=== PATIENT | female | born 1980 | race Caucasian/White ===

== ENCOUNTER 2017-10-20 13:07 | Inpatient (IN) | payer MEDICAID, OTHER ==
[2017-10-20 14:31] LABS: HEMATOCRIT 38.2 % (36.0-47.0); HEMOGLOBIN 13.4 g/dl (12.0-15.5); MEAN CORPUSCULAR HEMOGLOBIN 29.4 pg (27.0-33.0); MEAN CORPUSCULAR HGB CONC 35.1 g/dl (32.0-36.5); MEAN CORPUSCULAR VOLUME 83.8 fl (80.0-96.0); PLATELET COUNT, AUTOMATED 349 10^3/uL (150-450); RED BLOOD COUNT 4.56 10^6/uL (4.00-5.40); RED CELL DISTRIBUTION WIDTH 12.5 % (11.5-14.5)
[2017-10-20 14:50] LABS: CONTROL LINE HCG INT CTR LINE PRESENT; HCG, SERUM QUALITATIVE NEGATIVE (NEGATIVE)
[2017-10-20 14:53] LABS: AMPHETAMINES LEVEL URINE NEGATIVE (NEGATIVE); BARBITURATES URINE NEGATIVE (NEGATIVE); BENZODIAZEPINES URINE NEGATIVE (NEGATIVE); CANNABINOIDS URINE NEGATIVE (NEGATIVE); COCAINE METABOLITE URINE NEGATIVE (NEGATIVE); METHADONE URINE NEGATIVE (NEGATIVE); OPIATES URINE NEGATIVE (NEGATIVE); PHENCYCLIDINE URINE NEGATIVE (NEGATIVE)
[2017-10-20 15:07] LABS: ACETAMINOPHEN LEVEL < 2.0 UG/ML (10.0-30.0); ALBUMIN 4.1 GM/DL (3.2-5.2); ALBUMIN/GLOBULIN RATIO 1.03 (1.00-1.93); ALKALINE PHOSPHATASE 77 U/L (45-117); ALT/SGPT 17 U/L (12-78); ANION GAP 9 MEQ/L (8-16); AST/SGOT 7 U/L (7-37); BILIRUBIN,DIRECT 0.1 MG/DL (0.0-0.2); BILIRUBIN,TOTAL 0.4 MG/DL (0.2-1.0); BLOOD UREA NITROGEN 10 MG/DL (7-18); CALCIUM LEVEL 9.4 MG/DL (8.5-10.1); CARBON DIOXIDE LEVEL 25 MEQ/L (21-32); CHLORIDE LEVEL 103 MEQ/L (98-107); CREATININE FOR GFR 0.69 MG/DL (0.55-1.30); ETHYL ALCOHOL (ETHANOL) < 0.003 % (0.000-0.010); GLOMERULAR FILTRATION RATE > 60.0 (>60); GLUCOSE, FASTING 297 MG/DL (70-100); POTASSIUM SERUM 4.3 MEQ/L (3.5-5.1); SALICYLATE LEVEL < 1.7 MG/DL (5.0-30.0); SODIUM LEVEL 137 MEQ/L (136-145); THYROID STIMULATING HORMONE 0.692 uIU/ML (0.358-3.740); TOTAL PROTEIN 8.1 GM/DL (6.4-8.2)
[2017-10-20 18:18] LABS: ESTIMATED AVERAGE GLUCOSE 263 MG/DL (60-110); HEMOGLOBIN A1c 10.8 %
[2017-10-20] MEDS ORDERED: GLUCOSE 4 GM CHEW TABLET PO (20:30)
[2017-10-20] MEDS ORDERED: GLUCAGON FOR INJ 1 MG VIAL (J1610) SC (20:30)
[2017-10-20] MEDS ORDERED: MAALOX 30 ML SUSP *UDC PO (20:30)
[2017-10-20] MEDS ORDERED: MOM 30ML SUSPENSION UDC PO (20:30)
[2017-10-20] MEDS ORDERED: DEXTROSE 50% 50 ML SYRINGE IV (20:30)
[2017-10-20] MEDS: traZODone 50 MG TAB PO (22:45)
[2017-10-20] MEDS: HumaLOG INSULIN (NovoLOG) PER UNIT SC (22:47)
[2017-10-20 22:48] LABS: BEDSIDE GLUCOSE 298 MG/DL (70-105)
[2017-10-21 05:51] LABS: BEDSIDE GLUCOSE 191 MG/DL (70-105)
[2017-10-21 06:55] LABS: BEDSIDE GLUCOSE 236 MG/DL (70-105)
[2017-10-21] MEDS: HumaLOG INSULIN (NovoLOG) PER UNIT SC ×4 (06:57→21:03)
[2017-10-21] MEDS: INFLUENZA QUADRIVALENT PF VACCINE 0.5ML SYRINGE (90686) IM (08:47)
[2017-10-21 11:53] LABS: BEDSIDE GLUCOSE 333 MG/DL (70-105)
[2017-10-21] MEDS: FLUoxetine 10 MG CAP PO (15:43)
[2017-10-21 17:06] LABS: BEDSIDE GLUCOSE 349 MG/DL (70-105)
[2017-10-21 20:26] LABS: BEDSIDE GLUCOSE 307 MG/DL (70-105)
[2017-10-21] MEDS: ACETAMINOPHEN TAB 650MG DOSE (2X325MG) PO (20:27)
[2017-10-21] MEDS: traZODone 50 MG TAB PO (20:59)
[2017-10-22 06:21] LABS: BEDSIDE GLUCOSE 250 MG/DL (70-105)
[2017-10-22] MEDS: HumaLOG INSULIN (NovoLOG) PER UNIT SC ×4 (06:26→21:03)
[2017-10-22 07:43] LABS: BASO % 0.2 % (0.0-1.0); EOS % 0.7 % (0.0-3.0); HEMATOCRIT 34.8 % (36.0-47.0); IMMATURE GRANULOCYTE % 0.3 % (0-3.0); LYMPH # 2.7 10^3/uL (1.5-4.5); LYMPH % 43.3 % (24.0-44.0); MEAN CORPUSCULAR HEMOGLOBIN 29.4 pg (27.0-33.0); MEAN CORPUSCULAR HGB CONC 34.5 g/dl (32.0-36.5); MEAN CORPUSCULAR VOLUME 85.3 fl (80.0-96.0); MONO # 0.3 10^3/uL (0.0-0.8); MONO % 4.2 % (0.0-5.0); NEUTROPHILS # 3.2 10^3/uL (1.8-7.7); NEUTROPHILS % 51.3 % (36.0-66.0); PLATELET COUNT, AUTOMATED 304 10^3/uL (150-450); RED BLOOD COUNT 4.08 10^6/uL (4.00-5.40); RED CELL DISTRIBUTION WIDTH 12.7 % (11.5-14.5); WHITE BLOOD COUNT 6.2 10^3/uL (4.0-10.0)
[2017-10-22 08:09] LABS: ALBUMIN 3.3 GM/DL (3.2-5.2); ALBUMIN/GLOBULIN RATIO 0.92 (1.00-1.93); ALKALINE PHOSPHATASE 62 U/L (45-117); ALT/SGPT 13 U/L (12-78); ANION GAP 6 MEQ/L (8-16); AST/SGOT < 3 U/L (7-37); BILIRUBIN,TOTAL 0.2 MG/DL (0.2-1.0); BLOOD UREA NITROGEN 19 MG/DL (7-18); CALCIUM LEVEL 9.3 MG/DL (8.5-10.1); CARBON DIOXIDE LEVEL 24 MEQ/L (21-32); CHLORIDE LEVEL 108 MEQ/L (98-107); CREATININE FOR GFR 0.68 MG/DL (0.55-1.30); GLOMERULAR FILTRATION RATE > 60.0 (>60); GLUCOSE, FASTING 196 MG/DL (70-100); POTASSIUM SERUM 4.1 MEQ/L (3.5-5.1); SODIUM LEVEL 138 MEQ/L (136-145); TOTAL PROTEIN 6.9 GM/DL (6.4-8.2)
[2017-10-22] MEDS: FLUoxetine 10 MG CAP PO (08:34)
[2017-10-22 12:09] LABS: BEDSIDE GLUCOSE 315 MG/DL (70-105)
[2017-10-22 16:59] LABS: BEDSIDE GLUCOSE 258 MG/DL (70-105)
[2017-10-22] MEDS: traZODone 50 MG TAB PO (20:58)
[2017-10-22 21:03] LABS: BEDSIDE GLUCOSE 277 MG/DL (70-105)
[2017-10-22] MEDS: LEVEMIR (INSULIN DETEMIR) 1 UNITS/0.01ML SC (21:56)
[2017-10-23 06:22] LABS: BEDSIDE GLUCOSE 219 MG/DL (70-105)
[2017-10-23] MEDS: HumaLOG INSULIN (NovoLOG) PER UNIT SC ×4 (06:34→20:58)
[2017-10-23] MEDS: FLUoxetine 20 MG CAP PO (10:16)
[2017-10-23 12:30] LABS: BEDSIDE GLUCOSE 238 MG/DL (70-105)
[2017-10-23] MEDS: ACETAMINOPHEN TAB 650MG DOSE (2X325MG) PO (12:36)
[2017-10-23 17:14] LABS: BEDSIDE GLUCOSE 317 MG/DL (70-105)
[2017-10-23] MEDS: traZODone 50 MG TAB PO (20:57)
[2017-10-23] MEDS: LEVEMIR (INSULIN DETEMIR) 1 UNITS/0.01ML SC (20:58)
[2017-10-23 21:01] LABS: BEDSIDE GLUCOSE 317 MG/DL (70-105)
[2017-10-24 06:22] LABS: BEDSIDE GLUCOSE 221 MG/DL (70-105)
[2017-10-24] MEDS: HumaLOG INSULIN (NovoLOG) PER UNIT SC ×4 (06:30→21:00)
[2017-10-24] MEDS: FLUoxetine 20 MG CAP PO (08:22)
[2017-10-24 12:02] LABS: BEDSIDE GLUCOSE 276 MG/DL (70-105)
[2017-10-24 17:28] LABS: BEDSIDE GLUCOSE 275 MG/DL (70-105)
[2017-10-24 21:03] LABS: BEDSIDE GLUCOSE 244 MG/DL (70-105)
[2017-10-24] MEDS: traZODone 50 MG TAB PO (21:03)
[2017-10-24] MEDS: LEVEMIR (INSULIN DETEMIR) 1 UNITS/0.01ML SC (21:04)
[2017-10-25 06:28] LABS: BEDSIDE GLUCOSE 219 MG/DL (70-105)
[2017-10-25] MEDS: HumaLOG INSULIN (NovoLOG) PER UNIT SC ×4 (06:42→22:05)
[2017-10-25] MEDS: FLUoxetine 20 MG CAP PO (07:55)
[2017-10-25 12:16] LABS: BEDSIDE GLUCOSE 288 MG/DL (70-105)
[2017-10-25 17:27] LABS: BEDSIDE GLUCOSE 276 MG/DL (70-105)
[2017-10-25 21:27] LABS: BEDSIDE GLUCOSE 269 MG/DL (70-105)
[2017-10-25] MEDS: traZODone 50 MG TAB PO (21:29)
[2017-10-25] MEDS: LEVEMIR (INSULIN DETEMIR) 1 UNITS/0.01ML SC (22:06)
[2017-10-26 06:39] LABS: BEDSIDE GLUCOSE 167 MG/DL (70-105)
[2017-10-26] MEDS: HumaLOG INSULIN (NovoLOG) PER UNIT SC ×2 (07:06→12:14)
[2017-10-26] MEDS: FLUoxetine 20 MG CAP PO (08:01)
[2017-10-26 11:54] LABS: BEDSIDE GLUCOSE 228 MG/DL (70-105)
== END 2017-10-26 13:55 | disposition home or self-care (01) | DRG 751 ==
LOC: M ED 13:07 → M ED INP 20:22 → M PSY 21:33
DX: F33.2 Major depressive disorder, recurrent severe without psychotic features (principal); E10.9 Type 1 diabetes mellitus without complications; J45.990 Exercise induced bronchospasm; Z79.899 Other long term (current) drug therapy

== ENCOUNTER → 2019-07-24 | Outpatient (REF) | payer MEDICAID ==
[~2019-07-24] MED LIST: FLUO20CA22 PO; TRAZ1TAB10 PO
== END ==
LOC: M LAB REF 14:59
PROVIDERS: ATTEND Nurse Practitioner Family
DX: E11.65 Type 2 diabetes mellitus with hyperglycemia (principal)

== ENCOUNTER → 2020-03-06 | Outpatient (CLI) | payer OTHER ==
--- NOTE | 2020-03-10 13:14 | SLEEPCENT ---
NOCTURNAL POLYSOMNOGRAPHY DATE: 03/06/2020 ORDERED BY: KARLENE Parsons Nocturnal polysomnography was performed for evaluation of sleep physiology in this patient with a history of nonrestorative sleep and excessive somnolence. 9 hours and 24 minutes of data were reviewed. There were 460.5 minutes of sleep identified. Sleep latency was prolonged at 39 minutes. REM latency was prolonged at 195 minutes. Sleep architecture once established was good. There were four REM cycles noted. Overall sleep efficiency was 82.5%. The patient's electrocardiogram showed a sinus rhythm with an average heart rate of 92 beats per minute. Rate range 84 to 104. There were occasional PVCs seen. EEG showed reasonably normal waveforms for wake and sleep. There were no focal events identified. There were only four obstructive respiratory events identified of 10 seconds in duration or greater for an apnea-hypopnea index within normal limits at 0.5. Loud snoring was, however, noted and arousals from respiratory events when snoring was included occurred 2.7 times per hour. There were no significant oxygen desaturations appreciated and scattered limb activity was appreciated, but no trains of events. IMPRESSION: Normal nocturnal polysomnography with snoring.
== END ==
LOC: M SLEEP 20:00
PROVIDERS: ATTEND Physician Assistant
DX: R40.0 Somnolence (principal); R06.83 Snoring

== ENCOUNTER → 2020-12-15 | Outpatient (CLI) | payer OTHER ==
[~2020-12-15] MED LIST changes: +GLIP5TAB8 PO; +LANTINJ4 SC
--- NOTE | 2020-12-15 14:12 | REP ---
INDICATION: RT FOOT WOUND WITH NONCOMPRESSIBLE BIGG'S COMPARISON: None. TECHNIQUE: Real-time sonographic evaluation of the right lower extremity arteries with Doppler FINDINGS: All numeric values represent peak systolic velocities in cm/SEC The ankle brachial index is 1.16. 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 No significant stenosis was identified. An ankle brachial index was also obtained on the left which is 1.16 IMPRESSION: As above <Electronically signed by Misael Copeland > 12/15/20 [id number]
== END ==
LOC: M RAD 10:20
PROVIDERS: ATTEND Physician Assistant
DX: E10.621 Type 1 diabetes mellitus with foot ulcer (principal); L97.412 Non-pressure chronic ulcer of right heel and midfoot with fat layer exposed; I70.234 Atherosclerosis of native arteries of right leg with ulceration of heel and midfoot; E10.51 Type 1 diabetes mellitus with diabetic peripheral angiopathy without gangrene

== ENCOUNTER 2020-12-16 15:14 | Inpatient (IN) | payer OTHER ==
[~2020-12-16] VITALS: Ht 165.1 cm; Wt 78.5 kg
[~2020-12-16 15:14] MED LIST changes: -GLIP5TAB8 PO; -LANTINJ4 SC; +VANCOMYCIN HCL 1,000 MG, VIAL MATE ADAPTER 1 EACH in NS 250 ML IV SCH
[2020-12-16] MEDS ORDERED: ACETAMINOPHEN 500 MG TAB PO ONE (20:15)
[2020-12-16] MEDS ORDERED: NS 1,000 ML IV ONE (20:45)
[2020-12-16 20:51] LABS: BASO % 0.4 % (0.0-1.0); EOS % 0.3 % (0.0-3.0); HEMATOCRIT 30.1 % (36.0-47.0); HEMOGLOBIN 9.8 g/dl (12.0-15.5); LYMPH # 2.1 10^3/uL (1.5-5.0); LYMPH % 18.4 % (24.0-44.0); MEAN CORPUSCULAR HEMOGLOBIN 27.4 pg (27.0-33.0); MEAN CORPUSCULAR HGB CONC 32.6 g/dl (32.0-36.5); MEAN CORPUSCULAR VOLUME 84.1 fl (80.0-96.0); MONO # 0.6 10^3/uL (0.0-0.8); MONO % 5.4 % (2.0-8.0); NEUTROPHILS # 8.4 10^3/uL (1.5-8.5); NEUTROPHILS % 74.4 % (36.0-66.0); PLATELET COUNT, AUTOMATED 447 10^3/uL (150-450); RED BLOOD COUNT 3.58 10^6/uL (4.00-5.40); WHITE BLOOD COUNT 11.2 10^3/uL (4.0-10.0)
[2020-12-16] MEDS ORDERED: PIPERACILLIN/TAZOBACTAM SOD 3.375 GM in D5W MINI-BAG PLUS 50 ML IV ONE (21:00)
[2020-12-16] MEDS ORDERED: HumaLOG INSULIN (NovoLOG) PER UNIT SC SCH (21:00)
[2020-12-16] MEDS ORDERED: VANCOMYCIN HCL 1,500 MG in NS 250 ML IV ONE (21:00)
[2020-12-16] MEDS ORDERED: GLIP5TAB8 PO (21:03)
[2020-12-16] MEDS ORDERED: LANTINJ4 SC (21:03)
[2020-12-16] MEDS ORDERED: PIPERACILLIN/TAZOBACTAM SOD 4.5 GM in D5W MINI-BAG PLUS 50 ML IV ONE (21:05)
[2020-12-16] MEDS ORDERED: HOME MED LIST COMPLETE! XX SCH (21:05)
[2020-12-16 21:07] LABS: BLOOD UREA NITROGEN 23 MG/DL (7-18); CALCIUM LEVEL 9.2 MG/DL (8.5-10.1); CARBON DIOXIDE LEVEL 28 MEQ/L (21-32); CHLORIDE LEVEL 97 MEQ/L (98-107); CREATININE FOR GFR 1.01 MG/DL (0.55-1.30); GLOMERULAR FILTRATION RATE > 60.0 (>60); GLUCOSE, FASTING 142 MG/DL (70-100); POTASSIUM SERUM 4.2 MEQ/L (3.5-5.1); SODIUM LEVEL 131 MEQ/L (136-145)
[2020-12-16 21:15] LABS: RSV AMPLIFICATION NEGATIVE (NEGATIVE)
[2020-12-16 21:17] LABS: ERYTHROCYTE SEDIMENTATION RATE 117 mm/hr (0-20)
--- NOTE | 2020-12-16 21:29 | REPVR ---
PROCEDURE INFORMATION: Exam: US Duplex Right Lower Extremity Veins, Limited Exam date and time: 12/16/2020 9:01 PM Age: 40 years old Clinical indication: Swelling (edema) of limb; Lower extremity, right; Additional info: R/O dvt rle TECHNIQUE: Imaging protocol: Real-time Duplex ultrasound of the Right Lower Extremity with 2-D seth scale, color Doppler flow and spectral waveform analysis with image documentation. Limited exam was focused on the right lower extremity veins. COMPARISON: US UNI LOW EXTREM ARTERIAL LIMIT 12/15/2020 10:47 AM FINDINGS: Right deep veins: Suboptimal visualization of the calf veins. The common femoral, femoral and popliteal veins are patent without thrombus. Normal Doppler waveforms. Normal compressibility and/or augmentation response. Right superficial veins: Unremarkable. Saphenofemoral junction is patent without thrombus. Soft tissues: Unremarkable. Lymph nodes: Mildly enlarged right inguinal lymph nodes, measuring up to 2.8 x 2.1 0.2 cm, likely reactive. IMPRESSION: 1. No sonographic evidence of deep venous thrombosis. 2. Mildly enlarged right inguinal lymph nodes, likely reactive. Electronically signed by: Yariel Dallas On 12/16/2020 21:29:17 PM
--- NOTE | 2020-12-16 21:38 | REPVR ---
PROCEDURE INFORMATION: Exam: XR Right Foot Exam date and time: 12/16/2020 9:18 PM Age: 40 years old Clinical indication: Pain; Foot; Right; Additional info: R lateral diabetic foot infection/ulcer TECHNIQUE: Imaging protocol: XR Right foot. Views: 3 or more views. COMPARISON: US Duplex, Ext,LOWER veins,unilat RIGHT 12/16/2020 8:36 PM FINDINGS: Bones/joints: No radiographic evidence of acute fracture or dislocation. Alignment anatomic. Prominent erosive/destructive changes in the 5th metatarsal head and distal shaft. Questionable mild erosive/destructive changes in the proximal metaphysis of the 5th proximal phalanx. Soft tissues: Large soft tissue ulceration along the lateral aspect of the 5th metatarsal head with a moderate amount of subjacent soft tissue gas, encircling the metatarsal neck. IMPRESSION: Acute osteomyelitis of the 5th metatarsal and, possibly, the 5th proximal phalanx, as described above. Electronically signed by: Yariel Dallas On 12/16/2020 21:38:11 PM
[2020-12-16 21:45] LABS: HEMOGLOBIN A1c 10.3 %
--- OUTSIDE RECORDS SUMMARY | 2020-12-16 21:47 | CCD ---
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 Active confirmed 854838079 Problem Elevated C-reactive protein (CRP) R79.82 Active confirmed 941389645662140 Problem Paresthesia of skin R20.2 Active confirmed 13358708 Problem Muscle weakness (generalized) M62.81 Active confirm ed 84746999 Problem Sleep disorder, unspecified G47.9 Active confirmed 27987116 ALLERGIES No Known Allergies ENCOUNTERS from 1981 to 2020-12-09 Encounter Location Date Provider Diagnosis [facility] [address] [facility] [address] [facility] [phone] [place] [address] Dec, Radha Mccall IMMUNIZATIONS No Information SOCIAL HISTORY Tobacco Use: Social History Observation Description Date Details (start date - stop date) Never Smoker Sex Assigned At : Social History Observation Description Sex Assigned At Unknown Education: Question Answer Notes Level of Education: Not finished High School Language: Question Answer Notes Languages spoken: Thai Hoahaoism: Question Answer Notes Hoahaoism No cheondoism beliefs that would impact health care. Alcohol Screening: Question Answer Notes Did you have a drink containing alcohol in the past year? No Points 0 Interpretation Negative Tobacco Use: Question Answer Notes Are you a: never smoker REASON FOR REFERRAL No Information VITAL SIGNS No information MEDICATIONS Medication SIG (Take, Route, Frequency, Duration) Notes Start Da te End Date Status Trulicity 0.75 MG/0.5ML Subcutaneous for 28 Not-Taking Vitamin D (Ergocalciferol) 1.25 MG (25127 UT) 1 capsul e Orally Weekly for 30 day(s) Nov, Not-Taking glipiZIDE 5 MG 1 tablet 30 minutes before breakfast Orally BID Active Vitamin D (Cholecalciferol) 50 MCG (2000 UT) 1 capsule Orally Once a day for 30 day(s) Not-Taking Clindamycin HCl 300 MG TAKE ONE CAPSULE BY MOUTH FOUR TIMES A DA Y Oral for 10 Not-Taking Lantus 100 UNIT/ML 40 UNITS Subcutaneous DAILY Active Steglatro 15 MG 1 tablet Orally Once a day for 30 day(s) Not-Taking OneTouch Verio - In Vitro for 13 No t-Taking Doxycycline Hyclate 100 MG 1 capsule Orally Twice a day FINISHES 12/09 Active PROCEDURES No Information RESULTS No Results REASON FOR VISIT U/s MEDICAL (GENERAL) HISTORY Type Description Date Medical History Diabetes Mellitus Medical History Migraines/ Headaches Medical History Asthma Medical History Anxiety Medical History Herpes Genitalis Medical History Chlamydia Surgical History Retina Reattachment 06/2019 Surgical History Tonsillectomy > 20 Years ago Surgical History D&C 2010 Hospitalization History Surgical related Hospitalization History Right Foot wound -[facility] 11/2020 Goals [place] No Information Health Concerns No Information MEDICAL EQUIPMENT No Information MENTAL STATUS No Information FUNCTIONAL STATUS No Information ASSESSMENTS No Information PLAN OF TREATMENT Next Appt Details Provider Name:Radha Colonvins, 12-16 02:00:00 PM, [address], , [place], [address], Insurance Providers Payer Name Payer Address Payer Phone Insured Name Patient Relati onship to Insured Coverage Start Date Coverage End Date [facility] [employer] [address] [facility] [phone] GRAY FARR
--- OUTSIDE RECORDS SUMMARY | 2020-12-16 21:48 | CCD ---
Author Author [facility] Address Unknown Phone Unavailable Care Team Providers Care Yardage Estimator Name Role Phone Beatriz Guerra POWER ELECTRONICS RESEARCH ENGINEER Unavailable Unavailable Jesus DUPONT MD Unavailable Unavailable Jesus DUPONT MD Unavailable Unavailable Jesus DUPONT MD Unavailable Unavailable Jesus DUPONT MD Unavailable Unavailable Jesus DUPONT MD Unavailable Unavailable Jesus DUPONT MD Unavailable Unavailable Leatha, A Shannon POWER ELECTRONICS RESEARCH ENGINEER Unavailable Unavailable Leatha, A Shannon POWER ELECTRONICS RESEARCH ENGINEER Unavailable Unavailable Leatha, A Shannon POWER ELECTRONICS RESEARCH ENGINEER Unavailable Unavailable Leatha, A Shannon POWER ELECTRONICS RESEARCH ENGINEER Unavailable Unavailable Leatha, A Shannon POWER ELECTRONICS RESEARCH ENGINEER Unavailable Unavailable Leatha, A Shannon POWER ELECTRONICS RESEARCH ENGINEER Unavailable Unavailable Leatha, A Shannon POWER ELECTRONICS RESEARCH ENGINEER Unavailable Unavailable Leatha, A Shannon POWER ELECTRONICS RESEARCH ENGINEER Unavailable Unavailable Leatha, A Shannon POWER ELECTRONICS RESEARCH ENGINEER Unavailable Unavailable Leatha, A Shannon POWER ELECTRONICS RESEARCH ENGINEER Unavailable Unavailable Leatha, A Shannon POWER ELECTRONICS RESEARCH ENGINEER Unavailable Unavailable Leatha, A Shannon POWER ELECTRONICS RESEARCH ENGINEER Unavailable Unavailable Leatha, A Shannon POWER ELECTRONICS RESEARCH ENGINEER Unavailable Unavailable Leatha, A Shannon POWER ELECTRONICS RESEARCH ENGINEER Unavailable Unavailable Leatha, A Shannon POWER ELECTRONICS RESEARCH ENGINEER Unavailable Unavailable Leatha, A Shannon POWER ELECTRONICS RESEARCH ENGINEER Unavailable Unavailable Leatha, A Shannon POWER ELECTRONICS RESEARCH ENGINEER Unavailable Unavailable Leatha, A Shannon POWER ELECTRONICS RESEARCH ENGINEER Unavailable Unavailable Leatha, A Shannon POWER ELECTRONICS RESEARCH ENGINEER Unavailable Unavailable Leatha, A Shannon POWER ELECTRONICS RESEARCH ENGINEER Unavailable Unavailable Leatha, A Shannon POWER ELECTRONICS RESEARCH ENGINEER Unavailable Unavailable Leatha, A Shannon POWER ELECTRONICS RESEARCH ENGINEER Unavailable Unavailable Leatha, A Shannon POWER ELECTRONICS RESEARCH ENGINEER Unavailable Unavailable Leatha, A Shannon POWER ELECTRONICS RESEARCH ENGINEER Unavailable Unavailable Leatha, A Shannon POWER ELECTRONICS RESEARCH ENGINEER Unavailable Unavailable Leatha, A Shannon POWER ELECTRONICS RESEARCH ENGINEER Unavailable Unavailable Leatha, A Shannon POWER ELECTRONICS RESEARCH ENGINEER Unavailable Unavailable Leatha, A Shannon POWER ELECTRONICS RESEARCH ENGINEER Unavailable Unavailable Leatha, A Shannon POWER ELECTRONICS RESEARCH ENGINEER Unavailable Unavailable Leatha, A Shannon POWER ELECTRONICS RESEARCH ENGINEER Unavailable Unavailable Leatha, A Shannon POWER ELECTRONICS RESEARCH ENGINEER Unavailable Unavailable Leatha, A Shannon POWER ELECTRONICS RESEARCH ENGINEER Unavailable Unavailable Leatha, A Shannon POWER ELECTRONICS RESEARCH ENGINEER Unavailable Unavailable Leatha, A Shannon POWER ELECTRONICS RESEARCH ENGINEER Unavailable Unavailable Leatha, A Shannon POWER ELECTRONICS RESEARCH ENGINEER Unavailable Unavailable Leatha, A Shannon POWER ELECTRONICS RESEARCH ENGINEER Unavailable Unavailable Leatha, A Shannon POWER ELECTRONICS RESEARCH ENGINEER Unavailable Unavailable Leatha, A Shannon POWER ELECTRONICS RESEARCH ENGINEER Unavailable Unavailable Leatha, A Shannon POWER ELECTRONICS RESEARCH ENGINEER Unavailable Unavailable Leatha, A Shannon POWER ELECTRONICS RESEARCH ENGINEER Unavailable Unavailable Leatha, A Shannon POWER ELECTRONICS RESEARCH ENGINEER Unavailable Unavailable Leatha, A Shannon POWER ELECTRONICS RESEARCH ENGINEER Unavailable Unavailable Leatha, A Shannon POWER ELECTRONICS RESEARCH ENGINEER Unavailable Unavailable Leatha, A Shannon POWER ELECTRONICS RESEARCH ENGINEER Unavailable Unavailable Leatha, A Shannon POWER ELECTRONICS RESEARCH ENGINEER Unavailable Unavailable Leatha, A Shannon POWER ELECTRONICS RESEARCH ENGINEER Unavailable Unavailable Leatha, A Shannon POWER ELECTRONICS RESEARCH ENGINEER Unavailable Unavailable Leatha, A Shannon POWER ELECTRONICS RESEARCH ENGINEER Unavailable Unavailable KHANNA, Gordon BETH MD Unavailable Unavailable KHANNA, Gordon BETH MD Unavailable Unavailable KHANNA, A IGNACIA MD Unavailable Unavailable KHANNA, A IGNACIA MD Unavailable Unavailable KHANNA, A IGNACIA MD Unavailable Unavailable KHANNA, A IGNACIA MD Unavailable Unavailable KHANNA, A IGNACIA MD Unavailable Unavailable KHANNA, A IGNACIA MD Unavailable Unavailable KHANNA, A IGNACIA MD Unavailable Unavailable KHANNA, A IGNACIA MD Unavailable Unavailable KHANNA, A IGNACIA MD Unavailable Unavailable KHANNA, A IGNACIA MD Unavailable Unavailable KHANNA, A IGNACIA MD Unavailable Unavailable KHANNA, A IGNACIA MD Unavailable Unavailable KHANNA, A IGNACIA MD Unavailable Unavailable KHANNA, A IGNACIA MD Unavailable Unavailable KHANNA, A IGNACIA MD Unavailable Unavailable KHANNA, A IGNACIA MD Unavailable Unavailable KHANNA, A IGNACIA MD Unavailable Unavailable KHANNA, A IGNACIA MD Unavailable Unavailable KHANNA, A IGNACIA MD Unavailable Unavailable KHANNA, A IGNACIA MD Unavailable Unavailable KHANNA, A IGNACIA MD Unavailable Unavailable KHANNA, A IGNACIA MD Unavailable Unavailable KHANNA, A IGNACIA MD Unavailable Unavailable KHANNA, A IGNACIA MD Unavailable Unavailable KHANNA, A IGANCIA MD Unavailable Unavailable KHANNA, A IGNACIA MD Unavailable Unavailable KHANNA, A IGNACIA MD Unavailable Unavailable KHANNA, A IGNACIA MD Unavailable Unavailable PITER PETTY Unavailable Unavailable Yazdanyar, Amirfarbod Unavailable Unavailable Yazdanyar, Amirfarbod Unavailable Unavailable Yazdanyar, Amirfarbod Unavailable Unavailable Yazdanyar, Amirfarbod Unavailable Unavailable Yazdanyar, Amirfarbod Unavailable Unavailable Yazdanyar, Amirfarbod Unavailable Unavailable Yazdanyar, Amirfarbod Unavailable Unavailable Yazdanyar, Amirfarbod Unavailable Unavailable Yazdanyar, Amirfarbod Unavailable Unavailable Yazdanyar, Amirfarbod Unavailable Unavailable Yazdanyar, Amirfarbod Unavailable Unavailable Yazdanyar, Amirfarbod Unavailable Unavailable Yazdanyar, Amirfarbod Unavailable Unavailable TERRIE PEREZ MD Unavailable Unavailable TERRIE PEREZ MD Unavailable Unavailable Leatha, A Shannon POWER ELECTRONICS RESEARCH ENGINEER Unavailable Unavailable Leatha, A Shannon POWER ELECTRONICS RESEARCH ENGINEER Unavailable Unavailable Leatha, A Shannon POWER ELECTRONICS RESEARCH ENGINEER Unavailable Unavailable Leatha, A Shannon POWER ELECTRONICS RESEARCH ENGINEER Unavailable Unavailable Leatha, A Shannon POWER ELECTRONICS RESEARCH ENGINEER Unavailable Unavailable Leatha, A Shannon POWER ELECTRONICS RESEARCH ENGINEER Unavailable Unavailable Leatha, A Shannon POWER ELECTRONICS RESEARCH ENGINEER Unavailable Unavailable Leatha, A Shannon POWER ELECTRONICS RESEARCH ENGINEER Unavailable Unavailable Leatha, A Shannon POWER ELECTRONICS RESEARCH ENGINEER Unavailable Unavailable Leatha, A Shannon POWER ELECTRONICS RESEARCH ENGINEER Unavailable Unavailable Leatha, A Shannon POWER ELECTRONICS RESEARCH ENGINEER Unavailable Unavailable Leatha, A Shannon POWER ELECTRONICS RESEARCH ENGINEER Unavailable Unavailable Leatha, A Shannon POWER ELECTRONICS RESEARCH ENGINEER Unavailable Unavailable Leatha, A Shannon POWER ELECTRONICS RESEARCH ENGINEER Unavailable Unavailable Leatha, A Shannon POWER ELECTRONICS RESEARCH ENGINEER Unavailable Unavailable Leatha, A Shannon POWER ELECTRONICS RESEARCH ENGINEER Unavailable Unavailable Leatha, A Shannon POWER ELECTRONICS RESEARCH ENGINEER Unavailable Unavailable Leatha, A Shannon POWER ELECTRONICS RESEARCH ENGINEER Unavailable Unavailable Leatha, A Shannon POWER ELECTRONICS RESEARCH ENGINEER Unavailable Unavailable Leatha, A Shannon POWER ELECTRONICS RESEARCH ENGINEER Unavailable Unavailable Leatha, A Shannon POWER ELECTRONICS RESEARCH ENGINEER Unavailable Unavailable Leatha, A Shannon POWER ELECTRONICS RESEARCH ENGINEER Unavailable Unavailable Leatha, A Shannon POWER ELECTRONICS RESEARCH ENGINEER Unavailable Unavailable Leatha, A Shannon POWER ELECTRONICS RESEARCH ENGINEER Unavailable Unavailable Leatha, A Shannon POWER ELECTRONICS RESEARCH ENGINEER Unavailable Unavailable Leatha, A Shannon POWER ELECTRONICS RESEARCH ENGINEER Unavailable Unavailable Leatha, A Shannon POWER ELECTRONICS RESEARCH ENGINEER Unavailable Unavailable Leatha, A Shannon POWER ELECTRONICS RESEARCH ENGINEER Unavailable Unavailable Leatha, A Shannon POWER ELECTRONICS RESEARCH ENGINEER Unavailable Unavailable Leatha, A Shannon POWER ELECTRONICS RESEARCH ENGINEER Unavailable Unavailable Leatha, A Shannon POWER ELECTRONICS RESEARCH ENGINEER Unavailable Unavailable Leatha, A Shannon POWER ELECTRONICS RESEARCH ENGINEER Unavailable Unavailable Leatha, A Shannon POWER ELECTRONICS RESEARCH ENGINEER Unavailable Unavailable Leatha, A Shannon POWER ELECTRONICS RESEARCH ENGINEER Unavailable Unavailable Leatha, A Shannon POWER ELECTRONICS RESEARCH ENGINEER Unavailable Unavailable Leatha, A Shannon POWER ELECTRONICS RESEARCH ENGINEER Unavailable Unavailable Leatha, A Shannon POWER ELECTRONICS RESEARCH ENGINEER Unavailable Unavailable Leatha, A Shannon POWER ELECTRONICS RESEARCH ENGINEER Unavailable Unavailable Leatha, A Shannon POWER ELECTRONICS RESEARCH ENGINEER Unavailable Unavailable Leatha, A Shannon POWER ELECTRONICS RESEARCH ENGINEER Unavailable Unavailable Leatha, A Shannon POWER ELECTRONICS RESEARCH ENGINEER Unavailable Unavailable Leatha, A Shannon POWER ELECTRONICS RESEARCH ENGINEER Unavailable Unavailable Leatha, A Shannon POWER ELECTRONICS RESEARCH ENGINEER Unavailable Unavailable Leatha, A Shannon POWER ELECTRONICS RESEARCH ENGINEER Unavailable Unavailable Leatha, A Shannon POWER ELECTRONICS RESEARCH ENGINEER Unavailable Unavailable Leatha, A Shannon POWER ELECTRONICS RESEARCH ENGINEER Unavailable Unavailable Leatha, A Shannon POWER ELECTRONICS RESEARCH ENGINEER Unavailable Unavailable Leatha, A Shannon POWER ELECTRONICS RESEARCH ENGINEER Unavailable Unavailable MEYERS, M KOBE PA Unavailable Unavailable MEYERS, M KOBE PA Unavailable Unavailable MEYERS, M KOBE PA Unavailable Unavailable MEYERS, M KOBE PA Unavailable Unavailable MEYERS, M KOBE PA Unavailable Unavailable MEYERS, M KOBE PA Unavailable Unavailable MEYERS, M KOBE PA Unavailable Unavailable MEYERS, M KOBE PA Unavailable Unavailable MEYERS, M KOBE PA Unavailable Unavailable MEYERS, M KOBE PA Unavailable Unavailable MEYERS, M KOBE PA Unavailable Unavailable MEYERS, M KOBE PA Unavailable Unavailable MEYERS, M KOBE PA Unavailable Unavailable MEYERS, M KOBE PA Unavailable Unavailable MEYERS, M KOBE PA Unavailable Unavailable MEYERS, M KOBE PA Unavailable Unavailable MEYERS, M KOBE PA Unavailable Unavailable MEYERS, M KOBE PA Unavailable Unavailable MEYERS, M KOBE PA Unavailable Unavailable MEYERS, M KOBE PA Unavailable Unavailable MEYERS, M KOBE PA Unavailable Unavailable MEYERS, M KOBE PA Unavailable Unavailable MEYERS, M KOBE PA Unavailable Unavailable MEYERS, M KOBE PA Unavailable Unavailable MEYERS, M KOBE PA Unavailable Unavailable MEYERS, M KOBE PA Unavailable Unavailable MEYERS, M KOBE PA Unavailable Unavailable MEYERS, M KOBE PA Unavailable Unavailable MEYERS, M KOBE PA Unavailable Unavailable MEYERS, M KOBE PA Unavailable Unavailable MEYERS, M KOEB PA Unavailable Unavailable MEYERS, M KOBE PA Unavailable Unavailable MEYERS, M KOBE PA Unavailable Unavailable MEYERS, M KOBE PA Unavailable Unavailable MEYERS, M KOBE PA Unavailable Unavailable GRANADOS, B JOSE Unavailable Unavailable ROBERT LEON MD Unavailable Unavailable ROBERT LEON MD Unavailable Unavailable ROBERT LEON MD Unavailable Unavailable ROBERT LEON MD Unavailable Unavailable ROBERT LEON MD Unavailable Unavailable ROBERT LEON MD Unavailable Unavailable ROBERT LEON MD Unavailable Unavailable ROBERT LEON MD Unavailable Unavailable CARLYLE SIMEON MD Unavailable Unavailable LINCOLN, B EDVIN POWER ELECTRONICS RESEARCH ENGINEER Unavailable Unavailable LINCOLN, B EDVIN POWER ELECTRONICS RESEARCH ENGINEER Unavailable Unavailable LINCOLN, B EDVIN POWER ELECTRONICS RESEARCH ENGINEER Unavailable Unavailable LINCOLN, B EDVIN POWER ELECTRONICS RESEARCH ENGINEER Unavailable Unavailable LINCOLN, B EDVIN POWER ELECTRONICS RESEARCH ENGINEER Unavailable Unavailable LINCOLN, B EDVIN POWER ELECTRONICS RESEARCH ENGINEER Unavailable Unavailable LINCOLN, B EDVIN POWER ELECTRONICS RESEARCH ENGINEER Unavailable Unavailable LINCOLN, B EDVIN POWER ELECTRONICS RESEARCH ENGINEER Unavailable Unavailable LINCOLN, B EDVIN POWER ELECTRONICS RESEARCH ENGINEER Unavailable Unavailable LINCOLN, B EDVIN POWER ELECTRONICS RESEARCH ENGINEER Unavailable Unavailable LINCOLN, B EDVIN POWER ELECTRONICS RESEARCH ENGINEER Unavailable Unavailable LINCOLN, B EDVIN POWER ELECTRONICS RESEARCH ENGINEER Unavailable Unavailable LINCOLN, B EDVIN POWER ELECTRONICS RESEARCH ENGINEER Unavailable Unavailable LINCOLN, B EDVIN POWER ELECTRONICS RESEARCH ENGINEER Unavailable Unavailable LINCOLN, B EDVIN POWER ELECTRONICS RESEARCH ENGINEER Unavailable Unavailable LINCOLN, B EDVIN POWER ELECTRONICS RESEARCH ENGINEER Unavailable Unavailable LINCOLN, B EDVIN POWER ELECTRONICS RESEARCH ENGINEER Unavailable Unavailable LINCOLN, B EDVIN POWER ELECTRONICS RESEARCH ENGINEER Unavailable Unavailable LINCOLN, B EDVIN POWER ELECTRONICS RESEARCH ENGINEER Unavailable Unavailable LINCOLN, B EDVIN POWER ELECTRONICS RESEARCH ENGINEER Unavailable Unavailable LINCOLN, B EDVIN POWER ELECTRONICS RESEARCH ENGINEER Unavailable Unavailable LINCOLN, B EDVIN POWER ELECTRONICS RESEARCH ENGINEER Unavailable Unavailable LINCOLN, B EDVIN POWER ELECTRONICS RESEARCH ENGINEER Unavailable Unavailable LINCOLN, B EDVIN POWER ELECTRONICS RESEARCH ENGINEER Unavailable Unavailable LINCOLN, B EDVIN POWER ELECTRONICS RESEARCH ENGINEER Unavailable Unavailable LINCOLN, B EDVIN POWER ELECTRONICS RESEARCH ENGINEER Unavailable Unavailable LINCOLN, B EDVIN POWER ELECTRONICS RESEARCH ENGINEER Unavailable Unavailable LINCOLN, B EDVIN POWER ELECTRONICS RESEARCH ENGINEER Unavailable Unavailable LINCOLN, B EDVIN POWER ELECTRONICS RESEARCH ENGINEER Unavailable Unavailable LINCOLN, B EDVIN POWER ELECTRONICS RESEARCH ENGINEER Unavailable Unavailable LINCOLN, B EDVIN POWER ELECTRONICS RESEARCH ENGINEER Unavailable Unavailable LINCOLN, B EDVIN POWER ELECTRONICS RESEARCH ENGINEER Unavailable Unavailable LINCOLN, B EDVIN POWER ELECTRONICS RESEARCH ENGINEER Unavailable Unavailable LINCOLN, B EDVIN POWER ELECTRONICS RESEARCH ENGINEER Unavailable Unavailable LINCOLN, B EDVIN POWER ELECTRONICS RESEARCH ENGINEER Unavailable Unavailable LINCOLN, B EDVIN POWER ELECTRONICS RESEARCH ENGINEER Unavailable Unavailable LINCOLN, B EDVIN POWER ELECTRONICS RESEARCH ENGINEER Unavailable Unavailable LINCOLN, B EDVIN POWER ELECTRONICS RESEARCH ENGINEER Unavailable Unavailable LINCOLN, B EDVIN POWER ELECTRONICS RESEARCH ENGINEER Unavailable Unavailable LINCOLN, B EDVIN POWER ELECTRONICS RESEARCH ENGINEER Unavailable Unavailable LINCOLN, B EDVIN POWER ELECTRONICS RESEARCH ENGINEER Unavailable Unavailable LINCOLN, B EDVIN POWER ELECTRONICS RESEARCH ENGINEER Unavailable Unavailable LINCOLN, B EDVIN POWER ELECTRONICS RESEARCH ENGINEER Unavailable Unavailable LINCOLN, B EDVIN POWER ELECTRONICS RESEARCH ENGINEER Unavailable Unavailable LINCOLN, B EDVIN POWER ELECTRONICS RESEARCH ENGINEER Unavailable Unavailable LINCOLN, B EDVIN POWER ELECTRONICS RESEARCH ENGINEER Unavailable Unavailable LINCOLN, B EDVIN POWER ELECTRONICS RESEARCH ENGINEER Unavailable Unavailable LINCOLN, B EDVIN POWER ELECTRONICS RESEARCH ENGINEER Unavailable Unavailable LINCOLN, B EDVIN POWER ELECTRONICS RESEARCH ENGINEER Unavailable Unavailable LINCOLN, B EDVIN POWER ELECTRONICS RESEARCH ENGINEER Unavailable Unavailable LINCOLN, B EDVIN POWER ELECTRONICS RESEARCH ENGINEER Unavailable Unavailable LINCOLN, B EDVIN POWER ELECTRONICS RESEARCH ENGINEER Unavailable Unavailable LINCOLN, B EDVIN POWER ELECTRONICS RESEARCH ENGINEER Unavailable Unavailable LINCOLN, B EDVIN POWER ELECTRONICS RESEARCH ENGINEER Unavailable Unavailable LINCOLN, B EDVIN POWER ELECTRONICS RESEARCH ENGINEER Unavailable Unavailable LINCOLN, B EDVIN POWER ELECTRONICS RESEARCH ENGINEER Unavailable Unavailable LINCOLN, B EDVIN POWER ELECTRONICS RESEARCH ENGINEER Unavailable Unavailable LINCOLN, B EDVIN POWER ELECTRONICS RESEARCH ENGINEER Unavailable Unavailable LINCOLN, B EDVIN POWER ELECTRONICS RESEARCH ENGINEER Unavailable Unavailable LINCOLN, B EDVIN POWER ELECTRONICS RESEARCH ENGINEER Unavailable Unavailable LINCOLN, B EDVIN POWER ELECTRONICS RESEARCH ENGINEER Unavailable Unavailable LINCOLN, B EDVIN POWER ELECTRONICS RESEARCH ENGINEER Unavailable Unavailable LINCOLN, B EDVIN POWER ELECTRONICS RESEARCH ENGINEER Unavailable Unavailable LINCOLN, B EDVIN POWER ELECTRONICS RESEARCH ENGINEER Unavailable Unavailable LINCOLN, B EDVIN POWER ELECTRONICS RESEARCH ENGINEER Unavailable Unavailable LINCOLN, B EDVIN POWER ELECTRONICS RESEARCH ENGINEER Unavailable Unavailable LINCOLN, B EDVIN POWER ELECTRONICS RESEARCH ENGINEER Unavailable Unavailable LINCOLN, B EDVIN POWER ELECTRONICS RESEARCH ENGINEER Unavailable Unavailable LINCOLN, B EDVIN POWER ELECTRONICS RESEARCH ENGINEER Unavailable Unavailable LINCOLN, B EDVIN POWER ELECTRONICS RESEARCH ENGINEER Unavailable Unavailable LINCOLN, B EDVIN POWER ELECTRONICS RESEARCH ENGINEER Unavailable Unavailable LINCOLN, B EDVIN POWER ELECTRONICS RESEARCH ENGINEER Unavailable Unavailable LINCOLN, B EDVIN POWER ELECTRONICS RESEARCH ENGINEER Unavailable Unavailable LINCOLN, B EDVIN POWER ELECTRONICS RESEARCH ENGINEER Unavailable Unavailable LINCOLN, B EDVIN POWER ELECTRONICS RESEARCH ENGINEER Unavailable Unavailable LINCOLN, B EDVIN POWER ELECTRONICS RESEARCH ENGINEER Unavailable Unavailable LINCOLN, B EDVIN POWER ELECTRONICS RESEARCH ENGINEER Unavailable Unavailable LINCOLN, B EDVIN POWER ELECTRONICS RESEARCH ENGINEER Unavailable Unavailable LINCOLN, B EDVIN POWER ELECTRONICS RESEARCH ENGINEER Unavailable Unavailable LINCOLN, B EDVIN POWER ELECTRONICS RESEARCH ENGINEER Unavailable Unavailable LINCOLN, B EDVIN POWER ELECTRONICS RESEARCH ENGINEER Unavailable Unavailable LINCOLN, B EDVIN POWER ELECTRONICS RESEARCH ENGINEER Unavailable Unavailable LINCOLN, B EDVIN POWER ELECTRONICS RESEARCH ENGINEER Unavailable Unavailable LINCOLN, B EDVIN POWER ELECTRONICS RESEARCH ENGINEER Unavailable Unavailable LINCOLN, B EDVIN POWER ELECTRONICS RESEARCH ENGINEER Unavailable Unavailable LINCOLN, B EDVIN POWER ELECTRONICS RESEARCH ENGINEER Unavailable Unavailable LINCOLN, B EDVIN POWER ELECTRONICS RESEARCH ENGINEER Unavailable Unavailable LINCOLN, B EDVIN POWER ELECTRONICS RESEARCH ENGINEER Unavailable Unavailable LINCOLN, B EDVIN POWER ELECTRONICS RESEARCH ENGINEER Unavailable Unavailable LINCOLN, B EDVIN POWER ELECTRONICS RESEARCH ENGINEER Unavailable Unavailable LINCOLN, B EDVIN POWER ELECTRONICS RESEARCH ENGINEER Unavailable Unavailable LINCOLN, B EDVIN POWER ELECTRONICS RESEARCH ENGINEER Unavailable Unavailable LINCOLN, B EDVIN POWER ELECTRONICS RESEARCH ENGINEER Unavailable Unavailable LINCOLN, B EDVIN POWER ELECTRONICS RESEARCH ENGINEER Unavailable Unavailable LINCOLN, B EDVIN POWER ELECTRONICS RESEARCH ENGINEER Unavailable Unavailable LINCOLN, B EDVIN POWER ELECTRONICS RESEARCH ENGINEER Unavailable Unavailable LINCOLN, B EDVIN POWER ELECTRONICS RESEARCH ENGINEER Unavailable Unavailable LINCOLN, B EDVIN POWER ELECTRONICS RESEARCH ENGINEER Unavailable Unavailable LINCOLN, B EDVIN POWER ELECTRONICS RESEARCH ENGINEER Unavailable Unavailable LINCOLN, B EDVIN POWER ELECTRONICS RESEARCH ENGINEER Unavailable Unavailable LINCOLN, B EDVIN POWER ELECTRONICS RESEARCH ENGINEER Unavailable Unavailable LINCOLN, B EDVIN POWER ELECTRONICS RESEARCH ENGINEER Unavailable Unavailable LINCOLN, B EDVIN POWER ELECTRONICS RESEARCH ENGINEER Unavailable Unavailable LINCOLN, B EDVIN POWER ELECTRONICS RESEARCH ENGINEER Unavailable Unavailable LINCOLN, B EDVIN POWER ELECTRONICS RESEARCH ENGINEER Unavailable Unavailable LINCOLN, B EDVIN POWER ELECTRONICS RESEARCH ENGINEER Unavailable Unavailable LINCOLN, B EDVIN POWER ELECTRONICS RESEARCH ENGINEER Unavailable Unavailable LINCOLN, B EDVIN POWER ELECTRONICS RESEARCH ENGINEER Unavailable Unavailable LINCOLN, B EDVIN POWER ELECTRONICS RESEARCH ENGINEER Unavailable Unavailable LICNOLN, B EDVIN POWER ELECTRONICS RESEARCH ENGINEER Unavailable Unavailable LINCOLN, B EDVIN POWER ELECTRONICS RESEARCH ENGINEER Unavailable Unavailable LINCOLN, B EDVIN POWER ELECTRONICS RESEARCH ENGINEER Unavailable Unavailable LINCONL, B EDVIN POWER ELECTRONICS RESEARCH ENGINEER Unavailable Unavailable LINCOLN, B EDVIN POWER ELECTRONICS RESEARCH ENGINEER Unavailable Unavailable LINCOLN, B EDVIN POWER ELECTRONICS RESEARCH ENGINEER Unavailable Unavailable LINCOLN, B EDVIN POWER ELECTRONICS RESEARCH ENGINEER Unavailable Unavailable LINCOLN, B EDVIN POWER ELECTRONICS RESEARCH ENGINEER Unavailable Unavailable LINCOLN, B EDVIN POWER ELECTRONICS RESEARCH ENGINEER Unavailable Unavailable LINCOLN, B EDVIN POWER ELECTRONICS RESEARCH ENGINEER Unavailable Unavailable LINCOLN, B EDVIN POWER ELECTRONICS RESEARCH ENGINEER Unavailable Unavailable LINCOLN, B EDVIN POWER ELECTRONICS RESEARCH ENGINEER Unavailable Unavailable LINCOLN, B EDVIN POWER ELECTRONICS RESEARCH ENGINEER Unavailable Unavailable LINCOLN, B EDVIN POWER ELECTRONICS RESEARCH ENGINEER Unavailable Unavailable LINCOLN, B EDVIN POWER ELECTRONICS RESEARCH ENGINEER Unavailable Unavailable James Julian MD Unavailable Unavailable James Julian MD Unavailable Unavailable Julian E Dahiana MD Unavailable Unavailable Julian, E Dahiana ARREDONDO Unavailable Unavailable Julian, E Dahiana ARREDONDO Unavailable Unavailable James Julian MD Unavailable Unavailable James Julian MD Unavailable Unavailable James Julian MD Unavailable Unavailable James Julian MD Unavailable Unavailable Julian, E Dahiana ARREDONDO Unavailable Unavailable Eliel E Dahiana ARREDONDO Unavailable Unavailable Julian, E Dahiana ARREDONDO Unavailable Unavailable James Julian MD Unavailable Unavailable James Julian MD Unavailable Unavailable James Julian MD Unavailable Unavailable James Julian MD Unavailable Unavailable James Julian MD Unavailable Unavailable James Julian MD Unavailable Unavailable James Julian MD Unavailable Unavailable James Julian MD Unavailable Unavailable James Julian MD Unavailable Unavailable James Julian MD Unavailable Unavailable James Julian MD Unavailable Unavailable James Julian MD Unavailable Unavailable James Julian MD Unavailable Unavailable James Julian MD Unavailable Unavailable James Julian MD Unavailable Unavailable James Julian MD Unavailable Unavailable James Julian MD Unavailable Unavailable James Julian MD Unavailable Unavailable James Julian MD Unavailable Unavailable James Julian MD Unavailable Unavailable James Julian MD Unavailable Unavailable James Julian MD Unavailable Unavailable James Julian MD Unavailable Unavailable James Julian MD Unavailable Unavailable James Julian MD Unavailable Unavailable James Julian MD Unavailable Unavailable James Julian MD Unavailable Unavailable James Julian MD Unavailable Unavailable James Julian MD Unavailable Unavailable James Julian MD Unavailable Unavailable James Julian MD Unavailable Unavailable James Julian MD Unavailable Unavailable Julian, E Dahiana ARREDONDO Unavailable Unavailable [facility] Unavailable Unavailable Re-disclosure Warning The records that you are about to access may contain information from federally-assisted alcohol or drug abuse programs. If such information is present, then the following federally mandated warning applies: This information has been disclosed to you from records protected by federal confidentiality rules (42 CFR part 2). The federal rules prohibit you from making any further disclosure of this information unless further disclosure is expressly permitted by the written consent of the person to whom it pertains or as otherwise permitted by 42 CFR part 2. A general authorization for the release of medical or other information is NOT sufficient for this purpose. The Federal rules restrict any use of the information to criminally investigate or prosecute any alcohol or drug abuse patient.The records that you are about to access may contain highly sensitive health information, the redisclosure of which is protected by Article 27-F of the [facility] Public Health law. If you continue you may have access to information: Regarding HIV / AIDS; Provided by facilities licensed or operated by the [facility] Office of Mental Health; or Provided by the [facility] Office for People With Developmental Disabilities. If such information is present, then the following [facility] mandated warning applies: This information has been disclosed to you from confidential records which are protected by state law. State law prohibits you from making any further disclosure of this information without the specific written consent of the person to whom it pertains, or as otherwise permitted by law. Any unauthorized further disclosure in violation of state law may result in a fine or shelter sentence or both. A general authorization for the release of medical or other information is NOT sufficient authorization for further disc losure. Allergies and Adverse Reactions Type Description Substance Reaction Status Data Source(s ) Food allergy No Known Food Allergies No Known Food Allergies [facility] Drug allergy No Known Drug Allergies No Known Drug Allergies [facility] Propensity to adverse reactions NO KNOWN ALLERGIES NO KNOWN ALLERGIES [facility] Encounters Encounter Providers Location Date Indications Data Source(s ) Unknown [address] [facility], [facility] [address] 12/08/2020 12:00:00 AM EDT eCW1 ([facility]) Outpatient Attender: Shannon Zhang NP 11/26/2020 02:48:00 PM EDT L03.90 [facility] L03.90 Outpatient Attender: Shannon Zhang NPReferrer: Shannon pollock NP 11/26/2020 02:03:00 PM EDT - 11/26/2020 02:47:00 PM EDT [facility] Outpatient Attender: Shannon Zhang NPReferrer: Shannon pollock POWER ELECTRONICS RESEARCH ENGINEER 11/16/2020 02:04:00 PM EDT - 11/16/2020 02:49:00 PM EDT [facility] Outpatient Attender: Shnanon Zhang NP 11/05/2020 04:55:00 PM EDT E10.65 [facility] E10.65 Inpatient Attender: ROBERT Howard nder: IGNACIA KHANNA MDAdmitter: ROBERT LEON MDConsultant: Sweta Guerra POWER ELECTRONICS RESEARCH ENGINEER 11/05/2020 04:0 2:00 PM EDT - 11/09/2020 02:10:00 PM EDT [facility] Patient discharged. Outpatient Attender: Shannon Zhang NPReferrer: Shannon pollock POWER ELECTRONICS RESEARCH ENGINEER 11/05/2020 11:26:00 AM EDT - 11/05/2020 12:09:00 PM EDT [facility] Emergency Attender: JODY DUPONT MD 09/07 07:40:00 AM EDT - 09/26/2020 09:24:00 AM EDT SORE THROAT, FEVER, R/O COVID [facility] pital SORE THROAT, FEVER, R/O COVID Patient discharged. Outpatient Referrer: Shannon Zhang NP 07/16/2020 12:00:00 AM EDT [facility] Unknown [address] [facility] [address] 07/02/2020 12:00:00 AM EDT eCW1 ([facility]) Outpatient 06/11/2020 12:00:00 AM [facility] Outpatient Attender: Dahiana Julian MD 06/10/2020 09:00:00 AM EDT [facility] Outpatient Attender: Shannon Zhang NPReferrer: Shannon pollock POWER ELECTRONICS RESEARCH ENGINEER 05/05/2020 09:52:00 AM EDT - 05/05/2020 10:12:00 AM EDT [facility] Outpatient Attender: PITER PETTY [id number] 04/23/2020 12:00:00 AM EDT - 04/23/2020 11:27:25 AM EDT Retinal edema [facility] Retinal edema Outpatient Attender: EDVIN STARK NP Physical Therapy 12:15:00 PM EST MEDENT ([facility]) Outpatient Attender: EDVIN STARK NP 03/30/2020 08:22:0 0 AM EST E11.65 [facility] E11.65 Emergency Attender: JODY DUPONT MD 09/2020 07:07:00 AM EST - 03/16/2020 07:49:00 AM EST [facility] discharged. Outpatient Attender: Irish Salas [id number] 0 03/09/2020 12:00:00 AM EST - 03/09/2020 11:23:03 AM EST Type 2 diabetes mellitus with stable pro liferative diabetic retinopathy, bilateral [facility] Type 2 diabetes mellitus with stable pro liferative diabetic retinopathy, bilateral Outpatient [address] [facility] [address] 03/06/2020 12:00:00 AM EST eCW1 ([facility]) Unknown [address] [facility] [place] [address] 03/06/2020 12:00:00 AM EST eCW1 ([facility]) Unknown [address] [facility] [address] 03/04/2020 12:00:00 AM EST eCW1 ([facility]) Outpatient Attender: CARLYLE SIMEON MD 03/03/2020 10:06:00 AM EST E55.9,L02.91 [facility] E55.9,L02.91 Outpatient Attender: Shannon Zhang NPReferrer: Shannon pollock NP 03/03/2020 09:34:00 AM EST - 03/03/2020 10:02:00 AM EST [facility] Outpatient Attender: Irish Salas 03/02/2020 12:00 :00 AM [facility] Emergency Attender: TERRIE PEREZ MD 02/27/2020 1 0:06:00 AM EST - 02/27/2020 02:38:00 PM EST [facility] Patient discharged. Outpatient Attender: KOBE Goss/Kelly/Nate/Ericka fuentes 02/21/2020 12:00:00 PM EST MEDENT ([facility]) Outpatient Attender: Irish Machucazdong [id number] 0 02/10/2020 12:00:00 AM EST - 02/10/2020 11:36:56 AM EST Type 2 diabetes mellitus with stable pro liferative diabetic retinopathy, bilateral [facility] Type 2 diabetes mellitus with stable pro liferative diabetic retinopathy, bilateral Outpatient Attender: EDVIN STARK NP Physical Therapy 12:00:00 PM EST MEDENT ([facility]) Outpatient Attender: Irish Salas [id number] 1 03/29/2019 12:00:00 AM EST - 01/27/2020 09:30:14 AM EST [facility] Attender: Irish Machucazdacrissy [id number] 1 03/22/2019 12:00:00 AM EST - 01/20/2020 11:17:07 AM EST Type 2 diabetes mellitus with stable pro liferative diabetic retinopathy, bilateral [facility] Type 2 diabetes mellitus with stable pro liferative diabetic retinopathy, bilateral Outpatient Attender: EDVIN STARK NP Physical Therapy 02:30:00 PM EST [facility]ENT ([facility]) Outpatient Attender: CARLYLE SIMEON MD 11/29/2019 12:28 :00 PM EDT M25.559/M62.89,M65.81,R70.0,R79.82 [facility] M25.559/M62.89,M65.81,R70.0,R79.82 Outpatient Attender: JOSE GRANADOS [id number] 11/28/19 12:00:00 AM EDT - 11/28/2019 11:22:54 AM EDT Type 2 diabetes mellitus with stable pro liferative diabetic retinopathy, bilateral [facility] Type 2 diabetes mellitus with stable pro liferative diabetic retinopathy, bilateral Outpatient Attender: EDVIN STARK NP Physical Therapy 03:45:00 PM EDT [facility] ([facility]) Outpatient Attender: [facility] 11/04/2019 02:47:00 PM ED T [facility] Outpatient Attender: J[facility] 11/04/2019 01:12:00 PM ED T [facility] Outpatient Attender: [facility] 11/04/2019 12:03:01 PM ED T [facility] Outpatient Attender: EDVIN STARK NP 10/31/2019 1 0:22:00 AM EDT E11.65,E10.65 [facility] E11.65,E10.65 Outpatient Attender: J[facility] 10/21/2019 02:16:01 PM ED T [facility] Immunizations Vaccine Date Status Description Data Source(s) COVID-19 Moderna 05/01/2020 12:00:00 AM EDT completed [facility] COVID-19 VACCINE Moderna 05/01/2020 12:00:00 AM EDT completed [facility] Vaccine Series Complete: YESThis Data wa s Submitted to [facility]. COVID-19 Moderna 04/03/2020 12:00:00 AM EST completed [facility] COVID-19 VACCINE Moderna 04/03/2020 12:00:00 AM EST completed [facility] Vaccine Series Complete: NOThis Data was Submitted to [facility]. Medications Medication Brand Name Start Date Product Form Dose Route Admi nistrative Instructions Pharmacy Instructions Status Indications Reaction Description Data Source(s) doxycycline hyclate 100 MG Oral Tablet DOXYCYCLINE HYCLATE 1 12:00:00 AM EDT tablet 20 TAKE ONE TABLET BY MOUTH TWI CE A DAY TAKE ONE TABLET BY MOUTH TWICE A DAY SOLD: 11/27/2020 [facility] Cephalexin 500 MG Oral Capsule CEPHALEXIN 11/16/2020 12:00:00 AM EDT capsule 28 TAKE ONE CAPSULE BY MOUTH FOUR TIMES A D AY FOR 7 DAYS FOR CELLULITIS OF RIGHT FOOT TAKE ONE CAPSULE BY MOUTH FOUR TIMES A D AY FOR 7 DAYS FOR CELLULITIS OF RIGHT FOOT SOLD: 11/19/2020 [email or web address] Glipizide 5 MG Oral Tablet GLIPIZIDE 11/16/2020 12:00:00 AM EDT tablet 60 TAKE ONE TABLET BY MOUTH TWICE A DAY TAKE ONE TABLET BY MOUTH TWICE A DAY SOLD: 11/19/2020 [facility] 0.5 mL 30 gauge x 1/2" 11/16/2020 12:00:00 AM EDT syringe 30 USE 1 DAILY USE 1 DAILY SOLD: 11/19/2020 [facility] 0.3 mL 31 gauge x 5/16" 11/09/2020 12:00:00 AM EDT syringe 30 USE DIRECTED USE DIRECTED SOLD: 11/09/2020 [facility] 28 gauge 11/09/2020 12:00:00 AM EDT misc 30 TEST ONCE DAILY TEST ONCE DAILY SOLD: 11/09/2020 [facility] Insulin Glargine 100 UNT/ML Injectable Solution [Lantu s] INSULIN GLARGINE,[email or web address] 11/09/2020 12:00:00 AM EDT solution 10 INJECT 30 UNITS UNDER THE SKIN DAILY INJECT 30 UNITS UNDER THE SKIN DAILY SOLD: 11/09/2020 [facility] Cephalexin 500 MG Oral Capsule CEPHALEXIN 11/09/2020 12:00:00 AM EDT capsule 28 TAKE ONE CAPSULE BY MOUTH FOUR TIMES A DAY FOR CELLULI TIS RIGHT FOOT TAKE ONE CAPSULE BY MOUTH FOUR TIMES A DAY FOR CELLULITIS RIGHT FOOT SOLD: 11/09/2020 [facility] BLOOD SUGAR DIAGNOSTIC 11/09/2020 12:00:00 AM EDT strip 50 USE TO TEST BLOOD SUGAR ONCE ONCE DAILY USE TO TEST BLOOD SUGAR ONCE ONCE DAILY SOLD: 11/09/2020 [facility] BLOOD-GLUCOSE METER 11/09/2020 12:00:00 AM EDT kit 1 USE TO TEST BLOOD EVERY MORNING ( FASTING) USE TO TEST BLOOD EVERY MORNING ( FASTING) SOLD: 11/09/2020 [facility] Ondansetron 4 MG Disintegrating Oral Tablet Ondansetron 05/05/2020 10:10:49 AM EDT 4 MG active [facility] Ondansetron 4 MG Disintegrating Oral Tablet Ondansetron 05/05/2020 10:10:49 AM EDT 4 MG active [facility] Ertugliflozin (Steglatro) 5 mg tablet 05/05/2020 09:59:32 AM EDT 5 MG active [facility] Ertugliflozin (Steglatro) 5 mg tablet 05/05/2020 09:59:32 AM EDT 5 MG active [facility] 4 mg 05/05/2020 12:00:00 AM EDT tablet,disintegrating [address] ONE TABLET BY MOUTH THREE TIMES A DAY NEEDED FOR NAUSEA AND VOMITING FOR [address] ONE TABLET BY MOUTH THREE TIMES A DAY NEEDED FOR NAUSEA AND VOMITING FOR 7 DAYS SOLD: 05/05/2020 [facility] bevacizumab-awwb (MVASI) 3 mg/0.12 mL intravitreal inj ection 1.25 mg [id number]&* 04/23/2020 11:00:00 AM EDT 1.25 mg Intravitreal completed Retinal edema of left eye 1.25 mg, Intravitreal, Once, Charito 04/23/20 at 1100, For 1 dose [facility] Retinal edema of left eye Medication administered onsite Proparacaine hydrochloride 5 MG/ML Ophth almic Solution proparacaine (ALCAINE) 0.5 % ophthalmic solution 1 drop proparacaine (ALCAINE) 0.5 % ophthalmic solution 1 drop 04/23/2020 10:44:04 AM EDT 1 [drp] Left Eye completed Retinal edema of left eye 1 drop, Left Eye, Every 2 mi n PRN, Other, Starting Charito 04/23/20 at 1044, For 3 doses
1 drop every 2-3 min x3
[facility] Retinal edema of left eye Medication administered onsite Lidocaine Hydrochloride 0.035 MG/MG Opht halmic Gel lidocaine (XYLOCAINE) 3.5 % ophthalmic gel 1 mL lidocaine (XYLOCAINE) 3.5 % ophthalmic gel 1 mL 2020 10:44:04 AM EDT 1 mL Left Eye completed Retinal edema of left eye 1 mL, Left Eye, PRN, Pain, Starting Charito 04/23/20 at 1044, For 1 dose [facility] Retinal edema of left eye Medication administered onsite Proparacaine hydrochloride 5 MG/ML Ophth almic Solution proparacaine (ALCAINE) 0.5 % ophthalmic solution 1 drop proparacaine (ALCAINE) 0.5 % ophthalmic solution 1 drop 04/23/2020 09:45:00 AM EDT 1 [drp] Both Eyes completed 1 drop, Both Eyes, Once, Charito 04/23/20 at 0945, For 1 do [facility] Medication administered onsite Tropicamide 10 MG/ML Ophthalmic Solution tropicamide (MYDRIACYL) 1 % ophthalmic solution 1 drop tropicamide (MYDRIACYL) 1 % ophthalmic solution 1 drop 04/23/2020 09:45:00 AM EDT 1 [drp] Both Eyes completed 1 drop, Both Eyes, Once, Charito 04/23/20 at 0945, For 1 [facility] Medication administered onsite Phenylephrine Hydrochloride 25 MG/ML Oph thalmic Solution phenylephrine (MYDFRIN) 2.5 % ophthalmic solution 1 drop phenylephrine (MYDFRIN) 2.5 % ophthalmic solution 1 drop 04/23/2020 09:45:00 AM EDT 1 [drp] Both Eyes completed 1 drop, Both Eyes, Once, Charito 04/23/20 at 0945, For 1 do [facility] Medication administered onsite 3 mg/0.5 mL 04/15/2020 12:00:00 AM EST pen injector 2 INJECT ONCE WEEKLY INJECT ONCE WEEKLY SOLD: 04/15/2020 [facility] Trulicity Trulicity 04/01/2020 12:00:00 AM EST act jose guadalupe [facility] ([facility]) silver sulfadiazine 10 MG/ML Topical Cre am Silver Sulfadiazine (Silvadene) 1 % cream Silver Sulfadiazine (Silvadene) 1 % cream 03/16/2020 07:36:02 AM EST 1 APPLIC completed [facility] silver sulfadiazine 10 MG/ML Topical Cre am Silver Sulfadiazine (Silvadene) 1 % cream Silver Sulfadiazine (Silvadene) 1 % cream 03/16/2020 07:36:02 AM EST 1 APPLIC active [facility] silver sulfadiazine 10 MG/ML Topical Cre am Silver Sulfadiazine (Silvadene) 1 % cream Silver Sulfadiazine (Silvadene) 1 % cream 03/16/2020 07:36:02 AM EST 1 APPLIC completed [facility] 1 % 03/16/2020 12:00:00 AM EST cream 400 APPLY TOPICALLY 1.5MM THICKNESS ONCE DAILY APPLY TOPICALLY 1.5MM THICKNESS ONCE DAILY SOLD: 03/16/2020 [facility] 50 mcg (2,000 unit) 03/13/2020 12:00:00 AM EST tablet 30 TAKE ONE TABLET BY MOUTH EVERY DAY TAKE ONE TABLET BY MOUTH EVERY DAY SOLD: 03/16/2020 [facility] bevacizumab-awwb (MVASI) 3 mg/0.12 mL intravitreal inj ection 1.25 mg [id number] 03/09/2020 10:45:00 AM EST 1.25 mg Intravitreal completed 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 1.25 mg, Intravitreal, Once, Mon03/09/20 at 1045, For 1 dose [facility] Stable proliferative diabetic retinopath y of both eyes associated with type 2 diabetes mellitus Medication administered onsite Tetracaine hydrochloride 5 MG/ML Ophthal rima Solution tetracaine (PONTOCAINE) 0.5 % ophthalmic solution 1 drop tetracaine (PONTOCAINE) 0.5 % ophthalmic solution 1 drop 03/09/2020 10:45:00 AM EST 1 [drp] Left Eye comp leted 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 1 drop, Left Eye, Every 5 mi n, First dose on Mon03/09/20 at 1045, For 3 doses
One drop 5 minutes apart x3
[facility] Stable proliferative diabetic retinopath y of both eyes associated with type 2 diabetes mellitus Medication administered onsite Phenylephrine Hydrochloride 25 MG/ML Oph thalmic Solution phenylephrine (MYDFRIN) 2.5 % ophthalmic solution 1 drop phenylephrine (MYDFRIN) 2.5 % ophthalmic solution 1 drop 03/09/2020 10:00:00 AM EST 1 [drp] Both Eyes a [facility] Proparacaine hydrochloride 5 MG/ML Ophth almic Solution proparacaine (ALCAINE) 0.5 % ophthalmic solution 1 drop proparacaine (ALCAINE) 0.5 % ophthalmic solution 1 drop 03/09/2020 10:00:00 AM EST 1 [drp] Both Eyes a [facility] Tropicamide 10 MG/ML Ophthalmic Solution tropicamide (MYDRIACYL) 1 % ophthalmic solution 1 drop tropicamide (MYDRIACYL) 1 % ophthalmic solution 1 drop 03/09/2020 10:00:00 AM EST 1 [drp] Both Eyes active [facility] Cholecalciferol 2000 UNT Oral Capsule Cholecalciferol (Vitamin D3) Cholecalciferol (Vitamin D3) 03/03/2020 09:44:28 AM EST 2000 UNIT active [facility] Cholecalciferol 2000 UNT Oral Capsule Cholecalciferol (Vitamin D3) Cholecalciferol (Vitamin D3) 03/03/2020 09:44:28 AM EST 2000 UNIT active [facility] Cholecalciferol 2000 UNT Oral Capsule Cholecalciferol (Vitamin D3) Cholecalciferol (Vitamin D3) 03/03/2020 09:44:28 AM EST 2000 UNIT active [facility] Cholecalciferol 2000 UNT Oral Capsule Cholecalciferol (Vitamin D3) Cholecalciferol (Vitamin D3) 03/03/2020 09:44:28 AM EST 2000 UNIT active [facility] Ergocalciferol 73087 UNT Oral Capsule Ergocalciferol ( Vitamin D2) Ergocalciferol (Vitamin D2) 03/03/2020 09:44:09 AM EST 1250 MCG active [facility] Ergocalciferol 33325 UNT Oral Capsule Ergocalciferol ( Vitamin D2) Ergocalciferol (Vitamin D2) 03/03/2020 09:44:09 AM EST 1250 MCG active [facility] Ergocalciferol 37851 UNT Oral Capsule Ergocalciferol ( Vitamin D2) Ergocalciferol (Vitamin D2) 03/03/2020 09:44:09 AM EST 1250 MCG active [facility] Ergocalciferol 75302 UNT Oral Capsule Ergocalciferol ( Vitamin D2) Ergocalciferol (Vitamin D2) 03/03/2020 09:44:09 AM EST 1250 MCG [facility] Clindamycin 300 MG Oral Capsule Clindamycin Hcl Clindamycin Hcl 02/27/2020 01:43:41 PM EST 300 MG active [facility] Clindamycin 300 MG Oral Capsule Clindamycin Hcl Clindamycin Hcl 02/27/2020 01:43:41 PM EST 300 MG active [facility] Clindamycin 300 MG Oral Capsule Clindamycin Hcl Clindamycin Hcl 02/27/2020 01:43:41 PM EST 300 MG completed [facility] Clindamycin 300 MG Oral Capsule Clindamycin Hcl Clindamycin Hcl 02/27/2020 01:43:41 PM EST 300 MG completed [facility] Clindamycin 300 MG Oral Capsule Clindamycin Hcl Clindamycin Hcl 02/27/2020 01:43:41 PM EST 300 MG active [facility] 300 mg 02/27/2020 12:00:00 AM EST capsule 40 TAKE ONE CAPSULE BY MOUTH FOUR TIMES A DAY TAKE ONE CAPSULE BY MOUTH FOUR TIMES A DAY SOLD: 02/27/2020 [facility] 5 mg 02/12/2020 12:00:00 AM EST tablet 30 TAKE ONE TABLET BY MOUTH EVERY DAY TAKE ONE TABLET BY MOUTH EVERY DAY SOLD: 02/17/2020 [facility] Tetracaine hydrochloride 5 MG/ML Ophthal rima Solution tetracaine (PONTOCAINE) 0.5 % ophthalmic solution 1 drop tetracaine (PONTOCAINE) 0.5 % ophthalmic solution 1 drop 02/10/2020 11:15:00 AM EST 1 [drp] Left Eye comp leted 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 [facility] Stable proliferative diabetic retinopath y of both eyes associated with type 2 diabetes mellitus Phenylephrine Hydrochloride 25 MG/ML Oph thalmic Solution phenylephrine (MYDFRIN) 2.5 % ophthalmic solution 1 drop phenylephrine (MYDFRIN) 2.5 % ophthalmic solution 1 drop 02/10/2020 10:15:00 AM EST 1 [drp] Both Eyes completed 1 drop, Both Eyes, Once, Mon02/10/20 at 1015, For 1 dos e [facility] Medication administered onsite Tropicamide 10 MG/ML Ophthalmic Solution tropicamide (MYDRIACYL) 1 % ophthalmic solution 1 drop tropicamide (MYDRIACYL) 1 % ophthalmic solution 1 drop 02/10/2020 10:15:00 AM EST 1 [drp] Both Eyes completed 1 drop, Both Eyes, Once, Mon02/10/20 at 1015, For 1 dose [facility] Medication administered onsite Proparacaine hydrochloride 5 MG/ML Ophth almic Solution proparacaine (ALCAINE) 0.5 % ophthalmic solution 1 drop proparacaine (ALCAINE) 0.5 % ophthalmic solution 1 drop 02/10/2020 10:15:00 AM EST 1 [drp] Both Eyes completed 1 drop, Both Eyes, Once, Mon02/10/20 at 1015, For 1 dos e [facility] Medication administered onsite dapagliflozin 5 MG Oral Tablet [Farxiga] Farxiga 02/06/2020 12:00: 00 AM EST ORAL active [facility] ([facility]) 1.5 mg/0.5 mL 02/03/2020 12:00:00 AM EST pen injector 2 INJECT ONCE WEEKLY INJECT ONCE WEEKLY SOLD: 03/06/2020 [facility] 1.5 mg/0.5 mL 02/03/2020 12:00:00 AM EST pen injector 2 INJECT ONCE WEEKLY INJECT ONCE WEEKLY SOLD: 02/06/2020 [facility] Tetracaine hydrochloride 5 MG/ML Ophthal rima Solution tetracaine (PONTOCAINE) 0.5 % ophthalmic solution 1 drop tetracaine (PONTOCAINE) 0.5 % ophthalmic solution 1 drop 01/27/2020 09:30:00 AM EST 1 [drp] Left Eye acti ve Retinal edema of left eye [facility] Retinal edema of left eye bevacizumab-awwb (MVASI) 3 mg/0.12 mL intravitreal inj ection 1.25 mg [id number] 01/27/2020 09:30:00 AM EST 1.25 mg Intravitreal active Retinal edema of left eye [facility] Retinal edema of left eye Proparacaine hydrochloride 5 MG/ML Ophth almic Solution proparacaine (ALCAINE) 0.5 % ophthalmic solution 1 drop proparacaine (ALCAINE) 0.5 % ophthalmic solution 1 drop 01/27/2020 08:15:00 AM EST 1 [drp] Both Eyes completed 1 drop, Both Eyes, Once, Mon01/27/20 at 0815, [facility] Phenylephrine Hydrochloride 25 MG/ML Oph thalmic Solution phenylephrine (MYDFRIN) 2.5 % ophthalmic solution 1 drop phenylephrine (MYDFRIN) 2.5 % ophthalmic solution 1 drop 01/20/2020 10:15:00 AM EST 1 [drp] Both Eyes completed 1 drop, Both Eyes, Once, 01/20/20 at 1015, [facility] Tropicamide 10 MG/ML Ophthalmic Solution tropicamide (MYDRIACYL) 1 % ophthalmic solution 1 drop tropicamide (MYDRIACYL) 1 % ophthalmic solution 1 drop 01/20/2020 10:15:00 AM EST 1 [drp] Both Eyes completed 1 drop, Both Eyes, Once, Mon01/20/20 at 1015, For 1 dose [facility] Medication administered onsite Proparacaine hydrochloride 5 MG/ML Ophth almic Solution proparacaine (ALCAINE) 0.5 % ophthalmic solution 1 drop proparacaine (ALCAINE) 0.5 % ophthalmic solution 1 drop 01/20/2020 10:15:00 AM EST 1 [drp] Both Eyes completed 1 drop, Both Eyes, Once, Mon01/20/20 at 1015, For 1 d ose [facility] Medication administered onsite Steglatro Steglatro 01/06/2020 12:00:00 AM EST ORAL com pleted [facility] ([facility]) 1.5 mg/0.5 mL 12/05/2019 12:00:00 AM EDT pen injector 2 INJECT UNDER THE SKIN ONCE WEEKLY INJECT UNDER THE SKIN ONCE WEEKLY SOLD: 12/07/2019 [facility] 1.5 mg/0.5 mL 12/05/2019 12:00:00 AM EDT pen injector 2 INJECT UNDER THE SKIN ONCE WEEKLY INJECT UNDER THE SKIN ONCE WEEKLY SOLD: 01/01/2020 [facility] 1,250 mcg (50,000 unit) 12/03/2019 12:00:00 AM EDT capsule 4 TAKE ONE CAPSULE BY MOUTH ONCE WEEKLY TAKE ONE CAPSULE BY MOUTH ONCE WEEKLY SOLD: 12/04/2019 [facility] 1,250 mcg (50,000 unit) 12/03/2019 12:00:00 AM EDT capsule 4 TAKE ONE CAPSULE BY MOUTH ONCE WEEKLY TAKE ONE CAPSULE BY MOUTH ONCE WEEKLY SOLD: 02/06/2020 [facility] 50 mcg (2,000 unit) 12/03/2019 12:00:00 AM EDT capsule 30 TAKE ONE CAPSULE BY MOUTH EVERY DAY TAKE ONE CAPSULE BY MOUTH EVERY DAY SOLD: 12/04/2019 [facility] Vitamin D (Cholecalciferol) 50 MCG (1999 UT) Vitamin D (Cholecalciferol) 50 MCG (1999 UT) 12/03/2019 12:00:00 AM EDT 1.0 {capsule} a ctive Vitamin D (Cholecalciferol) 50 MCG (1999 UT) eCW1 ([facility]) Ergocalciferol 60338 UNT Oral Capsule Vi tamin D (Ergocalciferol) 1.25 MG (16495 UT) Vitamin D (Ergocalciferol) 1.25 MG (93342 UT) 12/03/2019 12:00:0 0 AM EDT 1.0 {capsule} active Vitamin D (Ergocal ciferol) 1.25 MG (96484 UT) [facility] ([facility]) Ergocalciferol 48257 UNT Oral Capsule Vi tamin D (Ergocalciferol) 1.25 MG (60669 UT) Vitamin D (Ergocalciferol) 1.25 MG (25281 UT) 12/03/2019 12:00:0 0 AM EDT 1.0 {capsule} active Vitamin D (Ergocal ciferol) 1.25 MG (39204 UT) [facility] ([facility]) Ergocalciferol 43528 UNT Oral Capsule Vi tamin D (Ergocalciferol) 1.25 MG (35129 UT) Vitamin D (Ergocalciferol) 1.25 MG (03870 UT) 12/03/2019 12:00:0 0 AM EDT 1.0 {capsule} active Vitamin D (Ergocal ciferol) 1.25 MG (27555 UT) [facility] ([facility]) Ergocalciferol 27606 UNT Oral Capsule Vi tamin D (Ergocalciferol) 1.25 MG (86721 UT) Vitamin D (Ergocalciferol) 1.25 MG (22650 UT) 12/03/2019 12:00:0 0 AM EDT 1.0 {capsule} suspended Vitamin D (Ergoc alciferol) 1.25 MG (14045 UT) [facility] ([facility]) 1,250 mcg (50,000 unit) 12/03/2019 12:00:00 AM EDT capsule 4 TAKE ONE CAPSULE BY MOUTH ONCE WEEKLY TAKE ONE CAPSULE BY MOUTH ONCE WEEKLY SOLD: 01/01/2020 [facility] Ergocalciferol 24405 UNT Oral Capsule Vi tamin D (Ergocalciferol) 1.25 MG (92482 UT) Vitamin D (Ergocalciferol) 1.25 MG (26167 UT) 12/03/2019 12:00:0 0 AM EDT 1.0 {capsule} active eCW1 ([facility]) 50 mcg (2,000 unit) 12/03/2019 12:00:00 AM EDT capsule 30 TAKE ONE CAPSULE BY MOUTH EVERY DAY TAKE ONE CAPSULE BY MOUTH EVERY DAY SOLD: 01/05/2020 [facility] 50 mcg (2,000 unit) 12/03/2019 12:00:00 AM EDT capsule 30 TAKE ONE CAPSULE BY MOUTH EVERY DAY TAKE ONE CAPSULE BY MOUTH EVERY DAY SOLD: 02/17/2020 [facility] Tropicamide 10 MG/ML Ophthalmic Solution tropicamide (MYDRIACYL) 1 % ophthalmic solution 1 drop tropicamide (MYDRIACYL) 1 % ophthalmic solution 1 drop 11/28/2019 10:15:00 AM EDT 1 [drp] Both Eyes completed 1 drop, Both Eyes, Once, Charito 11/28/19 at 1015, For 1 dose [facility] Medication administered onsite Phenylephrine Hydrochloride 25 MG/ML Oph thalmic Solution phenylephrine (MYDFRIN) 2.5 % ophthalmic solution 1 drop phenylephrine (MYDFRIN) 2.5 % ophthalmic solution 1 drop 11/28/2019 10:15:00 AM EDT 1 [drp] Both Eyes completed 1 drop, Both Eyes, Once, Charito 11/28/19 [facility] 1015, [facility] Proparacaine hydrochloride 5 MG/ML Ophth almic Solution proparacaine (ALCAINE) 0.5 % ophthalmic solution 1 drop proparacaine (ALCAINE) 0.5 % ophthalmic solution 1 drop 11/28/2019 10:15:00 AM EDT 1 [drp] Both Eyes completed 1 drop, Both Eyes, Once, Charito 11/28/19 [facility] 1015, [facility] 8 HR Acetaminophen 650 MG Extended Release Oral Tablet [Tyle nol] Tylenol 8 Hour 11/18/2019 12:00:00 AM EDT active [facility] ([facility]) 0.5 ML dulaglutide 3 MG/ML Auto-Injector [Trulicity] Trulici ty 11/06/2019 12:00:00 AM EDT completed [facility] ([facility]) BLOOD SUGAR DIAGNOSTIC 10/29/2019 12:00:00 AM EDT strip 150 USE DIRECTED FOUR TIMES A DAY USE DIRECTED FOUR TIMES A DAY SOLD: 11/05/2019 [facility] Blood Sugar Diagnostic (Onetouch Verio Test Strips) strip 10/28/2019 09:16:40 AM EDT 0 active [facility] Blood Sugar Diagnostic (Onetouch Verio Test Strips) strip 10/28/2019 09:16:40 AM EDT 0 active [facility] Blood Sugar Diagnostic (Onetouch Verio Test Strips) strip 10/28/2019 09:16:40 AM EDT 0 active [facility] Blood Sugar Diagnostic (Onetouch Verio Test Strips) strip 10/28/2019 09:16:40 AM EDT 0 active [facility] Blood Sugar Diagnostic (Onetouch Verio Test Strips) strip 10/28/2019 09:16:40 AM EDT 0 active [facility] 0.75 mg/0.5 mL 10/03/2019 12:00:00 AM EDT pen injector 2 USE ONCE WEEKLY USE ONCE WEEKLY SOLD: 11/05/2019 [facility] 0.5 ML dulaglutide 1.5 MG/ML Auto-Injector [Trulicity] [facility] 09/20/2019 12:00:00 AM EDT completed [facility] ([facility] Blood Sugar Diagnostic (Onetouch Verio Test Strips) strip 07/05/2019 12:31:02 PM EDT 0 completed [facility] Blood Sugar Diagnostic (Onetouch Verio Test Strips) strip 07/05/2019 12:31:02 PM EDT 0 completed [facility] Blood Sugar Diagnostic (Onetouch Verio Test Strips) strip 07/05/2019 12:31:02 PM EDT 0 completed [facility] Blood Sugar Diagnostic (Onetouch Verio Test Strips) strip 07/05/2019 12:31:02 PM EDT 0 completed [facility] Blood Sugar Diagnostic (Onetouch Verio Test Strips) strip 07/05/2019 12:31:02 PM EDT 0 completed [facility] Ertugliflozin (Steglatro) 15 mg tablet 06/24/2019 09:59:57 AM ED T [address] [facility] Ertugliflozin (Steglatro) 15 mg tablet 06/24/2019 09:59:57 AM ED T [address] [facility] Insurance Providers Payer name Policy type / Coverage type Policy ID Covered libertarian ID Covered libertarian's relationship to de la fuente Policy [place] Plan Information Medicaid S [id number] S [id number] Managed Care [place] P [id number] S [id number] [facility] I [id number] Self [id number] Medicaid O [id number] S [id number] [employer] [id number] SP [id number] [facility] [phone] SP [phone] [facility] [id number] Self 0 [facility] [place] [facility] [id number] 18 [id number] [employer] COMMUNITY PLAN [facility] [id number] SP [id number] [facility] [id number] 18 [id number] [facility] [id number] SP [id number] Managed Care - [facility] Community Plan P UNAVAILABLE S UNAVAILABLE Managed Care Ravi S [id number] S [id number] [facility] [id number] SP [id number] Problems, Conditions, and Diagnoses Code Display Name Description Problem Type Effective Dates Data Source(s) H35.81 Retinal edema Retinal edema Diagnosis 04/23/2020 09:00:09 AM [facility] E11.3553 Type 2 diabetes mellitus wit h stable proliferative diabetic retinopathy, bilateral Type 2 diabetes mellitus with stable pro liferative diabetic retinopathy, bilateral Diagnosis 03/09/2020 09:41:50 AM EST [facility] L97.412 [id number] Non-pressure chronic ulcer of right heel and midfoot with fat layer exposed Problem 12/01/2020 12:00:00 AM EDT eCW1 ([facility]) E10.621 [id number] Type 1 diabetes mellitus with foot ulcer Problem 12/01/2020 12:00:00 AM EDT eCW1 ([facility]) M62.81 [id number] Muscle weakness (generalized) Problem 12/04/2019 12:00:00 AM EDT eCW1 ([facility]) G47.9 [id number] Sleep disorder, unspecified Problem 12/03/19 12:00:00 AM EDT eCW1 ([facility]) R20.2 [id number] Paresthesia of skin Problem 12/03/2019 12:00 :00 AM EDT eCW1 ([facility]) R79.82 [id number] Elevated C-reactive protein (CRP) Prob chad 12/03/2019 12:00:00 AM EDT eCW1 ([facility]) E55.9 [id number] Vitamin D deficiency Problem 12/03/2019 12:0 0:00 AM EDT eCW1 ([facility]) G62.9 [id number] Sensorimotor neuropathy Problem 12/03/2019 1 2:00:00 AM EDT eCW1 ([facility]) 2961372 Lumbosacral radiculopathy Lumbosacral radiculopathy Pr oblem 11/18/2019 12:00:00 AM EDT [facility] ([facility] ) [id number] Idiopathic peripheral neuropathy Idiopathic tito pheral neuropathy Problem 11/18/2019 12:00:00 AM EDT [facility] ([facility] [id number] Numbness of lower limb Numbness of lower limb Problem 11/18/2019 12:00:00 AM EDT [facility] ([facility] ) Surgeries/Procedures Procedure Description Date Indications Data Source(s) Plain chest X-ray (procedure) 09/26/2020 08:59:00 AM E [facility] SARS-CoV-2 Rapid RNA (RT-PCR) 09/26/2020 12:00:00 AM [facility] Viral antigen assay (procedure) 06/10/2020 12:00:00 AM EDT [facility] MVASI INTRAVITREAL INJECTION - OS - LEFT <td>MVASI INT RAVITREAL INJECTION - OS - LEFT</td><td>Routine</td><td>04/23/2020 11:59 AM EDT</td><td> Retinal edema of left eye</td><td> </td> 04/23/2020 11:59:23 AM EDT Retinal edema of left eye [facility] Retinal edema of left eye OCT RETINA <td>OCT RETINA</td><td>Routi ne</td><td>04/23/2020 9:58 AM EDT</td><td> Retinal edema of left eye</td><td> </td> 04/23/2020 09:58:23 AM EDT Retinal edema of left eye [facility] Retinal edema of left eye MVASI INTRAVITREAL INJECTION - OS - LEFT <td>MVASI INT RAVITREAL INJECTION - OS - LEFT</td><td>Routine</td><td>03/09/2020 1:19 PM EST</td><td> 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</td><td> </td> 03/09/2020 01:19:16 PM EST Stable proliferative diabetic retinopath y of both eyes associated with type 2 diabetes mellitus [facility] Stable proliferative diabetic retinopath y of both eyes associated with type 2 diabetes mellitus OCT RETINA <td>OCT RETINA</td><td>Routi ne</td><td>03/09/2020 10:15 AM EST</td><td> 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</td><td> </td> 03/09/2020 10:15:17 AM EST Stable proliferative diabetic retinopath y of both eyes associated with type 2 diabetes mellitus [facility] Stable proliferative diabetic retinopath y of both eyes associated with type 2 diabetes mellitus Aerobic microbial culture (procedure) 02/27/2020 12:00 :00 AM [facility] Blood culture for bacteria, including anaerobic screen (proc edure) 02/27/2020 12:00:00 AM [facility] Aerobic microbial culture (procedure) 02/27/2020 12:00 :00 AM [facility] Blood culture for bacteria, including anaerobic screen (proc edure) 02/27/2020 12:00:00 AM [facility] Aerobic microbial culture (procedure) 02/27/2020 12:00 :00 AM [facility] Blood culture for bacteria, including anaerobic screen (proc edure) 02/27/2020 12:00:00 AM [facility] Aerobic microbial culture (procedure) 02/27/2020 12:00 :00 AM EST [facility] Blood culture for bacteria, including anaerobic screen (proc edure) 02/27/2020 [facility]00:00 [facility] 02/27/2020 12:00:00 AM EST [facility] Wound Culture 02/27/2020 12:00:00 AM EST [facility] FOCAL ARGON LASER FOR DIABETIC MACULAR EDEMA <td>FOCAL ARGON LASER FOR DIABETIC MACULAR EDEMA</td><td>Routine</td><td>02/10/2020 5:13 PM EST</td><td> 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</td><td> </td> 02/10/2020 05:13:57 PM EST Stable proliferative diabetic retinopath y of both eyes associated with type 2 diabetes mellitus [facility] Stable proliferative diabetic retinopath y of both eyes associated with type 2 diabetes mellitus OCT RETINA <td>OCT RETINA</td><td>Routi ne</td><td>02/10/2020 10:18 AM EST</td><td> 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</td><td> </td> 02/10/2020 10:18:01 AM EST Stable proliferative diabetic retinopath y of both eyes associated with type 2 diabetes mellitus [facility] Stable proliferative diabetic retinopath y of both eyes associated with type 2 diabetes mellitus MVASI INTRAVITREAL INJECTION - OS - LEFT <td>MVASI INT RAVITREAL INJECTION - OS - LEFT</td><td>Routine</td><td>01/27/2020 9:28 AM EST</td><td> Retinal edema of left eye</td><td> </td> 01/27/2020 09:28:10 AM EST Retinal edema of left eye [facility] Retinal edema of left eye OCT RETINA <td>OCT RETINA</td><td>Routi ne</td><td>01/20/2020 10:27 AM EST</td><td> 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</td><td> </td> 01/20/2020 10:27:41 AM EST Stable proliferative diabetic retinopath y of both eyes associated with type 2 diabetes mellitus [facility] Stable proliferative diabetic retinopath y of both eyes associated with type 2 diabetes mellitus Plain x-ray of pelvis and lower extremity (procedure) 11/29/2019 12:55:00 PM EDT [facility] XRAY HIP RT 2-3 VIEW 11/29/2019 12:55:00 PM EDT [facility] Plain x-ray of pelvis and lower extremity (procedure) 11/29/2019 12:55:00 PM EDT [facility] XRAY HIP RT 2-3 VIEW 11/29/2019 12:55:00 PM EDT [facility] Plain x-ray of pelvis and lower extremity (procedure) 11/29/2019 12:55:00 PM EDT [facility] XRAY HIP RT 2-3 VIEW 11/29/2019 12:55:00 PM EDT [facility] Plain x-ray of pelvis and lower extremity (procedure) 11/29/2019 12:55:00 PM EDT [facility] XRAY HIP RT 2-3 VIEW 11/29/2019 12:55:00 PM EDT [facility] Plain x-ray of pelvis and lower extremity (procedure) 11/29/2019 12:55:00 PM EDT [facility] XRAY HIP RT 2-3 VIEW 11/29/2019 12:55:00 PM EDT [facility] OCT RETINA <td>OCT RETINA</td><td>Jimmiei ne</td><td>11/28/2019 10:56 AM EDT</td><td> 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</td><td> </td> 11/28/2019 10:56:58 AM EDT Stable proliferative diabetic retinopath y of both eyes associated with type 2 diabetes mellitus [facility] Stable proliferative diabetic retinopath y of both eyes associated with type 2 diabetes mellitus Results ID Date Data Source [id number] 11/26/2020 04:24:00 PM EDT [facility] [address] [place] [place] [address] [phone] NAME SEX PT STATUS ACCOUNT NUMBER PAZ DELGADO REG REF [id number] ORDERING PHYSICIAN LOCATION MEDICAL RECORD NO. 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 COMPARISON: None available. FINDINGS: Overall mineralization pattern is normal. Vascular calcification is seen in the dorsalis pedis artery crossing the ankle into the midfoot. Joint spaces are preserved. No bony erosive changes seen. No soft tissue gas or opaque foreign body noted. IMPRESSION: Vascular calcification. Otherwise unremarkable right foot radiographs. Reported By James Wu MD on 11/26/201623 Signed By James Wu MD on 11/26/201625 Date Time CC: Shannon Zhang; James Wu M.D. Techn: [facility] Trans Dt/Tm: Trans by: DT Prt Dt/Tm: [id number]: Total DLP = 0.00 mGy-cm Fluoroscopy Time (in secs): Name Value Range Interpretation Code Description Data Suze rce(s) Supporting Document(s) ID Date Data Source [id number] 11/26/2020 02:10:00 PM EDT [facility] Patient Name: PAZ DELGADO : 1980 Sex: F Pt Unit #: [id number] Location:[facility] Provider: Visit Date/Time: 11/26/20 Primary Insurance: [facility] Secondary Insurance: Self Pay Intake Vital Signs 11/26/20 14:16 Current Weight 168 lb Weight Measurement Method Standing Scale BP 106/60 Blood Pressure Location Lt brachial Position Sitting Respiration 20 Pulse 104 H Pulse Source Pulse Oximeter Temp 98.1 F Temp Source Oral Pulse Oximetry (%) 98 Oxygen Delivery Method room air Intake Visit Reasons: Cellulitis Follow-up Nurse Note: Cellulitis F/U of top/side (R) foot. Drg lg amt yellow. Wound yellow center red edges. Healing slowly. peeling. But pain is now going up (R) leg again. Bg 358. prior to coming here. Continues to take her medication properly. 2 days of antibiotic left. Accompanied by: Is patient in pain?: Yes Pain scale (1-10): 4 Allergies No Known Drug Allergies Allergy (Verified 09/26/20 08:09) No Known Food Allergies Allergy (Unverified 11/05/20 11:37) Medications - Last Reconciled 11/26/20 by Shannon Zhang NP blood sugar diagnostic (Accu-Chek Guide test strips) As directed blood-glucose meter (Accu-Chek Guide Glucose Meter) As directed, once daily cephalexin 500 mg PO QID 7 days glipizide 5 mg PO BID insulin glargine (Lantus U-100 Insulin) 35 units (0.35 mL) subcut DAILY insulin syr/ndl U100 half osorio Daily lancets As directed Coronavirus Screening Screening Are you currently positive or on isolation for COVID ?: No Do you have any NEW signs of one or more of the following?: no symptoms Do you have NEW signs of at least two of the following?: no symptoms HPI Additional HPI HPI Details: Paz presents to the clinic for follow up on right foot cellulitis. She reports that it is painful, seems to be plateaued in the healing department. Pain with ambulation on that foot, rubbingon shoe, sore. PFSH Medical History (Updated 11/17/20 @ 13:14 by Shannon Zhang NP) Anxiety Asthma Chlamydia Depression Diabetes mellitus Herpes genitalis Retinal detachment Surgical History (Updated 11/05/20 @ 16:48 by Robert Leon MD) Hx of tonsillectomy Status post tonsillectomy Social History (Updated 11/16/20 @ 14:10 by Erin Krishnamurthy) Does the Patient have a Healthcare Proxy: No Does Patient have a DNR?: No Does Patient have a Living Will?: No Advance Directives on File or in chart?: No Hx Recent Travel (where): No Smoking Status: Never smoker Review of Systems Const All systems reviewed are unremarkable except as noted in HPI and below Reports as per HPI and Reports fatigue Skin/Breast Reports skin ulcer and Reports sores Details: Right foot with healing wound, cellulitis. Painful/sore. Thinks it is getting worse rather than better. Endo Reports fatigue and Reports other (BG's still running quite high. ) Exam Const General: cooperative, healthy appearing and comfortable Nutritional Appearance: average body habitus and well nourished Orientation: alert, awake and oriented x3 Skin Other: Right foot wound still open, not much improvement from previous visit. Tenderness extending up the ankle, but no redness. Assessment Plan Assessment Plan (1) Cellulitis: Code(s): L03.90 - Cellulitis, unspecified Plan: Not healing as well as I would like it to be. I will do a STAT referral to Wound. Changed abx to doxy cycline. Out of work until seen by wound and cleared by them to return. (2) Uncontrolled type 2 diabetes mellitus: Status: Acute Code(s): E11.65 - Type 2 diabetes mellitus with hyperglycemia SNOMED Code(s): 680408798 Category: Medical Plan: Colin DM is very poorly controlled. I will increase the insulin to 40units daily. Placing referral to Endo as well. Orders: Orders Xray Foot Complete RT 11/26/20 L03.90 - Cellulitis, unspecified Referrals Wound Care Referral E11.65 - Type 2 diabetes mellitus with hyperglycemia, L03.90 - Cellulitis, unspecified Endocrinology Referral E11.65 - Type 2 diabetes mellitus with hyperglycemia Medications: New doxycycline hyclate 100 mg PO BID 10 days 20 tabs 0RF Changed From insulin glargine (Lantus U-100 Insulin) 35 units (0.35 mL) subcut DAILY 10 mL 0RF To insulin glargine (Lantus U-100 Insulin) 40 units (0.4 mL) subcut DAILY 10 mL 0RF Discontinue d cephalexin Discontinued Reason: Clinically Indicated 500 mg PO QID 7 days 28 caps 0RF Cellulitis right foot Coding Level of Care Code 67065 Est Pt Intermediate Comp Diagnoses Cellulitis L03.90 Uncontrolled type 2 diabetes mellitus E11.65 Additional Codes Intake - Is patient in pain?: Yes (1125F) <Electronically signed by Shannon Zhang [employer] ENGINEER> 11/30/20 1250 Name Value Range Interpretation Code Description Data Suze rce(s) Supporting Document(s) ID Date Data Source [id number] 11/16/2020 02:06:00 PM EDT [facility] Patient Name: PAZ DELGADO : 1980 Sex: F Pt Unit #: [id number] Location:[facility] Provider: Visit Date/Time: 11/16/20 Primary Insurance: [facility] Secondary Insurance: Self Pay Intake Vital Signs 11/16/20 14:13 Current Height 5 ft 5 in Current Weight 165 lb Weight Measurement Method Standing Scale BMI 27.4 BP 102/70 Blood Pressure Location Lt brachial Position Sitting Respiration 20 Pulse 100 Pulse Source Pulse Oximeter Temp 98 F Temp Source Oral Pulse Oximetry (%) 98 Oxygen Delivery Method room air Intake Visit Reasons: Hospital Discharge Follow-up Nurse Note: F/U [facility] on the 4th. Cellulitis and diabetes. Low HB. Bg this am was 275. Not so good at doing BG everyday but is taking her Lantus everyday. Continues on Keflex for 2 more days. Ambulationis getting alot better. Accompanied by: Is patient in pain?: No Allergies No Known Drug Allergies Allergy (Verified 09/26/20 08:09) No Known Food Allergies Allergy (Unverified 11/05/20 11:37) Medications - Last Reconciled 11/16/20 by Shannon Zhang NP blood sugar diagnostic (Accu-Chek Guide test strips) As directed blood-glucose meter (Accu-Chek Guide Glucose Meter) As directed, once daily cephalexin 500 mg PO QID insulin glargine (Lantus U-100 Insulin) 30 units (0.3 mL) subcut DAILY insulin syringe,safetyneedle As directed lancets As directed Coronavirus Screening Screening Are you currently positive or on isolation for COVID ?: No Do you have any NEW signs of one or more of the following?: no symptoms Do you have NEW signs of at least two of the following?: no symptoms PFSH Medical History (Updated 11/17/20 @ 13:14 by Shannon Zhang NP) Anxiety Asthma Chlamydia Depression Diabetes mellitus Herpes genitalis Retinal detachment Surgical History (Updated 11/05/20 @ 16:48 by Robert Leon MD) Hx of tonsillectomy Status post tonsillectomy Social History (Updated 11/16/20 @ 14:10 by Erin Krishnamurthy) Does the Patient have a Healthcare Proxy: No Does Patient have a DNR?: No Does Patient have a Living Will?: No Advance Directives on File or in chart?: No Hx Recent Travel (where): No Smoking Status: Never smoker Review of Systems Const All systems reviewed are unremarkable except as noted in HPI and below Reports system reviewed and no additional complaints, except as documented Card Reports system reviewed and no additional complaints, except as documented Resp Reports system reviewed and no additional complaints, except as documented Skin/Breast Reports erythema and Reports wounds Exam Const General: cooperative, healthy appearing and comfortable Nutritional Appearance: average body habitus and well nourished Orientation: alert, awake and oriented x3 Skin Other: Right lateral foot with open area and yellow slough, and some peeling/bubbled up skin blister appearing. Redness surrounds and extends to the ankle. Swelling is minimal. No swelling noted in the leg at all (patient reports that initially there was swelling into the lower leg). Assessment Plan Assessment Plan (1) Hospital discharge follow-up: Code(s): Z09 - Encounter for follow-up examination after completed treatment for conditions other than malignant neoplasm (2) Abscess: Status: Acute Code(s): L02.91 - Cutaneous abscess, unspecified SNOMED Code(s): 185889283 Category: Medical (3) Uncontrolled type 2 diabetes mellitus: Status: Acute Code(s): E11.65 - Type 2 diabetes mellitus with hyperglycemia SNOMED Code(s): 498223936 Category: Medical Plan: Increase lantus to 35 units daily. New syringes sent in as well. Start on glipizide BID, daily first to ensure well-tolerated, then increase to BID. Continue to improve diet. Added another week of abx. Foot is still quite red up to the ankle. Open area on the right lateralaspect of the foot with some yellow slough, and bubbled up skin. She is healing slow, which is expected d/t her diabetes. I would like to see back in 1 week. If not improving, consider wound clinic referral will be placed. Medications: New insulin syr/ndl U100 half osorio Daily 100 ea 3RF glipizide 5 mg PO BID 60 tabs 2RF Changed From insulin glargine (Lantus U-100 Insulin) 30 units (0.3 mL) subcut DAILY 10 mL 0RF To insulin glargine (Lantus U-100 Insulin) 35 units (0.35 mL) subcut DAILY 10 mL 0RF From cephalexin 500 mg PO QID 28 caps 0RF Cellulitis right foot To cephalexin 500 mg PO QID 7 days 28 caps 0RF Cellulitis right foot Discontinued insulin syringe,safetyneedle Discontinued Reason: Clinically Indicated As directed 100 ea 0RF Coding Level of Care Code 95761 Est Pt Intermediate Comp Exam Problem Focused Diagnoses Hospital discharge follow-up Z09 Abscess L02.91 Uncontrolled type 2 diabetes mellitus E11.65 Additional Codes Intake - Is patient in pain?: No (1126F) <Electronically signed by Shannon Zhang NP> 11/17/20 1320 Name Value Range Interpretation Code Description Data Suze rce(s) Supporting Document(s) ID Date Data Source [id number] 11/09/2020 08:40:00 AM EDT [facility] Name: PAZ DELGADO : 1980 Age: 39 MR#: [id number] Admit Date: 11/05/20 Provider: Sweta Guerra NP Room #: 290 Dictation Date: 11/09/20 Discharge Summary Discharge Summary Admit Info/Diagnoses/Course Admission Information: Patient, PAZ DELGADO, a 39 year old F, admitted on 11/05/20 16:02 by Robert Leon MD for RIGHT FOOT CELLULITIS Family Shannon Ye Most Recent Lab Results: 11/09/20 04:50 11/09/20 04:50 Laboratory Results Last 24 hours 11/08/20 11:29: POC Glucose 200 H 11/08/20 20:31: POC Glucose 307 H 11/09/20 04:50: WBC 8.2, RBC 3.06 L, Hgb 8.8 L, Hct 27.0 L, MCV 88, MCH 29, MCHC 33, RDW 13, Plt Count 323, MPV 10.1, Immature Gran % (Auto) 0.6, Neut % (Auto) 63.0, Lymph % (Auto) 29.3, [place] % (Auto) 5.7, Eos % (Auto) 1.0, Baso % (Auto) 0.4, Lymph # (Auto) 2.4, Abs Immat Gran (auto) 0.1, Add Manual Diff No, Absolute Neutrophils 5.2, Monocytes # 0.5, Absolute Eosinophils 0.1, Absolute Basophils 0.0 11/09/20 04:50: Sodium 140, Potassium 4.2, Chloride 107, Carbon Dioxide 27, Anion Gap 10, BUN 9, Creatinine 0.6, GFR Calculation Greater than 60, Glucose 117 H, Calcium 8.3 L 11/09/20 07:26: POC Glucose 120 H Microbiology 11/06/20 18:25 Urine,voided Urine Culture - Final 11/05/20 15:00 Venous blood Blood Culture - Preliminary NO GROWTH AFTER 48 HOURS 11/05/20 15:00 Venous blood Blood Culture - Preliminary NO GROWTH AFTER 48 HOURS 11/05/20 16:30 Abscess Abscess Culture - Final Strep Agalactiae Group B 11/05/20 16:05 Nasopharyngeal SARS-CoV-2 Rapid RNA (RT-PCR) - Final Sars-Cov-2 Not Detected Influenza A Not Detected Influenza B Not Detected RSV Not Detected Hospital Course: 39-year-old female admitted on 11/05/20 with cellulitis of right foot. She has a history of Type 2 DM for which she stopped taking insulin 5 months ago. She was referred to the ER by primary care after being seen for foot pain with complaints also of episodes of nausea and vomiting the previous two weeks. In the ER DKA was ruled out, but she was initiated on Vancomycin and Zosyn for cellulitis of the right foot. Culture of the abscess grew Strep Agalactiae Group B. She was switched to Cefazolin per sensitivityresults. Review of Systems ROS (Free Text/Narrative):: Reports pain to right foot has improved. General: Reports No Symptoms/Complaints; Denies Fever, Chills or Night Sweats HEENT: Reports No Symptoms Complaints Endocrine: Reports No Symptoms/Complaints; Denies Loss of appetite, Intolerance to cold, Intoleranceto heat, Polydipsia or Polyuria Cardiovascular: Reports No Symptoms/Complaints; Denies Chest Pain or Palpitations Pulmonary: Reports No Symptoms/Complaints; Denies Dyspnea or Cough Gastrointestinal: Reports No Symptoms/Complaints; Denies nausea, vomiting, abdominal pain, diarrhea or constipation Genitourinary: Reports No Symptoms/Complaints; Denies Dysuria or Frequency Musculoskeletal: Reports No Symptoms/Complaints Neurological: Reports No Symptoms/Complaints; Denies Weakness, Numbness or Confusion Psych: Reports No Symptoms/Complaints Other: Right foot with erythema, but not hot to touch or acutely tender. Bandage intact over open area. Exam Condition Vital Signs - Most Recent: Last Vital Signs Temp 98.3 F 11/08/20 20:30 Pulse 83 11/08/20 20:30 Resp 16 11/08/20 20:30 BP 131/71 11/08/20 20:30 Pulse Ox 97 11/08/20 20:30 Ht Wt BMI Current Height 5 ft 5 in Current Weight 165 lb 5 oz Body Mass Index (BMI) 27.5 Body Mass Index (BMI) Overweight Classification General: positive Alert, positive Oriented x3, positive Cooperative and positive No acute distress HEENT: Atraumatic, PERRLA and EOMI Neck: Supple Lungs: Clear to auscultation Cardiovascular: Regular rate, Normal S1 and Normal S2 Abdomen: Normal bowel sounds and Soft; negative for Tenderness Extremities: No clubbing, No cyanosis and Other (Right foot with erythema, but not hot to touch or acutely tender. 2x2 absorbant bandage intact over open area on lateral aspect.) Skin: Skin warm and dry, Mucus membranes moist and Color normal for race; negative for Rash Neurological: Normal speech, Strength at 5/5 X4 ext, Normal tone and Cranial nerves 3-12 NL Psych/Mental Status: Mental status NL Discharge Plan Discharge Education Printouts: Cellulitis (DC) Cellulitis (GEN) Foot Care for People with Diabetes (GEN) Type 2 Diabetes in Adults: New Diagnosis (DC) Free Text/Narrative:: 1. Right foot cellulitis improving will discharge pt home on Keflex 500mg QID s/p vancomycin and zosyn 2. DM type 2 medication compliance was reinforced Lantus 30 units daily with daily fasting glucose Glucometer, supplies, syringes ordered 3. Low Hb No sign and symptoms suggestive of active bleeding Will need to be followed up on as outpatient 4. nausea/vomiting resolved 5. Ambulatory dysfunction due to right foot pain PT maeve finds she ambulates well without assistive device Follow up with primary care provider within one week. Medications and testing supplies ordered as per outlined above. Dr. Leon is the attending. Discharge plan made in coordination with him. Medications Home Medications blood sugar diagnostic (Accu-Chek Guide test strips) #100 ea 11/09/20 [Rx] blood- glucose meter (Accu-Chek Guide Glucose Meter) #1 ea 11/09/20 [Rx] cephalexin 500 mg capsule 500 mg PO QID #28 cap 11/09/20 [Rx] insulin glargine 100 unit/mL subcutaneous solution (Lantus U-100 Insulin) 30 unit (0.3 mL) SUBCUT DAILY #10 ml 11/09/20 [Rx] insulin syringe,safetyneedle 0.3 mL 31 gauge x 15/64" #100 ea 11/09/20 [Rx] lancets #100 ea 11/09/20 [Rx] Time Spent on Discharge: > 30 Minutes Quality Measures Tobacco Use Smoking Status: Never smoker Influenza Immunization Hx/Date of Influenza Vaccination (from nursing Hx): No Safety Two or more falls in last year? (Future fall risk): No Diabetes Care Measures HgAic/Microalbumin: HgA1c Hemoglobin A1c 12.1 % (3.8-5.6) H 11/05/20 15:00 Glucose/POC Glucose: POC Glucose last 48 hrs 11/07/20 11/07/20 11/07/20 11:36 16:53 20:56 POC Glucose 251 H 173 H 254 H 11/08/20 11/08/20 11/09/20 11:29 20:31 07:26 POC Glucose 200 H 307 H 120 H Glucose last 48 hrs 11/08/20 11/09/20 06:58 04:50 Glucose 101 117 H Discharge Plan Admission/Discharge Dx Primary (Admit) Diagnosis: Type 2 diabetes poorly controlled, cellulitis right foot Primary DC Diagnosis: Type 2 diabetes poorly controlled, cellulitis right foot Condition Condition: Stable Discharge Detail Disposition: Home, Self-Care Med Rec New Prescriptions: New Lantus U-100 Insulin 100 unit/mL Solution 30 unit subcut DAILY Qty: 10 0RF (DME) lancets Misc See Rx Instructions .Route Qty: 100 0RF Rx Instructions: As directed (DME) insulin syringe,safetyneedle 0.3 mL 31 gauge x 15/64" syringe See Rx Instructions .Route Qty: 100 0RF Rx Instructions: As directed cephalexin 500 mg capsule 500 mg PO QID Qty: 28 0RF (DME) blood-glucose meter [Accu-Chek Guide Glucose Meter] Misc See Rx Instructions .Route Qty: 1 0RF Rx Instructions: As directed, once daily (DME) Accu-Chek Guide test strips Strip See Rx Instructions .Route Qty: 100 0RF Rx Instructions: As directed Discharge Education Printouts: Cellulitis (DC), Cellulitis (GEN), Foot Care for People with Diabetes (GEN), Type 2 Diabetes in Adults: New Diagnosis (DC) Follow Up Visit/Referrals: Shannon Zhang NP [Primary Care Provider] - 1 Week Diet:: Consistent carbohydrate Medications Medication reconciliation performed by provider at discharge: Yes Follow Up Care/Instructions Diet/Activity/Wound Care..: Follow up with primary care provider in 1 week. Check fingerstick glucose every morning before breakfast and keep record of these. Take insulin daily as prescribed. No concentrated sweets diet. Take all antibiotic doses spaced out every six hours, as evenly as possible. Take all doses unless advised otherwise by your primary care provider. If fever, worsening pain, worsening appearance of right foot call your primary care provider or return to ER. Quality Indicators Conditions Present During Course of Hospitalization: None Apply *Discharge Patient* Discharge Orders: Discharge Order (Routine); Ordered 11/09/20 Ordered By: Sweta Guerra Dictated by: <Electronically signed by Sweta Guerra NP> Sweta Guerra NP 11/09/20 1332 Sweta Guerra NP SIGNATURE DA Report Cosigners: <<Signature on File>> Robert Leon MD 11/09/20 142 <Electronically signed by Robert Leon MD> Robert Leon MD 11/09/20 1426 D: NAILA 11/09/20839 T: NAILA 11/09/20839 CC: Name Value Range Interpretation Code Description Data Suze rce(s) Supporting Document(s) ID Date Data Source [id number] 11/09/2020 05:34:00 AM EDT [facility] Name Value Range Interpretation Code Description Data Suze rce(s) Supporting Document(s) Leukocytes [#/volume] in Blood by Automated count 8.2 10*3/uL 4.45-10 .71 N [facility] Erythrocytes [#/volume] in Blood by Automated count 3.06 10*6/uL 4.20-5.40 Below low normal [facility] Hemoglobin [Moles/volume] in Blood 8.8 g/dL 10.7-15.4 Below low no rmal [facility] Hematocrit [Volume Fraction] of Blood by Automated count 27.0 % 37-47 Below low normal [facility] Erythrocyte mean corpuscular volume [Ent itic volume] in Cord blood by Automated count 88 fL 80-96 N [facility] ital Erythrocyte mean corpuscular hemoglobin [Entitic mass] by Au tomated count 29 pg 27-31 N [facility] Erythrocyte mean corpuscular hemoglobin concentration [Mass/volume] in Cord blood 33 g/dL 33-37 N [facility] ital Erythrocyte distribution width [Entitic volume] by Automated count 13 % 11-15 N [facility] Platelets [#/volume] in Blood by Automated count 323 10*3/uL 130-472 N [facility] Platelet mean volume [Entitic volume] in Blood 10.1 fL 9.1-13.1 N [facility] Neutrophils/100 leukocytes in Blood by Automated count 63.0 % 41- 77 N [facility] Neutrophils [#/volume] in Blood by Automated count 5.2 U 1.7-7.6 N [facility] Lymphocytes/100 leukocytes in Blood by Automated count 29.3 % 14- 46 N [facility] Lymphocytes [#/volume] in Blood by Automated count 2.4 U 0.6-4.6 N [facility] Monocytes/100 leukocytes in Blood by Automated count 5.7 % 4-12 N [facility] Monocytes [#/volume] in Blood by Automated count 0.5 U 0.2-1.2 N [facility] Eosinophils/100 leukocytes in Blood by Automated count 1.0 % 0-7 N [facility] Eosinophils [#/volume] in Blood by Automated count 0.1 U 0.0-0.5 N [facility] Basophils/100 leukocytes in Blood by Automated count 0.4 % 0.4-1 .3 N [facility] Basophils [#/volume] in Blood by Automated count 0.0 U 0.0-0.2 N [facility] NUCLEATED RED BLOOD CELL 0 % [facility] NUCLEATED RED BLOOD CELL# [address] [facility] Immature granulocytes [Presence] in Blood by Automated count 0-2 N [facility] Immature granulocytes [#/volume] in Blood by Automated count 0.1 U 0-0.1 N [facility] Manual Differential panel - Blood NO [facility] ID Date Data Source [id number] 11/09/2020 06:06:00 AM EDT [facility] Name Value Range Interpretation Code Description Data Suze rce(s) Supporting Document(s) Urea nitrogen [Mass/volume] in Serum or Plasma 9 mg/dL 9-23 N [facility] Sodium [Moles/volume] in Serum or Plasma 140 mmol/L 132-146 [facility] Potassium [Moles/volume] in Serum or Plasma 4.2 mmol/L 3.5-5.5 [facility] Chloride [Moles/volume] in Serum or Plasma 107 mmol/L 99-109 [facility] Carbon dioxide, total [Moles/volume] in Serum or Plasma 27 mmol/L 20 -31 N [facility] Anion gap in Serum or Plasma 10 mmol/L 8-16 [facility] Glucose [Mass/volume] in Serum or Plasma 117 mg/dL 74-106 Above high normal [facility] Creatinine 0.6 mg/dL 0.5-1.1 [facility] Glomerular filtration rate/1.73 sq M.pre dicted [Volume Rate/Area] in Serum or Plasma Greater Than 60 ABOVE 60 [facility] Calcium [Mass/volume] in Serum or Plasma 8.3 mg/dL 8.5-10.1 Below low normal [facility] ID Date Data Source [id number] 11/08/2020 09:15:00 AM EDT [facility] Name: PAZ DELGADO : 1980 Age: 39 MR#: [id number] Admit Date: 11/05/20 Provider: Robert Leon MD Room #: 290 Consulting Provider: Dictation Date: 11/08/20 Progress Note Subjective-ROS Date of service Date of service:: 11/08/20 Review of Systems Attestation/Length Of Stay: 11/05/20 16:02 Admit to Inpatient, Acute [STATUS] Routine Location: [facility] Primary diagnosis: right foot cellulitis Isolation: Standard precautions Status: Inpatient Admission Anticipated Length of stay:: 2-3 Midnights Vital Signs and I O Vitals and I O: Intake Output Last 24 Hours 11/06/20 11/07/20 11/08/20 23:59 23:59 23:59 Intake Total 2420 / 2420 2980 / 2980 590 / 590 Output Total 1700 / 1700 Balance 720 / 720 2980 / 2980 590 / 590 Results Results: 11/08/20 06:58 11/08/20 06:58 Laboratory Results Last 24 hours 11/07/20 11:36: POC Glucose 251 H 11/07/20 16:53: POC Glucose 173 H 11/07/20 20:56: POC Glucose 254 H 11/08/20 06:58: WBC 8.3, RBC 2.92 L, Hgb 8.4 L, Hct 25.9 L, MCV 89, MCH 29, MCHC 32 L, RDW 13, Plt Count 287, MPV 10.0, Immature Gran % (Auto) 0.2, Neut % (Auto) 66.7, Lymph % (Auto) 28.1, [place] % (Auto) 4.1, Eos % (Auto) 0.7, Baso % (Auto) 0.2 L, Lymph # (Auto) 2.3, Abs Immat Gran (auto) 0.0, Add Manual Diff No, Absolute Neutrophils 5.5, Monocytes # 0.3, Absolute Eosinophils 0.1, Absolute Basophils 0.0 11/08/20 06:58: Sodium 141, Potassium 4.0, Chloride 110 H, Carbon Dioxide 24, Anion Gap 11, BUN 10, Creatinine 0.5, GFR Calculation Greater than 60, Glucose 101, Calcium 7.8 L, Total Bilirubin 0.3, AST 30, ALT 44, Alkaline Phosphatase 135 H, Serum Total Protein 5.4 L, Albumin 2.1 L Microbiology 11/06/20 18:25 Urine,voided Urine Culture - Final 11/05/20 15:00 Venous blood Blood Culture - Preliminary NO GROWTH AFTER 48 HOURS 11/05/20 15:00 Venous blood Blood Culture - Preliminary NO GROWTH AFTER 48 HOURS 11/05/20 16:30 Abscess Abscess Culture - Final Strep Agalactiae Group B 11/05/20 16:05 Nasopharyngeal SARS-CoV-2 Rapid RNA (RT- PCR) - Final Sars-Cov-2 Not Detected Influenza A Not Detected Influenza B Not Detected RSV Not Detected Exam Orientation: Alert, Oriented x3, Cooperative and No acute distress HEENT: Muco us membr. moist/pink Lungs: normal lung sounds bilaterally Cardiovascular Exam: regular rate and normal rhythm Abdomen: Normal bowel sounds and Soft; negative for Tenderness Extremities: other (redness/warmth/tenderness over right foot significantly improved ) Skin: Skin warm and dry, Mucus membranes moist Neurological: Normal speech Psych/Mental Status: normal mood Assessment/Plan A P Free Text/Narrative :: 39 y/o F c/o right foot pain, redness; was admitted for right foot cellulitis. Labs and imaging studies reviewed Pt was seen and examined at bedside. c/o mild right foot pain but stated that it has significantly improved. 1. Right foot cellulitis improving will change antibiotics to Ancef will discharge pt home on Keflex s/p vancomycin and zosyn MRI foot reviewed 2. DM type 2 uncontrolled medication compliance was reinforced Lantus 30 units insulin sliding scale. 3. Low Hb will f/u repeat labs No sign and symptoms suggestive of active bleeding 4. nausea/vomiting resolved 5. Ambulatory dysfunction due to right foot pain PT eval Care plan: Plan of care discussed with patient and or family, Patient encouraged to ask questions about plan, Patient agrees with plan of care and Discharge plan and instructions discussed with patient and or family Dictated by: <Electronically signed by Robert Leon MD> Robert Leon MD 11/08/2045 Robert Leon MD SIGNATURE DA Report Cosigners: D: [email or web address] 11/08/20914 T: ILDEFONSO 11/08/20914 CC: Name Value Range Interpretation Code Description Data Suze rce(s) Supporting Document(s) ID Date Data Source [id number] 11/08/2020 07:32:00 AM EDT [facility] Name Value Range Interpretation Code Description Data Suze rce(s) Supporting Document(s) Leukocytes [#/volume] in Blood by Automated count 8.3 10*3/uL 4.45-10 .71 N [facility] Erythrocytes [#/volume] in Blood by Automated count 2.92 10*6/uL 4.20-5.40 Below low normal [facility] Hemoglobin [Moles/volume] in Blood 8.4 g/dL 10.7-15.4 Below low no rmal [facility] Hematocrit [Volume Fraction] of Blood by Automated count 25.9 % 37-47 Below low normal [facility] Erythrocyte mean corpuscular volume [Ent itic volume] in Cord blood by Automated count 89 fL 80-96 N [facility] ital Erythrocyte mean corpuscular hemoglobin [Entitic mass] by Au tomated count 29 pg 27-31 N [facility] Erythrocyte mean corpuscular hemoglobin concentration [Mass/volume] in Cord blood 32 g/dL 33-37 Below low normal [facility] Erythrocyte distribution width [Entitic volume] by Automated count 13 % 11-15 N [facility] Platelets [#/volume] in Blood by Automated count 287 10*3/uL 130-472 N [facility] Platelet mean volume [Entitic volume] in Blood 10.0 fL 9.1-13.1 N [facility] Neutrophils/100 leukocytes in Blood by Automated count 66.7 % 41- 77 N [facility] Neutrophils [#/volume] in Blood by Automated count 5.5 U 1.7-7.6 N [facility] Lymphocytes/100 leukocytes in Blood by Automated count 28.1 % 14- 46 N [facility] Lymphocytes [#/volume] in Blood by Automated count 2.3 U 0.6-4.6 N [facility] Monocytes/100 leukocytes in Blood by Automated count 4.1 % 4-12 N [facility] Monocytes [#/volume] in Blood by Automated count 0.3 U 0.2-1.2 N [facility] Eosinophils/100 leukocytes in Blood by Automated count 0.7 % 0-7 N [facility] Eosinophils [#/volume] in Blood by Automated count 0.1 U 0.0-0.5 N [facility] Basophils/100 leukocytes in Blood by Automated count 0.2 % 0.4-1.3 Below low normal [facility] Basophils [#/volume] in Blood by Automated count 0.0 U 0.0-0.2 N [facility] NUCLEATED RED BLOOD CELL 0 % [facility] NUCLEATED RED BLOOD CELL# 0 U [facility] Immature granulocytes [Presence] in Blood by Automated count 0-2 N [facility] Immature granulocytes [#/volume] in Blood by Automated count 0.0 U 0-0.1 [facility] Manual Differential panel - Blood NO [facility] ID Date Data Source [id number] 11/08/2020 08:05:00 AM EDT [facility] Name Value Range Interpretation Code Description Data Suze rce(s) Supporting Document(s) Urea nitrogen [Mass/volume] in Serum or Plasma 10 mg/dL 9-23 [facility] Sodium [Moles/volume] in Serum or Plasma 141 mmol/L 132-146 [facility] Potassium [Moles/volume] in Serum or Plasma 4.0 mmol/L 3.5-5.5 [facility] Chloride [Moles/volume] in Serum or Plasma 110 mmol/L 99-109 Above high normal [facility] Carbon dioxide, total [Moles/volume] in Serum or Plasma 24 mmol/L 20 -31 [facility] Anion gap in Serum or Plasma 11 mmol/L 8-16 [facility] Glucose [Mass/volume] in Serum or Plasma 101 mg/dL 74-106 [facility] Creatinine 0.5 mg/dL 0.5-1.1 [facility] Glomerular filtration rate/1.73 sq M.pre dicted [Volume Rate/Area] in Serum or Plasma Greater Than 60 ABOVE 60 [facility] Alanine aminotransferase [Enzymatic acti vity/volume] in Serum or Plasma by With P-5'-P 44 U/L 10-49 [facility] ital Aspartate aminotransferase [Enzymatic ac tivity/volume] in Serum or Plasma by With P-5'-P 30 U/L 0-33 [facility] pital Alkaline phosphatase [Enzymatic activity/volume] in Serum or Plasma 135 U/L 45-129 Above high normal [facility] Calcium [Mass/volume] in Serum or Plasma 7.8 mg/dL 8.5-10.1 Below low normal [facility] Bilirubin.total [Mass/volume] in Serum or Plasma 0.3 mg/dL 0.3-1.2 N [facility] Albumin [Mass/volume] in Serum or Plasma by Bromocresol purple (BCP) dye binding method 2.1 g/dL 3.2-4.8 Below low normal [facility] Protein [Mass/volume] in Serum or Plasma 5.4 g/dL 5.7-8.2 Below low normal [facility] ID Date Data Source [id number] 11/07/2020 09:43:00 AM EDT [facility] Pharmacy Department PAZ DELGADO : 1980 Date: 11/07/20 [id number] Vancomycin Web Calculator - General Information Hx VRE (Vancomycin-resistant enterococci): No Hx MRSA: (Methicillin-resistant Staphylococcus aureus): Yes - 11/04/10 - Labratory/Microbiology Labratory Values: Creatinine/BUN BUN 16 mg/dL (9-23) 11/05/20 15:00 Creatinine 0.9 mg/dL (0.5-1.1) 11/05/20 15:00 11/05/20 15:00 11/05/20 15:00 Microbiology: Preliminary Micro Results 11/05/20 15:00 Blood Culture - Preliminary Venous blood NO GROWTH AFTER 24 HOURS 11/05/20 15:00 Blood Culture - Preliminary Venous blood NO GROWTH AFTER 24 HOURS - Infection Infection (Type/Site/Source): Skin and Soft Tissue Infection - Concurrently Taking Concurrently Taking:: Zosyn - 3.375G IV Q6H - Dosing Current Maintenance dose:: Vancomycin 1g IV q12h Vancomycin Peak Result:: 22.6 Vancomycin Trough Result:: 9.9 - Additional Comments Narrative: Ms. Delgado's labs were within goals for peak and trough. At this time no dose adjustments will be made to her regimen. - General Information Allergies/Adverse Reactions: Allergies Allergy/AdvReac Type Severity Reaction Status Date / Time No Known Drug Allergies Allergy Verified 09/26/20 08:09 No Known Food Allergies Allergy Unverified 11/05/20 11:37 Pharmacy Nicole Decker 11/07/20 0943 Date Time LAST EDIT: Name Value Range Interpretation Code Description Data Suze rce(s) Supporting Document(s) ID Date Data Source [id number] 11/07/2020 09:19:00 AM EDT [facility] Name: PAZ DELGADO : 1980 Age: 39 MR#: [id number] Admit Date: 11/05/20 Provider: Robert Leon MD Room #: 290 Consulting Provider: Dictation Date: 11/07/20 Progress Note Subjective-ROS Date of service Date of service:: 11/07/20 Review of Systems Attestation/Length Of Stay: 11/05/20 16:02 Admit to Inpatient, Acute [STATUS] Routine Location: [facility] Primary diagnosis: right foot cellulitis Isolation: Standard precautions Status: Inpatient Admission Anticipated Length of stay:: 2-3 Midnights Vital Signs and I O Vitals and I O: Intake Output Last 24 Hours 11/05/20 11/06/20 11/07/20 23:59 23:59 23:59 Intake Total 1552.337 / 6490.060 5849 / 2420 1740 / 1740 Output Total 1700 / 1700 Balance 1552.337 / 1552.337 720 / 720 1740 / 1740 Current Weight 165 lb 5 oz Results Results: 11/07/20 03:15 11/07/20 03:15 Laboratory Results Last 24 hours 11/05/20 17:07: POC Glucose 203 H 11/06/20 11:43: POC Glucose 249 H 11/06/20 16:46: POC Glucose 228 H 11/06/20 18:25: Urine Color Yellow, Urine Appearance Cloudy A, Urine pH 5.0, Ur Specific [place] 1.038 A, Urine Protein Trace, Urine Ketones Negative, Urine Blood Small H, Urine Nitrate Negative, Urine Bilirubin Negative, Urine Urobilinogen 0.2 eu/dl, Ur Leukocyte Esterase Small A, Add Ur Microanalysis Microscopic added, Urine RBC 3-5, Urine WBC 12-16 H, Ur Squamous Epith Cells Few, Urine Bacteria Small amount H, Urine Glucose > 1000 mg/dl A 11/06/20 20:15: Vancomycin Peak 22.6 11/06/20 20:30: POC Glucose 287 H 11/07/20 03:15: WBC 9.1, RBC 3.11 L, Hgb 9.0 L, Hct 27.7 L, MCV 89, MCH 29, MCHC 33, RDW 13, Plt Count 271, MPV 9.4, Immature Gran % (Auto) 0.4, Neut % (Auto) 63.8, Lymph % (Auto) 30.4, [place] % (Auto) 4.5, Eos % (Auto) 0.6, Baso % (Auto) 0.3 L, Lymph # (Auto) 2.8, Abs Immat Gran (auto) 0.0, Add Manual Diff No, Absol yu Neutrophils 5.8, Monocytes # 0.4, Absolute Eosinophils 0.1, Absolute Basophils 0.0 11/07/20 03:15: Sodium 140, Potassium 4.0, Chloride 110 H, Carbon Dioxide 25, Anion Gap 9, BUN 15, Creatinine 0.6, GFR Calculation Greater than 60, Glucose 142 H, Calcium 7.9 L, Total Bilirubin 0.1 L, AST 48 H, ALT 46, Alkaline Phosphatase 129, Serum Total Protein 6.1, Albumin 2.4 L 11/07/20 03:15: Vancomycin Trough 9.9 L 11/07/20 07:48: POC Glucose 146 H Microbiology 11/05/20 15:00 Venous blood Blood Culture - Preliminary NO GROWTH AFTER 24 HOURS 11/05/20 15:00 Venous blood Blood Culture - Preliminary NO GROWTH AFTER 24 HOURS 11/05/20 16:30 Abscess Abscess Culture - Preliminary Strep Agalactiae Group B 11/05/20 16:05 Nasopharyngeal SARS-CoV-2 Rapid RNA (RT-PCR) - Final Sars-Cov-2 Not Detected Inf luenza A Not Detected Influenza B Not Detected RSV Not Detected Exam Orientation: Alert, Oriented x3, Cooperative and No acute distress HEENT: Mucous membr. moist/pink Lungs: normal lung sounds bilaterally Cardiovascular Exam: regular rate and normal rhythm Abdomen: Normal bowel sounds and Soft; negative for Tenderness Extremities: negative for pedal edema Skin: Other (redness/warmth/tenderness over right foot improving ) Neurological: Normal speech and Strength at 5/5 X4 ext Psych/Mental Status: normal mood Assessment/Plan A P Free Text/Narrative :: 39 y/o F c/o right foot pain, redness; was admitted for right foot cellulitis. Labs and imaging studies reviewed Pt was having breakfast. Pt stated that her right foot has significantly improved. Plan 1. Right foot cellulitis improving iv vancomycin and zosyn will f/u culture from right foot infection site and blood culture MRI foot reviewed 2. DM ty pe 2 uncontrolled medication compliance was reinforced increased Lantus 30 units insulin sliding scale. 3. Low Hb will f/u repeat labs No sign and symptoms suggestive of active bleeding 4. nausea/vomiting resolved Care plan: Plan of care discussed with patient and or family and Patient encouraged to ask questions about plan Dictated by: <Electronically signed by Robert Leon MD> Robert Leon MD 11/07/20919 Robert Leon MD SIGNATURE DA Report Cosigners: D: ILDEFONSO 11/07/20918 T: ILDEFONSO 11/07/20918 CC: Name Value Range Interpretation Code Description Data Suze rce(s) Supporting Document(s) ID Date Data Source [id number] 11/07/2020 03:45:00 AM EDT [facility] Special Instructions: DRAW 1 HOUR PRIOR TO 0400 DOSE Name Value Range Interpretation Code Description Data Suze rce(s) Supporting Document(s) Vancomycin [Mass/volume] in Serum or Plasma --trough 9.9 ug/mL 10-20 Below low normal [facility] As of 11/07/20 0345Last administered patient dose of VANCOMYCIN HCLprior to specimen collection:11/06/20 1739 (9.6 hours). ID Date Data Source [id number] 11/07/2020 03:25:00 AM EDT [facility] Name Value Range Interpretation Code Description Data Suze rce(s) Supporting Document(s) Leukocytes [#/volume] in Blood by Automated count 9.1 10*3/uL 4.45-10 .71 N [facility] Erythrocytes [#/volume] in Blood by Automated count 3.11 10*6/uL 4.20-5.40 Below low normal [facility] Hemoglobin [Moles/volume] in Blood 9.0 g/dL 10.7-15.4 Below low no rmal [facility] Hematocrit [Volume Fraction] of Blood by Automated count 27.7 % 37-47 Below low normal [facility] Erythrocyte mean corpuscular volume [Ent itic volume] in Cord blood by Automated count 89 fL 80-96 N [facility] ital Erythrocyte mean corpuscular hemoglobin [Entitic mass] by Au tomated count 29 pg 27-31 N [facility] Erythrocyte mean corpuscular hemoglobin concentration [Mass/volume] in Cord blood 33 g/dL 33-37 N [facility] ital Erythrocyte distribution width [Entitic volume] by Automated count 13 % 11-15 N [facility] Platelets [#/volume] in Blood by Automated count 271 10*3/uL 130-472 N [facility] Platelet mean volume [Entitic volume] in Blood 9.4 fL 9.1-13.1 N [facility] Neutrophils/100 leukocytes in Blood by Automated count 63.8 % 41- 77 N [facility] Neutrophils [#/volume] in Blood by Automated count 5.8 U 1.7-7.6 N [facility] Lymphocytes/100 leukocytes in Blood by Automated count 30.4 % 14- 46 N [facility] Lymphocytes [#/volume] in Blood by Automated count 2.8 U 0.6-4.6 N [facility] Monocytes/100 leukocytes in Blood by Automated count 4.5 % 4-12 N [facility] Monocytes [#/volume] in Blood by Automated count 0.4 U 0.2-1.2 N [facility] Eosinophils/100 leukocytes in Blood by Automated count 0.6 % 0-7 N [facility] Eosinophils [#/volume] in Blood by Automated count 0.1 U 0.0-0.5 N [facility] Basophils/100 leukocytes in Blood by Automated count 0.3 % 0.4-1.3 Below low normal [facility] Basophils [#/volume] in Blood by Automated count 0.0 U 0.0-0.2 N [facility] NUCLEATED RED BLOOD CELL 0 % [facility] NUCLEATED RED BLOOD CELL# 0 U [facility] Immature granulocytes [Presence] in Blood by Automated count 0-2 N [facility] Immature granulocytes [#/volume] in Blood by Automated count 0.0 U 0-0.1 N [facility] Manual Differential panel - Blood NO [facility] ID Date Data Source [id number] 11/07/2020 03:44:00 AM EDT [facility] Name Value Range Interpretation Code Description Data Suze rce(s) Supporting Document(s) Urea nitrogen [Mass/volume] in Serum or Plasma 15 mg/dL 9-23 N [facility] Sodium [Moles/volume] in Serum or Plasma 140 mmol/L 132-146 N [facility] Potassium [Moles/volume] in Serum or Plasma 4.0 mmol/L 3.5-5.5 [facility] Chloride [Moles/volume] in Serum or Plasma 110 mmol/L 99-109 Above high normal [facility] Carbon dioxide, total [Moles/volume] in Serum or Plasma 25 mmol/L 20 -31 [facility] Anion gap in Serum or Plasma 9 mmol/L 8-16 N [facility] Glucose [Mass/volume] in Serum or Plasma 142 mg/dL 74-106 Above high normal [facility] Creatinine 0.6 mg/dL 0.5-1.1 [facility] Glomerular filtration rate/1.73 sq M.pre dicted [Volume Rate/Area] in Serum or Plasma Greater Than 60 ABOVE 60 [facility] Alanine aminotransferase [Enzymatic acti vity/volume] in Serum or Plasma by With P-5'-P 46 U/L 10-49 N [facility] ital Aspartate aminotransferase [Enzymatic ac tivity/volume] in Serum or Plasma by With P-5'-P 48 U/L 0-33 Above high normal [facility] Alkaline phosphatase [Enzymatic activity/volume] in Serum or Plasma 129 U/L 45-129 N [facility] Calcium [Mass/volume] in Serum or Plasma 7.9 mg/dL 8.5-10.1 Below low normal [facility] Bilirubin.total [Mass/volume] in Serum or Plasma 0.1 mg/dL 0.3-1.2 Below low normal [facility] Albumin [Mass/volume] in Serum or Plasma by Bromocresol purple (BCP) dye binding method 2.4 g/dL 3.2-4.8 Below low normal [facility] Protein [Mass/volume] in Serum or Plasma 6.1 g/dL 5.7-8.2 [facility] ID Date Data Source [id number] 11/06/2020 09:07:00 PM EDT [facility] Special Instructions: 2.5 HOURS AFTER 16 00 DOSE STARTED Name Value Range Interpretation Code Description Data Suze rce(s) Supporting Document(s) Vancomycin [Mass/volume] in Serum or Plasma --peak 22.6 ug/mL 20-40 N [facility] ID Date Data Source [id number] 11/06/2020 08:41:00 PM EDT [facility] Reason for ordering culture: Abnormal fi ndings UA@11/06/20 2019: UA W/ MICRO added. RFLXG = UMIC CIF.Method of Collection:: Voided @11/06/202040: Urine culture added. RFL XG = CULT.ADD.25,000 CFU/MLYeast like organisms no senst done Reason for ordering culture: Abnormal fi ndings UA@11/06/20 2019: UA W/ MICRO added. RFLXG = UMIC CIF.Method of Collection:: Voided Name Value Range Interpretation Code Description Data Suze rce(s) Supporting Document(s) Color of Urine [facility] Appearance of Urine CLEAR Abnormal (applies to non-nu meric results) [facility] pH of Urine by Test strip 5.0 5-8 [facility] Specific gravity of Urine by Refractometry 1.038 1.005 -1.030 Abnormal (applies to non-numeric results) [facility] Leukocyte esterase [Presence] in Urine by Test strip NEGATIVE Abnormal (applies to non-numeric results) [facility]A Culture has been added to this specimen per established criteria Nitrite [Presence] in Urine by Test strip NEGATIVE [facility] Protein [Presence] in Urine by Test strip NEGATIVE [facility] Glucose [Mass/volume] in Urine by Automated test strip > 1000 mg /dl NEGATIVE Abnormal (applies to non-numeric results) [facility] Ketones [Presence] in Urine by Test strip NEGATIVE [facility] Urobilinogen [Presence] in Urine 0.2-1 EU/dl [facility] Bilirubin.total [Presence] in Urine by Automated test strip NEGATIVE [facility] Erythrocytes [#/volume] in Urine by Test strip SMALL NEGATIV E Above high normal [facility] @DO MICRO!!!! URINE MICROSCOPIC? (CIF) Microscopic Added [facility] ID Date Data Source [id number] 11/06/2020 11:26:00 AM EDT [facility] Pharmacy Department PAZ DELGADO : 1980 Date: 11/06/20 [id number] Vancomycin Initiation PK Note - General Information Hx VRE (Vancomycin- resistant enterococci): No Hx MRSA: (Methicillin-resistant Staphylococcus aureus): Yes - 11/04/10 - Labratory/Microbiology Labratory Values: Creatinine/BUN BUN 16 mg/dL (9-23) 11/05/20 15:00 Creatinine 0.9 mg/dL (0.5-1.1) 11/05/20 15:00 Abnormal Laboratory Results past 24 hours 11/05/20 11/05/20 11/05/20 13:40 15:00 15:00 WBC 14.6 H RBC 3.70 L Hct 31.4 L Neut % (Auto) 80.3 H Baso % (Auto) 0.2 L Neutrophils (Manual) 85 H Absolute Neutrophils 11.7 H Monocytes (Manual) 1 L Glucose POC Glucose 370 H Hemoglobin A1c C-Reactive Protein Albumin HCG, Quant Less than 1 L 11/05/20 11/05/20 15:00 15:00 WBC RBC Hct Neut % (Auto) Baso % (Auto) Neutrophils (Manual) Absolute Neutrophils Monocytes (Manual) Glucose 312 H POC Glucose Hemoglobin A1c 12.1 H C-Reactive Protein 117.0 H Albumin 3.1 L HCG, Quant 11/05/20 15:00 11/05/20 15:00 Microbiology: Pending Microbiology Results 11/05/20 15:00 Blood Culture - Pending Venous blood 11/05/20 15:00 Blood Culture - Pending Venous blood - Infection Infection (Type/Site/Source): Skin and Soft Tissue Infection - Concurrently Taking Concurrently Taking:: Zosyn - 3.375G IV Q6H - Dosing Loading Dose:: Not indicated Initial Maintenance dose (15-20 mg/kg): VANCOMYCIN 1G IV Q12H - Monitoring Vancomycin Peak ordered for:: 11/06 @ 1830 Vancomycin Trough ordered for:: 11/07 @0300 - General Information Allergies/Adverse Reactions: Allergies Allergy/AdvReac Type Severity Reaction Status Date / Time No Known Drug Allergies Allergy Verified 09/26/20 08:09 No Known Food Allergies Allergy Unverified 11/05/20 11:37 Pharmacy Nicole Decker 11/06/20 1126 Date Time LAST EDIT: Name Value Range Interpretation Code Description Data Suze rce(s) Supporting Document(s) ID Date Data Source [id number] 11/06/2020 11:00:00 AM EDT [facility] Therapy Department PAZ DELGADO : 1980 Date: 11/06/20 [id number] Attending: Robert Leon MD Physical Therapy Inpatient [place] - Therapy Evaluation Date PT Order Received:: 11/06/20 Date Started:: 11/06/20 Time Started:: 10:35 Diagnosis:: R foot cellulitis Reason for Evaluation: New Admission Rehab Diagnosis:: difficulty walking PMH and Social Hx. Reviewed per MD, Nursing, and ER Assess.: Yes - Subjective/History Subjective:: Pt states she has had some balance problems in the past due to her DM but that has not been a problem now for about a year. Pain in R foot is decreasing her lonny. for walking on the foot. Hx pertinent to PT concerns:: DM, anxiety, asthma, depression Prior Level of Function:: I for all activity Type of Dwelling: Home Number of Floors: 2 Able to negotiate inside stairs?: Yes Physical Barriers in Home Environment: One railing Home Environment:: Will need to go upstairs Does the patient have pain?: Yes - Pain Detail Pain Location: R foot Pain Description: Aching Pain Intensity: 4 Pain Scale Used: Numeric Scale - Objective Hearing Ability: Normal Hearing Visual Assistive Devices: None Observations: Alert and oriented x 3 - Transfer Sit<>Stand:: Supervision Bed<>Chair:: Supervision Supine<>Sit:: Independent Bed Mobility:: Independent - Ambulation Ambulation Assistance:: Supervision # Required to Assist:: 1 - for IV pole Assistive Devices: Front Wheeled Walker Distance (ft):: 20 S tairs:: NT Ambulation Comments: Pt was able to walk with RW and PWB on the R LE. Pain limits her from putting all her weight through that leg. She felt much better with the walker and can at least get around now. She says she will be able to do the stairs fine as well. - Balance Balance comments: Good with RW on level surfaces - Assessment Physical Therapy Impressions/Assessment: Pt has decreased mobility secondary to R foot pain. However, with the RW, she is able to perform functional mobility as needed. She is safe for D/C home when medically cleared. She would need a walker however unless her pain improves to where she can bear normal weight. - Plan Treatment Plan: Transfer training, Gait training on level surfaces - Plan of Care Short Term Goal #1: Safe mobility with RW Rehab Potential: Good - End Date Ended:: 11/06/20 Time Ended:: 10:50 Elapsed Time (minutes): 15 Elapsed Time Minutes: 15 - PT Orders Current Equipment: Walker Therapist Alfredo Montano 11/06/20 1100 I certify this plan of care Robert Meyers MD 11/06/20 1244 Date Time LAST EDIT: Name Value Range Interpretation Code Description Data Suze rce(s) Supporting Document(s) ID Date Data Source [id number] 11/06/2020 09:36:00 AM EDT [facility] [address] [place] [address] [phone] NAME SEX PT STATUS ACCOUNT NUMBER PAZ DELGADO ADM IN [id number] ORDERING PHYSICIAN LOCATION MEDICAL RECORD NO. Robert Leon MD [id number] ATTENDING PHYSICIAN DATE OF DATE OF EXAM/TIME Shannon Zhang NP 1980 11/06/20927 TYPE / EXAM MRI Foot Right w/ REASON FOR EXAM right foot swelling, eschar Clinical History/Indication for Exam: right foot swelling, eschar MR RIGHT LOWER EXTREMITY WITHOUT AND WITH INTRAVENOUS CONTRAST FOOT INDICATION: Right foot swelling, eschar TECHNIQUE: Multiplanar magnetic resonance images of the right foot without and with 7 mL Gadavistintravenous contrast. COMPARISON: None of the right foot FINDINGS: LIGAMENTS: Medial collateral: Unremarkable. Lateral collateral: Unremarkable. Lisfranc: Unremarkable. TENDONS: Flexor: Unremarkable. Extensor: Unremarkable. Peroneal: Unremarkable. Tibialis anterior: Unremarkable. Tibialis posterior: Unremarkable. Muscles: Unremarkable. Fluid: Small effusion first metatarsophalangeal joint. Sinus tarsi: Unremarkable as visualized. Tarsal tunnel: Unremarkable. Plantar fascia: Unremarkable. Cartilage: Unremarkable. Bones/joints: Os Trigonum. Soft tissues: Subcutaneous edema plantar and medial aspect first metatarsophalangeal joint with mild contrast enhancement. Subcutaneous edema dorsal lateral aspect midfoot and forefoot. Other findings: 7 mL Gadavist IV contrast. IMPRESSION: 1. Small effusion first metatarsophalangeal joint. 2. Subcutaneous edema plantar and medial aspect first metatarsophalangeal joint with mild contrastenhancement. 3. Subcutaneous edema dorsal lateral aspect midfoot and forefoot. 4. Os Trig onum. Contrast Type: Gadavist. Contrast Volume: 7mL REPORT SIGNATURE ON FILE 11/06/2020 (09:36 Eastern Time ) Signed by: Lin Pereira M.D., [facility] Reported By Lin Pereira MD on 11/06/20935 Signed By Lin Pereira MD on 11/06/20935 Date Time CC: Shannon Zhang; Lin Pereira MD Techn: HANJU Trans Dt/Tm: Trans by: DT Prt Dt/Tm: [id number]: Total DLP = 0.00 mGy-cm : Total Radiation Dose = 0.0000 mSv Lifetime Dose: 0 mSv Name Value Range Interpretation Code Description Data Suze rce(s) Supporting Document(s) ID Date Data Source [id number] 11/06/2020 08:24:00 AM EDT [facility] Name: PAZ DELGADO : 1980 Age: 39 MR#: [id number] Admit Date: 11/05/20 Provider: Robert Leon MD Room #: 290 Consulting Provider: Dictation Date: 11/06/20 Progress Note Subjective-ROS Date of service Date of service:: 11/06/20 Review of Systems Attestation/Length Of Stay: 11/05/20 16:02 Admit to Inpatient, Acute [STATUS] Routine Location: [facility] Primary diagnosis: right foot cellulitis Isolation: Standard precautions Status: Inpatient Admission Anticipated Length of stay:: 2-3 Midnights Vital Signs and I O Vitals and I O: Vital Signs last 12 hours Temp Pulse Resp BP Pulse Ox 11/06/20 07:44 97.9 F 102 H 18 149/65 99 11/06/20 05:00 98.9 F 98 18 123/67 97 11/05/20 21:04 98.1 F 85 18 110/62 Intake Output Last 24 Hours 11/04/20 11/05/20 11/06/20 23:59 23:59 23:59 Intake Total 1552.337 / 1552.337 640 / 640 Output Total 700 / 700 Balance 1552.337 / 1552.337 -60 / -60 Current Weight 165 lb 5 oz Results Results: 11/06/20 05:05 11/06/20 05:05 Laboratory Results Last 24 hours 11/05/20 13:40: POC Glucose 370 H 11/05/20 15:00: Magnesium 2.3, Folate 7.3, TSH 0.73, HCG, Quant Less than 1 L, Acetone, Qual Negative 11/05/20 15:00: Vitamin B12 420 11/05/20 15:00: WBC 14.6 H, RBC 3.70 L, Hgb 10.7, Hct 31.4 L, MCV 85, MCH 29, MCHC 34, RDW 13, Plt Count 321, MPV 9.3, Immature Gran % (Auto) 0.5, Neut % (Auto) 80.3 H, Lymph % (Auto) 14.4, [place] % (Auto) 4.5, Eos % (Auto) 0.1, Baso % (Auto) 0.2 L, Lymph # (Auto) 2.1, Abs Immat Gran (auto) 0.1, Add Manual Diff Manual diff added, Total Counted 100, Neutrophils (Manual) 85 H, Absolute Neutrophils 11.7 H, Lymphocytes (Manual) 14, Monocytes (Manual) 1 L, Monocytes # 0.7, Absolute Eosinophils 0.0, Absolute Basophils 0.0, Platelet Estimate Appears normal, RBC Morphology Appears normal 11/05/20 15:00: Sodium 133, Potassium 4.0, Chloride 101, Carbon Dioxide 27, Anion Gap 9, BUN 16, Creatinine 0.9, GFR Calculation Greater than 60, Glucose 312 H, Calcium 8.9, Total Bilirubin 0.4, AST 8, ALT 13, Alkaline Phosphatase 78, C-Reactive Protein 117.0 H, Serum Total Protein 7.5, Albumin 3.1 L 11/05/20 15:00: Lactic Acid 1.0 11/05/20 15:00: Hemoglobin A1c 12.1 H, Estim Average Glucose 301 11/05/20 15:00: Phosphorus 3.7 11/05/20 18:27: POC Glucose 180 H 11/05/20 21:02: POC Glucose 257 H 11/06/20 05:05: WBC 10.9 H, RBC 3.37 L, Hgb 9.7 L, Hct 29.2 L, MCV 87, MCH 29, MCHC 33, RDW 13, Plt Count 279, MPV 10.0, Immature Gran % (Auto) 0.5, Neut % (Auto) 70.7, Lymph % (Auto) 23.2, [place] % (Auto) 4.9, Eos % (Auto) 0.4, Baso % (Auto) 0.3 L, Lymph # (Auto) 2.5, Abs Immat Gran (auto) 0.1, Add Manual Diff No, Absolute Neutrophils 7.7 H, Monocytes # 0.5, Absolute Eosinophils 0.0, Absolute Basophils 0.0 11/06/20 05:05: Sodium 141, Potassium 4.0, Chloride 110 H, Carbon Dioxide 25, Anion Gap 10, BUN 15, Creatinine 0.7, GFR Calculation Greater than 60, Glucose 117 H, Calcium 8.0 L, Total Bilirubin 0.3, AST 22, ALT 21, Alkaline Phosphatase 81, Serum Total Protein 6.1, Albumin 2.5 L 11/06/20 07:14: POC Glucose 135 H Microbiology 11/05/20 16:05 Nasopharyngeal SARS-CoV-2 Rapid RNA (RT-PCR) - Final Sars-Cov-2 Not Detected Influenza A Not Detected Influenza B Not Detected RSV Not Detected Exam Orientation: Alert, Oriented x3 and Cooperative HEENT: Mucous membr. moist/pink Lungs: normal lung sounds bilaterally Cardiovascular Exam: regular rate and normal rhythm Abdomen: Normal bowel sounds and Soft; negative for Tenderness Extremities: normal inspection Skin: Other (redness/warmth/tenderness over lateral aspect of right dorsal foot ) Neurological: Normal speech and Strength at 5/5 X4 ext Psych/Mental Status: normal mood Assessment/Plan A P Free Text/Narrative :: 39 y/o F c/o right foot pain, redness; was admitted for right foot cellulitis. Labs and imaging studies reviewed c/o mild foot pain. Plan 1. Right foot cellulitis iv vancomycin and zosyn will f/u culture from right foot infection site and blood culture MRI foot reviewed 2. DM type 2 uncontrolled medication compliance was reinforced increased Lantus 30 units insulin sliding scale. 3. nausea/vomiting resolved could be related to uncontrolled DM Dictated by: <Electronically signed by Robert Leon MD> Robert Leon MD 11/06/20 1743 Robert Leon MD SIGNATURE DA Report Cosigners: D: ARYVI 11/06/20823 T: ARYVI 11/06/20823 CC: Name Value Range Interpretation Code Description Data Suze rce(s) Supporting Document(s) ID Date Data Source [id number] 11/06/2020 05:57:00 AM EDT [facility] [facility] Name Value Range Interpretation Code Description Data Suze rce(s) Supporting Document(s) Leukocytes [#/volume] in Blood by Automated count 10.9 10*3/uL 4.45-10.71 Above high normal [facility] Erythrocytes [#/volume] in Blood by Automated count 3.37 10*6/uL 4.20-5.40 Below low normal [facility] Hemoglobin [Moles/volume] in Blood 9.7 g/dL 10.7-15.4 Below low no rmal [facility] Hematocrit [Volume Fraction] of Blood by Automated count 29.2 % 37-47 Below low normal [facility] Erythrocyte mean corpuscular volume [Ent itic volume] in Cord blood by Automated count 87 fL 80-96 N [facility] ital Erythrocyte mean corpuscular hemoglobin [Entitic mass] by Au tomated count 29 pg 27-31 N [facility] Erythrocyte mean corpuscular hemoglobin concentration [Mass/volume] in Cord blood 33 g/dL 33-37 N [facility] ital Erythrocyte distribution width [Entitic volume] by Automated count 13 % 11-15 N [facility] Platelets [#/volume] in Blood by Automated count 279 10*3/uL 130-472 N [facility] Platelet mean volume [Entitic volume] in Blood 10.0 fL 9.1-13.1 N [facility] Neutrophils/100 leukocytes in Blood by Automated count 70.7 % 41- 77 N [facility] Neutrophils [#/volume] in Blood by Automated count 7.7 U 1.7-7.6 Above high normal [facility] Lymphocytes/100 leukocytes in Blood by Automated count 23.2 % 14- 46 N [facility] Lymphocytes [#/volume] in Blood by Automated count 2.5 U 0.6-4.6 N [facility] Monocytes/100 leukocytes in Blood by Automated count 4.9 % 4-12 N [facility] Monocytes [#/volume] in Blood by Automated count 0.5 U 0.2-1.2 N [facility] Eosinophils/100 leukocytes in Blood by Automated count 0.4 % 0-7 N [facility] Eosinophils [#/volume] in Blood by Automated count 0.0 U 0.0-0.5 N [facility] Basophils/100 leukocytes in Blood by Automated count 0.3 % 0.4-1.3 Below low normal [facility] Basophils [#/volume] in Blood by Automated count 0.0 U 0.0-0.2 N [facility] NUCLEATED RED BLOOD CELL 0 % [facility] NUCLEATED RED BLOOD CELL# 0 U [facility] Immature granulocytes [Presence] in Blood by Automated count 0-2 N [facility] Immature granulocytes [#/volume] in Blood by Automated count 0.1 U 0-0.1 N [facility] Manual Differential panel - Blood NO [facility] ID Date Data Source [id number] 11/06/2020 06:37:00 AM EDT [facility] Name Value Range Interpretation Code Description Data Suze rce(s) Supporting Document(s) Urea nitrogen [Mass/volume] in Serum or Plasma 15 mg/dL 9-23 N [facility] Sodium [Moles/volume] in Serum or Plasma 141 mmol/L 132-146 [facility] Potassium [Moles/volume] in Serum or Plasma 4.0 mmol/L 3.5-5.5 [facility] Chloride [Moles/volume] in Serum or Plasma 110 mmol/L 99-109 Above high normal [facility] Carbon dioxide, total [Moles/volume] in Serum or Plasma 25 mmol/L 20 -31 N [facility] Anion gap in Serum or Plasma 10 mmol/L 8-16 [facility] Glucose [Mass/volume] in Serum or Plasma 117 mg/dL 74-106 Above high normal [facility] Creatinine 0.7 mg/dL 0.5-1.1 [facility] Glomerular filtration rate/1.73 sq M.pre dicted [Volume Rate/Area] in Serum or Plasma Greater Than 60 ABOVE 60 [facility] Alanine aminotransferase [Enzymatic acti vity/volume] in Serum or Plasma by With P-5'-P 21 U/L 10-49 N [facility] ital Aspartate aminotransferase [Enzymatic ac tivity/volume] in Serum or Plasma by With P-5'-P 22 U/L 0-33 N [facility] pital Alkaline phosphatase [Enzymatic activity/volume] in Serum or Plasma 81 U/L 45-129 N [facility] Calcium [Mass/volume] in Serum or Plasma 8.0 mg/dL 8.5-10.1 Below low normal [facility] Bilirubin.total [Mass/volume] in Serum or Plasma 0.3 mg/dL 0.3-1.2 [facility] Albumin [Mass/volume] in Serum or Plasma by Bromocresol purple (BCP) dye binding method 2.5 g/dL 3.2-4.8 Below low normal [facility] Protein [Mass/volume] in Serum or Plasma 6.1 g/dL 5.7-8.2 [facility] ID Date Data Source [id number] 11/05/2020 04:40:00 PM EDT [facility] Name: PAZ DELGADO : 1980 Age: 39 MR#: [id number] Admit Date: 11/05/20 Provider: Robert Leon MD Room #: 290 Consulting Provider: Dictation Date: 11/05/20 History Physical HPI Date of service Date of service:: 11/05/20 History of Present Illness Nurse screening for coronavirus: Recent Travel outside the country (where) Chief Complaint: right foof pain Emergency Room stated complaint: Multi system (Adult) Admitted From: Emergency Dept Source of information: Patient and Family Member HPI Free T ext/Narrative:: 39 y/o F with h/o DM type 2(stopped taking insulin 5 months ago) went to see her PMD for c/o worsening right foot pain for past few days, no specific aggravating or relieving factor. Pt also had fewepisodes of nausea/vomiting for past 2 weeks. Pt was sent to ER due to concern of DKA. In ER pt was found with vitals of BP 128/74, HR 103, RR 18, Temp 98.3, SpO2- 96% on RA; Pt was initially started on iv insulin gtt that was stopped after DKA was ruled out. On physical examination there was area of skin induration/redness/tenderness/warmth over lateral aspect of rightdorsal foot. Pt was given iv vancomycin/zosyn for right foot cellulitis. Hospitalist service was consulted to admit the patient for further management. Pt was seen and examined at bedside in ER. at bedside. Pt c/o pain over lateral aspect of right foot dorsum. Allergies/Home Meds Allergies Allergy/AdvReac Type Severity Reaction Status Date / Time No Known Drug Allergies Allergy Verified 09/26/20 08:09 No Known Food Allergies Allergy Unverified 11/05/20 11:37 Home Medications Medication Instructions Recorded Confirmed Last Taken Type No Known Home Medications 11/05/20 Unknown History Medication list updated and reviewed:: Yes PFSH Medical History (Updated 11/05/20 @ 16:48 by Robert Leon MD) Anxiety Asthma Chlamydia Depression Diabetes mellitus Herpes genitalis Retinal detachment Surgical History (Updated 11/05/20 @ 16:48 by Robert Leon MD) Hx of tonsillectomy Status post tonsillectomy Social History Does the Patient have a Healthcare Proxy: No Does Patient have a DNR?: No Does Patient have a Living Will?: No Advance Directives on File or in chart?: No Hx Recent Travel (where): No Smoking Status: Never smoker Sickle cell Sickle Cell Screening:: Not indicated ROS Const All systems reviewed are unremarkable except as noted in HPI and below Denies excessive sweating, Denies fatigue and Denies fever(s) Eyes Denies diplopia ENT Denies vertigo and Denies throat swelling Card Denies chest pain Resp Denies cough and Denies wheezing GI Denies nausea Denies difficulty voiding Musc Denies arthralgias Skin/Breast Denies rash Neuro Denies confusion and Denies vertigo Psych Denies confusion and Denies depression Endo Denies excessive sweating and Denies fatigue Bernardo/Lymph Denies easy bleeding Aller/Immun Denies throat swelling and Denies wheezing Vital Signs and I O Vitals and I O: Vital Signs last 12 hours Temp Pulse Resp BP Pulse Ox 11/05/20 13:53 98.3 F 103 H 18 128/74 96 Intake Output Last 24 Hours 11/03/20 11/04/20 11/05/20 23:59 23:59 23:59 Current Weight 160 lb Height,Weight BMI: Ht Wt BMI Current Height 5 ft 6 in Current Weight 160 lb Results Results: 11/05/20 15:00 11/05/20 15:00 Laboratory Results Last 24 hours 11/05/20 13:40: POC Glucose 370 H 11/05/20 15:00: Magnesium 2.3, Folate 7.3, TSH 0.73, HCG, Quant Less than 1 L, Acetone, Qual Negative 11/05/20 15:00: Vitamin B12 420 11/05/20 15:00: WBC 14.6 H, RBC 3.70 L, Hgb 10.7, Hct 31.4 L, MCV 85, MCH 29, MCHC 34, RDW 13, Plt Count 321, MPV 9.3, Immature Gran % (Auto) 0.5, Neut % (Auto) 80.3 H, Lymph % (Auto) 14.4, [place] % (Auto) 4.5, Eos % (Auto) 0.1, Baso % (Auto) 0.2 L, Lymph # (Auto) 2.1, Abs Immat Gran (auto) 0.1, Add Manual Diff Manual diff added, Total Counted 100, Neutrophils (Manual) 85 H, Absolute Neutrophils 11.7 H, Lymphocytes (Manual) 14, Monocytes (Manual) 1 L, Monocytes # 0.7, Absolute Eosinophils 0.0, Absolute Basophils 0.0, Platelet Estimate Appears normal, RBC Morphology Appears normal 11/05/20 15:00: Sodium 133, Potassium 4.0, Chloride 101, Carbon Dioxide 27, Anion Gap 9, BUN 16, Creatinine 0.9, GFR Calculation G reater than 60, Glucose 312 H, Calcium 8.9, Total Bilirubin 0.4, AST 8, ALT 13, Alkaline Phosphatase 78, C-Reactive Protein 117.0 H, Serum Total Protein 7.5, Albumin3.1 L 11/05/20 15:00: Lactic Acid 1.0 11/05/20 15:00: Hemoglobin A1c 12.1 H, Estim Average Glucose 301 11/05/20 15:00: Phosphorus 3.7 Exam Const General: cooperative, healthy appearing, comfortable and no acute distress Orientation: alert, awake and oriented x3 HENMT Mouth: moist mucous membranes Eyes Conjunctivae: conjunctivae normal Neck Neck: supple Resp Auscultation: clear to auscultation bilaterally Cardio Rate: regular rate Rhythm: regular rhythm Heart Sounds: S1 normal and S2 normal GI Palpation: soft Auscultation: normal bowel sounds Skin Other: eschar over dorsal later aspect of right foot, surrounding erythema, warmth/tenderness Neuro General: patient alert, patient awake and patient oriented x3 Cranial Nerves: CN's II- XII intact bilaterally Cognition: normal cognition Speech: speech normal Motor: strength 5/5 throughout Sensory Exam: no sensory deficits noted Extrem General: no pedal edema Psych Mood: congruent mood Assessment/Plan A P Free Text/Narrative :: 39 y/o F c/o right foot pain, redness. Labs and imaging studies reviewed Impression- right foot cellulitis Plan 1. Right foot cellulitis iv vancomycin and zosyn will f/u culture sent by ER team will f/u blood culture will f/u MRI foot 2. DM type 2 uncontrolled medication compliance was reinforced started on Lantus 20 units insulin sliding scale. 3. nausea/vomiting resolved could be related to uncontrolled DM Dictated by: <Electronically signed by Robert Leon MD> Robert Leon MD 11/06/20 0824 Robert Leon MD SIGNATURE DA Report Cosigners: D: ILDEFONSO 11/05/20 1640 T: ILDEFONSO 11/05/20 1640 CC: Name Value Range Interpretation Code Description Data Suze rce(s) Supporting Document(s) ID Date Data Source [id number] 11/07/2020 10:34:00 AM EDT [facility] Special Instructions: right foot@ 1 1034: Aerobic ID Sharri added. [email or web address] = [email or web address] DESC:right footTHIS ISOLATE IS PRESUMED TO BE RESISTANT TO CLINDAMYCINBASED ON THE DETECTION OF INDUCIBLE CLINDAMYCIN RESISTANCE.CLINDAMYCIN MAY STILL BE EFFECTIVE IN SOME PATIENTS.Gp B Strep Spec Ql Cult Name Value Range Interpretation Code Description Data Suze rce(s) Supporting Document(s) Quantiy of growth NUMEROUS [facility] ID Date Data Source [id number] 11/07/2020 10:34:00 AM EDT [facility] Special Instructions: right foot@ 1 1034: Aerobic ID Sharri added. [email or web address] = [email or web address] DESC:right footTHIS ISOLATE IS PRESUMED TO BE RESISTANT TO CLINDAMYCINBASED ON THE DETECTION OF INDUCIBLE CLINDAMYCIN RESISTANCE.CLINDAMYCIN MAY STILL BE EFFECTIVE IN SOME PATIENTS.Gp B Strep Spec Ql Cult Name Value Range Interpretation Code Description Data Suze rce(s) Supporting Document(s) Ampicillin [Susceptibility] by Minimum inhibitory concentration (RIMA) <0.06 Susceptible. Indicates for microbiology susceptibilities only. [facility] Cefotaxime [Susceptibility] by Minimum inhibitory concentration (RIMA) <0.25 Susceptible. Indicates for microbiology susceptibilities only. [facility] Ceftriaxone [Susceptibility] by Minimum inhibitory concentration (RIMA) <0.25 Susceptible. Indicates for microbiology susceptibilities only. [facility] Clindamycin [Susceptibility] by Minimum inhibitory concentration (RIMA) >0.5 Resistant. Indicates for microbiology susceptibilities only. [facility] Erythromycin [Susceptibility] by Minimum inhibitory concentratio n (RIMA) >0.5 Resistant. Indicates for microbiology susceptibilities only. [facility] Penicillin [Susceptibility] by Minimum inhibitory concentration (RIMA) <0.03 Susceptible. Indicates for microbiology susceptibilities only. [facility] Tetracycline [Susceptibility] by Minimum inhibitory concentratio n (RIMA) <0.5 Susceptible. Indicates for microbiology susceptibilities only. [facility] Vancomycin [Susceptibility] by Minimum inhibitory concentration (RIMA) 0.5 Susceptible. Indicates for microbiology susceptibilities only. [facility] Levofloxacin [Susceptibility] by Minimum inhibitory concentratio n (RIMA) 0.5 Susceptible. Indicates for microbiology susceptibilities only. [facility] Cefepime [Susceptibility] by Minimum inhibitory concentration (M IC) <0.25 Susceptible. Indicates for microbiology susceptibilities only. [facility] ID Date Data Source [id number] 11/05/2020 04:17:00 PM EDT [facility] [address] [place] [address] [phone] NAME SEX PT STATUS ACCOUNT NUMBER MELISSATHOMPSONSAMANTAPAZ Heath [facility] [id number] ORDERING PHYSICIAN LOCATION MEDICAL RECORD NO. Ignacia Khanna MD [id number] ATTENDING PHYSICIAN DATE OF DATE OF EXAM/TIME Shannon Zhang NP 1980 11/05/20 / 0 TYPE / EXAM Xray Chest One View REASON FOR EXAM fever CLINICAL HISTORY: 39-year-old female with fever TECHNIQUE: AP upright portable chest radiograph COMPARISON: AP semiupright portable chest radiograph FINDINGS: LINES, TUBES AND HARDWARE: EKG leads overlie the chest. PULMONARY PARENCHYMA AND PLEURA: No pneumothorax, focal infiltrate or effusion. There are low lung volumes. HEART AND MEDIASTINUM: Heart is normal in size and configuration. No significant abnormality in themediastinum. BONES: No visible acute fracture or dislocation. SOFT TISSUES: No subcutaneous emphysema. VISIBLE ABDOMEN: No radiographic evidence of acute pathology IMPRESSION: 1. No radiographic evidence of acute cardiopulmonary pathology in the chest. END IMPRESSION Reported By Do Bernabe DO on 11/05/201616 Signed By Do Bernabe DO on 11/05/201617 Date Time CC: Shannon Bernabe DO Techn: MORSA Trans Dt/Tm: Trans by: DT Prt Dt/Tm: : Total DLP = 0.00 mGy-cm Fluoroscopy Time (in secs): Name Value Range Interpretation Code Description Data Suze rce(s) Supporting Document(s) ID Date Data Source [id number] 11/05/2020 04:08:00 PM EDT [facility] ED Physician Documentation NAME: PAZ DELGADO : 1980 AGE: 39 MR#: [id number] SERVICE DATE: 11/05/[address]: Ignacia Khanna MD PRIMARY CARE DR: Shannon Zhang ROOM#: [id number] HPI (Adult, General) General Chief Complaint: Multi system (Adult) Stated Complaint: INSULIN Time Seen by Provider: 11/05/20 13:15 History of Present Illness Narrative: Patient is a 39-year-old white female who has been diabetic on and off since her original which she developed gestational diabetes. Since then she has been notoriously noncompliant and thisis documented well Francisca March 2020 endocrinology note which is contained contained within our our computer system. It is very informative. She is lost from 275 pounds to 163 she states and haslost about 15 pounds in the last month. She states her blood sugars oftentimes between 3 and 500. Her last A1c in March was 10.9. Although her problem list states uncontrolled type 1 diabetes the endocrinology note stated that she has a C-peptide which is positive indicating that she really is type II. Today she is sent here by her primary care physician because of mildly elevated blood sugars and also an infection which seems to be brewing on the lateral aspect of the right foot which has been present for 2 days. Her doctor was worried she might be in DKA. She has not been eating much over the last 48 hours. Her past medical history is otherwise unremarkable she is not allergic to anything and her surgical history is significant for tonsillectomy and retinal detachment surgery. She denies any possibility of . Normally she has been quite resistant to care as has been documented on multiple times that I can read today. Allergies/Home Meds Allergies Allergy/AdvReac Type Severity Reaction Status Date / Time No Known Drug Allergies Allergy Verified 09/26/20 08:09 No Known Food Allergies Allergy Unverified 11/05/20 11:37 Home Medications Medication Instructions Recorded Confirmed Last Taken Type No Known Home Medications 11/05/20 Unknown History PMH (from Triage) Patient Medical History PMH Reviewed/Updated as Needed: Yes PMH/PSH from Triage: Medical History (Updated 11/05/20 @ 16:48 by Robert Leon MD) Anxiety (Medical) Asthma (Medical) Chlamydia (Medical) Depression (Medical) Diabetes mellitus (Medical) Herpes genitalis (Medical) Hx of tonsillectomy (Medical) Z90.89 Retinal detachment (Medical) H33.20 Surgical History (Updated 11/05/20 @ 16:48 by Robert Leon MD) Hx of tonsillectomy (Surgical) Z90.89 Status post tonsillectomy (Surgical) Female History : No Hx Drug Resistant Infections Hx MRSA: (Methicillin-resistant Staphylococcus aureus): Yes (11/04/10) Hx VRE (Vancomycin-resistant enterococci): No Hx C.Diff: No Hx CRKP: No Hx Other Resistant Infection?: No Isolation: Standard precautions Hx Recent Travel Out of the country within 10 days (where): No Hx Fever: No Hx Fever with a rash?: No Nurse screening for coronavirus: Recent Travel outside the No country (where) Social History Does patient have suicidal/homicidal thoughts or ideation?: No Are you in a relationship with/Does anyone hit you, yell/swear at you, steal from you?: No Substance Use Hx Alcohol Use: No Hx Substance Use: No Hx Substance Use Treatment: No Smoking Status: Never smoker Tobacco Use Hx C hewing Tobacco Use: No Vaccination History Hx/Date of Tetanus, Diphtheria Vaccination: No Hx/Date of Influenza Vaccination: No Hx/Date of Pneumococcal Vaccination: No PFSH Medical History (Updated 11/05/20 @ 16:48 by Robert Leon MD) Anxiety Asthma Chlamydia Depression Diabetes mellitus Herpes genitalis Retinal detachment Surgical History (Updated 11/05/20 @ 16:48 by Robert Leon MD) Hx of tonsillectomy Status post tonsillectomy Social History Does the Patient have a Healthcare Proxy: No Does Patient have a DNR?: No Does Patient have a Living Will?: No Hx Recent Travel (where): No Smoking Status: Never smoker Sickle cell Sickle Cell Screening:: Not indicated ROS Review of Systems ROS Narrative: Lesion lateral right foot elevated blood sugars low-grade fever Constitutional: Denies fever Eyes: Denies vision change, eye discharge/drng or redness ENT: Denies mouth pain or mouth swelling Respiratory: Denies cough, sputum, SOB w/exertion rest, SOB with excertion, SOB at rest or wheezing Cardiovascular: Denies chest pain or palpitations Gastrointestinal: Reports No Symptoms/Complaints; Denies nausea, vomiting or abdominal pain Musculoskeletal: Denies neck pain, shoulder pain or muscle weakness Skin/Breasts: Reports rash and lesions Neurologic: Denies weakness, n umbness or headache Psychiatric: Reports No Symptoms/Complaints Endocrine: Reports No Symptoms/Complaints Hematological/Lymphatic: Reports No Symptoms/Complaints Allergic/Immunologic: Reports No Symptoms/Complaints Physical Exam General Physical Exam Narrative: No acetone notable in the room. HEENT is unremarkable. Chest heart lungs and abdomen are nontenderand normal. Her right lateral foot shows a subcutaneous patch of white material which is undoubtedly purulent and it shows some lymphangitic spread above the forefoot which is actually petechial. She has small perry on the anterior p ortion of her right calf but otherwise is unremarkable. Limitations: no limitations Head Head exam: Present atraumatic and normocephalic Eye Eye exam: Present normal apperance, PERRL and EOMI; Absent scleral icterus or conjunctival injection Pupils: Present normal accommodation ENT ENT exam: Present normal exam and normal orophraynx Neck Neck exam: Present normal inspection and full ROM; Absent tenderness or meningismus Respiratory Respiratory exam: Present normal lung sounds bilaterally; Absent respiratory distress, wheezes, rales, rhonchi or chest wall tenderness Cardiovascular Car diovascular Exam: Present regular rate, normal rhythm, normal heart sounds and no murmur GI/Abdominal GI/Abdominal exam: Present Abd soft, bowel sounds present all quadrents, soft and normal bowel sounds; Absent distended or tenderness Rectal Rectal exam: Present deferred Extremities Exam Extremities exam: Present normal inspection, Full ROM without tenderness, capillary refill brisk, full ROM and capillary refill brisk; Absent tenderness, pedal edema or calf tenderness Back Exam Back exam: Present normal inspection and full ROM Neurological Exam Neurological exam: Present alert, oriented X3, CN II-XII intact and normal gait Psychiatric Psychiatric exam: Present normal affect Skin Skin exam: Present warm, dry and intact; Absent petechiae Vital Signs Vital Signs: Vital Signs 11/05/20 13:53 Temperature 98.3 F Pulse Rate 103 H Respiratory Rate 18 Blood Pressure 128/74 O2 Sat by Pulse Oximetry 96 MDM (comprehensive) Lab Data Labs: 11/05/20 15:00 11/05/20 15:00 Laboratory Results Last 24 hours 11/05/20 13:40: POC Glucose 370 H 11/05/20 15:00: Magnesium 2.3, Folate 7.3, TSH 0.73, HCG, Quant Less than 1 L, Acetone, Qual Negative 11/05/20 15:00: Vitamin B12 420 11/05/20 15:00: WBC 14.6 H, RBC 3.70 L, Hgb 10.7, Hct 31.4 L, MCV 85, MCH 29, MCHC 34, RDW 13, Plt Count 321, MPV 9.3, Immature Gran % (Auto) 0.5, Neut % (Auto) 80.3 H, Lymph % (Auto) 14.4, [place] % (Auto) 4.5, Eos % (Auto) 0.1, Baso % (Auto) 0.2 L, Lymph # (Auto) 2.1, Abs Immat Gran (auto) 0.1, Add Manual Diff Manual diff added, Total Counted 100, Neutrophils (Manual) 85 H, Absolute Neutrophils 11.7 H, Lymphocytes (Manual) 14, Monocytes (Manual) 1 L, Monocytes # 0.7, Absolute Eosinophils 0.0, Absolute Basophils 0.0, Platelet Estimate Appears normal, RBC Morphology Appears normal 11/05/20 15:00: Sodium 133, Potassium 4.0, Chloride 101, Carbon Dioxide 27, Anion Gap 9, BUN 16, Creatinine 0.9, GFR Calculation Greater than 60, Glucose 312 H, Calcium 8.9, Total Bilirubin 0.4, AST 8, ALT 13, Alkaline Phosphatase 78, C-Reactive Protein 117.0 H, Serum Total Protein 7.5, Albumin3.1 L 11/05/20 15:00: Lactic Acid 1.0 11/05/20 15:00: Hemoglobin A1c 12.1 H, Estim Average Glucose 301 11/05/20 15:00: Phosphorus 3.7 Microbiology 11/05/20 16:05 Nasopharyngeal SARS-CoV-2 Rapid RNA (RT-PCR) - Final Sars-Cov-2 Not Detected Influenza A Not Detected Influenza B Not Detected RSV Not Detected Medical Decision Making Free Text/Narative:: I took her temperature myself and it is 99.1. Her A1c is actually 12. I think she is trying to become septic and is undoubtedly dehydrated. She will be hydrated initially I started her on a insulin drip until I saw her laboratory studies come back and then I spoke to the hospitalist and wechanged her to Lantus and sliding scale and admission. I started her on Zosyn and vancomycin as shetells me now that she is MRSA positive in the past. Procedure: Informed consent was obtained. Patient is essentially numb from the mid calf down and I used a 15 blade scalpel to make a small incision in the greenish-yellow well circumcised area just near the base of the fifth metatarsal and was surprised that grossly purulent material was not obtained. The subcutaneous area has all been dried out. Cultures still were obtained. I was reluctant to unroofed the entire process for fear of leaving her with a large ulcer. I scrubbed with Betadine and left it open for the nurses to dress. Hopefully this will be a bridge to better self-care and control of her diabetes. [facility] Plan Visit Medications Administered ED medications:: Medications Discontinued Medications Generic Name Dose Route Start Last Admin Trade Name Freq PRN Reason Stop Dose Admin Acetaminophen 1,000 mg 11/05/20 14:40 11/05/20 15:48 Acetaminophen 500 Mg Tab PO 11/05/20 14:41 1,000 mg 1T ONE Administration Sodium Chloride 1,000 mls @ 999 mls/hr 11/05/20 14:43 11/05/20 16:50 Ns 0.9% IV 11/05/20 15:43 Infused .Q1H1M ONE Infusion Vancomycin HCl 1.75 gm in 350 mls @ 116.6666 mls/hr 11/05/20 14:40 11/05/20 17:02 Vancomycin/Water For Inj (Peg) 0.025 gm/kg (1.75 gm) 11/05/20 17:39 116.7 mls/hr IV Administration 1T ONE Piperacillin/Tazobactam/Sod 100 mls @ 200 mls/hr 11/05/20 14:40 11/05/20 16:19 Chloride 4.5 gm/ Sodium IV 11/05/20 15:09 Infused Chloride 1T ONE Infusion Insulin Human (Reg)/Sodium Chloride 100 unit in 100 mls @ 2 mls/hr 11/05/20 14:44 11/05/20 17:01 Myxredlin 100 Unit/100 Ml Bag IVC 11/07/20 16:43 Infused TITR ONE Titration Protocol 2 UNITS/HR Insulin Glargine 20 units 11/05/20 16:01 11/05/20 17:08 Insulin Glargine,Hum.Rec.Anlog 100 Units/Ml Inj Mdv SQ 11/05/20 16:02 20 units 1T ONE Administration Discharge Plan Admission/Discharge Dx Primary (Admit) Diagnosis: Type 2 diabetes poorly controlled, cellulitis right foot Primary DC Diagnosis: Type 2 diabetes poorly controlled, cellulitis right foot ED Provider: Ignacia Khanna ED Status: Discharge to ADM Time Seen by Provider: 11/05/20 13:15 Triaged At: 11/05/20 12:13 Discharge Detail Disposition: Admit to [facility] *Discharge Patient* Discharge Date/Time: 11/05/20 18:06 Interventions Interventions: ED Admission/Handoff Last Done: 11/05/20 18:06 ED General Adult Last Done: 11/05/20 14:13 Report Signers: <Electronically signed by Ignacia Khanna MD> Ignacia Khanna MD 11/05/20 1851 Ignacia Khanna MD SIGNATURE DA Report Cosigners: D: SALOMON 11/05/20 1608 T: SALOMON 11/05/20 1608 CC: Shannon Zhang Name Value Range Interpretation Code Description Data Suze rce(s) Supporting Document(s) ID Date Data Source [id number] 11/05/2020 05:35:00 PM EDT [facility] NORMAL RESULT IS "Not Detected"Cepheid S ARS-CoV-2,FLU/RSV is Multiplex real time RT-PCRNegative results do not preclude SARS-COV-2, influenza orRSV infection and should not be used as the sole basis fortreatment or other patient management decisions.False negative results may occur if virus is present atlevels below the analytical limit of detection.This test has been authorized by FDA under an EUA for use byart[facility] hospitalhorized laboratoriesSARS-rel CoV RNA Resp Ql DAMION+probeFLUAV RNA Resp Ql DAMION+probeFLUBV RNA Resp Ql DAMION+probeRSV RNA Resp Ql DAMION+probe Name Value Range Interpretation Code Description Data Suze rce(s) Supporting Document(s) ID Date Data Source [id number] 11/05/2020 04:05:00 PM EDT [facility] Name Value Range Interpretation Code Description Data Suze rce(s) Supporting Document(s) Influenza virus A and B and SARS-CoV-2 ( COVID-19) and Respiratory syncytial virus RNA panel - Respir SARS-COV-2 NOT DETECTED [facility] This lab was ordered by [facility] and reported by [facility]. ID Date Data Source [id number] 11/05/2020 03:31:00 PM EDT [facility] @11/05/20 1530: MANUAL DIFF added. RFLXG = DIFF. Special Instructions: Lab may order repe at test if initial test elevatedPhysician If elevated, reflex second test in 4-6 hrs @11/05/20 1530: MANUAL DIFF added. RFLXG = DIFF. Name Value Range Interpretation Code Description Data Suze rce(s) Supporting Document(s) Leukocytes [#/volume] in Blood by Automated count 14.6 10*3/uL 4.45-10.71 Above high normal [facility] Erythrocytes [#/volume] in Blood by Automated count 3.70 10*6/uL 4.20-5.40 Below low normal [facility] Hemoglobin [Moles/volume] in Blood 10.7 g/dL 10.7-15.4 N [facility] Hematocrit [Volume Fraction] of Blood by Automated count 31.4 % 37-47 Below low normal [facility] Erythrocyte mean corpuscular volume [Ent itic volume] in Cord blood by Automated count 85 fL 80-96 N [facility] ital Erythrocyte mean corpuscular hemoglobin [Entitic mass] by Au tomated count 29 pg 27-31 N [facility] Erythrocyte mean corpuscular hemoglobin concentration [Mass/volume] in Cord blood 34 g/dL 33-37 N [facility] ital Erythrocyte distribution width [Entitic volume] by Automated count 13 % 11-15 N [facility] Platelets [#/volume] in Blood by Automated count 321 10*3/uL 130-472 N [facility] Platelet mean volume [Entitic volume] in Blood 9.3 fL 9.1-13.1 N [facility] Neutrophils/100 leukocytes in Blood by Automated count 80.3 % 41-77 Above high normal [facility] Neutrophils [#/volume] in Blood by Automated count 11.7 U 1.7-7.6 Above high normal [facility] Lymphocytes/100 leukocytes in Blood by Automated count 14.4 % 14- 46 N [facility] Lymphocytes [#/volume] in Blood by Automated count 2.1 U 0.6-4.6 N [facility] Monocytes/100 leukocytes in Blood by Automated count 4.5 % 4-12 N [facility] Monocytes [#/volume] in Blood by Automated count 0.7 U 0.2-1.2 N [facility] Eosinophils/100 leukocytes in Blood by Automated count 0.1 % 0-7 N [facility] Eosinophils [#/volume] in Blood by Automated count 0.0 U 0.0-0.5 N [facility] Basophils/100 leukocytes in Blood by Automated count 0.2 % 0.4-1.3 Below low normal [facility] Basophils [#/volume] in Blood by Automated count 0.0 U 0.0-0.2 N [facility] NUCLEATED RED BLOOD CELL 0 % [facility] NUCLEATED RED BLOOD CELL# 0 U [facility] Immature granulocytes [Presence] in Blood by Automated count 0-2 N [facility] Immature granulocytes [#/volume] in Blood by Automated count 0.1 U 0-0.1 N [facility] Manual Differential panel - Blood Manual Diff Added [facility] ID Date Data Source [id number] 11/05/2020 03:33:00 PM EDT [facility] @11/05/20 1530: MANUAL DIFF added. RFLXG = DIFF. Special Instructions: Lab may order repe at test if initial test elevatedPhysician If elevated, reflex second test in 4-6 hrs @11/05/20 1530: MANUAL DIFF added. RFLXG = DIFF. Name Value Range Interpretation Code Description Data Suze rce(s) Supporting Document(s) Urea nitrogen [Mass/volume] in Serum or Plasma 16 mg/dL 9-23 N [facility] Sodium [Moles/volume] in Serum or Plasma 133 mmol/L 132-146 N [facility] Potassium [Moles/volume] in Serum or Plasma 4.0 mmol/L 3.5-5.5 [facility] Chloride [Moles/volume] in Serum or Plasma 101 mmol/L 99-109 N [facility] Carbon dioxide, total [Moles/volume] in Serum or Plasma 27 mmol/L 20 -31 N [facility] Anion gap in Serum or Plasma 9 mmol/L 8-16 N [facility] Glucose [Mass/volume] in Serum or Plasma 312 mg/dL 74-106 Above high normal [facility] Creatinine 0.9 mg/dL 0.5-1.1 [facility] Glomerular filtration rate/1.73 sq M.pre dicted [Volume Rate/Area] in Serum or Plasma Greater Than 60 ABOVE 60 [facility] Alanine aminotransferase [Enzymatic acti vity/volume] in Serum or Plasma by With P-5'-P 13 U/L 10-49 N [facility] ital Aspartate aminotransferase [Enzymatic ac tivity/volume] in Serum or Plasma by With P-5'-P 8 U/L 0-33 [facility] pital Alkaline phosphatase [Enzymatic activity/volume] in Serum or Plasma 78 U/L 45-129 [facility] Calcium [Mass/volume] in Serum or Plasma 8.9 mg/dL 8.5-10.1 [facility] Bilirubin.total [Mass/volume] in Serum or Plasma 0.4 mg/dL 0.3-1.2 [facility] Albumin [Mass/volume] in Serum or Plasma by Bromocresol purple (BCP) dye binding method 3.1 g/dL 3.2-4.8 Below low normal [facility] Protein [Mass/volume] in Serum or Plasma 7.5 g/dL 5.7-8.2 [facility] ID Date Data Source [id number] 11/05/2020 03:40:00 PM EDT [facility] @11/05/20 1530: MANUAL DIFF added. RFLXG = DIFF. Special Instructions: Lab may order repe at test if initial test elevatedPhysician If elevated, reflex second test in 4-6 hrs @11/05/20 1530: MANUAL DIFF added. RFLXG = DIFF. Name Value Range Interpretation Code Description Data Suze rce(s) Supporting Document(s) Lactic w Rfx (if elevated) 1.0 mmol/L 0.5-2.0 N [facility] ID Date Data Source [id number] 11/10/2020 03:08:00 PM EDT [facility] @11/05/20 1530: MANUAL DIFF added. RFLXG = DIFF. Special Instructions: Lab may order repe at test if initial test elevatedPhysician If elevated, reflex second test in 4-6 hrs @11/05/20 1530: MANUAL DIFF added. RFLXG = DIFF. Name Value Range Interpretation Code Description Data Suze rce(s) Supporting Document(s) Bacteria identified in Blood by Culture [facility] NO GROWTH AFTER 5 DAYS ID Date Data Source [id number] 11/05/2020 03:31:00 PM EDT [facility] @11/05/20 1530: MANUAL DIFF added. RFLXG = DIFF. Special Instructions: Lab may order repe at test if initial test elevatedPhysician If elevated, reflex second test in 4-6 hrs @11/05/20 1530: MANUAL DIFF added. RFLXG = DIFF. Name Value Range Interpretation Code Description Data Suze rce(s) Supporting Document(s) Cells counted [#] 100 [facility] Neutrophils [#/volume] in Blood by Manual count 85 % 41-77 Above high normal [facility] Lymphocytes [#/volume] in Blood by Manual count 14 % 14-46 N [facility] Monocytes [#/volume] in Blood by Manual count 1 % 4-12 B elow low normal [facility] Platelets [#/volume] in Blood by Estimate APPEARS NORMAL NORMAL [facility] Morphology [Interpretation] in Blood Narrative APPEARS NORMAL NORMAL [facility] ID Date Data Source [id number] 11/05/2020 03:33:00 PM EDT [facility] @11/05/20 1530: MANUAL DIFF added. RFLXG = DIFF. Special Instructions: Lab may order repe at test if initial test elevatedPhysician If elevated, reflex second test in 4-6 hrs @11/05/20 1530: MANUAL DIFF added. RFLXG = DIFF. Name Value Range Interpretation Code Description Data Suze rce(s) Supporting Document(s) C reactive protein [Mass/volume] in Serum or Plasma 117.0 mg/L 0.0-5.0 Above high normal [facility] ID Date Data Source [id number] 11/05/2020 03:54:00 PM EDT [facility] Name Value Range Interpretation Code Description Data Suze rce(s) Supporting Document(s) Magnesium [Mass/volume] in Serum or Plasma 2.3 mg/dL 1.3-2.7 N [facility] ID Date Data Source [id number] 11/05/2020 04:13:00 PM EDT [facility] Name Value Range Interpretation Code Description Data Suze rce(s) Supporting Document(s) Vitamin B12 420 pg/mL -911 N [facility] ID Date Data Source [id number] 11/05/2020 03:54:00 PM EDT [facility] Name Value Range Interpretation Code Description Data Suze rce(s) Supporting Document(s) Acetone [Presence] in Serum or Plasma NEGATIVE [facility] @Reenter manual test result: NEGATIVE@by Francia Diaz at 11/05/20 1526.@Enter lot# for AimTab tablets [id number],2022-02-05 ID Date Data Source [id number] 11/05/2020 03:54:00 PM EDT [facility] Name Value Range Interpretation Code Description Data Suze rce(s) Supporting Document(s) Folate [Mass/volume] in Serum or Plasma 7.3 ng/mL [facility] FOLATE INTERPRETATION NORMAL: GREATER THAN 5.38 INDETERMINATE: 3.38 - 5.38 DEFICIENT: LESS THAN 3.37 ID Date Data Source [id number] 11/05/2020 03:54:00 PM EDT [facility] Name Value Range Interpretation Code Description Data Suze rce(s) Supporting Document(s) Choriogonadotropin.beta subunit [Units/volume] in Serum or P lasma Less Than 1 1-3 Below low normal [facility] @Report as less than lower limitApproxim ate Gestational Age Approximate HCG Range 0.2-1 Week 5 - 50 1-2 Weeks 50 - 500 2-3 Weeks 100 - 5,000 3-4 Weeks 500 - 10,000 4-5 Weeks 1,000 - 50,000 5- 6 Weeks 10,000 - 100,000 6-8 Weeks 15,000 - 100,000 2-3 Months 10,000 - 100,000 ID Date Data Source [id number] 11/05/2020 03:54:00 PM [facility] Name Value Range Interpretation Code Description Data Suze rce(s) Supporting Document(s) Thyrotropin [Units/volume] in Serum or Plasma by Detec tion limit <= 0.005 mIU/L 0.73 u[iU]/mL 0.35-5.50 N [facility] ID Date Data Source [id number] 11/05/2020 03:40:00 PM [facility] Name Value Range Interpretation Code Description Data Suze rce(s) Supporting Document(s) Hemoglobin A1c [Mass/volume] in Blood 12.1 % 3.8-5.6 Above hig h normal [facility] @A repeat was not needed due to historic al results.@Review & document. The following ranges may be used for interpretation of results: HGBA1C degree of glucose control: Greater than 8%: Action Suggested * Less than 7%: Goal of Diabetic Therapy Less than 5.6%: NormalFactors such as duration of diabetes, adherence to therapyand the age of the patient should also be considered inassessing the degree of blood glucose control.* High risk of developing longterm complications such asretinopathy, nephropathy, neuropathy, cardiopathy, etc. Some danger of hypoglycemic reaction in Type I diabetics.Some glucose intolerant individuals and "Sub Clinical"diabetics may demonstrate HGBA1C levels in this area. Glucose mean value [Moles/volume] in Blood Estimated f rom glycated hemoglobin 301 mg/dL [facility] l An A1C of 7% - the goal of diabetic ther apy - is equivalentto an EAG of 154 mg/dl. ID Date Data Source [id number] 11/05/2020 03:38:00 PM [facility] Name Value Range Interpretation Code Description Data Suze rce(s) Supporting Document(s) Phosphate [Mass/volume] in Serum or Plasma 3.7 mg/dL 2.4-5.1 N [facility] ID Date Data Source [id number] 11/05/2020 11:29:00 AM [facility] Patient Name: PAZ DELGADO : 1980 Sex: F Pt Unit #: [id number] Location:[facility] Provider: Visit Date/Time: 11/05/20 Primary Insurance: [facility] Secondary Insurance: Self Pay Intake Vital Signs 11/05/20 11:35 Current Height 5 ft 6.3 in Current Weight 160 lb Weight Measurement Method Standing Scale BMI 25.5 BP 120/70 Blood Pressure Location Lt brachial Position Sitting Respiration 20 Pulse 121 H Pulse Source Pulse Oximeter Temp 98.7 F Temp Source Oral Pulse Oximetry (%) 96 Intake Visit Reasons: Foot pain Nurse Note: (R) foot- has a lg purplish red area on top and lateral side. Pinky toe red. Pt stated she woke up with it. very uncomfortbale. Bilateral leg cramps. Unable to keep any drink or food down. gets to mid upper abdomen and it comes back up. Pt stated she stopped caring about her self long time ago and stopped everything. Pt stated if there was a pill to make her care about her self again. Accompanied by: Is patient in pain?: Yes Pain scale (1-10): 6 Allergies No Known Drug Allergies Allergy (Verified 09/26/20 08:09) No Known Food Allergies Allergy (Unverified 11/05/20 11:37) Medications - Last Reconciled 11/05/20 by Shannon Zhang NP No Known Home Medications Coronavirus Screening Screening Are you currently positive or on isolation for COVID ?: No Do you have any NEW signs of one or more of the following?: no symptoms Do you have NEW signs of at least two of the following?: no symptoms HPI Foot Injury/Condition Paz presents to the clinic for right foot pain. In addition to this she has not been able to keep food or drink down in days. She is vomiting often. Has "severe pain" in the abdomen. She hasnot taken any medication for her diabetes (type 1) in months pe r patient. She reports "I just don'tcare, anymore". She wants a pill that will make her feel like caring again. [facility] Medical History (Updated 11/05/20 @ 12:23 by Shannon Zhang NP) Anxiety Asthma Chlamydia Depression Diabetes mellitus Herpes genitalis Surgical History Status post tonsillectomy Social History (Updated 11/05/20 @ 11:39 by Erin Krishnamurthy) Does the Patient have a Healthcare Proxy: No Does Patient have a DNR?: No Does Patient have a Living Will?: No Hx Recent Travel (where): No Smoking Status: Never smoker Review of Systems Const All systems reviewed are unremarkable except as noted in HPI and below Reports body aches, Reports lethargy and Reports weight loss Eyes Reports change in vision ENT Reports disequilibrium Card Reports system reviewed and no additional complaints, except as documented Resp Reports system reviewed and no additional complaints, except as documented GI Reports abdominal pain, Reports nausea and Reports vomiting Musc Reports myalgias and Reports arthralgias (Right foot pain) Neuro Reports lack of coordination, Reports localized weakness and Reports disequilibrium Exam Const General: cooperative Orientation: alert, awake and oriented x3 Skin Other: Linear bruise to the dorsal aspect of the right foot, mild redness. No open area. Neuro General: patient alert, patient awake and patient oriented x3 Cognition: normal cognition Speech: speech normal Gait: staggering (weak) Psych Appearance: disheveled Mental Status: mental status grossly normal Speech and Movement: speech and movement normal and slowed movement Mood: dysthymic mood Affect: indifferent Attitude: cooperative Thought Process: normal Results Urinalysis (DipStick) Urine Specific [place] 1.010 Last Edit by Shannon Zhang NP on 11/05/20 12:20 Urine PH 5 Last Edit by Shannon Zhang NP on 11/05/20 12:20 Urine Leukocytes MODERATE Last Edit by Shannon Zhang NP on 11/05/20 12:20 Urine Nitrates POSITIVE Last Edit by Shannon Zhang NP on 11/05/20 12:20 Urine Protein ++ 100 mg/dl Last Edit by Shannon Zhang NP on 11/05/20 12:20 Urine Ketones NEG mg/dl Last Edit by Shannon Zhang NP on 11/05/20 12:20 Urine Urobilinogen NORMAL Last Edit by Shannon Zhang NP on 11/05/20 12:20 Urine Blood about 5-10 Ga/ul Last Edit by Shannon Zhang NP on 11/05/20 12:20 Urine Hemoglobin Last Edit by Shannon Zhang NP on 11/05/20 12:20 Urine Glucose 1000 mg/dl 1+ Last Edit by Shannon Zhang NP on 11/05/20 12:20 Urine Bilirubin Last Edit by Shannon Zhang NP on 11/05/20 12:20 Assessment Plan Assessment Plan (1) Foot pain: Code(s): M79.673 - Pain in unspecified foot Plan: Right foot is bruised with a small white area to the lateral aspect of the foot ? infected. Appearsthat she scrapped the foot along something. She has little to no feeling in her feet, thus she likely injured without knowing. I am sending to the ER today, she will likely need antibiotics. (Given other dx she will likely be on IV abx and this should resolve) (2) Uncontrolled type 1 diabetes mellitus: Status: Acute Code(s): E10.65 - Type 1 diabetes mellitus with hyperglycemia SNOMED Code(s): 14629224 Category: Medical Plan: Office BG is 514 when checked. UA collected in office and is POS nitrate as well as a pH of 5. No ketones. Given her severe abdominal pain; body pain; problems with balance and recent loss of about 20lbs, I am sending her to the ER for evaluation for likely DKA. Her is with her and will escort herto the ER today. Urine culture is sent. SENT TO THE ER. Orders: Orders Urine culture Today E10.65 - Type 1 diabetes mellitus with hyperglycemia URINALYSIS W/O MICROSCOPIC Today R30.0 - Dysuria Coding Level of Care Code 02583 Est Pt Limited Comp Exam Problem Focused Diagnoses Foot pain M79.673 Uncontrolled type 1 diabetes mellitus E10.65 Additional Codes Intake - Is patient in pain?: Yes (1125F) <Electronically signed by Shannon Zhang NP> 11/05/20 1232 Name Value Range Interpretation Code Description Data Suze rce(s) Supporting Document(s) ID Date Data Source [id number] 09/26/2020 09:52:00 AM EDT [facility] [address] [place], [place] [id number] [phone] NAME SEX PT STATUS ACCOUNT NUMBER PAZ DELGADO [facility] ER [id number] ORDERING PHYSICIAN LOCATION MEDICAL RECORD NO. Jody Dupont MD ER [id number] ATTENDING PHYSICIAN DATE OF DATE OF EXAM/TIME Shannon Zhang NP 1980 09/26/20858 TYPE / EXAM Xray Chest One View REASON FOR EXAM cough Clinical History/Indication for Exam: cough RADIOGRAPH OF THE CHEST 1 VIEW INDICATION: cough COMPARISON: No old films available. FINDINGS: Lungs: Unremarkable. No consolidation. Pleural space: Unremarkable. No pneumothorax. Heart: Unremarkable. No cardiomegaly. Mediastinum: Unremarkable. Bones/joints: Unremarkable. IMPRESSION: Normal chest x-ray. REPORT SIGNATURE ON FILE 09/26/2020 (09:52 Eastern Time ) Signed by: Ed Tyler M.D. Reported By Ed Tyler MD on 09/26/20951 Signed By Ed Tyler MD on 09/26/20951 Date Time CC: Ed Tyelr MD; Shannon Zhang Techn: FROSA Trans Dt/Tm: Trans by: DT Prt Dt/Tm: : Total DLP = 0.00 mGy-cm Fluoroscopy Time (in secs): Name Value Range Interpretation Code Description Data Suze rce(s) Supporting Document(s) ID Date Data Source [id number] 09/26/2020 08:16:00 AM EDT [facility] ED Physician Documentation NAME: PAZ DELGADO : 1980 AGE: 39 MR#: [id number] SERVICE DATE: 09/26/[address]: Jody Dupont MD PRIMARY CARE DR: Shannon Zhang ROOM#: HPI (Adult, General) General Chief Complaint: Multi system (Adult) Stated Complaint: SORE THROAT, FEVER, R/O COVID Resident LT, travel outisde home, exposure to hot tubs:: No Time Seen by Provider: 09/26/20 07:43 Source: patient Exam Limitations: no limitations History of Present Illness Narrative: 39 yo woman with DM, presents with c/o sore throat, ear pain, body aches, and congestion since yesterday. She is concerned about possible COVID infection. She has no cough and denies having fever despite the cc above. Allergies/Home Meds Allergies Allergy/AdvReac Type Severity Reaction Status Date / Time No Known Drug Allergies Allergy Verified 09/26/20 08:09 Home Medications Medication Instructions Recorded Confirmed Last Taken Type alcohol swabs 1 pad TOP QID 90 Days #200 each 05/06/19 05/05/20 Unknown Rx blood-glucose meter #1 each 05/06/19 05/05/20 Unknown Rx lancets #100 each 05/06/19 05/05/20 Unknown Rx dulaglutide 0.75 mg/0.5 mL mg SQ 10/11/19 05/05/20 Unknown History subcutaneous pen injector OneTouch Verio test strips See Rx Instructions .ROUTE 10/28/19 05/05/20 Unknown Rx .COMPLEX 30 Days #150 each NS cholecalciferol (vitamin D3) 50 2,000 unit PO QDAY cap 03/03/20 05/05/20 Unknown History mcg (2,000 unit) capsule ergocalciferol (vitamin D2) 1,250 1,250 mcg PO Q WEEK cap 03/03/20 05/05/20 Unknown History mcg (50,000 unit) capsule ertugliflozin 5 mg tablet 5 mg PO QAM 05/05/20 05/05/20 Unknown History ondansetron 4 mg disintegrating 4 mg PO TID PRN 7 Days #21 tab 05/05/20 05/05/20 Unknown Rx tablet PMH (from Triage) Patient Medical History PMH Reviewed/Updated as Needed: Yes PMH/PSH from Triage: Medical History (Updated 05/05/20 @ 10:11 by Shannon Zhang NP) Anxiety (Medical) Asthma (Medical) Chlamydia (Medical) Depression (Medical) Diabetes mellitus (Medical) Herpes genitalis (Medical) Surgical History (Updated 01/08/18 @ 15:08 by Sarahy Carter) Status post tonsillectomy (Surgical) Female History : No Hx Drug Resistant Infections Hx MRSA: (Methicillin-resistant Staphylococcus aureus): Yes (11/04/10) Hx VRE (Vancomycin-resistant enterococci): No Hx C.Diff: No Hx CRKP: No Hx Other Resistant Infection?: No Isolation: Standard precautions Hx Recent Travel Out of the country within 10 days (where): No Hx Fever: No Hx Fever with a rash?: No Nurse screening for coronavirus: Recent Travel outside the No country (where) Has patient experienced No coronavirus symptoms Social History Does patient have suicidal/homicidal thoughts or ideation?: No Are you in a relationship with/Does anyone hit you, yell/swear at you, steal from you?: No Substance Use Hx Alcohol Use: No Hx Substance Use: No Hx Substance Use Treatment: No Second Hand Smoke Exposure: No Smoking Status: Never smoker Tobacco Use Hx Chewing Tobacco Use: No Vaccination History Hx/Date of Tetanus, Diphtheria Vaccination: No Hx/Date of Influenza Vaccination: No Hx/Date of Pneumococcal Vaccination: No ROS Review of Systems Constitutional: Denies fever Eyes: Denies eye discharge/drng ENT: Reports ear pain, nasal congestion and throat pain Respiratory: Denies cough Cardiovascular: Denies chest pain Gastrointestinal: Denies nausea, vomiting, abdominal pain or diarrhea Genitourinary-Female: Denies dysuria or frequency Musculoskeletal: Denies muscle pain or joint pain Skin/Breasts: Denies rash Neurologic: Denies headache Endocrine: Denies Loss of appetite Allergic/Immunologic: Denies rash [facility] Medical History (Updated 05/05/20 @ 10:11 by Shannon Zhang NP) Anxiety Asthma Chlamydia Depression Diabetes mellitus Herpes genitalis Surgical History Status post tonsillectomy Social History (Updated 05/05/20 @ 09:55 by Erin Krishnamurthy) Does the Patient have a Healthcare Proxy: No Does Patient have a DNR?: No Does Patient have a Living Will?: No Hx Recent Travel (where): No Smoking Status: Never smoker Physical Exam General Physical Exam Narrative: wd woman, awake and alert, appears fatigued Limitations: no limitations General appearance: alert and in no apparent distress Head Head exam: Present atraumatic, normocephalic and normal inspection Eye Eye exam: Present normal apperance and EOMI; Absent scleral icterus or conjunctival injection ENT ENT exam: Present normal orophraynx and TM's normal bilaterally; Absent normal exam (increased nasalmucus) Expanded ENT Exam Expanded: Ear exam: Present normal external inspection Mouth exam: Present normal external inspection Teeth exam: Present normal inspection Throat exam: normal inspection; negative for tonsillar erythema or tonsillomegaly Neck Neck exam: Present normal inspection; Absent lymphadenopathy Respiratory Respiratory exam: Present normal lung sounds bilaterally; Absent respiratory distress Cardiovascular Cardiovascular Exam: Present regular rate and normal rhythm GI/Abdominal GI/Abdominal exam: Present Abd soft, bowel sounds present all quadrents; Absent tenderness Extremities Exam Extremities exam: Present normal inspection and full ROM; Absent tenderness Back Exam Back exam: Present normal inspection and full ROM; Absent tenderness Neurological Exam Neurological exam: Present alert and oriented X3; Absent motor sensory deficit Psychiatric Psychiatric exam: Present normal affect and normal mood Skin Skin exam: Present warm, dry, intact and normal color Vital Signs Vital Signs: Vital Signs 09/26/20 07:41 Temperature 98.6 F Pulse Rate 100 Respiratory Rate 16 Blood Pressure 142/78 O2 Sat by Pulse Oximetry 99 MDM (comprehensive) Lab Data Labs: Microbiology 09/26/20 07:42 Nasopharyngeal SARS-CoV-2 Rapid RNA (RT-PCR) - Final Sars-Cov-2 Not Detected Influenza A Not Detected Influenza B Not Detected RSV Not Detected 09/26/20 07:42 Throat Streptococcus Rapid Screen - Final Radiology Data Radiology results: report reviewed and image reviewed Medical Decision Making Free Text/Narative:: The patient was evaluated for URI symptoms. The PE was significant for nasal congestion and normal temperature. COVID, flu, RSV and strep were negative. The CXR was FAVIAN. The patient has a viral URI. Plan Plan Plan: d/c home Plan of care: Plan of care discussed with patient and or family, Patient encouraged to ask questionsabout plan and Patient agrees with plan of care Discharge Plan Admission/Discharge Dx Primary DC Diagnosis: Viral URI ED Provider: Jody Dupont ED Status: Discharged Time Seen by Provider: 09/26/20 07:43 Triaged At: 09/26/20 07:41 Condition Condition: Good Discharge Detail Disposition: Home, Self-Care Med Rec New Prescriptions: No Action alcohol swabs [Alcohol Wipes] Pads, Medicated 1 pad TOP QID 90 Days Qty: 200 RF: 3 (DME) lancets [Accu-Chek Softclix Lancets] Misc See Rx Instructions .ROUTE .MEDSUPPLY Qty: 100 RF: 5 (DME) blood-glucose meter [OneTouch Verio Flex Start] Kit See Rx Instructions .ROUTE .MEDSUPPLY Qty: 1 RF: 0 Trulicity 0.75 mg/0.5 mL pen injector SQ RF: 0 ergocalciferol (vitamin D2) 1,250 mcg (50,000 unit) capsule 1,250 mcg PO QWEEK RF: 0 cholecalciferol (vitamin D3) 50 mcg (2,000 unit) capsule 2,000 unit PO QDAY RF: 0 Steglatro 5 mg tablet 5 mg PO QAM RF: 0 ondansetron 4 mg tablet,disintegrating 4 mg PO TID PRN (Reason: nausea and vomiting) 7 Days Qty: 21 RF: 0 OneTouch Verio test strips Strip See Rx Instructions .ROUTE .COMPLEX 30 Days Qty: 150 RF: 5 Medications Medication reconciliation performed by provider at discharge: Yes Forms Forms Work Release: Work/School/Activ/Gym Release Follow Up Care/Instructions Diet/Activity/Wound Care..: continue with increased fluids, rest, motrin for fever or body aches *Discharge Patient* Discharge Orders: Discharge Order (Routine); Ordered 09/26/20 Ordered By: Jody Dupont Discharge Date/Time: 09/26/20 09:24 Interventions Interventions: ED Discharge Instructions Last Done: 09/26/20 09:23 ED General Adult Last Done: 09/26/20 07:43 Report Signers: <Electronically signed by Jody Dupont MD> Jody Dupont MD 09/26/20935 Jody Dupont MD SIGNATURE DA Report Cosigners: D: TRACY 09/26/20815 T: TRACY 09/26/20815 CC: Shannon Zhang Name Value Range Interpretation Code Description Data Suze rce(s) Supporting Document(s) ID Date Data Source [id number] 09/27/2020 09:28:00 AM EDT [facility] @09/26/20 0821: Throat strep sc added. R FLXG = THSS. @09/26/20 08: Throat strep sc added. R FLXG = THSS. Name Value Range Interpretation Code Description Data Suze rce(s) Supporting Document(s) Throat culture strep No Beta Strep isolated [facility] ID Date Data Source [id number] 09/27/2020 09:28:00 AM EDT [facility] @09/26/20 0821: Throat strep sc added. R FLXG = THSS. @09/26/20 08: Throat strep sc added. R FLXG = THSS. Name Value Range Interpretation Code Description Data Suze rce(s) Supporting Document(s) Strep Antigen throat Negative by antigen detection methods [facility] ID Date Data Source [id number] 09/26/2020 08:46:00 AM EDT [facility] NORMAL RESULT IS "Not Detected"Cepheid S ARS-CoV-2,FLU/RSV is Multiplex real time RT-PCRNegative results do not preclude SARS-COV-2, influenza orRSV infection and should not be used as the sole basis fortreatment or other patient management decisions.False negative results may occur if virus is present atlevels below the analytical limit of detection.This test has been authorized by FDA under an EUA for use byart[facility] hospitalhorized laboratoriesSARS-rel CoV RNA Resp Ql DAMION+probeFLUAV RNA Resp Ql DAMION+probeFLUBV RNA Resp Ql DAMION+probeRSV RNA Resp Ql DAMION+probe Name Value Range Interpretation Code Description Data Suze rce(s) Supporting Document(s) ID Date Data Source [id number] 09/26/2020 07:42:00 AM EDT [facility] Name Value Range Interpretation Code Description Data Suze rce(s) Supporting Document(s) Cepheid SARS/FLU/RSV RT-PCR SARS-COV-2 NOT DETECTED [facility] This lab was ordered by [facility] and reported by [facility]. ID Date Data Source [id number] 07/19/2020 03:59:53 PM EDT [facility] Name Value Range Interpretation Code Description Data Suze rce(s) Supporting Document(s) Progress Note [facility] [id number] [file] [id number] ID Date Data Source [id number] 06/10/2020 09:11:00 AM EDT [facility] Name Value Range Interpretation Code Description Data Suze rce(s) Supporting Document(s) SARS-CoV-2 (COVID-19) RNA [Presence] in Respiratory specimen by DAMION with probe detection Not Detected [facility] This lab was ordered by [facility] and reported by [facility]. ID Date Data Source [id number] 06/10/2020 10:09:00 AM EDT [facility] Name Value Range Interpretation Code Description Data Suze rce(s) Supporting Document(s) BinaxNow Covid-19 Ag [facility] ID Date Data Source [id number] 06/10/2020 09:00:00 AM EDT [facility] Name Value Range Interpretation Code Description Data Suze rce(s) Supporting Document(s) SARS-CoV-2 (COVID-19) Ag [Presence] in R espiratory specimen by Rapid immunoassay [facility]Now Covid -19 Ag Negative [facility] This lab was ordered by [facility] and reported by [facility]. ID Date Data Source [id number] 05/05/2020 09:54:00 AM EDT [facility] Patient Name: PAZ DELGADO : 1980 Sex: F Pt Unit #: [id number] Location:[facility] Provider: Visit Date/Time: 05/05/20 Primary Insurance: [facility] Secondary Insurance: Self Pay Intake Vital Signs 05/05/20 10:00 Current Weight 173 lb Weight Measurement Method Standing Scale BP 100/60 Blood Pressure Location Rt brachial Position Sitting Respiration 18 Pulse 104 H Pulse Source Pulse Oximeter Temp 98.2 F Temp Source Oral Pulse Oximetry (%) 98 Intake Visit Reasons: Medication check Nurse Note: Medication check. Had 2nd Covid shot on Monday and was vomiting, headache and feeling blah from it. Is patient in pain?: No Allergies No Known Drug Allergies Allergy (Verified 03/16/20 07:20) Medications - Last Reconciled 05/05/20 by Shannon Zhang NP alcohol swabs (Alcohol Wipes) 1 pad topical QID 90 days blood-glucose meter (OneTouch Verio Flex Start) As directed cholecalciferol (vitamin D3) 2,000 units PO QDAY dulaglutide mg subcut ergocalciferol (vitamin D2) 1,250 mcg PO QWEEK ertugliflozin (Steglatro) 5 mg PO QAM lancets (Accu-Chek Softclix Lancets) As directed OneTouch Verio test strips (blood sugar diagnostic) USE DIRECTED FOUR TIMES A DAY 30 days NS Fall Risk Medications:: No High Risk Medications HIV Testing Offer - ages 13-64 HIV testing Offer: No Coronavirus Screening Screening Are you currently positive or on isolation for COVID ?: No Do you have any NEW signs of one or more of the following?: no symptoms Do you have NEW signs of at least two of the following?: no symptoms HPI Additional HPI HPI Details: Paz presents to the clinic for medication check. Also feeling "lousy" from her second COVID vaccine given on Monday. [facility] Medical History (Updated 05/05/20 @ 10:11 by Shannon Zhang NP) Anxiety Asthma Chlamydia Depression Diabetes mellitus Herpes genitalis Surgical History Status post tonsillectomy Social History (Updated 05/05/20 @ 09:55 by Erin Krishnamurthy) Does the Patient have a Healthcare Proxy: No Does Patient have a DNR?: No Does Patient have a Living Will?: No Hx Recent Travel (where): No Smoking Status: Never smoker Review of Systems Const All systems reviewed are unremarkable except as noted in HPI and below Reports as per HPI and Reports headache(s) ENT Reports headache(s) GI Reports nausea and Reports vomiting Neuro Reports headache(s) Exam Const General: cooperative and healthy appearing Nutritional Appearance: average body habitus and well nourished Orientation: alert, awake and oriented x3 Resp Effort Inspection: normal respiratory effort Auscultation: clear to auscultation bilaterally Cardio Rate: regular rate Rhythm: regular rhythm Heart Sounds: S1 normal and S2 normal GI Palpation: soft and no hepatosplenomegaly Auscultation: normal bowel sounds Assessment Plan Assessment Plan (1) Encounter for medication adjustment: Code(s): Z51.89 - Encounter for other specified aftercare (2) Nausea and vomiting: Status: Acute Code(s): R11.2 - Nausea with vomiting, unspecified SNOMED Code(s): 32977707 Category: Medical Additional Comments Additional Comments: Doing well with her Diabetes, sees endo regularly. Numbers have improved. Using trulicity and steglatro with good result. She is having some side effects of the COVID vaccine #2, mostly nausea and vomiting. I will order zofran prn for this. See back in one week if she is not past this. She expresses understanding. Education regarding GI symptoms and maintaining BG's given. Orders Other Medications: New: ondansetron 4 mg PO TID 7 days PRN 21 tabs 0RF nausea and vomiting Coding Level of Care Code 62132 Est Pt Intermediate Comp Exam Expanded Problem Focused Diagnoses Encounter for medication adjustment Z51.89 Nausea and vomiting R11.2 <Electronically signed by Shannon Zhang NP> 05/05/20 1013 Name Value Range Interpretation Code Description Data Suze rce(s) Supporting Document(s) ID Date Data Source [id number] 04/01/2020 01:31:00 PM EST [facility] ([facility]) Name Value Range Interpretation Code Description Data Suze rce(s) Supporting Document(s) Glucose [Mass/volume] in Serum or Plasma 185 [facility] Hemoglobin A1c/Hemoglobin.total in Blood 7.9 [facility] ([facility]) ID Date Data Source [id number] 03/30/2020 10:01:00 AM [facility] Name Value Range Interpretation Code Description Data Suze rce(s) Supporting Document(s) Urea nitrogen [Mass/volume] in Serum or Plasma 20 mg/dL 9-23 N [facility] Sodium [Moles/volume] in Serum or Plasma 138 mmol/L 132-146 [facility] Potassium [Moles/volume] in Serum or Plasma 4.2 mmol/L 3.5-5.5 [facility] Chloride [Moles/volume] in Serum or Plasma 105 mmol/L 99-109 [facility] Carbon dioxide, total [Moles/volume] in Serum or Plasma 27 mmol/L 20 -31 N [facility] Anion gap in Serum or Plasma 10 mmol/L 8-16 [facility] Glucose [Mass/volume] in Serum or Plasma 193 mg/dL 74-106 Above high normal [facility] Creatinine 0.8 mg/dL 0.5-1.1 [facility] Glomerular filtration rate/1.73 sq M.pre dicted [Volume Rate/Area] in Serum or Plasma Greater Than 60 ABOVE 60 [facility] Calcium [Mass/volume] in Serum or Plasma 9.4 mg/dL 8.5-10.1 [facility] ID Date Data Source [id number] 03/30/2020 08:35:00 AM EST [facility]) Name Value Range Interpretation Code Description Data Suze rce(s) Supporting Document(s) Urea nitrogen [Mass/volume] in Serum or Plasma 20 mg/dL 9-23 [facility] ([facility]) E11.65 Sodium [Moles/volume] in Serum or Plasma 138 mmol/L 132-146 [facility] ([facility]) E11.65 Potassium [Moles/volume] in Serum or Plasma 4.2 mmol/L 3.5-5.5 [facility] ([facility]) E11.65 Chloride [Moles/volume] in Serum or Plasma 105 mmol/L 99-109 [facility] ([facility]) E11.65 Carbon dioxide, total [Moles/volume] in Serum or Plasma 27 mmol/L 20 -31 [facility] ([facility]) E11.65 Anion gap in Serum or Plasma 10 mmol/L 8-16 [facility] ([facility]) E11.65 Glucose [Mass/volume] in Serum or Plasma 193 mg/dL 74-106 [facility] ([facility]) E11.65 Glomerular filtration rate/1.73 sq M.pre dicted [Volume Rate/Area] in Serum or Plasma Laboratory test result [facility] ([facility]) E11.65 Creatinine 0.8 mg/dL 0.5-1.1 [facility] ([facility]) E11.65 Calcium [Mass/volume] in Serum or Plasma 9.4 mg/dL 8.5-10.1 [facility] ([facility]) E11.65 ID Date Data Source [id number] 03/16/2020 07:27:00 AM [facility] ED Physician Documentation NAME: PAZ DELGADO : 1980 AGE: 39 MR#: [id number] SERVICE DATE: 03/16/[address]: Jody Dupont MD PRIMARY CARE DR: Shannon Zhang ROOM#: HPI (Adult, General) General Chief Complaint: ED Burn Stated Complaint: BURN Resident LTC, travel outisde home, exposure to hot tubs:: No Time Seen by Provider: 03/16/20 07:10 Source: patient Exam Limitations: no limitations History of Present Illness Narrative: 39 yo woman with asthma, DM, presents after an accident at work this morning. 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 She has blistered skin and c/o increased pain. Allergies/Home Meds Allergies Allergy/AdvReac Type Severity Reaction Status Date / Time No Known Drug Allergies Allergy Verified 03/16/20 07:20 Home Medications Medication Instructions Recorded Confirmed Last Taken Type alcohol swabs 1 pad TOP QID 90 Days #200 each 05/06/19 03/03/20 Unknown Rx blood-glucose meter #1 each 05/06/19 03/03/20 Unknown Rx lancets #100 each 05/06/19 03/03/20 Unknown Rx ertugliflozin 15 mg tablet 15 mg PO QAM #30 tab 06/24/19 03/03/20 Unknown Rx dulaglutide 0.75 mg/0.5 mL mg SQ 10/11/19 03/03/20 Unknown History subcutaneous pen injector OneTouch Verio test strips See Rx Instructions .ROUTE 10/28/19 03/03/20 Unknown Rx .COMPLEX 30 Days #150 each NS clindamycin HCl 300 mg PO QID #40 cap 02/27/20 03/03/20 Unknown Rx cholecalciferol (vitamin D3) 50 2,000 unit PO QDAY cap 03/03/20 03/03/20 Unknown History mcg (2,000 unit) capsule ergocalciferol (vitamin D2) 1,250 1,250 mcg PO QWEEK cap 03/03/20 03/03/20 Unknown History mcg (50,000 unit) capsule silver sulfadiazine [Silvadene] 1 applic TOPICAL DAILY #400 gm 03/16/20 Unknown Rx PMH (from Triage) Patient Medical History PMH Reviewed/Updated as Needed: Yes PMH/PSH from Triage: Medical History ( Updated 03/03/20 @ 09:52 by Shannon Zhang NP) Anxiety (Medical) Asthma (Medical) Chlamydia (Medical) Depression (Medical) Diabetes mellitus (Medical) Herpes genitalis (Medical) Surgical History (Updated 01/08/18 @ 15:08 by Sarahy Carter) Status post tonsillectomy (Surgical) Female History : No Hx Drug Resistant Infections Hx MRSA: (Methicillin-resistant Staphylococcus aureus): Yes (11/04/10) Hx VRE (Vancomycin-resistant enterococci): No Hx C.Diff: No Hx CRKP: No Hx Other Resistant Infection?: No Isolation: Standard precautions Hx Recent Travel Out of the country within 10 days (where): No Hx Fever: No Hx Fever with a rash?: No Nurse screening for coronavirus: Recent Travel outside the No country (where) Social History Does patient have suicidal/homicidal thoughts or ideation?: No Are you in a relationship with/Does anyone hit you, yell/swear at you, steal from you?: No Substance Use Hx Alcohol Use: No Hx Substance Use: No Hx Substance Use Treatment: No Smoking Status: Never smoker Tobacco Use Hx Chewing Tobacco Use: No Vaccination History Hx/Date of Tetanus, Diphtheria Vaccination: No Hx/Date of Influenza Vaccination: No Hx/Date of Pneumococcal Vaccination: No PFSH Medical History (Updated 03/03/20 @ 09:52 by Shannon Zhang NP) Anxiety Asthma Chlamydia Depression Diabetes mellitus Herpes genitalis Surgical History Status post tonsillectomy Social History (Updated 05/06/19 @ 10:50 by Erin Krishnamurthy) Does the Patient have a Healthcare Proxy: No Does Patient have a DNR?: No Does Patient have a Living Will?: No Hx Recent Travel (where): No Smoking Status: Never smoker ROS Review of Systems Constitutional: Denies fever Eyes: Denies eye discharge/drng ENT: Denies nasal discharge and throat pain Respiratory: Reports wheezing; Denies cough Cardiovascular: Denies chest pain Gastrointestinal: Denies nausea, vomiting and abdominal pain Musculoskeletal: Reports leg pain Skin/Breasts: Reports rash and change in color Neurologic: Denies weakness and numbness Allergic/Immunologic: Denies hives Physical Exam General Physical Exam Narrative: wd woman, awake and alert, appears comfortable Limitations: no limitations General appearance: alert and in no apparent distress Head Head exam: Present atraumatic, normocephalic and normal inspection Eye Eye exam: Present normal apperance and EOMI; Absent scleral icterus and conjunctival injection ENT ENT exam: Present normal exam, normal orophraynx and mucous membranes moist Neck Neck exam: Present normal inspection and full ROM; Absent tenderness Respiratory Respiratory exam: Present wheezes (b/l inspiratory wheezing); Absent normal lung sounds bilaterally, respiratory distress, accessory muscle use, decreased breath sounds and prolonged expiratory Cardiovascular Cardiovascular Exam: Present regular rate and normal rhythm GI/Abdominal GI/Abdominal exam: Present Abd soft, bowel sounds present all quadrents; Absent tenderness Extremities Exam Extremities exam: Present full ROM and tenderness; Absent normal inspection (2nd degree perry over RLE) Back Exam Back exam: Present full ROM Neurological Exam Neurological exam: Present alert, oriented X3 and normal gait; Absent motor sensory deficit Psychiatric Psychiatric exam: Present normal affect and normal mood Skin Skin exam: Present warm, dry, normal color and other (2nd degree perry over RLE); Absent intact Expanded Skin Exam Expanded: Type of lesion: Present other (burn) Distribution of rash: RLE Description of rash: Present size (multiple discrete areas of blistered skin with rupture of blisters, skight erythema: 3 cm to 5 cm diameter lesions), tenderness, erythematous and blisters Body image: 1. 2nd degree burn 2. 2nd degree burn 3. 2nd degree burn Vital Signs Vital Signs: Vital Signs 03/16/20 07:16 Temperature 96.9 F L Pulse Rate 96 Respiratory Rate 18 Blood Pressure 140/80 O2 Sat by Pulse Oximetry 99 MDM (comprehensive) Medical Decision Making Free Text/Narative:: The patient was evaluated for a burn to the R lower leg. She was found to have discrete areas of 2nd degree perry over the anterior aspect of the R lower leg. Silvadene was applied to the affected areas. Plan Plan Plan: d/c home Plan of care: Follow up appointments discussed, Plan of care discussed with patient and or family, Patient encouraged to ask questions about plan and Patient agrees with plan of care Visit Medications Administered ED medications:: Medications Discontinued Medications Generic Name Dose Route Start Last Admin Trade Name Leanna PRN Reason Stop Dose Admin Acetaminophen/Codeine Phosphate 2 tab 03/16/20 07:38 03/16/20 07:48 Acetaminophen/Codeine #3 300/30mg Tab PO 03/16/20 07:39 Not Given TO GO ONE Silver Sulfadiazine 1 applic 03/16/20 07:10 03/16/20 07:15 Silver Sulfadiazine 50 Applic/Jar TP 03/16/20 07:11 1 applic 1T ONE Administration Other Medications: New: silver sulfadiazine 1% (Silvadene) apply a 1.5 mm thickness 1 applic topical DAILY 400 grams 0RF Discharge Plan Admission/Discharge Dx Primary DC Diagnosis: 2nd degree perry to R lower leg ED Provider: Jody Dupont ED Status: Discharged Time Seen by Provider: 03/16/20 07:10 Triaged At: 03/16/20 07:07 Condition Condition: Improved Discharge Detail Disposition: Home, Self-Care Med Rec New Prescriptions: New silver sulfadiazine [Silvadene] 1 % cream 1 applic topical DAILY Qty: 400 RF: 0 No Action alcohol swabs [Alcohol Wipes] Pads, Medicated 1 pad TOP QID 90 Days Qty: 200 RF: 3 (DME) lancets [Accu-Chek Softclix Lancets] Misc See Rx Instructions .ROUTE .MEDSUPPLY Qty: 100 RF: 5 (DME) blood-glucose meter [OneTouch Verio Flex Start] Kit See Rx Instructions .ROUTE .MEDSUPPLY Qty: 1 RF: 0 Steglatro 15 mg tablet 15 mg PO QAM Qty: 30 RF: 2 Trulicity 0.75 mg/0.5 mL pen injector SQ RF: 0 ergocalciferol (vitamin D2) 1,250 mcg (50,000 unit) capsule 1,250 mcg PO QWEEK RF: 0 cholecalciferol (vitamin D3) 50 mcg (2,000 unit) capsule 2,000 unit PO QDAY RF: 0 clindamycin HCl 300 mg capsule 300 mg PO QID Qty: 40 RF: 0 OneTouch Verio test strips Strip See Rx Instructions .ROUTE .COMPLEX 30 Days Qty: 150 RF: 5 Medications Medication reconciliation performed by provider at discharge: Yes Forms Forms Work Release: Work/School/Activ/Gym Release Follow Up Care/Instructions Diet/Activity/Wound Care..: Continue with daily dressing changes with Silvadene, return to ER for progressive redness, pain and swelling *Discharge Patient* Discharge Orders: Discharge Order (Routine); Ordered 03/16/20 Ordered By: Jody Dupont Discharge Date/Time: 03/16/20 07:49 Interventions Interventions: ED Discharge Instructions Last Done: 03/16/20 07:49 ED Burn Assessment Last Done: 03/16/20 07:17 Report Signers: <Electronically signed by Jody Dupont MD> Jody Dupont MD 03/16/20 0758 Jody Dupont MD SIGNATURE DA Report Cosigners: Mary Kate MOLINA 03/16/20726 T: SKEMI 03/16/20726 CC: Shannon Zhang Name Value Range Interpretation Code Description Data Suze rce(s) Supporting Document(s) ID Date Data Source [id number] 03/10/2020 09:49:39 AM EST [facility] Name Value Range Interpretation Code Description Data Suze rce(s) Supporting Document(s) Progress Note [facility] WVXZEn0pPxCUSvSt31/JMNzeDLVvg4VoXAtyQVc7BPpuTYXyO0KgJPS3lH9cSQI9KSgSQmNwTgNpGoGv lbm [file] ICAgICAgICAgICAgICAgICAgICAgICAgICAgICAgIC AgICAgICAgICAgICAgICAgICAgICAgICAgICAgICAgICAgICAgICAgICAgICAgICAgICAgICAgICAgIC AgDQogICAgICAgICAgICAgICAgICAgICAgICAgICAgICAgICAgICAgICAgICAgICAgICAgICAgICAgIC AgICAgICAgICAgICAgICAgICAgICAgICAgICAgICAg ICAgICAgICAgICAgDQogICAgICAgICAgICAgICAgICAgICAgICAgICAgICAgICAgICAgICAgICAgICAg ICAgICAgICAgICAgICAgICAgICAgICAgICAgICAgICAgICAgICAgICAgICAgICAgICAgICAgDQogICAg ICAgICAgICAgICAgICAgICAgICAgICAgICAgICAgIC AgICAgICAgICAgICAgICAgICAgICAgICAgICAgICAgICAgICAgICAgICAgICAgICAgICAgICAgICAgIC AgICAgDQogICAgICAgICAgICAgICAgICAgICAgICAgICAgICAgICAgICAgICAgICAgICAgICAgICAgIC AgICAgICAgICAgICAgICAgICAgICAgICAgICAgICAg ICAgICAgICAgICAgICAgDQogICAgICAgICAgICAgICAgICAgICAgICAgICAgICAgICAgICAgICAgICAg ICAgICAgICAgICAgICAgICAgICAgICAgICAgICAgICAgICAgICAgICAgICAgICAgICAgICAgICAgDQog ICAgICAgICAgICAgICAgICAgICAgICAgICAgICAgIC AgICAgICAgICAgICAgICAgICAgICAgICAgICAgICAgICAgICAgICAgICAgICAgICAgICAgICAgICAgIC AgICAgICAgDQogICAgICAgICAgICAgICAgICAgICAgICAgICAgICAgICAgICAgICAgICAgICAgICAgIC AgICAgICAgICAgICAgICAgICAgICAgICAgICAgICAg ICAgICAgICAgICAgICAgICAgDQogICAgICAgICAgICAgICAgICAgICAgICAgICAgICAgICAgICAgICAg ICAgICAgICAgICAgICAgICAgICAgICAgICAgICAgICAgICAgICAgICAgICAgICAgICAgICAgICAgICAg DQogICAgICAgICAgICAgICAgICAgICAgICAgICAgIC AgICAgICAgICAgICAgICAgICAgICAgICAgICAgICAgICAgICAgICAgICAgICAgICAgICAgICAgICAgIC GyTGQxRHVlXTFbKLs3Y6liZBDbSVBiYE0oKCt5Fn1+QTlYOtVdRVY8ymYccF7KNA2zj0IyUMwmIKNwc8 MzXWd6QZ1MBAYrCKcmHW7ZAFnowm9ZQGJsMYFlkGUF s4irVjSjBMB0MNFpGsteTT1ITDQwC5vppgCgRGTqAZKTUSmnDHFSGQkbCMYZBOHrNREpRfQmHeWvLMTf YE3TPVDcR708dhLsAY8OKb6YLmFvKZ6jhc2OHqdqEBLyVzjCQkn7HMlnJX4UaCKpyDKzEDHaJLHSAkSy Y9urd1TgRbolCCZUJAjpHM5Mx3AvxMKyIPx+Pg0KZW 2cd1NuGYdvAEYzUQ2wsc0ATXbHRaAkT8AjeSggLTMdr2wpEQDhYS4ogNHhGFS4MP5jjPYrdGHcJNCvdj deJF1WHAW4LIJkPC5lFEHgUXCrYmP8BNSKVC2MEXDaLHXrxZMxANUdSSVIFZ7GLCxbGXD3AEFmlxWjeZ RdKHvnBM9MBQCkqePuPntgNVVYODg+Ll3SXU5je2Xg FYlcOQYkMP1hxn5GGSmZZtGwP8G0nVLwZ5J0YOzdTx7FULQnTAFoOpSqVIFHOPoxAM2FRS9xuaU1XP6S vFVoCFCuHCUkgFNiIUb9I64svMWdJWzfFV6OFER+Kendra+Dk8BMGIvKNTrAZQdZeZuMHWDJlEiC0WtR3YV r3JaL4XdQE53cRbtjzJnXFeyAZ0ARS3nYCDfOYBHMY 2VwTOgoJ8pcsGpTqYbNVOESbRpG46rgGFhNAVgFNE8ZHFdIr9OGTGoA9UteuYdyTzzkcYfDEIdEJGKDY 0JFJbbubRazTGrhEkbVQ46lJziZU3WSs7OPnRkDH0zcf7DfRHaIc1YBNRpQY8GOVHrFMOwFEVlIUV5JG ReMvDeUJcyJOUeUIDqSAC2WFNwXMLxJK0GAiXnQUAt Erg4RRMwIZHwIIPukv9VLBJbROHvVED8KzDgRRCcERJgVGqiVQLcPJJmLDH5EIBqGDStQB6DChAmFDWf QSWaLajvAJKuVFJxdq9IVRRcWRHnCyI2KJPyMTQbZMZjQFynMRAkSME7ZSn3HCRxGWAyEE0CHwFbZHNe ZHL0OPGzGCIiKHLtlf8JFHCmGGXcYFc1BCUaTHMrTS CoWBfsDXWeYJH3KTz5CYNtQLClAY1VBrSfKTUnNPBpNrKbLHMnGTTnkv4TYBBsVBZmWnCfMODaWERySF OsQUrvXWMfQPHjQcM9VMFaYEWuID7NObNvKFCyCLJ5YaBfYSUpMJVdpv8LUWXyMOSiKBFkPeNpTJZkQM YdXTihXNCkQWO5SdPoPUTuTWKlIZ2ZAfUkNYAlNAM7 SYDnBIFiPWNbwe1YOWHwBPOlDLk6KfHjPHXtMZVgJLawGWOgYCN9KTu7NBOeJJQsRZ0NFmTfKCIbEUPs UaSjLNTbYKZfjn9BGGKtWNBcLlP7ScRzACVlLQNqPBtsMGObLUX6NNP4RCJmIDRxJD6MGtCqVHVqYoro TqMbUINgAFUxwu0EGONwBBQkRUJ4IlWoFFQcHLFlGU leSVNjKQW3NBZlQDWeCSGnKV4ZCyBjMTMwRhq7CxXcRCOqHHXoyo3TPSVdVIUfULJ3NuPfBUDkFOEnQX grVXNlMXGwJTE2VXIyIAGeIG8GLhInQMPmTzT6BABmYWMkJNSpxm0VnBVczOlwnn0PFLyIAy2ByDcaYC TiKEbiFi6apIZbQWJeCJUMEv5FxfKxPTAzQQVFFCrq ICYuOYYyFDL7QDG6FMG4WeW5FRX8XdF7EbR0FdVwCQguEUN1XmT1GeR1TmafHla2BMZkMZJ6RUBiIAcm XyHfNwLxYLD0ALh+RC3fRJj+Qs0Iy9RtavK1pkKxUFspFIr9AW7RXWPVT5ZHZj== ID Date Data Source [id number] 03/04/2020 06:51:00 AM [facility] Name Value Range Interpretation Code Description Data Suze rce(s) Supporting Document(s) 25-Hydroxyvitamin D2+25-Hydroxyvitamin D3 [Mass/volume ] in Serum or Plasma 39 ng/mL 30-100 [facility] Vitamin D Status 25-OH Vitamin D :Deficiency: <20 ng/mLInsufficiency: 20 - 29 ng/mLOptimal: > or = 30 ng/mLFor 25-OH Vitamin D testing on patients onD2-supplementation and patients for whom quantitationof D2 and D3 fractions is required, the QuestAssureD(TM)25- OH VIT D, (D2,D3), LC/MS/MS is recommended: ordercode 64945 (patients >2yrs).See Note 1Note 1For additional information, please refer [email or web address].[employer]/faq/ZFU769(This link is being provided for informational/educational purposes only.)THIS TEST WAS PERFORMED AT:[facility] [id number] PERRY MD ID Date Data Source [id number] 03/03/2020 10:34:00 AM [facility] Name Value Range Interpretation Code Description Data Suze rce(s) Supporting Document(s) Leukocytes [#/volume] in Blood by Automated count 8.8 10*3/uL 4.45-10 .71 N [facility] Erythrocytes [#/volume] in Blood by Automated count 4.00 10*6/uL 4.20-5.40 Below low normal [facility] Hemoglobin [Moles/volume] in Blood 11.1 g/dL 10.7-15.4 N [facility] Hematocrit [Volume Fraction] of Blood by Automated count 34.0 % 37-47 Below low normal [facility] Erythrocyte mean corpuscular volume [Ent itic volume] in Cord blood by Automated count 85.0 fL 80-96 N [facility] Erythrocyte mean corpuscular hemoglobin [Entitic mass] by Automated count 27.8 pg 27-31 N [facility] Erythrocyte mean corpuscular hemoglobin concentration [Mass/volume] in Cord blood 32.6 g/dL 33-37 Below low normal [facility] Erythrocyte distribution width [Entitic volume] by Automated count 13 % 11-15 N [facility] Platelets [#/volume] in Blood by Automated count 405 10*3/uL 130-472 N [facility] Platelet mean volume [Entitic volume] in Blood 9.0 fL 9.1-13. 1 Below low normal [facility] Neutrophils/100 leukocytes in Blood by Automated count 66.7 % 41- 77 N [facility] Neutrophils [#/volume] in Blood by Automated count 5.9 U 1.7-7.6 N [facility] Lymphocytes/100 leukocytes in Blood by Automated count 28.3 % 14- 46 N [facility] Lymphocytes [#/volume] in Blood by Automated count 2.5 U 0.6-4.6 N [facility] Monocytes/100 leukocytes in Blood by Automated count 3.1 % 4-12 Below low normal [facility] Monocytes [#/volume] in Blood by Automated count 0.3 U 0.2-1.2 N [facility] Eosinophils/100 leukocytes in Blood by Automated count 0.6 % 0-7 N [facility] Eosinophils [#/volume] in Blood by Automated count 0.1 U 0.0-0.5 N [facility] Basophils/100 leukocytes in Blood by Automated count 0.5 % 0.4-1 .3 N [facility] Basophils [#/volume] in Blood by Automated count 0.0 U 0.0-0.2 N [facility] NUCLEATED RED BLOOD CELL 0 % [facility] NUCLEATED RED BLOOD CELL# [address] [facility] Immature granulocytes [Presence] in Blood by Automated count 0-2 N [facility] Immature granulocytes [#/volume] in Blood by Automated count 0.1 U 0-0.1 N [facility] Manual Differential panel - Blood NO [facility] ID Date Data Source [id number] 03/03/2020 11:25:00 AM EST [facility] Name Value Range Interpretation Code Description Data Szue rce(s) Supporting Document(s) Urea nitrogen [Mass/volume] in Serum or Plasma 24 mg/dL 9-23 Above high normal [facility] Sodium [Moles/volume] in Serum or Plasma 136 mmol/L 132-146 [facility] Potassium [Moles/volume] in Serum or Plasma 4.8 mmol/L 3.5-5.5 [facility] Chloride [Moles/volume] in Serum or Plasma 104 mmol/L 99-109 [facility] Carbon dioxide, total [Moles/volume] in Serum or Plasma 28 mmol/L 20 -31 N [facility] Anion gap in Serum or Plasma 9 mmol/L 8-16 [facility] Glucose [Mass/volume] in Serum or Plasma 248 mg/dL 74-106 Above high normal [facility] Creatinine 0.8 mg/dL 0.5-1.1 [facility] Glomerular filtration rate/1.73 sq M.pre dicted [Volume Rate/Area] in Serum or Plasma Greater Than 60 ABOVE 60 [facility] Alanine aminotransferase [Enzymatic acti vity/volume] in Serum or Plasma by With P-5'-P 33 U/L 10-49 [facility] ital Aspartate aminotransferase [Enzymatic ac tivity/volume] in Serum or Plasma by With P-5'-P 10 U/L 0-33 [facility] pital Alkaline phosphatase [Enzymatic activity/volume] in Serum or Plasma 103 U/L 45-129 N [facility] Calcium [Mass/volume] in Serum or Plasma 9.2 mg/dL 8.5-10.1 [facility] Bilirubin.total [Mass/volume] in Serum or Plasma 0.2 mg/dL 0.3-1.2 Below low normal [facility] Albumin [Mass/volume] in Serum or Plasma by Bromocresol purple (BCP) dye binding method 3.5 g/dL 3.2-4.8 N [facility] ital Protein [Mass/volume] in Serum or Plasma 7.6 g/dL 5.7-8.2 N [facility] ID Date Data Source [id number] 03/03/2020 11:25:00 AM [facility] Name Value Range Interpretation Code Description Data Suze rce(s) Supporting Document(s) C reactive protein [Mass/volume] in Serum or Plasma 5.3 mg/L 0.0-5.0 Above high normal [facility] ID Date Data Source [id number] 03/03/2020 09:37:00 AM [facility] Patient Name: PAZ DELGADO : 1980 Sex: F Pt Unit #: [id number] Location:[facility] Provider: Visit Date/Time: 03/03/20 Primary Insurance: [facility] Secondary Insurance: Self Pay Intake Vital Signs 03/03/20 09:38 Current Height 5 ft 5 in Current Weight 180 lb Weight Measurement Method Standing Scale BMI 29.9 BP 124/88 Blood Pressure Location Rt brachial Position Sitting Respiration 14 Pulse 110 H Pulse Strength Normal Pulse Source Pulse Oximeter Pulse Oximetry (%) 99 Oxygen Delivery Method room air Intake Visit Reasons: ER Follow-up (Adult) Nurse Note: ER follow up - 02.27.2020, she has two abscesses one under her left arm and one on the inside of her right thigh area, like in her inner butt cheek- Lanced the one on her leg and packed it, states this one is doing better, the on e under her arm was not ready to be drained, it was too hard, and she is still feeling pain from that, States ER said that she should have repeat blood workdone, CBC, CMP and C-Reactive Protein, She is currently taking Clindamycin orally . States that she is also struggling with heart burn, has been taking OTC omeprazole, Rolaids , and an off brand Acid Wallpaper Cleaner that did not help Pillow Filler Required: No Accompanied by: Self / Same as Patient Is patient in pain?: No Allergies No Known Drug Allergies Allergy (Verified 04/19/19 12:14) Medications - Last Reconciled 03/03/20 by Shannon Zhang NP alcohol swabs (Alcohol Wipes) 1 pad topical QID 90 days blood-glucose meter (OneTouch Verio Flex Start) As directed cholecalciferol (vitamin D3) 2,000 units PO QDAY clindamycin HCl 300 mg PO QID dulaglutide mg subcut ergocalciferol (vitamin D2) 1,250 mcg PO QWEEK ertugliflozin (Steglatro) 15 mg PO QAM lancets (Accu-Chek Softclix Lancets) As directed OneTouch Verio test strips (blood sugar diagnostic) USE DIRECTED FOUR TIMES A DAY 30 days NS Is last menstrual period known: Yes Post menopausal: No Patient : No Vision Wearing glasses?: No Fall Risk History of falls: No Ambulatory Aid:: None Gait/Transferring:: Normal Medications:: No High Risk Medications PHQ- 2/9 Over the last 2 weeks, how often have you been bothered by any of the following problems? 1. Little interest or pleasure in doing things: not at all 2. Feeling down, depressed, or hopeless: not at all Total score: 0 HIV Testing Offer - ages 13-64 HIV testing Offer: Yes Requirement for HIV testing offer been met?: Patient reports past refusal SBIRT Annual Questionnaire Are you currently in recovery for alcohol or substance use?: No How many times in the past year have you had 4 or more drinks in a day?: None How many times in the past year have you used a recreational drug or used a prescription medication for nonmedical reasons?: None Do you need a note to return Do you n eed a note to return to daycare/school/sports/work: No Coronavirus Screening Screening Have you traveled outside of [facility] or [facility] in the last 14 days.: No Has patient experienced coronavirus symptoms: No [facility] Medical History (Updated 03/03/20 @ 09:52 by Shannon Zhang NP) Anxiety Asthma Chlamydia Depression Diabetes mellitus Herpes genitalis Surgical History Status post tonsillectomy Social History (Updated 05/06/19 @ 10:50 by Erin Krishnamurthy) Does the Patient have a Healthcare Proxy: No Does Patient have a DNR?: No Does Patient have a Living Will?: No Hx Recent Travel (where): No Smoking Status: Never smoker Review of Systems Const All systems reviewed are unremarkable except as noted in HPI and below Reports as per HPI Skin/Breast Details: boils X2 left axilla. Right upper medial thigh (was lanced in ER and packed) Exam Const General: cooperative, healthy appearing and comfortable Nutritional Appearance: average body habitus and well nourished Orientation: alert, awake and oriented x3 Skin Other: Left axilla, small lump under skin, redness has improved as has pain per patient. <1cm. Right buttock healed, no induration appreciated, no redness. 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 Doing very well, educated and encouraged warm compresses to the left axilla. She is receptive. Follow up in 1 week if not completely resolved. 3 months for annual PE. Orders: Orders: CMP Today CRP, C-REACTIVE PROTEIN Today CBC W AUTO DIFF Today Coding Level of Care Code 44945 Est Pt Limited Comp Exam Problem Focused Diagnoses Abscess L02.91 <Electronically signed by Shannon Zhang POWER ELECTRONICS RESEARCH ENGINEER> 03/03/20 1210 Name Value Range Interpretation Code Description Data Suze rce(s) Supporting Document(s) ID Date Data Source [id number] 02/27/2020 01:28:00 PM [facility] ED Physician Documentation NAME: PAZ DELGADO : 1980 AGE: 39 MR#: [id number] SERVICE DATE: 02/27/[address]: Terrie Perez MD PRIMARY CARE DR: Shannon Zhang PROJECT STRUCTURAL ENGINEER ROOM#: [facility] (Adult, General) General Chief Complaint: Skin/integument Stated Complaint: CYST Resident LTC, travel outisde home, exposure to hot tubs:: No Time Seen by Provider: 02/27/20 11:05 Source: patient Exam Limitations: no limitations History of Present Illness Narrative: 39-year-old female patient underlying medical history of type 1 diabetes, presented with suspected abscess on right buttocks. Tender, erythematous, present for the past 1 week. Patient has similar symptom before requiring incision and drainage. Denies fever. No diarrhea. No urinary complaint. Patient also reported questionable lump on left axilla. Not erythematous, not tender at this time. No shortness of breath, no cough, History of Present Illness Timing/Duration: 1 week Past Medical History Past Medical History: Nursing Past Medical History Has Been Reviewed Allergies/Home Meds Allergies Allergy/AdvReac Type Severity Reaction Status Date / Time No Known Drug Allergies Allergy Verified 04/19/19 12:14 Home Medications Medication Instructions Recorded Confirmed Last Taken Type alcohol swabs 1 pad TOP QID 90 Days #200 each 05/06/19 05/06/19 Unknown Rx blood-glucose meter #1 each 05/06/19 05/06/19 Unknown Rx lancets #100 each 05/06/19 05/06/19 Unknown Rx ertugliflozin 15 mg tablet 15 mg PO QAM #30 tab 06/24/19 06/24/19 Unknown Rx dulaglutide 0.75 mg/0.5 mL mg SQ 10/11/19 Unknown History subcutaneous pen injector OneTouch Verio test strips See Rx Instructions .ROUTE 10/28/19 Unknown Rx .COMPLEX 30 Days #150 each NS clindamycin HCl 300 mg PO QID #40 cap 02/27/20 Unknown Rx Medication list updated and reviewed:: Yes Pain Assessment Pain Location: Right buttocks Pain Description: Throbbing and Acute Pain Intensity: 6 Pain Scale Used: Numeric Scale ER plan Plan of care and ER treatment: An ER treatment plan was discussed with patient and family, Patient encouraged to ask questions about plan and ER treatments and Patient agrees with ER plan of care Plan: Bedside [id number] ultrasound evaluation showing right buttocks abscess, no left axilla abscess detected at this time. We will perform incision and drainage of right buttocks abscess, wound culture, blood culture, CBC, CMP, C-reactive protein, lactic acid PMH (from Triage) Patient Medical History PMH Reviewed/Updated as Needed: Yes PMH/PSH from Triage: Medical History (Updated 10/13/19 @ 14:53 by Shannon Zhang NP) Anxiety (Medical) Asthma (Medical) Chlamydia (Medical) Depression (Medical) Diabetes mellitus (Medical) Herpes genitalis (Medical) Surgical History (Updated 01/08/18 @ 15:08 by Sarahy Carter) Status post tonsillectomy (Surgical) Female History LMP:: 4 weeks ago : No Hx Drug Resistant Infections Hx MRSA: (Methicillin-resistant Staphylococcus aureus): Yes (11/04/10) Hx VRE (Vancomycin-resistant enterococci): No Hx C.Diff: No Hx CRKP: No Hx Other Resistant Infection?: No Isolation: Standard precautions Hx Recent Travel Out of the country within 10 days (where): No Hx Fever: No Hx Fever with a rash?: No Nurse screening for coronavirus: Recent Travel outside the No country (where) Has patient experienced No coronavirus symptoms Social History Does patient have suicidal/homicidal thoughts or ideation?: No Are you in a relationship with/Does anyone hit you, yell/swear at you, steal from you?: No Substance Use Hx Alcohol Use: No Hx Substance Use: No Hx Substance Use Treatment: No Second Hand Smoke Exposure: No Smoking Status: Never smoker Tobacco Use Hx C hewing Tobacco Use: No Vaccination History Hx/Date of Tetanus, Diphtheria Vaccination: No Hx/Date of Influenza Vaccination: No Hx/Date of Pneumococcal Vaccination: No Immunizations Up to Date: No PFSH Medical History Anxiety Asthma Chlamydia Depression Diabetes mellitus Herpes genitalis Surgical History Status post tonsillectomy Social History (Updated 05/06/19 @ 10:50 by Erin Krishnamurthy) Does the Patient have a Healthcare Proxy: No Does Patient have a DNR?: No Does Patient have a Living Will?: No Hx Recent Travel (where): No Smoking Status: Never smoker ROS Review of Systems ROS Narrative: Negative except for those mentioned in the HPI Physical Exam General Limitations: no limitations General appearance: alert and in no apparent distress Head Head exam: Present atraumatic and normocephalic Eye Eye exam: Present normal apperance, PERRL and EOMI ENT ENT exam: Present normal exam and mucous membranes moist Neck Neck exam: Present normal inspection and full ROM Respiratory Respiratory exam: Present normal lung sounds bilaterally; Absent wheezes, rales and rhonchi Cardiovascular Cardiovascular Exam: Present regular rate and normal rhythm GI/Abdominal GI/Abdominal exam: Present Abd soft, bowel sounds present all quad rents, soft and normal bowel sounds; Absent distended, tenderness, guarding and rebound Extremities Exam Extremities exam: Present Full ROM without tenderness, capillary refill brisk and full ROM Back Exam Back exam: Present normal inspection and full ROM Neurological Exam Neurological exam: Present alert, oriented X3 and CN II-XII intact Skin Skin exam: Present other (Right buttocks lump likely abscess, approximately 1.5 cm in diameter, tender to palpation, erythematous, left axilla tiny nodule, nontender, no erythematous,) Vital Signs Vital Signs: Vital Signs 02/27/20 12:02 Temperature 98.2 F Pulse Rate 109 H Respiratory Rate 16 Blood Pressure 139/76 O2 Sat by Pulse Oximetry 98 MDM (comprehensive) Lab Data Labs: 02/27/20 11:49 02/27/20 11:49 Laboratory Results Last 24 hours 02/27/20 11:49: WBC 10.6, RBC 4.08 L, Hgb 11.4, Hct 35.2 L, MCV 86.3, MCH 27.9, MCHC 32.4 L, RDW 13,Plt Count 331, MPV 9.5, Immature Gran % (Auto) 0.4, Neut % (Auto) 73.7, Lymph % (Auto) 20.9, [place] % (Auto) 3.7 L, Eos % (Auto) 0.8, Baso % (Auto) 0.5, Lymph # (Auto) 2.2, Abs Immat Gran (auto) 0.0, Add Manual Diff No, Absolute Neutrophils 7.8 H, Monocytes # 0.4, Absolute Eosinophils 0.1, Absolute Basophils 0.1 02/27/20 11:49: Sodium 137, Potassium 4.1, Chloride 105, Carbon Dioxide 25, Anion Gap 11, BUN 14, Creatinine 0.8, GFR Calculation Greater than 60, Glucose 238 H, Calcium 9.3, Magnesium 2.0, Total Bilirubin 0.4, AST 4, ALT 17, Alkaline Phosphatase 96, C- Reactive Protein 27.1 H, Serum Total Protein 7.8, Albumin 3.2 02/27/20 11:49: Lactic Acid 2.2 Medical Decision Making Free Text/Narative:: Procedure note Patient's right buttocks cleaned with Betadine, 2% subcutaneous lidocaine infused A half a centimeter incision made, bloody purulent drainage obtained, culture collected, site is packed with quarter inch iodoform Dressing was placed, patient tolerated procedure with no complication. Ijtil-vv-upfn ultrasound done for left axilla nodule negative for abscess Left axilla nodule barely palpable, nontender, no erythema Right buttocks abscess Culture sent, minimal elevation lactic acid, 1 L IV fluids sent, patient afebrile, no leukocytosis, dynamically stable. Already n.p.o., IV clindamycin, patient will complete oral course of clindamycin as outpatient. Sitz bath, wound care, follow-up culture, tight glycemic control Procedures (comprehensive) I D Site: Right buttocks Betadine Prep: Yes Blade Size: 11 Sterile Dressing Applied: Yes Sterile Drapes: No Wick Placed: No Plan Plan Plan: Status post incision and drain, sitz bath twice daily, dressing change twice daily, return to the hospital if febrile, worsening pain, worsening drainage, or any other symptom, tight glycemic control. Complete oral clindamycin. Plan of care: Pain control discussed with patient, Activity limitations discussed with patient/family, Follow up appointments discussed, Plan of care discussed with patient and or family,Patient encouraged to ask questions about plan, Patient agrees with plan of care, Teach back used with patient/caregivers to build capacity, Person receiving instructions verbalizes understanding ofplan and Discharge plan and instructions discussed with patient and or family Visit Medications Administered ED medications:: Medications Generic Name Dose Route Start Last Admin Trade Name Freq PRN Reason Stop Dose Admin Sodium Chloride 1,000 mls @ 999 mls/hr 02/27/20 12:33 02/27/20 13:20 Ns 0.9% IV 02/27/20 13:33 999 mls/hr .Q1H1M ONE Administration Discontinued Medications Generic Name Dose Route Start Last Admin Trade Name Freq PRN Reason Stop Dose Admin Clindamycin HCl/Dextrose 600 mg in 50 mls @ 100 mls/hr 02/27/20 12:31 02/27/20 13:20 Cleocin 600mg Piggyback IV 02/27/20 13:00 100 mls/hr ONCE ONE Administration Discharge Plan Admission/Discharge Dx Primary DC Diagnosis: Right buttocks abscess ED Provider: Terrie Perez ED Status: Ready for Discharge Time Seen by Provider: 02/27/20 11:05 Triaged At: 01/21/21 11:07 Condition Condition: Improved Discharge Detail Disposition: Home, Self-Care Med Rec New Prescriptions: New clindamycin HCl 300 mg capsule 300 mg PO QID Qty: 40 RF: 0 No Action alcohol swabs [Alcohol Wipes] Pads, Medicated 1 pad TOP QID 90 Days Qty: 200 RF: 3 (DME) lancets [Accu-Chek Softclix Lancets] Misc See Rx Instructions .ROUTE .MEDSUPPLY Qty: 100 RF: 5 (DME) blood-glucose meter [OneTouch Verio Flex Start] Kit See Rx Instructions .ROUTE .MEDSUPPLY Qty: 1 RF: 0 Steglatro 15 mg tablet 15 mg PO QAM Qty: 30 RF: 2 OneTouch Verio test strips Strip See Rx Instructions .ROUTE .COMPLEX 30 Days Qty: 150 RF: 5 Follow Up Visit/Referrals: Shannon Zhang, [employer] [Primary Care Provider] - (5 days) Diet:: diabetic diet Medications Medication reconciliation performed by provider at discharge: Yes Follow Up Care/Instructions Diet/Activity/Wound Care..: Dressing change twice a day, more frequently if soiled. Sitz bath twice a day. Follow-up with primary care provider in 5 days for wound care, close glycemic control, complete oral course of clindamycin, probiotics, check CBC, CMP, C-reactive protein with primary care provider. Follow-up wound culture. Oral hydration encouraged. Return to the hospital if develop worsening pain, worsening drainage, fever, nausea vomiting, increased redness, or any other symptoms. *Discharge Patient* Discharge Orders: Discharge Order (Routine); Ordered 02/27/20 Ordered By: Terrie Perez Report Signers: <Electronically signed by Terrie Perez MD> Terrie Perez MD 02/27/20 1346 Jesus Perez MD SIGNATURE DA Report Cosigners: D: ASHA 02/27/20 1328 T: ASHA 02/27/20 1328 CC: Shannon Zhang Name Value Range Interpretation Code Description Data Suze rce(s) Supporting Document(s) ID Date Data Source [id number] 02/29/2020 09:16:00 AM EST [facility] @02/29/20 0916: Aerobic ID Sharri added. R FLXG = CHGAERID. Name Value Range Interpretation Code Description Data Suze rce(s) Supporting Document(s) Bacteria identified in Wound by Aerobe culture [facility] Quantiy of growth NUMEROUS [facility] ID Date Data Source [id number] 02/29/2020 09:16:00 AM EST [facility] @02/29/20 0916: Aerobic ID Sharri added. R FLXG = CHGAERID. Name Value Range Interpretation Code Description Data Suze rce(s) Supporting Document(s) Ampicillin [Susceptibility] by Minimum inhibitory concentration (RIMA) <0.06 Susceptible. Indicates for microbiology susceptibilities only. [facility] Cefotaxime [Susceptibility] by Minimum inhibitory concentration (RIMA) <0.25 Susceptible. Indicates for microbiology susceptibilities only. [facility] Ceftriaxone [Susceptibility] by Minimum inhibitory concentration (RIMA) <0.25 Susceptible. Indicates for microbiology susceptibilities only. [facility] Clindamycin [Susceptibility] by Minimum inhibitory concentration (RIMA) >0.5 Resistant. Indicates for microbiology susceptibilities only. [facility] Erythromycin [Susceptibility] by Minimum inhibitory concentratio n (RIMA) >0.5 Resistant. Indicates for microbiology susceptibilities only. [facility] Penicillin [Susceptibility] by Minimum inhibitory concentration (RIMA) <0.03 Susceptible. Indicates for microbiology susceptibilities only. [facility] Tetracycline [Susceptibility] by Minimum inhibitory concentratio n (RIMA) >4 Resistant. Indicates for microbiology susceptibilities only. [facility] Vancomycin [Susceptibility] by Minimum inhibitory concentration (RIMA) 0.5 Susceptible. Indicates for microbiology susceptibilities only. [facility] Levofloxacin [Susceptibility] by Minimum inhibitory concentratio n (RIMA) 1 Susceptible. Indicates for microbiology susceptibilities only. [facility] Cefepime [Susceptibility] by Minimum inhibitory concentration (M IC) <0.25 Susceptible. Indicates for microbiology susceptibilities only. [facility] ID Date Data Source [id number] 02/27/2020 11:57:00 AM EST [facility] Special Instructions: Lab may order repe at test if initial test elevatedPhysician If elevated, reflex second test in 4-6 hrs Name Value Range Interpretation Code Description Data Suze rce(s) Supporting Document(s) Leukocytes [#/volume] in Blood by Automated count 10.6 10*3/uL 4.45-1 0.71 N [facility] Erythrocytes [#/volume] in Blood by Automated count 4.08 10*6/uL 4.20-5.40 Below low normal [facility] Hemoglobin [Moles/volume] in Blood 11.4 g/dL 10.7-15.4 N [facility] Hematocrit [Volume Fraction] of Blood by Automated count 35.2 % 37-47 Below low normal [facility] Erythrocyte mean corpuscular volume [Ent itic volume] in Cord blood by Automated count 86.3 fL 80-96 N [facility] Erythrocyte mean corpuscular hemoglobin [Entitic mass] by Automated count 27.9 pg 27-31 N [facility] Erythrocyte mean corpuscular hemoglobin concentration [Mass/volume] in Cord blood 32.4 g/dL 33-37 Below low normal [facility] Erythrocyte distribution width [Entitic volume] by Automated count 13 % 11-15 N [facility] Platelets [#/volume] in Blood by Automated count 331 10*3/uL 130-472 N [facility] Platelet mean volume [Entitic volume] in Blood 9.5 fL 9.1-13.1 N [facility] Neutrophils/100 leukocytes in Blood by Automated count 73.7 % 41- 77 N [facility] Neutrophils [#/volume] in Blood by Automated count 7.8 U 1.7-7.6 Above high normal [facility] Lymphocytes/100 leukocytes in Blood by Automated count 20.9 % 14- 46 N [facility] Lymphocytes [#/volume] in Blood by Automated count 2.2 U 0.6-4.6 N [facility] Monocytes/100 leukocytes in Blood by Automated count 3.7 % 4-12 Below low normal [facility] Monocytes [#/volume] in Blood by Automated count 0.4 U 0.2-1.2 N [facility] Eosinophils/100 leukocytes in Blood by Automated count 0.8 % 0-7 N [facility] Eosinophils [#/volume] in Blood by Automated count 0.1 U 0.0-0.5 [facility] Basophils/100 leukocytes in Blood by Automated count 0.5 % 0.4-1 .3 N [facility] Basophils [#/volume] in Blood by Automated count 0.1 U 0.0-0.2 N [facility] NUCLEATED RED BLOOD CELL 0 % [facility] NUCLEATED RED BLOOD CELL# 0 U [facility] Immature granulocytes [Presence] in Blood by Automated count 0-2 N [facility] Immature granulocytes [#/volume] in Blood by Automated count 0.0 U 0-0.1 N [facility] Manual Differential panel - Blood NO [facility] ID Date Data Source [id number] 02/27/2020 12:18:00 PM EST [facility] Special Instructions: Lab may order repe at test if initial test elevatedPhysician If elevated, reflex second test in 4-6 hrs Name Value Range Interpretation Code Description Data Suze rce(s) Supporting Document(s) Urea nitrogen [Mass/volume] in Serum or Plasma 14 mg/dL 9-23 N [facility] Sodium [Moles/volume] in Serum or Plasma 137 mmol/L 132-146 [facility] Potassium [Moles/volume] in Serum or Plasma 4.1 mmol/L 3.5-5.5 [facility] Chloride [Moles/volume] in Serum or Plasma 105 mmol/L 99-109 [facility] Carbon dioxide, total [Moles/volume] in Serum or Plasma 25 mmol/L 20 -31 [facility] Anion gap in Serum or Plasma 11 mmol/L 8-16 [facility] Glucose [Mass/volume] in Serum or Plasma 238 mg/dL 74-106 Above high normal [facility] Creatinine 0.8 mg/dL 0.5-1.1 [facility] Glomerular filtration rate/1.73 sq M.pre dicted [Volume Rate/Area] in Serum or Plasma Greater Than 60 ABOVE 60 [facility] Alanine aminotransferase [Enzymatic acti vity/volume] in Serum or Plasma by With P-5'-P 17 U/L 10-49 N [facility] ital Aspartate aminotransferase [Enzymatic ac tivity/volume] in Serum or Plasma by With P-5'-P 4 U/L 0-33 [facility] pital Alkaline phosphatase [Enzymatic activity/volume] in Serum or Plasma 96 U/L 45-129 [facility] Calcium [Mass/volume] in Serum or Plasma 9.3 mg/dL 8.5-10.1 [facility] Bilirubin.total [Mass/volume] in Serum or Plasma 0.4 mg/dL 0.3-1.2 [facility] Albumin [Mass/volume] in Serum or Plasma by Bromocresol purple (BCP) dye binding method 3.2 g/dL 3.2-4.8 N [facility] ital Protein [Mass/volume] in Serum or Plasma 7.8 g/dL 5.7-8.2 [facility] ID Date Data Source [id number] 02/27/2020 12:25:00 PM [facility] Special Instructions: Lab may order repe at test if initial test elevatedPhysician If elevated, reflex second test in 4-6 hrs Name Value Range Interpretation Code Description Data Suze rce(s) Supporting Document(s) Lactic w Rfx (if elevated) 2.2 mmol/L 0.5-2.0 [facility] Called to SUSANNE Alamo @ 1225 by Annel Glaser i. Results readback. ID Date Data Source [id number] 03/03/2020 11:53:00 AM [facility] Special Instructions: Lab may order repe at test if initial test elevatedPhysician If elevated, reflex second test in 4-6 hrs Name Value Range Interpretation Code Description Data Suze rce(s) Supporting Document(s) Bacteria identified in Blood by Culture [facility] NO GROWTH AFTER 5 DAYS ID Date Data Source [id number] 02/27/2020 12:18:00 PM [facility] Special Instructions: Lab may order repe at test if initial test elevatedPhysician If elevated, reflex second test in 4-6 hrs Name Value Range Interpretation Code Description Data Suze rce(s) Supporting Document(s) Magnesium [Mass/volume] in Serum or Plasma 2.0 mg/dL 1.3-2.7 [facility] ID Date Data Source [id number] 02/27/2020 12:18:00 PM [facility] Special Instructions: Lab may order repe at test if initial test elevatedPhysician If elevated, reflex second test in 4-6 hrs Name Value Range Interpretation Code Description Data Suze rce(s) Supporting Document(s) C reactive protein [Mass/volume] in Serum or Plasma 27.1 mg/L 0.0-5.0 Above high normal [facility] ID Date Data Source [id number] 02/11/2020 11:52:22 AM EST [facility] Name Value Range Interpretation Code Description Data Suze rce(s) Supporting Document(s) Progress Note [facility] XAQGRt7wMpCYFoAw51/SIGnuZVPct4VcZHadEXu4DLdrJHOaA4TvZAQ6tM4mOPG3HYqJXbKhLzAlLTX5 lbm [file] VPRg0K ID Date Data Source [id number] 01/27/2020 09:31:27 AM EST [facility] Name Value Range Interpretation Code Description Data Suze rce(s) Supporting Document(s) Progress Note [facility] GAVJXy7vYtSXYcUu31/BUBkaGVAku1ClSKmkOFb5TUdmJLDkE0EkLLO5lJ8cOZO7SCbKEhSuFmTaFtBw lbm [file] ICAgICAgICAgICAgICAgICAgICAgICAgICAgICAgICAgICAgICAgICAgICAgICAgICAgICAgICAgICAg ICAgICAgICAgICAgICAgICAgICAgICAgICAgICAgIC AgICAgDQogICAgICAgICAgICAgICAgICAgICAgICAgICAgICAgICAgICAgICAgICAgICAgICAgICAgIC AgICAgICAgICAgICAgICAgICAgICAgICAgICAgICAgICAgICAgICAgICAgICAgDQogICAgICAgICAgIC AgICAgICAgICAgICAgICAgICAgICAgICAgICAgICAg ICAgICAgICAgICAgICAgICAgICAgICAgICAgICAgICAgICAgICAgICAgICAgICAgICAgICAgICAgDQog ICAgICAgICAgICAgICAgICAgICAgICAgICAgICAgICAgICAgICAgICAgICAgICAgICAgICAgICAgICAg ICAgICAgICAgICAgICAgICAgICAgICAgICAgICAgIC AgICAgICAgDQogICAgICAgICAgICAgICAgICAgICAgICAgICAgICAgICAgICAgICAgICAgICAgICAgIC AgICAgICAgICAgICAgICAgICAgICAgICAgICAgICAgICAgICAgICAgICAgICAgICAgDQogICAgICAgIC AgICAgICAgICAgICAgICAgICAgICAgICAgICAgICAg ICAgICAgICAgICAgICAgICAgICAgICAgICAgICAgICAgICAgICAgICAgICAgICAgICAgICAgICAgICAg DQogICAgICAgICAgICAgICAgICAgICAgICAgICAgICAgICAgICAgICAgICAgICAgICAgICAgICAgICAg ICAgICAgICAgICAgICAgICAgICAgICAgICAgICAgIC AgICAgICAgICAgDQogICAgICAgICAgICAgICAgICAgICAgICAgICAgICAgICAgICAgICAgICAgICAgIC AgICAgICAgICAgICAgICAgICAgICAgICAgICAgICAgICAgICAgICAgICAgICAgICAgICAgDQogICAgIC AgICAgICAgICAgICAgICAgICAgICAgICAgICAgICAg ICAgICAgICAgICAgICAgICAgICAgICAgICAgICAgICAgICAgICAgICAgICAgICAgICAgICAgICAgICAg ICAgDQogICAgICAgICAgICAgICAgICAgICAgICAgICAgICAgICAgICAgICAgICAgICAgICAgICAgICAg ICAgICAgICAgICAgICAgICAgICAgICAgICAgICAgIC DbWKJiAUEwPFZxMFFcDKg2A6jkZLLnNFYkAF1vBPb4Jt5+LVdZYoJgHKQ3gxRopP0BHX7nb8LaAAhjAO Exn4RzTPm8JF8PHTAwBZnjUX9YBMcesh4DWUGsTSUsrOWSg4lsAzTjBBE7RZLnQunrMR8DQSNsT4mxvr BbIDUgMCBSIDcgMCBSIDkgMCBSIDExIDAgUiAxMyAw MDKrSB5MKAOzV357lpJgEJ3CCj8IYlTxBX5apn3PMkdvSSDvPjcBRzz7LUfjZJ3UcXPqvZVaXNWoAVKU UkWiP9efq2OpZpsvIIQCJIdtIU9Fu1AurHYgOMj+Go6BUU5af2TiIGfpDOIvKI4rlg5NPNjXLqQcY5No kXtrAQHte0peKFSiKD9fbXAvNXA7HHNalSNcZTWlj2 JbZNC6ZGQehPXbJQGXLOSunFGfHc0nTE0eKTRuCXU6ZwHeNLRBYD1HCNQlAGVyjOBvFSIzKOFSDY5PMH ykIBN9NUPgswGllWAzYUygKK7ZAFGieyCoSkldDQDFVAg+Ym9DWH0ta4OmBPeuNIUdVX3rhq3AJOmNAg JzQ0U9rUAmG8U1EBeeTe0ZDWZpSVVfByZrRVAKTYfp SY5MDB3fqzM6VR5HqFUzIASmLNIodQUpLNf0Y55cnYMsUSsjQZ7EPJU+Kendra+Ei7GUHKcYLZsRKJqAxVi UREPTdDyX7KuJ9MBn5YbS6GbGF34cDkvbfJrPLtvBC1EFY8cCHOiZKHUNB9JqXPqbK9ehqHnAjTcIPFE VsKvO82ijFDwVXNfWMT1DXMhTg9YERArD1PjpuNtzT memqIoCTMdKDUVJC0NDNocqfPqgFQzdSovIG21jFjrEH9KCi1RRqOyZR3nsl9ZpXEuVd2USZMyXW5IRG WoVAUnUHXdGMK1OLOoJfCxAIwtEPSoLZKgFIU6YLGgREEdWE3KCnXgVOVgWpc4AFBdAZRoUZSavr8FDZ JbZFDiLWAkLJFcPWIvPMAvNEclBWRnOWElEQZ2KTNb LPYvXI0NNlNoJSTeGKZ7PRppBPQhWBEzet6HUUUfDUBlUvYiKeRpPSNnDQKaFGqgXNBtAVB6APC3WJJd OIGcHJ0VWtWnDPFdWVVaKSSmVHEnMYQuxd0BFQJmOGHpZXD4YrXdSVDuQAIrMCaqQWQdUPD0Ktl3KDBo ORLyXH6HOkSmLVPbDGW0WBGpJUIrYRMsri6VOACfTR YjVwF4VeMgCBNzWRGyXVbkICOpKOSoYKUhUBZvFGZfBB2UWwNlTUBnCVO4PYbxGVSyPSDuqc0QESAqGE MyUNU4HKNaTEOuRVIhTPurJMIrLDV2VBo6PIUfTEVoUS4POsIgQSMcVGXiDCpnIVTmWUOblf5KHYZxCU QpIiBhZCZlGYIiRDMzFFgaKUWfHPV3KsTbVCTrXLKx XP4SVaXoNWFfGSZ8BDmuRGCxFUHulo4EBBLbPMUjZytdLWGzQIZmTFBmBNldJKYcPRR6SLShTZJvEQEh GV1VUwEyINHmDbvpNhEdFRWyBEEdpp0VHCMlJNCnKSKqHyAqHBPlGVPgXKpsYLLnUVO8YfC3ATIxFDUm EF8YHzBmFWJaUcmlDlmvSTDmDWXwuu1PUAPmMPOhNY SvQtWiXDGyCCTmLZzeFBTdAOXhKoE6BOSxJQImSE4RJaXrPUTrQnT9AsSeMWKxEFCxdy9JgMTaoPizdg 8CYTkLFq1IxDotFMCeXOwhFf9svKIqZCDpRIVHEa1QxlTqNWRjGNEHGKtnOEXcNTF1R7N8URT5SfG3Aw UqAUE2ATN6CzZ5SxE4AcQ0GetgZaX6OUxqCNq4COsd QDYtJYWtElThGOl0ALN6XOkcQsl9L3S+HJ3cMCv+Tl9Io1QdfpE3cgHnSJzbKQNnHK1AJPOOM7SAAf== ID Date Data Source [id number] 01/21/2020 09:59:34 AM [facility] Name Value Range Interpretation Code Description Data Suze rce(s) Supporting Document(s) Progress Note [facility] UZUQLo9yIoZHJzXu96/ZSCvnEXFpa9MgDCqxTCj8WMdqVSCeW6EtCAU9pO4kBOQ2OObHPmUfMsTlGsX2 lbm [file] ICAgICAgICAgICAgICAgICAgICAgICAgICAgICAgICAgICAgICAgICAgICAgICAgICAgICAgICAgICAg ICAgICAgICAgICAgICAgICAgICAgICAgDQogICAgICAgICAgICAgICAgICAgICAgICAgICAgICAgICAg ICAgICAgICAgICAgICAgICAgICAgICAgICAgICAgIC AgICAgICAgICAgICAgICAgICAgICAgICAgICAgICAgICAgDQogICAgICAgICAgICAgICAgICAgICAgIC AgICAgICAgICAgICAgICAgICAgICAgICAgICAgICAgICAgICAgICAgICAgICAgICAgICAgICAgICAgIC AgICAgICAgICAgICAgICAgDQogICAgICAgICAgICAg ICAgICAgICAgICAgICAgICAgICAgICAgICAgICAgICAgICAgICAgICAgICAgICAgICAgICAgICAgICAg ICAgICAgICAgICAgICAgICAgICAgICAgICAgDQogICAgICAgICAgICAgICAgICAgICAgICAgICAgICAg ICAgICAgICAgICAgICAgICAgICAgICAgICAgICAgIC AgICAgICAgICAgICAgICAgICAgICAgICAgICAgICAgICAgICAgDQogICAgICAgICAgICAgICAgICAgIC AgICAgICAgICAgICAgICAgICAgICAgICAgICAgICAgICAgICAgICAgICAgICAgICAgICAgICAgICAgIC AgICAgICAgICAgICAgICAgICAgDQogICAgICAgICAg ICAgICAgICAgICAgICAgICAgICAgICAgICAgICAgICAgICAgICAgICAgICAgICAgICAgICAgICAgICAg ICAgICAgICAgICAgICAgICAgICAgICAgICAgICAgDQogICAgICAgICAgICAgICAgICAgICAgICAgICAg ICAgICAgICAgICAgICAgICAgICAgICAgICAgICAgIC AgICAgICAgICAgICAgICAgICAgICAgICAgICAgICAgICAgICAgICAgDQogICAgICAgICAgICAgICAgIC AgICAgICAgICAgICAgICAgICAgICAgICAgICAgICAgICAgICAgICAgICAgICAgICAgICAgICAgICAgIC AgICAgICAgICAgICAgICAgICAgICAgDQogICAgICAg ICAgICAgICAgICAgICAgICAgICAgICAgICAgICAgICAgICAgICAgICAgICAgICAgICAgICAgICAgICAg ZJYuIZUtIAYaPPAtYFUvWJPdLMSmVQDlIWBaJPLrERQfTGy5J8czAICaBLYrYE0aCRr3Bd4+DQoNCmVu NDX4qoYnsA8OIP8ag7FxXAfhTMFmu9TiGKe0WM0EZZ PgDCpvXG8AUAxkfy5JASYoGAQhvMMAg2fhXrYtAWP0XQEfNvdaQS7WPFNcN0oktzCvEXQhUUSSSOohHZ ZROUulEFXFLKRxAVRaDrPnXhGzNZYmSH8CEXEvY923maRoSX9QFn4RQjIlVO3xbs8QRjleBWVgVssSFy c6CUknXG2IkSBpuLXxQQDgHFVSSuIiS9cgh8HtZtvz OKJIRYloZE3Rg2MvsEDhJJd+Ja5KRH1kj9LbBPshCHKiOM6iws9VVKhJHlRtW5XejMkePFTdf3unBJIj OA8auADrONW3NQh8E7IsWTBlxT6yqJK1DMQBEBKwbWFsRb5zMC4wUKCtKAPqTpY7SQNOKQ0OXNBwFFWy oTFtDTTfGXZWAO1BIEnhYRZ8ZHNqifCzmLKuDGrxQD 9QYXJlbnQgMjcgMCBSDQo+Rp2QAE4ts3FxDJfiKNKwFM1wms2QBIlSInBgP5A9iFQbA2X6DWgwNa7WLO FuZAUfWeIzGFSBMGumXB3QRW0xmbB5YE2NkHHeLKUvGBEulMSiVSv2T62sqXCmBOlxWU7TXZU+Kendra+Pg 2TJRNvHPTjVCAfHzFwJYJZLeSaE5PdR1TRx7JkI3Xb BE30iGsaluBmLIzlPH3KHX5zESWvVDDJUV4IjZMlxZ1ioeYiZxGfJGVAQhOdU96sqXJwCTZoHFS8YTJe Ih6ZGGKhD4AuheUfiYiubmNmQRJrEVJZHC6BYRatppXyaBBljDotZU78kXwfNK2TFx1OMgAbLF2imf6M vTKfFd9QXXZqJA1DOXPaJVEfDSYfCGA0ZTLtJnExKV mnJVUlNCLcFBM4YQMlHIZgPO4KBxQzXVHbUgfwXtSjBZEiKPIhmf5LOPTePDQhKBB8BqTzFIXsBNTcPJ wpTEUzJFMdVZO3VFJpSFOlJT5WCoLvAYBhQACnXCTeBVThDHGxna5QUETxYGMrVpCtNmGqVJQbBGQcEA fbMHKxNMN4NwC8KCPlYBIiDM0MYsQlLWLsVBZ5Huiu MURxNBUrlg5FTWKvMRNtUNNtHvCjBZXwFSZcBKhkGFKkBFZ7XtSfUDIsXBWyDV2STgTgHCWyNKE0JLOh LSYqPHAbfv5BUOBrEXRzAUb9JWNhSSKoGMRkRNhaXAMcHDS8QAX4KBZvSXZuKX9GEfLlZIPyFLEeJEYy CFRaMRBler7RAQOvMVZvEPZhGtVnOGXiIXKjUHngMZ HdJHE5JGQdSAMlTSNxCL7BOuJrZQRjXQY6UHKmJYOeRQAqug7ILOAuMSIhTsJ1BxLtTALbIOKcMUurLF DoQKS4IyM5YRHaCBUvIJ4UYwPqNUCnKHK8GTEmZBNjLGSnyd2JVMQyGYOsBJX5NoOpYQOfFGLqITwvSR HqDYU2Zhj5VWUhGZPeBQ0PGbPnCAStIux9QGFaGJJj UHCohf2HYJQkDPYxQWN8QaDmSILgBKNrBMsdVCXuWSX9XwOxDIZhQJVkGO1RXoUwUNJzDjp0NEOcBRSo QGJwpb9TYENiHMGiFZY4OdIlEFCqXGDeUUtsILUbHAPoZzA1AYDwOLFzJG6QHjVhMFYlAxDfDVouQARu YSBqkq0RyXBmwAqvse5THDsRZb8QaSmbHVUnRZxkBp 7ymNOmUCNwBMXXVh7RapZpTQEnMWYNXCncHGAdJTP3YHWsOiybXGnmDxHiLxUxUSxwDxRnG9CrVvfhUF VrZzQ6FLsuTJTfITJpF6RnJZMmAlU3JFEvDFQ8O5TyJ5PwSUB+QG4rTVv+Eq0Uc5RabwI7imThOHpjGY OjYg8CRZIFE6UGRq== ID Date Data Source [id number] 01/06/2020 03:39:00 PM [facility] Name Value Range Interpretation Code Description Data Suze rce(s) Supporting Document(s) Hemoglobin A1c/Hemoglobin.total in Blood 8.1 [facility] ([facility]) Glucose [Mass/volume] in Serum or Plasma 205 [facility] ([facility]) ID Date Data Source [id number] 12/02/2019 09:03:44 AM EDT [facility] Name Value Range Interpretation Code Description Data Suze rce(s) Supporting Document(s) Progress Note [facility] HNPYUf6xMcAQMbUy39/GGOhlQTJrv6EwKFahXTa7JTypYXCuP3EbDKK4sP0yNCC1PPjJVwBkEkCwFKQ0 lbm [file] VH9VKl6TIwN0DJP1gEKpOd4OStKnPloMStMvPJ3VXXv= ID Date Data Source [id number] 11/29/2019 01:53:00 PM EDT [facility] Name Value Range Interpretation Code Description Data Suze rce(s) Supporting Document(s) Erythrocyte sedimentation rate by Westergren method 51 mm/hr 0-20 Above high normal [facility] @[facility] manual test result: 51@by Concha Florence at 11/29/19 1353. ID Date Data Source [id number] 11/29/2019 01:55:00 PM [facility] Name Value Range Interpretation Code Description Data Suze rce(s) Supporting Document(s) Alanine aminotransferase [Enzymatic acti vity/volume] in Serum or Plasma by With P-5'-P 23 U/L 10-49 N [facility] ital Aspartate aminotransferase [Enzymatic ac tivity/volume] in Serum or Plasma by With P-5'-P 10 U/L 0-33 N [facility] pital Alkaline phosphatase [Enzymatic activity/volume] in Serum or Plasma 81 U/L 45-129 N [facility] Bilirubin.total [Mass/volume] in Serum or Plasma 0.3 mg/dL 0.3-1.2 N [facility] Bilirubin.direct [Mass/volume] in Serum or Plasma Less Than 0.1 0.0-0 .2 N [facility] Albumin [Mass/volume] in Serum or Plasma by Bromocresol purple (BCP) dye binding method 3.7 g/dL 3.2-4.8 N [facility] Protein [Mass/volume] in Serum or Plasma 7.6 g/dL 5.7-8.2 N [facility] ID Date Data Source [id number] [facility]2019 [facility] Interpretation Code Description Data Suze rce(s) Supporting Document(s) Aldolase [Enzymatic activity/volume] in Serum or Plasma 2.9 U/L < OR = 8.1 [facility] THIS TEST WAS PERFORMED AT:[address] [address]EDZVVH MERATI,MD ID Date Data Source [id number] 11/29/2019 01:55:00 PM [facility] Name Value Range Interpretation Code Description Data Suze rce(s) Supporting Document(s) Lactate dehydrogenase [Enzymatic activity/volume] in Serum o r Plasma 133 U/L 120-246 N [facility] ID Date Data Source [id number] 12/02/2019 04:36:00 PM [facility] Name Value Range Interpretation Code Description Data Suze rce(s) Supporting Document(s) 25-Hydroxyvitamin D2+25-Hydroxyvitamin D3 [Mass/volume ] in Serum or Plasma 14 ng/mL 30-100 [facility] l Vitamin D Status 25-OH Vitamin D :Deficiency: <20 ng/mLInsufficiency: 20 - 29 ng/mLOptimal: > or = 30 ng/mLFor 25-OH Vitamin D testing on patients onD2-supplementation and patients for whom quantitationof D2 and D3 fractions is required, the QuestAssureD(TM)25- [place] VIT D, (D2,D3), LC/MS/MS is recommended: ordercode 51433 (patients >2yrs).See Note 1Note 1For additional information, please refer tohttp://education.navigaya/faq/LDE470(This link is being provided for informational/educational purposes only.)THIS TEST WAS PERFORMED AT:[facility] [address]HI PERRY MD ID Date Data Source [id number] 11/29/2019 01:55:00 PM [facility] Value Range Interpretation Code Description Data Suze rce(s) Supporting Document(s) Phosphate [Mass/volume] in Serum or Plasma 3.5 mg/dL 2.4-5.1 N [facility] ID Date Data Source [id number] 11/29/2019 01:55:00 PM [facility] Value Range Interpretation Code Description Data Suze rce(s) Supporting Document(s) Magnesium [Mass/volume] in Serum or Plasma 2.2 mg/dL 1.3-2.7 N [facility] ID Date Data Source [id number] 11/29/2019 01:55:00 PM [facility] Value Range Interpretation Code Description Data Suze rce(s) Supporting Document(s) Creatine kinase [Enzymatic activity/volume] in Serum or Plasma 62 U /L 33-211 N [facility] ID Date Data Source [id number] 11/29/2019 01:55:00 PM [facility] Value Range Interpretation Code Description Data Suze rce(s) Supporting Document(s) C reactive protein [Mass/volume] in Serum or Plasma 4.2 mg/L 0.0-5. 0 [facility] ID Date Data Source [id number] 11/29/2019 01:55:00 PM [facility] Value Range Interpretation Code Description Data Suze rce(s) Supporting Document(s) Thyrotropin [Units/volume] in Serum or Plasma by Detec tion limit <= 0.005 mIU/L 1.67 u[iU]/mL 0.35-5.50 [facility] ID Date Data Source [id number] 12/02/2019 12:01:00 PM [facility] Value Range Interpretation Code Description Data Suze rce(s) Supporting Document(s) Myoglobin [Mass/volume] in Serum or Plasma 32 mcg/L <=66 [facility] THIS TEST WAS PERFORMED AT:[id number] [place] [address]YXPFMCXMARINA GARNER MD,PHD ID Date Data Source [id number] 11/29/2019 01:00:00 PM EDT [facility] [address] [place] [id number] [phone] NAME SEX PT STATUS ACCOUNT NUMBER PAZ DELGADO REG REF [id number] ORDERING PHYSICIAN LOCATION [facility] [id number] ATTENDING PHYSICIAN DATE OF DATE OF EXAM/TIME Shannon Zhang NP 1980 11[birth year]/191254 TYPE / EXAM XRAY HIP LT 2-3 VIEW W/PELVIS REASON FOR EXAM Pain in unspecified hip CLINICAL HISTORY: Pain in unspecified hip TECHNIQUE: AP view of the pelvis, AP and frog-leg views of the left hip were obtained. COMPARISON: None available. FINDINGS: There is no acute displaced fracture. There is no significant arthritis. There is no bone destruction. Mineralization is seen adjacent to the anterior inferior iliac spine. IMPRESSION: 1. No significant arthritis. 2. Mineralization is seen adjacent to the anterior inferior iliac spine, possibly related to chronic rectus femoris tendinosis or subspine impingement. Note: nondisplaced/minimally displaced hip and pelvic fractures are often not visible on x-ray. If there is clinical concern or severe pain/inability to weight bear, MR is recommended for further evaluation before ambulation is attempted. Reported By Ion Villalobos DO on 11/29/19 1300 Signed By Ion Villalobos DO on 11/29/19 1303 Date Time CC: DUKE Huynh Techn: BAIAB Trans Dt/Tm: Trans by: DT Prt Dt/Tm: [id number]: Total DLP = 0.00 mGy-cm Fluoroscopy Time (in secs): Name Value Range Interpretation Code Description Data Suze rce(s) Supporting Document(s) ID Date Data Source [id number] 11/29/2019 12:59:00 PM EDT [facility] [address] [place] [address] [phone] NAME SEX PT STATUS ACCOUNT NUMBER PAZ DELGADO REG REF [id number] ORDERING PHYSICIAN LOCATION MEDICAL RECORD NO. 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 COMPARISON: None available. FINDINGS: There is no acute displaced fracture. There is no significant arthritis. There is no bone destruction. 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 IMPRESSION: No significant arthritis. Note: nondisplaced/minimally displaced hip and pelvic fractures are often not visible on x-ray. If there is clinical concern or severe pain/inability to weight bear, MR is recommended for further evaluation before ambulation is attempted. Reported By Ion Villalobos DO on 11/29/19 1259 Signed By Ion Villalobos DO on 11/29/19 1300 Date Time CC: Ion Villalobos DO; Shannon PROJECT STRUCTURAL ENGINEER Leatha Techn: BAIAB Trans Dt/Tm: Trans by: DT Prt Dt/Tm: [id number]: Total DLP = 0.00 mGy-cm Fluoroscopy Time (in secs): Name Value Range Interpretation Code Description Data Suze rce(s) Supporting Document(s) ID Date Data Source [id number] 11/04/2019 12:34:45 PM EDT [facility] Vital SignsBlood Pressure: 121/90 Patient History Medical History:AsthmaDepressionHypertensionDiabetes, Type 2Surgical History:D&CTonsillectomyFamily History:Social/Personal History:Crack-smoking MarijuanaMarital StatusMarriedChildren:2 biological (11 yo son, 5 yo daughter), 1 step (11 yo son)Occupation: NoneSmoking History:Patient has never smoked. Current Problems: Need for prophylactic vaccination and inoculation against other combinations of diseases (ICD-V06.8) (WBS64-F51)Compliance poor with medications (ICD-V15.81) (XLQ43-T62.19)Anxiety (ICD-300.00) (ICD10- F41.9)Depression, major (ICD-296.20) (URW10-O85.9)Obesity (ICD-278.00) (ICD10- E66.9)URI (ICD-465.9) (OUG53-G74.9)Pharyngitis, viral (ICD-462) (ICD10- J02.9)Mixed hyperlipidemia (ICD-272.2) (MPS40-W42.2)Diabetes, Type 2 (ICD-250 .00) (KRM18-Y03.9)Abnormal Pap Smear (ICD-V13.29) (TQD11-C51.6)Hypertension (ICD-401.9) (ZPH90-F55)Asthma (ICD-493.90) (DEZ71-D69.909)depression (ICD-311) (AVK97-S06.9)Other, mixed, or unspecified drug abuse, in remission (ICD-305.93) (GUR90-G05.10)Problem list reviewed during this update.Current Medications: METFORMIN HCL 500 MG ORAL TABLET (METFORMIN HCL) 1 tab tid; Route: ORAL* TEST STRIPS Check BG once daily.1ST CHOICE LANCETS SUPER THIN (LANCETS) Check BG once daily and as needed.* GLUCOMETER Check BG once daily and as needed,Medication list reviewed during this update.Allergy list reviewed during this update.No known allergies.Past Medical History:(reviewed - no changes required) AsthmaDepressionHypertensionDiabetes, Type 2 Dental Chart: Procedures:Type - CDT Code - Description B - (D0120) Periodic oral evaluation - established patient (Performed by VANIA Martinez, Bryson) B - (D1110) Prophylaxis, adult (Performed by Aimee Aiken RDH) Treatments:Type - CDT Code - Description T - (D2391) Resin-based composite - one surface, posterior on Tooth # 18 on Tooth Surface L (Performed by Aimee Aiken RDH) T - (D2330) Resin, one surface, anterior on Tooth # 7 on Tooth Surface F (Performed by Aimee Aiken RDH) Existing:Type - CDT Code - Description[E] Decay On #18 Surface L, #7 Surface F Chart Notes:ton (Nov 04 2019 1:05PM): [facility](-)Adult prophy, IO/EO completedExam with Dr HERRON-Patient brushes twice/day and is flossing regularly.Generalized marginal biofilm and marginal and interproximal calculus in sextant 5. Lonny hand scaling well. use warm waterGingiva- pink with bleeding on papillaOHI-brushing twice/day, flossing Patient was cooperative. BP was 121/90Pt is a non-smoker.NV-6 months recall, restoAdditional PPE requirements due to COVID-19 in the dental setting, N95, surgical mask, hair covering, gown, face shield. Aimee Aiken RDH by ton (11/04/2019 1:05 PM): ; jade (Nov 04 2019 2:46PM): PEcc: noneMed hx - reviewedEO - WNLIO - poor OH, caries, gen mild to mod gingival inflammationDx - caries, gen mild to mod gingivitisTx - mormon, improved OHOCS - WNLNV - #7,8 compGrAimee botello RDH by jade (11/04/2019 2:46 PM): Tooth Notes and Watches:- Tooth 6 Watch: distalWeaver Francisca TSE by douglasaver (03/07/2019 1:42 PM): - Tooth 8 Note: may need extWeaver Francisca TSE by jade (03/07/2019 2:05 PM): - Tooth 9 Note: may need extWeaver Francisca TSE by jade (03/07/2019 2:05 PM): Assessment & Plan Medications:METFORMIN HCL 500 MG ORAL TABLETTEST [id number] CHOICE LANCETS SUPER THINGLUCOMETERAllergies:No Known Allergies (updated 11/04/2019) Electronically s igned by Bryson Martinez DDS on 11/04/2019 at 2:46 PM Name Value Range Interpretation Code Description Data Suze rce(s) Supporting Document(s) ID Date Data Source [id number] 11/05/2019 09:46:00 AM EDT [facility] Name Value Range Interpretation Code Description Data Suze rce(s) Supporting Document(s) Glutamate decarboxylase 65 Ab [Moles/volume] in Serum <5 [IU]/mL <5 [facility] This test was performed using the GAD65 NICA method,which is standardized against the Internationalreference preparation 97/550.THIS TEST WAS PERFORMED AT:[facility] [place] [address]HILUCILA GARNER MD,PHD ID Date Data Source [id number] 11/05/2019 09:46:00 AM [facility] Name Value Range Interpretation Code Description Data Suze rce(s) Supporting Document(s) C peptide [Moles/volume] in Serum or Plasma 2.12 ng/mL 0.80-3.85 [facility] THIS TEST WAS PERFORMED AT:[facility] [address] [address]ILVPIM MERATI,MD ID Date Data Source [id number] 10/31/2019 11:33:00 AM [facility] Name Value Range Interpretation Code Description Data Suze rce(s) Supporting Document(s) Urea nitrogen [Mass/volume] in Serum or Plasma 17 mg/dL 9-23 N [facility] Sodium [Moles/volume] in Serum or Plasma 141 mmol/L 132-146 N [facility] Potassium [Moles/volume] in Serum or Plasma 4.3 mmol/L 3.5-5.5 N [facility] Chloride [Moles/volume] in Serum or Plasma 109 mmol/L 99-109 N [facility] Carbon dioxide, total [Moles/volume] in Serum or Plasma 25 mmol/L 20 -31 N [facility] Anion gap in Serum or Plasma 11 mmol/L 8-16 [facility] Glucose [Mass/volume] in Serum or Plasma 196 mg/dL 74-106 Above high normal [facility] Creatinine 0.8 mg/dL 0.5-1.1 [facility] Glomerular filtration rate/1.73 sq M.pre dicted [Volume Rate/Area] in Serum or Plasma Greater Than 60 ABOVE 60 [facility] Calcium [Mass/volume] in Serum or Plasma 9.2 mg/dL 8.5-10.1 [facility] ID Date Data Source [id number] 10/31/2019 10:46:00 AM EDT [facility] ([facility]) Name Value Range Interpretation Code Description Data Suze rce(s) Supporting Document(s) Glutamate decarboxylase 65 Ab [Units/volume] in Serum Laboratory test result [facility] ([facility]) This test was performed using the GAD65 NICA method, which is standardized against the International reference preparation 97/550. THIS TEST WAS PERFORMED AT: [facility]/[address] [address] MARINA GARNER MD,PHD C peptide [Moles/volume] in Serum or Plasma 2.12 ng/mL 0.80-3.85 [facility] ([facility]) THIS TEST WAS PERFORMED AT: [facility] [address] HI PERRY MD ID Date Data Source [id number] 10/31/2019 10:46:00 AM EDT [facility] ([facility]) Name Value Range Interpretation Code Description Data Suze rce(s) Supporting Document(s) Urea nitrogen [Mass/volume] in Serum or Plasma 17 mg/dL 9-23 [facility] E11.65,E10.65 Sodium [Moles/volume] in Serum or Plasma 141 mmol/L 132-146 [facility] E11.65,E10.65 Chloride [Moles/volume] in Serum or Plasma 109 mmol/L 99-109 [facility] E11.65,E10.65 Potassium [Moles/volume] in Serum or Plasma 4.3 mmol/L 3.5-5.5 [facility] ([facility]) E11.65,E10.65 Carbon dioxide, total [Moles/volume] in Serum or Plasma 25 mmol/L 20 -31 [facility] ([facility]) E11.65,E10.65 Glucose [Mass/volume] in Serum or Plasma 196 mg/dL 74-106 [facility] ([facility]) E11.65,E10.65 Anion gap in Serum or Plasma 11 mmol/L 8-16 [facility] ([facility]) E11.65,E10.65 Glomerular filtration rate/1.73 sq M.pre dicted [Volume Rate/Area] in Serum or Plasma Laboratory test result [facility] ([facility]) E11.65,E10.65 Creatinine 0.8 mg/dL 0.5-1.1 [facility] ([facility]) E11.65,E10.65 Calcium [Mass/volume] in Serum or Plasma 9.2 mg/dL 8.5-10.1 [facility] ([facility]) E11.65,E10.65 Procedure Social History Code Duration Value Status Description Data Source(s ) Smoking 12/07/2020 12:00:00 AM EDT Never Smoker completed Never S [facility] eCW1 ([facility]) 09/26/2020 08:17:36 AM EDT No completed No [facility] 09/26/2020 08:17:36 AM EDT No completed No [facility] 09/26/2020 08:17:36 AM EDT Never smoker completed Never s [facility] Smoking 09/26/2020 08:17:00 AM EDT Never smoker completed Never s [facility] 05/05/2020 09:55:11 AM EDT Never smoker completed Never [facility] Smoking 05/05/2020 09:55:00 AM EDT Never smoker completed Never [facility] Alcohol intake 04/23/2020 12:00:00 AM EDT Ex-drinker (finding) comp leted Ex- drinker (finding) [facility] Tobacco use and exposure 04/23/2020 12:00:00 AM EDT Never used co mpleted Never used [facility] Smoking 04/23/2020 12:00:00 AM EDT Never smoker completed Never s [facility] Smoking 04/17/2020 12:00:00 AM EST Patient has never smoked co mpleted Patient has never smoked [facility] ([facility], ) Smoking 04/01/2020 12:00:00 AM EST Never Smoked Cigarettes com pleted Never Smoked Cigarettes [facility] ([facility]) 03/16/2020 07:30:24 AM EST No completed No [facility] 03/16/2020 07:30:24 AM EST No completed No [facility] 03/16/2020 07:30:24 AM EST No completed No [facility] 03/16/2020 07:30:24 AM EST No completed No [facility] 03/16/2020 07:30:24 AM EST Never smoker completed Never s [facility] Smoking 03/16/2020 07:30:00 AM EST Never smoker completed Never s [facility] Alcohol intake 03/09/2020 12:00:00 AM EST Ex-drinker (finding) comp leted Ex- drinker (finding) [facility] Smoking 03/06/2020 12:00:00 AM EST Never Smoker completed Never S moker eCW1 ([facility]) Smoking 03/06/2020 12:00:00 AM EST Never Smoker completed Never S moker eCW1 ([facility]) Smoking 03/06/2020 12:00:00 AM EST Never Smoker completed Never S moker eCW1 ([facility]) 02/27/2020 01:43:13 PM EST No completed No [facility] 02/27/2020 01:43:13 PM EST No completed No [facility] 02/27/2020 01:43:13 PM EST Never smoker completed Never s [facility] 02/27/2020 01:43:13 PM EST No completed No [facility] 02/27/2020 01:43:13 PM EST No completed No [facility] 02/27/2020 01:43:13 PM EST Never smoker completed Never s [facility] Smoking 02/27/2020 01:43:00 PM EST Never smoker completed Never s [facility] Smoking 02/27/2020 01:43:00 PM EST Never smoker completed Never s [facility] Alcohol intake 02/10/2020 12:00:00 AM EST Ex-drinker (finding) comp leted Ex- drinker (finding) [facility] Alcohol intake 01/27/2020 12:00:00 AM EST Ex-drinker (finding) comp leted Ex- drinker (finding) [facility] Alcohol intake 01/20/2020 12:00:00 AM EST Ex-drinker (finding) comp leted Ex- drinker (finding) [facility] Smoking 12/04/2019 12:00:00 AM EDT Never Smoker completed Never S [facility] eCW1 ([facility]) Alcohol intake 11/28/2019 12:00:00 AM EDT Ex-drinker (finding) comp leted Ex- drinker (finding) [facility] Vital Signs ID Date Data Source UNK Name Value Range Interpretation Code Description Data Source(s) Body weight 181.00 [lb_av] 181.00 [lb_av] [facility] ([facility]) Body mass index (BMI) [Ratio] 30.1 kg/m2 30.1 k g/m2 [facility] ([facility]) [place] body weight 125 [lb_av] 125 [lb_av] [facility] ([facility]) Body weight 82.102 kg 82.102 kg [facility] ([facility]) Body surface area Derived from formula 1.90 m2 1.90 m2 [facility] ([facility]) Systolic blood pressure 120 mm[Hg] 120 mm[Hg] [facility] Diastolic blood pressure 80 mm[Hg] 80 mm[Hg] [facility] ([facility]) Heart rate 109 /min 109 /min [facility] ([facility]) Oxygen saturation in Arterial blood by Pulse oximetry 98 % 98 % [facility] ([facility]) Body temperature 97.0 [degF] 97.0 [degF] [facility] ([facility]) Body height 65 [in_i] 65 [in_i] [facility] ([facility] ) 5'5" Body mass index (BMI) [Ratio] 29.8 kg/m2 29.8 k g/m2 [facility] ([facility] ) Oxygen saturation in Arterial blood by Pulse oximetry 98 % 98 % [facility] ([facility] ) Systolic blood pressure 114 mm[Hg] 114 mm[Hg] M [facility]ENT ([facility] ) Diastolic blood pressure 70 mm[Hg] 70 mm[Hg] [facility] ([facility] ) Body weight 179.38 [lb_av] 179.38 [lb_av] [facility] ([facility] ) Heart rate 101 /min 101 /min [facility] ([facility]) Body temperature 97.1 [degF] 97.1 [degF] [facility] ([facility]) Body height 65.1 [in_i] 65.1 [in_i] [facility] ([facility] ) 5'5.10" Diastolic blood pressure 76 mm[Hg] 76 mm[Hg] eCW1 ([facility]) Body weight 181.2 [lb_av] 181.2 [lb_av] eCW1 ([facility]) Body weight 82.1 kg 82.1 kg W1 ([facility]) Body height 65 [in_i] 65 [in_i] eCW1 ([facility]) Body mass index (BMI) [Ratio] 30.15 kg/m2 30.15 kg/m2 eCW1 ([facility]) Heart rate 105 /min 105 /min eCW1 ([facility]) Respiratory rate 18 /min 18 /min eCW1 ([facility]) Body temperature 97.1 [degF] 97.1 [degF] eCW1 ( [facility]) Systolic blood pressure 122 mm[Hg] 122 mm[Hg] e CW1 ([facility]) Systolic blood pressure 102 mm[Hg] 102 mm[Hg] M EDENT ([facility], ) Diastolic blood pressure 64 mm[Hg] 64 mm[Hg] [facility] ([facility], ) Heart rate 103 /min 103 /min [facility] ([facility], ) Oxygen saturation in Arterial blood by Pulse oximetry 99 % 99 % [facility] ([facility]) Body temperature 97.1 [degF] 97.1 [degF] [facility] ([facility]) Body height 65 [in_i] 65 [in_i] [facility] ([facility]) 5'5" Body weight 179.00 [lb_av] 179.00 [lb_av] [facility] ([facility]) Body mass index (BMI) [Ratio] 29.8 kg/m2 29.8 k g/m2 [facility] ([facility]) [place] body weight 125 [lb_av] 125 [lb_av] [facility] ([facility]) Body weight 81.194 kg 81.194 kg [facility] ([facility]) Body surface area Derived from formula 1.89 m2 1.89 m2 [facility] ([facility]) Systolic blood pressure 122 mm[Hg] 122 mm[Hg] M EDENT ([facility] ) Diastolic blood pressure 76 mm[Hg] 76 mm[Hg] [facility] ([facility]) Heart rate 103 /min 103 /min [facility] ([facility]) Body temperature 9.6 [degF] 9.6 [degF] [facility] Body height 65.1 [in_i] 65.1 [in_i] [facility] ([facility]) 5'5.10" Body weight 184.50 [lb_av] 184.50 [lb_av] [facility] ([facility]) Body mass index (BMI) [Ratio] 30.6 kg/m2 30.6 k g/m2 [facility] ([facility]) Oxygen saturation in Arterial blood by Pulse oximetry 98 % 98 % [facility] ([facility] ) Systolic blood pressure 118 mm[Hg] 118 mm[Hg] M EDENT ([facility] ) Body mass index (BMI) [Ratio] 29.9 kg/m2 29.9 k g/m2 [facility] ([facility] ) Body height 65.1 [in_i] 65.1 [in_i] [facility] ([facility] ) 5'5.10" Heart rate 103 /min 103 /min [facility] ([facility]) Diastolic blood pressure 70 mm[Hg] 70 mm[Hg] [facility] ([facility]) Body weight 180.25 [lb_av] 180.25 [lb_av] [facility] ([facility]) Oxygen saturation in Arterial blood by Pulse oximetry 97 % 97 % [facility] ([facility]) Patient Treatment Plan of Care Planned Activity Planned Date Details Description Data Source (s) bevacizumab-awwb ([facility]) 3 mg/0.12 mL intravitreal inj ection 1.25 mg 04/23/2020 11:00:[address] [facility] Lidocaine Hydrochloride 0.035 MG/MG Ophthalmic Gel 04/23/2020 10 :44:04 AM [facility] Proparacaine hydrochloride 5 MG/ML Ophthalmic Solution 04/23/2020 10:44:[address] [facility] Proparacaine hydrochloride 5 MG/ML Ophthalmic Solution 04/23/2020 09:45:[address] [facility] Phenylephrine Hydrochloride 25 MG/ML Ophthalmic Soluti on 04/23/2020 09:45:[address] [facility] Tropicamide 10 MG/ML Ophthalmic Solution 04/23/2020 09:45:00 AM [facility] Tetracaine hydrochloride 5 MG/ML Ophthalmic Solution 10:45:00 AM [facility] bevacizumab-awwb ([facility]) 3 mg/0.12 mL intravitreal inj ection 1.25 mg 03/09/2020 10:45:00 AM [facility] Proparacaine hydrochloride 5 MG/ML Ophthalmic Solution 03/09/2020 10:00:00 AM [facility] Phenylephrine Hydrochloride 25 MG/ML Ophthalmic [place] on 03/09/2020 10:00:00 AM [facility] Tropicamide 10 MG/ML Ophthalmic Solution 03/09/2020 10:00:00 AM [facility] Tetracaine hydrochloride 5 MG/ML Ophthalmic Solution 11:15:00 AM [facility] Tropicamide 10 MG/ML Ophthalmic Solution 02/10/2020 10:15:00 AM [facility] Phenylephrine Hydrochloride 25 MG/ML Ophthalmic [place] on 02/10/2020 10:15:00 AM [facility] Proparacaine hydrochloride 5 MG/ML Ophthalmic Solution 02/10/2020 10:15:00 AM [facility] Tetracaine hydrochloride 5 MG/ML Ophthalmic Solution 09:30:00 AM [facility] bevacizumab-awwb (MVASI) 3 mg/0.12 mL intravitreal inj ection 1.25 mg 01/27/2020 09:30:00 AM [facility] Proparacaine hydrochloride 5 MG/ML Ophthalmic Solution 01/27/2020 08:15:00 AM [facility] Proparacaine hydrochloride 5 MG/ML Ophthalmic Solution 01/20/2020 10:15:00 AM [facility] Phenylephrine Hydrochloride 25 MG/ML Ophthalmic [place] on 01/20/2020 10:15:00 AM [facility] Tropicamide 10 MG/ML Ophthalmic Solution 01/20/2020 10:15:00 AM [facility] Ergocalciferol 45170 UNT Oral Capsule 12/03/2019 12:00:00 AM EDT eCW1 ([facility]) Vitamin D (Cholecalciferol) 50 MCG (1999 UT) 12/03/2019 12:00:00 AM EDT eCW1 ([facility]) Tropicamide 10 MG/ML Ophthalmic Solution 11/28/2019 10:15:00 AM [facility] Phenylephrine Hydrochloride 25 MG/ML Ophthalmic [place] on 11/28/2019 10:15:[address] [facility] Proparacaine hydrochloride 5 MG/ML Ophthalmic Solution 11/28/2019 10:15:[address] [facility] ospital
[2020-12-16] MEDS ORDERED: VANCOMYCIN HCL 750 MG, VIAL MATE ADAPTER 1 EACH in NS 250 ML IV ONE ×2 (22:00→23:00)
[2020-12-16] MEDS ORDERED: MOM 30ML SUSPENSION UDC PO PRN (23:10)
[2020-12-16] MEDS ORDERED: MAALOX 30 ML SUSP *UDC PO PRN (23:10)
--- OUTSIDE RECORDS SUMMARY | 2020-12-16 23:17 | CCD ---
Author Author [facility] Address Unknown Phone Unavailable Care Team Providers Care Explosive Ordnance Manager Name Role Phone Beatriz Guerra FINANCIAL INTERN Unavailable Unavailable Jesus DUPONT MD Unavailable Unavailable Jesus DUPONT MD Unavailable Unavailable Jesus DUPONT MD Unavailable Unavailable Jesus DUPONT MD Unavailable Unavailable Jesus DUPONT MD Unavailable Unavailable Jesus DUPONT MD Unavailable Unavailable Leatha, A Shannon FINANCIAL INTERN Unavailable Unavailable Leatha, A Shannon FINANCIAL INTERN Unavailable Unavailable Leatha, A Shannon FINANCIAL INTERN Unavailable Unavailable Leatha, A Shannon FINANCIAL INTERN Unavailable Unavailable Leatha, A Shannon FINANCIAL INTERN Unavailable Unavailable Leatha, A Shannon FINANCIAL INTERN Unavailable Unavailable Leatha, A Shannon FINANCIAL INTERN Unavailable Unavailable Leatha, A Shannon FINANCIAL INTERN Unavailable Unavailable Leatha, A Shannon FINANCIAL INTERN Unavailable Unavailable Leatha, A Shannon FINANCIAL INTERN Unavailable Unavailable Leatha, A Shannon FINANCIAL INTERN Unavailable Unavailable Leatha, A Shannon FINANCIAL INTERN Unavailable Unavailable Leatha, A Shannon FINANCIAL INTERN Unavailable Unavailable Leatha, A Shannon FINANCIAL INTERN Unavailable Unavailable Leatha, A Shannon FINANCIAL INTERN Unavailable Unavailable Leatha, A Shannon FINANCIAL INTERN Unavailable Unavailable Leatha, A Shannon FINANCIAL INTERN Unavailable Unavailable Leatha, A Shannon FINANCIAL INTERN Unavailable Unavailable Leatha, A Shannon FINANCIAL INTERN Unavailable Unavailable Leatha, A Shannon FINANCIAL INTERN Unavailable Unavailable Leatha, A Shannon FINANCIAL INTERN Unavailable Unavailable Leatha, A Shannon FINANCIAL INTERN Unavailable Unavailable Leatha, A Shannon FINANCIAL INTERN Unavailable Unavailable Leatha, A Shannon FINANCIAL INTERN Unavailable Unavailable Leatha, A Shannon FINANCIAL INTERN Unavailable Unavailable Leatha, A Shannon FINANCIAL INTERN Unavailable Unavailable Leatha, A Shannon FINANCIAL INTERN Unavailable Unavailable Leatha, A Shannon FINANCIAL INTERN Unavailable Unavailable Leatha, A Shannon FINANCIAL INTERN Unavailable Unavailable Leatha, A Shannon FINANCIAL INTERN Unavailable Unavailable Leatha, A Shannon FINANCIAL INTERN Unavailable Unavailable Leatha, A Shannon FINANCIAL INTERN Unavailable Unavailable Leatha, A Shannon FINANCIAL INTERN Unavailable Unavailable Leatha, A Shannon FINANCIAL INTERN Unavailable Unavailable Leatha, A Shannon FINANCIAL INTERN Unavailable Unavailable Leatha, A Shannon FINANCIAL INTERN Unavailable Unavailable Leatha, A Shannon FINANCIAL INTERN Unavailable Unavailable Leatha, A Shannon FINANCIAL INTERN Unavailable Unavailable Leatha, A Shannon FINANCIAL INTERN Unavailable Unavailable Leatha, A Shannon FINANCIAL INTERN Unavailable Unavailable Leatha, A Shannon FINANCIAL INTERN Unavailable Unavailable Leatha, A Shannon FINANCIAL INTERN Unavailable Unavailable Leatha, A Shannon FINANCIAL INTERN Unavailable Unavailable Leatha, A Shannon FINANCIAL INTERN Unavailable Unavailable Leatha, A Shannon FINANCIAL INTERN Unavailable Unavailable Leatha, A Shannon FINANCIAL INTERN Unavailable Unavailable Leatha, A Shannon FINANCIAL INTERN Unavailable Unavailable Leatha, A Shannon FINANCIAL INTERN Unavailable Unavailable KHANNA, Gordon BETH MD Unavailable [...] PEREZ MD Unavailable Unavailable Leatha, A Shannon FINANCIAL INTERN Unavailable Unavailable Leatha, A Shannon FINANCIAL INTERN Unavailable Unavailable Leatha, A Shannon FINANCIAL INTERN Unavailable Unavailable Leatha, A Shannon FINANCIAL INTERN Unavailable Unavailable Leatha, A Shannon FINANCIAL INTERN Unavailable Unavailable Leatha, A Shannon FINANCIAL INTERN Unavailable Unavailable Leatha, A Shannon FINANCIAL INTERN Unavailable Unavailable Leatha, A Shannon FINANCIAL INTERN Unavailable Unavailable Leatha, A Shannon FINANCIAL INTERN Unavailable Unavailable Leatha, A Shannon FINANCIAL INTERN Unavailable Unavailable Leatha, A Sahnnon FINANCIAL INTERN Unavailable Unavailable Leatha, A Shannon FINANCIAL INTERN Unavailable Unavailable Leatha, A Shannon FINANCIAL INTERN Unavailable Unavailable Leatha, A Shannon FINANCIAL INTERN Unavailable Unavailable Leatha, A Shannon FINANCIAL INTERN Unavailable Unavailable Leatha, A Shannon FINANCIAL INTERN Unavailable Unavailable Leatha, A Shannon FINANCIAL INTERN Unavailable Unavailable Leatha, A Shannon FINANCIAL INTERN Unavailable Unavailable Leatha, A Shannon FINANCIAL INTERN Unavailable Unavailable Leatha, A Shannon FINANCIAL INTERN Unavailable Unavailable Leatha, A Shannon FINANCIAL INTERN Unavailable Unavailable Leatha, A Shannon FINANCIAL INTERN Unavailable Unavailable Leatha, A Shannon FINANCIAL INTERN Unavailable Unavailable Leatha, A Shannon FINANCIAL INTERN Unavailable Unavailable Leatha, A Shannon FINANCIAL INTERN Unavailable Unavailable Leatha, A Shannon FINANCIAL INTERN Unavailable Unavailable Leatha, A Shannon FINANCIAL INTERN Unavailable Unavailable Leatha, A Shannon FINANCIAL INTERN Unavailable Unavailable Leatha, A Shannon FINANCIAL INTERN Unavailable Unavailable Leatha, A Shannon FINANCIAL INTERN Unavailable Unavailable Leatha, A Shannon FINANCIAL INTERN Unavailable Unavailable Leatha, A Shannon FINANCIAL INTERN Unavailable Unavailable Leatha, A Shannon FINANCIAL INTERN Unavailable Unavailable Leatha, A Shannon FINANCIAL INTERN Unavailable Unavailable Leatha, A Shannon FINANCIAL INTERN Unavailable Unavailable Leatha, A Shannon FINANCIAL INTERN Unavailable Unavailable Leatha, A Shannon FINANCIAL INTERN Unavailable Unavailable Leatha, A Shannon FINANCIAL INTERN Unavailable Unavailable Leatha, A Shannon FINANCIAL INTERN Unavailable Unavailable Leatha, A Shannon FINANCIAL INTERN Unavailable Unavailable Leatha, A Shannon FINANCIAL INTERN Unavailable Unavailable Leatha, A Shannon FINANCIAL INTERN Unavailable Unavailable Leatha, A Shannon FINANCIAL INTERN Unavailable Unavailable Leatha, A Shannon FINANCIAL INTERN Unavailable Unavailable Leatha, A Shannon FINANCIAL INTERN Unavailable Unavailable Leatha, A Shannon FINANCIAL INTERN Unavailable Unavailable Leatha, A Shannon FINANCIAL INTERN Unavailable Unavailable Leatha, A Shannon FINANCIAL INTERN Unavailable Unavailable MEYERS, M KOBE PA Unavailable [...] SIMEON MD Unavailable Unavailable LINCOLN, B EDVIN FINANCIAL INTERN Unavailable Unavailable LINCOLN, B EDVIN FINANCIAL INTERN Unavailable Unavailable LINCOLN, B EDVIN FINANCIAL INTERN Unavailable Unavailable LINCOLN, B EDVIN FINANCIAL INTERN Unavailable Unavailable LINCOLN, B EDVIN FINANCIAL INTERN Unavailable Unavailable LINCOLN, B EDVIN FINANCIAL INTERN Unavailable Unavailable LINCOLN, B EDVIN FINANCIAL INTERN Unavailable Unavailable LINCOLN, B EDVIN FINANCIAL INTERN Unavailable Unavailable LINCOLN, B EDVIN FINANCIAL INTERN Unavailable Unavailable LINCOLN, B EDVIN FINANCIAL INTERN Unavailable Unavailable LINCOLN, B EDVIN FINANCIAL INTERN Unavailable Unavailable LINCOLN, B EDVIN FINANCIAL INTERN Unavailable Unavailable LINCOLN, B EDVIN FINANCIAL INTERN Unavailable Unavailable LINCLON, B EDVIN FINANCIAL INTERN Unavailable Unavailable LINCOLN, B EDVIN FINANCIAL INTERN Unavailable Unavailable LINCOLN, B EDVIN FINANCIAL INTERN Unavailable Unavailable LINCOLN, B EDVIN FINANCIAL INTERN Unavailable Unavailable LINCOLN, B EDVIN FINANCIAL INTERN Unavailable Unavailable LINCOLN, B EDVIN FINANCIAL INTERN Unavailable Unavailable LINCOLN, B EDVIN FINANCIAL INTERN Unavailable Unavailable LINCOLN, B EDVIN FINANCIAL INTERN Unavailable Unavailable LINCOLN, B EDVIN FINANCIAL INTERN Unavailable Unavailable LINCOLN, B EDVIN FINANCIAL INTERN Unavailable Unavailable LINCOLN, B EDVIN FINANCIAL INTERN Unavailable Unavailable LINCOLN, B EDVIN FINANCIAL INTERN Unavailable Unavailable LINCOLN, B EDVIN FINANCIAL INTERN Unavailable Unavailable LINCOLN, B EDVIN FINANCIAL INTERN Unavailable Unavailable LINCOLN, B EDVIN FINANCIAL INTERN Unavailable Unavailable LINCOLN, B EDVIN FINANCIAL INTERN Unavailable Unavailable LINCOLN, B EDVIN FINANCIAL INTERN Unavailable Unavailable LINCOLN, B EDVIN FINANCIAL INTERN Unavailable Unavailable LINCOLN, B EDVIN FINANCIAL INTERN Unavailable Unavailable LINCOLN, B EDVIN FINANCIAL INTERN Unavailable Unavailable LINCOLN, B EDVIN FINANCIAL INTERN Unavailable Unavailable LINCOLN, B EDVIN FINANCIAL INTERN Unavailable Unavailable LINCOLN, B EDVIN FINANCIAL INTERN Unavailable Unavailable LINCOLN, B EDVIN FINANCIAL INTERN Unavailable Unavailable LINCOLN, B EDVIN FINANCIAL INTERN Unavailable Unavailable LINCOLN, B EDVIN FINANCIAL INTERN Unavailable Unavailable LINCOLN, B EDVIN FINANCIAL INTERN Unavailable Unavailable LINCOLN, B EDVIN FINANCIAL INTERN Unavailable Unavailable LINCOLN, B EDVIN FINANCIAL INTERN Unavailable Unavailable LINCOLN, B EDVIN FINANCIAL INTERN Unavailable Unavailable LINCOLN, B EDVIN FINANCIAL INTERN Unavailable Unavailable LINCOLN, B EDVIN FINANCIAL INTERN Unavailable Unavailable LINCOLN, B EDVIN FINANCIAL INTERN Unavailable Unavailable LINCOLN, B EDVIN FINANCIAL INTERN Unavailable Unavailable LINCOLN, B EDVIN FINANCIAL INTERN Unavailable Unavailable LINCOLN, B EDVIN FINANCIAL INTERN Unavailable Unavailable LINCOLN, B EDVIN FINANCIAL INTERN Unavailable Unavailable LINCOLN, B EDVIN FINANCIAL INTERN Unavailable Unavailable LINCOLN, B EDVIN FINANCIAL INTERN Unavailable Unavailable LINCOLN, B EDVIN FINANCIAL INTERN Unavailable Unavailable LINCOLN, B EDVIN FINANCIAL INTERN Unavailable Unavailable LINCOLN, B EDVIN FINANCIAL INTERN Unavailable Unavailable LINCOLN, B EDVIN FINANCIAL INTERN Unavailable Unavailable LINCOLN, B EDVIN FINANCIAL INTERN Unavailable Unavailable LINCOLN, B EDVIN FINANCIAL INTERN Unavailable Unavailable LINCOLN, B EDVIN FINANCIAL INTERN Unavailable Unavailable LINCOLN, B EDVIN FINANCIAL INTERN Unavailable Unavailable LINCOLN, B EDVIN FINANCIAL INTERN Unavailable Unavailable LINCOLN, B EDVIN FINANCIAL INTERN Unavailable Unavailable LINCOLN, B EDVIN FINANCIAL INTERN Unavailable Unavailable LINCOLN, B EDVIN FINANCIAL INTERN Unavailable Unavailable LINCOLN, B EDVIN FINANCIAL INTERN Unavailable Unavailable LINCOLN, B EDVIN FINANCIAL INTERN Unavailable Unavailable LINCOLN, B EDVIN FINANCIAL INTERN Unavailable Unavailable LINCOLN, B EDVIN FINANCIAL INTERN Unavailable Unavailable LINCOLN, B EDVIN FINANCIAL INTERN Unavailable Unavailable LINCOLN, B EDVIN FINANCIAL INTERN Unavailable Unavailable LINCOLN, B EDVIN FINANCIAL INTERN Unavailable Unavailable LINCOLN, B EDVIN FINANCIAL INTERN Unavailable Unavailable LINCOLN, B EDVIN FINANCIAL INTERN Unavailable Unavailable LINCOLN, B EDVIN FINANCIAL INTERN Unavailable Unavailable LINCOLN, B EDVIN FINANCIAL INTERN Unavailable Unavailable LINCOLN, B EDVIN FINANCIAL INTERN Unavailable Unavailable LINCOLN, B EDVIN FINANCIAL INTERN Unavailable Unavailable LINCOLN, B EDVIN FINANCIAL INTERN Unavailable Unavailable LINCOLN, B EDVIN FINANCIAL INTERN Unavailable Unavailable LINCOLN, B EDVIN FINANCIAL INTERN Unavailable Unavailable LINCOLN, B EDVIN FINANCIAL INTERN Unavailable Unavailable LINCOLN, B EDVIN FINANCIAL INTERN Unavailable Unavailable ILNCOLN, B EDVIN FINANCIAL INTERN Unavailable Unavailable LINCOLN, B EDVIN FINANCIAL INTERN Unavailable Unavailable LINCOLN, B EDVIN FINANCIAL INTERN Unavailable Unavailable LINCOLN, B EDVIN FINANCIAL INTERN Unavailable Unavailable LINCOLN, B EDVIN FINANCIAL INTERN Unavailable Unavailable LINCOLN, B EDVIN FINANCIAL INTERN Unavailable Unavailable LINCOLN, B EDVIN FINANCIAL INTERN Unavailable Unavailable LINCOLN, B EDVIN FINANCIAL INTERN Unavailable Unavailable LINCOLN, B EDVIN FINANCIAL INTERN Unavailable Unavailable LINCOLN, B EDVIN FINANCIAL INTERN Unavailable Unavailable LINCOLN, B EDVIN FINANCIAL INTERN Unavailable Unavailable LINCOLN, B EDVIN FINANCIAL INTERN Unavailable Unavailable LINCOLN, B EDVIN FINANCIAL INTERN Unavailable Unavailable LINCOLN, B EDVIN FINANCIAL INTERN Unavailable Unavailable LINCOLN, B EDVIN FINANCIAL INTERN Unavailable Unavailable LINCOLN, B EDVIN FINANCIAL INTERN Unavailable Unavailable LINCOLN, B EDVIN FINANCIAL INTERN Unavailable Unavailable LINCOLN, B EDVIN FINANCIAL INTERN Unavailable Unavailable LINCOLN, B EDVIN FINANCIAL INTERN Unavailable Unavailable LINCOLN, B EDVIN FINANCIAL INTERN Unavailable Unavailable LINCOLN, B EVDIN FINANCIAL INTERN Unavailable Unavailable LINCOLN, B EDVIN FINANCIAL INTERN Unavailable Unavailable LINCOLN, B EDVIN FINANCIAL INTERN Unavailable Unavailable LINCOLN, B EDVIN FINANCIAL INTERN Unavailable Unavailable LINCOLN, B EDVIN FINANCIAL INTERN Unavailable Unavailable LINCOLN, B EDVIN FINANCIAL INTERN Unavailable Unavailable LINCOLN, B EDVIN FINANCIAL INTERN Unavailable Unavailable LINCOLN, B EDVIN FINANCIAL INTERN Unavailable Unavailable LINCOLN, B EDVIN FINANCIAL INTERN Unavailable Unavailable LINCOLN, B EDVIN FINANCIAL INTERN Unavailable Unavailable LINCOLN, B EDVIN FINANCIAL INTERN Unavailable Unavailable LINCOLN, B EDVIN FINANCIAL INTERN Unavailable Unavailable LINCOLN, B EDVIN FINANCIAL INTERN Unavailable Unavailable LINCOLN, B EDVIN FINANCIAL INTERN Unavailable Unavailable LINCOLN, B EDVIN FINANCIAL INTERN Unavailable Unavailable LINCOLN, B EDVIN FINANCIAL INTERN Unavailable Unavailable LINCOLN, B EDVIN FINANCIAL INTERN Unavailable Unavailable LINCOLN, B EDVIN FINANCIAL INTERN Unavailable Unavailable LINCOLN, B EDVIN FINANCIAL INTERN Unavailable Unavailable LINCOLN, B EDVIN FINANCIAL INTERN Unavailable Unavailable LINCOLN, B EDVIN FINANCIAL INTERN Unavailable Unavailable LINCOLN, B EDVIN FINANCIAL INTERN Unavailable Unavailable James Julian MD Unavailable Unavailable James uJlian MD Unavailable Unavailable Julian E Dahiana MD [...] Unavailable Unavailable James Julian MD Unavailable Unavailable aJmes Julian MD Unavailable Unavailable James Julian MD [...] Unavailable Julian, E Dahiana ARREDONDO Unavailable Unavailable [facility] Unavailable Unavailable Re-disclosure Warning The [...] is protected by Article 27-F of the [facility] Public Health law. If you continue you may have access to information: Regarding HIV / AIDS; Provided by facilities licensed or operated by the [facility] Office of Mental Health; or Provided by the [facility] Office for People With Developmental Disabilities. If such information is present, then the following [facility] mandated warning applies: This information has been [...] law may result in a fine or skilled nursing sentence or both. A general authorization for the release of medical or other information is NOT sufficient authorization for further disc losure. Allergies and Adverse Reactions Type Description Substance Reaction Status Data Source(s ) Food allergy No Known Food Allergies No Known Food Allergies [facility] Drug allergy No Known Drug Allergies No Known Drug Allergies [facility] Propensity to adverse reactions NO KNOWN ALLERGIES NO KNOWN ALLERGIES [facility] Encounters Encounter Providers Location Date Indications Data Source(s ) Unknown [address] [facility] [place] [facility] [address] 12/08/2020 12:00:00 AM EDT eCW1 ([facility]ly [facility]) Outpatient Attender: Shannon Zhang NP 11/26/2020 02:48:00 PM EDT L03.90 [facility] L03.90 Outpatient Attender: Shannon Zhang NPReferrer: Shannon pollock NP 11/26/2020 02:03:00 PM EDT - 11/26/2020 02:47:00 PM EDT [facility] Outpatient Attender: Shannon Zhang NPReferrer: Shannon pollock FINANCIAL INTERN 11/16/2020 02:04:00 PM EDT - 11/16/2020 02:49:00 PM EDT [facility] Outpatient Attender: Shannon Zhnag NP 11/05/2020 04:55:00 PM EDT E10.65 [facility] E10.65 Inpatient Attender: ROBERT Howard nder: IGNACIA KHANNA MDAdmitter: ROBERT LEON MDConsultant: Sweta Guerra FINANCIAL INTERN 11/05/2020 04:0 2:00 PM EDT - 11/09/2020 02:10:00 PM EDT [facility] Patient discharged. Outpatient Attender: Shannon Zhang NPReferrer: Shannon pollock FINANCIAL INTERN 11/05/2020 11:26:00 AM EDT - 11/05/2020 12:09:00 PM EDT [facility] Emergency Attender: JODY DUPONT MD 09/07 07:40:00 AM EDT - 09/26/2020 09:24:00 AM EDT SORE THROAT, FEVER, R/O COVID [facility] SORE THROAT, FEVER, R/O COVID Patient discharged. Outpatient Referrer: Shannon Zhang NP 07/16/2020 12:00:00 AM EDT [facility] Unknown [address] [facility] [address] 07/02/2020 12:00:00 AM EDT eCW1 ([facility]) Outpatient 06/11/2020 12:00:00 AM [facility] Outpatient Attender: Dahiana Julian MD 06/10/2020 09:00:00 AM EDT [facility] Outpatient Attender: Shannon Zhang NPReferrer: Shannon pollock FINANCIAL INTERN 05/05/2020 09:52:00 AM EDT - 05/05/2020 10:12:00 AM EDT [facility] Outpatient Attender: PITER PETTY [id number] 04/23/2020 12:00:00 AM EDT - 04/23/2020 11:27:25 AM EDT Retinal edema [facility] Retinal edema Outpatient Attender: EDVIN STARK NP Physical Therapy 12:15:00 PM EST [facility] ([facility]) Outpatient Attender: EDVIN STARK NP 03/30/2020 08:22:0 0 AM EST E11.65 [facility] E11.65 Emergency Attender: JODY DUPONT MD 09/2020 07:07:00 AM EST - 03/16/2020 07:49:00 AM EST [facility] Patient discharged. Outpatient Attender: Irish Salas [id number] 0 03/09/2020 12:00:00 AM EST - 03/09/2020 11:23:03 AM EST Type 2 diabetes mellitus with stable pro liferative diabetic retinopathy, bilateral [facility] Type 2 diabetes mellitus with stable pro liferative diabetic retinopathy, bilateral Outpatient [address] [facility] [address] 03/06/2020 12:00:00 AM EST eCW1 ([facility]) Unknown [address] [facility] [place] [address] 03/06/2020 12:00:00 AM EST eCW1 ([facility]) Unknown [address] [facility] [address] 03/04/2020 12:00:00 AM EST eCW1 ([facility]) Outpatient Attender: CARLYLE SIMEON MD 03/03/2020 10:06:00 AM EST E55.9,L02.91 [facility] E55.9,L02.91 Outpatient Attender: Shannon Zhang NPReferrer: Shannon pollock NP 03/03/2020 09:34:00 AM EST - 03/03/2020 10:02:00 AM EST [facility] Outpatient Attender: Irish Salas 03/02/2020 12:00 :[address] [facility] Emergency Attender: TERRIE PEREZ MD 02/27/2020 1 0:06:00 AM EST - 02/27/2020 02:38:00 PM EST [facility] CY[facility] Patient discharged. Outpatient Attender: KOBE Goss/Kelly/Nate/Ericka fuentes 02/21/2020 12:00:00 PM EST [facility] ([facility]) Outpatient Attender: Irish Machucazdong [id number] 0 02/10/2020 12:00:00 AM EST - 02/10/2020 11:36:56 AM EST Type 2 diabetes mellitus with stable pro liferative diabetic retinopathy, bilateral [facility] Type 2 diabetes mellitus with stable pro liferative diabetic retinopathy, bilateral Outpatient Attender: EDVIN STARK NP Physical Therapy 12:00:00 PM EST [facility] ([facility]) Outpatient Attender: Irish Salas [id number] 1 03/29/2019 12:00:00 AM EST - 01/27/2020 09:30:14 AM [facility] Attender: Irish Machucazdacrissy [id number] 1 03/22/2019 12:00:00 AM EST - 01/20/2020 11:17:07 AM EST Type 2 diabetes mellitus with stable pro liferative diabetic retinopathy, bilateral [facility] Type 2 diabetes mellitus with stable pro liferative diabetic retinopathy, bilateral Outpatient Attender: EDVIN STARK NP Physical Therapy 02:30:00 PM EST [facility] ([facility]) Outpatient Attender: CARLYLE SIMEON MD 11/29/2019 12:28 :00 PM EDT M25.559/M62.89,M65.81,R70.0,R79.82 [facility] M25.559/M62.89,M65.81,R70.0,R79.82 Outpatient Attender: JOSE GRANADOS [id number] 11/28/19 12:00:00 AM EDT - 11/28/2019 11:22:54 AM EDT Type 2 diabetes mellitus with stable pro liferative diabetic retinopathy, bilateral [facility] Type 2 diabetes mellitus with stable pro liferative diabetic retinopathy, bilateral Outpatient Attender: EDVIN STARK NP Physical Therapy 03:45:00 PM EDT [facility] ([facility]) Outpatient Attender: JADE [facility] 11/04/2019 02:47:00 PM ED T [facility] Outpatient Attender: JADE [facility] 11/04/2019 01:12:00 PM ED T [facility] Outpatient Attender: JADE [facility] 11/04/2019 12:03:01 PM ED T [facility] Outpatient Attender: EDVIN STARK NP 10/31/2019 1 0:22:00 AM EDT E11.65,E10.65 [facility] E11.65,E10.65 Outpatient Attender: JADE [facility] 10/21/2019 02:16:01 PM ED T [facility] Immunizations Vaccine Date Status Description Data Source(s) COVID-19 Moderna 05/01/2020 12:00:00 AM EDT completed [facility] COVID-19 VACCINE Moderna 05/01/2020 12:00:00 AM EDT completed [facility] Vaccine Series Complete: YESThis Data wa s Submitted to [facility] Via [facility]. COVID-19 Moderna 04/03/2020 12:00:00 AM EST completed [facility] COVID-19 VACCINE Moderna 04/03/2020 12:00:00 AM EST completed [facility] Vaccine Series Complete: NOThis Data was Submitted to [facility] Via [facility]. Medications Medication Brand Name Start Date Product Form Dose Route Admi nistrative Instructions Pharmacy Instructions Status Indications Reaction Description Data Source(s) doxycycline hyclate 100 MG Oral Tablet DOXYCYCLINE HYCLATE 1 12:00:00 AM EDT tablet 20 TAKE ONE TABLET BY MOUTH TWI CE A DAY TAKE ONE TABLET BY MOUTH TWICE A DAY SOLD: 11/27/2020 [facility] Cephalexin 500 MG Oral Capsule CEPHALEXIN 11/16/2020 12:00:00 AM EDT capsule 28 TAKE ONE CAPSULE BY MOUTH FOUR TIMES A D AY FOR 7 DAYS FOR CELLULITIS OF RIGHT FOOT TAKE ONE CAPSULE BY MOUTH FOUR TIMES A D AY FOR 7 DAYS FOR CELLULITIS OF RIGHT FOOT SOLD: 11/19/2020 [facility] Glipizide 5 MG Oral Tablet [...] DAILY TEST ONCE DAILY SOLD: 11/09/2020 [facility] Insulin Glargine 100 UNT/ML Injectable Solution [Lantu s] INSULIN GLARGINE,[email or web address] 11/09/2020 12:00:00 AM EDT solution 10 INJECT 30 UNITS UNDER THE SKIN DAILY INJECT 30 UNITS UNDER THE SKIN DAILY SOLD: 11/09/2020 [place] [facility] Cephalexin 500 MG Oral Capsule CEPHALEXIN 11/09/2020 12:00:00 AM EDT capsule 28 TAKE ONE CAPSULE BY MOUTH FOUR TIMES A DAY FOR CELLULI TIS RIGHT FOOT TAKE ONE CAPSULE BY MOUTH FOUR TIMES A DAY FOR CELLULITIS RIGHT FOOT SOLD: 11/09/2020 [place] [facility] BLOOD SUGAR DIAGNOSTIC 11/09/2020 12:00:00 AM EDT strip 50 USE TO TEST BLOOD SUGAR ONCE ONCE DAILY USE TO TEST BLOOD SUGAR ONCE ONCE DAILY SOLD: 11/09/2020 [facility] BLOOD-GLUCOSE METER 11/09/2020 12:00:00 AM EDT kit 1 USE TO TEST BLOOD EVERY MORNING ( FASTING) USE TO TEST BLOOD EVERY MORNING ( FASTING) SOLD: 11/09/2020 [place] [facility] Ondansetron 4 MG Disintegrating Oral Tablet Ondansetron 05/05/2020 10:10:49 AM EDT 4 MG active [facility] Ondansetron 4 MG Disintegrating Oral Tablet Ondansetron 05/05/2020 10:10:49 AM EDT 4 MG active [facility] Ertugliflozin (Steglatro) 5 mg tablet 05/05/2020 09:59:32 AM EDT 5 MG active [facility] Ertugliflozin (Steglatro) 5 mg tablet 05/05/2020 09:59:32 AM EDT 5 MG active [facility] 4 mg 05/05/2020 12:00:00 AM EDT tablet,disintegrating [address] ONE TABLET BY MOUTH THREE TIMES A DAY NEEDED FOR NAUSEA AND VOMITING FOR [address] ONE TABLET BY MOUTH THREE TIMES A DAY NEEDED FOR NAUSEA AND VOMITING FOR 7 DAYS SOLD: 05/05/2020 [facility] bevacizumab-awwb (MVASI) 3 mg/0.12 mL intravitreal inj ection 1.25 mg [id number]* 04/23/2020 11:00:00 AM EDT 1.25 mg Intravitreal completed Retinal edema of left eye 1.25 mg, Intravitreal, Once, Charito 04/23/20 at 1100, For 1 dose [facility] Retinal edema of left eye Medication [...] doses
1 drop every 2-3 min x3
[facility] Retinal edema of left eye Medication administered onsite Lidocaine Hydrochloride 0.035 MG/MG Opht halmic Gel lidocaine (XYLOCAINE) 3.5 % ophthalmic gel 1 mL lidocaine (XYLOCAINE) 3.5 % ophthalmic gel 1 mL 2020 10:44:04 AM EDT 1 mL Left Eye completed Retinal edema of left eye 1 mL, Left Eye, PRN, Pain, Starting Charito 04/23/20 at 1044, For 1 dose [facility] Retinal edema of left eye Medication administered onsite Proparacaine hydrochloride 5 MG/ML Ophth almic Solution proparacaine (ALCAINE) 0.5 % ophthalmic solution 1 drop proparacaine (ALCAINE) 0.5 % ophthalmic solution 1 drop 04/23/2020 09:45:00 AM EDT 1 [drp] Both Eyes completed 1 drop, Both Eyes, Once, Charito 04/23/20 at 0945, For 1 do [facility] Medication administered onsite Tropicamide 10 MG/ML Ophthalmic Solution tropicamide (MYDRIACYL) 1 % ophthalmic solution 1 drop tropicamide (MYDRIACYL) 1 % ophthalmic solution 1 drop 04/23/2020 09:45:00 AM EDT 1 [drp] Both Eyes completed 1 drop, Both Eyes, Once, Charito 04/23/20 at 0945, For 1 [facility] Medication administered onsite Phenylephrine Hydrochloride 25 MG/ML Oph thalmic Solution phenylephrine (MYDFRIN) 2.5 % ophthalmic solution 1 drop phenylephrine (MYDFRIN) 2.5 % ophthalmic solution 1 drop 04/23/2020 09:45:00 AM EDT 1 [drp] Both Eyes completed 1 drop, Both Eyes, Once, Charito 04/23/20 at 0945, For 1 do [facility] Medication administered onsite 3 mg/0.5 mL 04/15/2020 12:00:00 AM EST pen injector 2 INJECT ONCE WEEKLY INJECT ONCE WEEKLY SOLD: 04/15/2020 [facility] Trulicity Trulicity 04/01/2020 12:00:00 AM EST act jose guadalupe MEDENT ([facility]) silver sulfadiazine 10 MG/ML Topical Cre am Silver Sulfadiazine (Silvadene) 1 % cream Silver Sulfadiazine (Silvadene) 1 % cream 03/16/2020 07:36:02 AM EST 1 APPLIC completed [facility] silver sulfadiazine 10 MG/ML Topical Cre am Silver Sulfadiazine (Silvadene) 1 % cream Silver Sulfadiazine (Silvadene) 1 % cream 03/16/2020 07:36:02 AM EST 1 APPLIC active [facility] silver sulfadiazine 10 MG/ML Topical Cre am Silver Sulfadiazine (Silvadene) 1 % cream Silver Sulfadiazine (Silvadene) 1 % cream 03/16/2020 07:36:02 AM EST 1 APPLIC completed [facility] 1 % 03/16/2020 12:00:00 AM EST cream 400 APPLY TOPICALLY 1.5MM THICKNESS ONCE DAILY APPLY TOPICALLY 1.5MM THICKNESS ONCE DAILY SOLD: 03/16/2020 [facility] 50 mcg (2,000 unit) 03/13/2020 12:00:00 AM EST tablet 30 TAKE ONE TABLET BY MOUTH EVERY DAY TAKE ONE TABLET BY MOUTH EVERY DAY SOLD: 03/16/2020 [facility] bevacizumab-awwb (MVASI) 3 mg/0.12 mL intravitreal inj ection 1.25 mg [id number] 03/09/2020 10:45:00 AM EST 1.25 mg Intravitreal completed 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
One drop 5 minutes apart x3
[facility] Stable proliferative diabetic retinopath y of both eyes associated with type 2 diabetes mellitus Medication administered onsite Phenylephrine Hydrochloride 25 MG/ML Oph thalmic Solution phenylephrine (MYDFRIN) 2.5 % ophthalmic solution 1 drop phenylephrine (MYDFRIN) 2.5 % ophthalmic solution 1 drop 03/09/2020 10:00:00 AM EST 1 [drp] Both Eyes a [facility] Proparacaine hydrochloride 5 MG/ML Ophth almic Solution proparacaine (ALCAINE) 0.5 % ophthalmic solution 1 drop proparacaine (ALCAINE) 0.5 % ophthalmic solution 1 drop 03/09/2020 10:00:00 AM EST 1 [drp] Both Eyes a [facility] Tropicamide 10 MG/ML Ophthalmic Solution tropicamide (MYDRIACYL) 1 % ophthalmic solution 1 drop tropicamide (MYDRIACYL) 1 % ophthalmic solution 1 drop 03/09/2020 10:00:00 AM EST 1 [drp] Both Eyes active [facility] Cholecalciferol 2000 UNT Oral Capsule Cholecalciferol (Vitamin D3) Cholecalciferol (Vitamin D3) 03/03/2020 09:44:28 AM EST 2000 UNIT active [facility] Cholecalciferol 2000 UNT Oral Capsule Cholecalciferol (Vitamin D3) Cholecalciferol (Vitamin D3) 03/03/2020 09:44:28 AM EST 2000 UNIT active [facility] Cholecalciferol 2000 UNT Oral Capsule Cholecalciferol (Vitamin D3) Cholecalciferol (Vitamin D3) 03/03/2020 09:44:28 AM EST 2000 UNIT active [facility] Cholecalciferol 2000 UNT Oral Capsule Cholecalciferol (Vitamin D3) Cholecalciferol (Vitamin D3) 03/03/2020 09:44:28 AM EST 2000 UNIT active [facility] Ergocalciferol 97931 UNT Oral Capsule Ergocalciferol ( Vitamin D2) Ergocalciferol (Vitamin D2) 03/03/2020 09:44:09 AM EST 1250 MCG active [facility] Ergocalciferol 75769 UNT Oral Capsule Ergocalciferol ( Vitamin D2) Ergocalciferol (Vitamin D2) 03/03/2020 09:44:09 AM EST 1250 MCG active [facility] Ergocalciferol 96297 UNT Oral Capsule Ergocalciferol ( Vitamin D2) Ergocalciferol (Vitamin D2) 03/03/2020 09:44:09 AM EST 1250 MCG active [facility] Ergocalciferol 31364 UNT Oral Capsule Ergocalciferol ( Vitamin D2) Ergocalciferol (Vitamin D2) 03/03/2020 09:44:09 AM EST 1250 MCG [facility] Clindamycin 300 MG Oral Capsule Clindamycin Hcl Clindamycin Hcl 02/27/2020 01:43:41 PM EST 300 MG active [facility] Clindamycin 300 MG Oral Capsule Clindamycin Hcl Clindamycin Hcl 02/27/2020 01:43:41 PM EST 300 MG active [facility] Clindamycin 300 MG Oral Capsule Clindamycin Hcl Clindamycin Hcl 02/27/2020 01:43:41 PM EST 300 MG completed [facility] Clindamycin 300 MG Oral Capsule Clindamycin Hcl Clindamycin Hcl 02/27/2020 01:43:41 PM EST 300 MG completed [facility] Clindamycin 300 MG Oral Capsule Clindamycin Hcl Clindamycin Hcl 02/27/2020 01:43:41 PM EST 300 MG active [facility] 300 mg 02/27/2020 12:00:00 AM EST capsule [...] eyes associated with type 2 diabetes mellitus [facility] Stable proliferative diabetic retinopath y of both eyes associated with type 2 diabetes mellitus Phenylephrine Hydrochloride 25 MG/ML Oph thalmic Solution phenylephrine (MYDFRIN) 2.5 % ophthalmic solution 1 drop phenylephrine (MYDFRIN) 2.5 % ophthalmic solution 1 drop 02/10/2020 10:15:00 AM EST 1 [drp] Both Eyes completed 1 drop, Both Eyes, Once, Mon02/10/20 at 1015, For 1 dos e [facility] Medication administered onsite Tropicamide 10 MG/ML Ophthalmic Solution tropicamide (MYDRIACYL) 1 % ophthalmic solution 1 drop tropicamide (MYDRIACYL) 1 % ophthalmic solution 1 drop 02/10/2020 10:15:00 AM EST 1 [drp] Both Eyes completed 1 drop, Both Eyes, Once, Mon02/10/20 at 1015, For 1 dose [facility] Medication administered onsite Proparacaine hydrochloride 5 MG/ML Ophth almic Solution proparacaine (ALCAINE) 0.5 % ophthalmic solution 1 drop proparacaine (ALCAINE) 0.5 % ophthalmic solution 1 drop 02/10/2020 10:15:00 AM EST 1 [drp] Both Eyes completed 1 drop, Both Eyes, Once, Mon02/10/20 at 1015, For 1 dos e [facility] Medication administered onsite dapagliflozin 5 MG [...] acti ve Retinal edema of left eye [facility] Retinal edema of left eye bevacizumab-awwb (MVASI) 3 mg/0.12 mL intravitreal inj ection 1.25 mg [id number] 01/27/2020 09:30:00 AM EST 1.25 mg Intravitreal active Retinal edema of left eye [facility] Retinal edema of left eye Proparacaine hydrochloride 5 MG/ML Ophth almic Solution proparacaine (ALCAINE) 0.5 % ophthalmic solution 1 drop proparacaine (ALCAINE) 0.5 % ophthalmic solution 1 drop 01/27/2020 08:15:00 AM EST 1 [drp] Both Eyes completed 1 drop, Both Eyes, Once, Mon01/27/20 at 0815, [facility] Phenylephrine Hydrochloride 25 MG/ML Oph thalmic Solution phenylephrine (MYDFRIN) 2.5 % ophthalmic solution 1 drop phenylephrine (MYDFRIN) 2.5 % ophthalmic solution 1 drop 01/20/2020 10:15:00 AM EST 1 [drp] Both Eyes completed 1 drop, Both Eyes, Once, 01/20/20 at 1015, [facility] Tropicamide 10 MG/ML Ophthalmic Solution tropicamide (MYDRIACYL) 1 % ophthalmic solution 1 drop tropicamide (MYDRIACYL) 1 % ophthalmic solution 1 drop 01/20/2020 10:15:00 AM EST 1 [drp] Both Eyes completed 1 drop, Both Eyes, Once, Mon01/20/20 at 1015, For 1 dose [facility] Medication administered onsite Proparacaine hydrochloride 5 MG/ML Ophth almic Solution proparacaine (ALCAINE) 0.5 % ophthalmic solution 1 drop proparacaine (ALCAINE) 0.5 % ophthalmic solution 1 drop 01/20/2020 10:15:00 AM EST 1 [drp] Both Eyes completed 1 drop, Both Eyes, Once, Mon01/20/20 at 1015, For 1 d ose [facility] Medication administered onsite Steglatro Steglatro 01/06/2020 12:00:00 AM EST ORAL com pleted MEDENT ([facility]) 1.5 mg/0.5 mL 12/05/2019 12:00:00 [...] D (Cholecalciferol) 50 MCG (1999 UT) eCW1 ([facility]) Ergocalciferol 12505 UNT Oral Capsule Vi tamin D (Ergocalciferol) 1.25 MG (94265 UT) Vitamin D (Ergocalciferol) 1.25 MG (58781 UT) 12/03/2019 12:00:0 0 AM EDT 1.0 {capsule} active Vitamin D (Ergocal ciferol) 1.25 MG (81596 UT) [facility] ([facility]) Ergocalciferol 39018 UNT Oral Capsule Vi tamin D (Ergocalciferol) 1.25 MG (90026 UT) Vitamin D (Ergocalciferol) 1.25 MG (48031 UT) 12/03/2019 12:00:0 0 AM EDT 1.0 {capsule} active Vitamin D (Ergocal ciferol) 1.25 MG (06020 UT) [facility] ([facility]) Ergocalciferol 43791 UNT Oral Capsule Vi tamin D (Ergocalciferol) 1.25 MG (97428 UT) Vitamin D (Ergocalciferol) 1.25 MG (41800 UT) 12/03/2019 12:00:0 0 AM EDT 1.0 {capsule} active Vitamin D (Ergocal ciferol) 1.25 MG (27119 UT) [facility] ([facility]) Ergocalciferol 28055 UNT Oral Capsule Vi tamin D (Ergocalciferol) 1.25 MG (15860 UT) Vitamin D (Ergocalciferol) 1.25 MG (08201 UT) 12/03/2019 12:00:0 0 AM EDT 1.0 {capsule} suspended Vitamin D (Ergoc alciferol) 1.25 MG (90197 UT) [facility] ([facility]) 1,250 mcg (50,000 unit) 12/03/2019 12:00:00 AM EDT capsule 4 TAKE ONE CAPSULE BY MOUTH ONCE WEEKLY TAKE ONE CAPSULE BY MOUTH ONCE WEEKLY SOLD: 01/01/2020 [facility] Ergocalciferol 20392 UNT Oral Capsule Vi tamin D (Ergocalciferol) 1.25 MG (93879 UT) Vitamin D (Ergocalciferol) 1.25 MG (67685 UT) 12/03/2019 12:00:0 0 AM EDT 1.0 {capsule} active eCW1 ([facility]) 50 mcg (2,000 unit) 12/03/2019 12:00:00 [...] Charito 11/28/19 at 1015, For 1 dose [facility] Medication administered onsite Phenylephrine Hydrochloride 25 MG/ML Oph thalmic Solution phenylephrine (MYDFRIN) 2.5 % ophthalmic solution 1 drop phenylephrine (MYDFRIN) 2.5 % ophthalmic solution 1 drop 11/28/2019 10:15:00 AM EDT 1 [drp] Both Eyes completed 1 drop, Both Eyes, Once, Charito 11/28/19 at 1015, [facility] Proparacaine hydrochloride 5 MG/ML Ophth almic Solution proparacaine (ALCAINE) 0.5 % ophthalmic solution 1 drop proparacaine (ALCAINE) 0.5 % ophthalmic solution 1 drop 11/28/2019 10:15:00 AM EDT 1 [drp] Both Eyes completed 1 drop, Both Eyes, Once, Charito 11/28/19 at 1015, [facility] Med[facility] 8 HR Acetaminophen 650 MG Extended Release Oral Tablet [Tyle nol] Tylenol 8 Hour 11/18/2019 12:00:00 AM EDT active MED[facility] ([facility]) 0.5 ML dulaglutide 3 MG/ML Auto-Injector [Trulicity] Trulici ty 11/06/2019 12:00:00 AM EDT completed [facility] ([facility]) BLOOD SUGAR DIAGNOSTIC 10/29/2019 12:00:00 AM EDT strip 150 USE DIRECTED FOUR TIMES A DAY USE DIRECTED FOUR TIMES A DAY SOLD: 11/05/2019 [facility] Blood Sugar Diagnostic (Onetouch Verio Test Strips) strip 10/28/2019 09:16:40 AM EDT 0 active [facility] Blood Sugar Diagnostic (Onetouch Verio Test Strips) strip 10/28/2019 09:16:40 AM EDT 0 active [facility] Blood Sugar Diagnostic (Onetouch Verio Test Strips) strip 10/28/2019 09:16:40 AM EDT 0 active [facility] Blood Sugar Diagnostic (Onetouch Verio Test Strips) strip 10/28/2019 09:16:40 AM EDT 0 active [facility] Blood Sugar Diagnostic (Onetouch Verio Test Strips) strip 10/28/2019 09:16:40 AM EDT 0 active [facility] 0.75 mg/0.5 mL 10/03/2019 12:00:00 AM EDT pen injector 2 USE ONCE WEEKLY USE ONCE WEEKLY SOLD: 11/05/2019 [facility] 0.5 ML dulaglutide 1.5 MG/ML Auto-Injector [Trulicity] [facility] 09/20/2019 12:00:00 AM EDT completed [facility] ([facility] ) Blood Sugar Diagnostic (Onetouch Verio Test Strips) strip 07/05/2019 12:31:02 PM EDT 0 completed [facility] Blood Sugar Diagnostic (Onetouch Verio Test Strips) strip 07/05/2019 12:31:02 PM EDT 0 completed [facility] Blood Sugar Diagnostic (Onetouch Verio Test Strips) strip 07/05/2019 12:31:02 PM EDT 0 completed [facility] Blood Sugar Diagnostic (Onetouch Verio Test Strips) strip 07/05/2019 12:31:02 PM EDT 0 completed [facility] Blood Sugar Diagnostic (Onetouch Verio Test Strips) strip 07/05/2019 12:31:02 PM EDT 0 completed [facility] Ertugliflozin (Steglatro) 15 mg tablet 06/24/2019 09:59:57 AM ED T 15 MG completed [facility] Ertugliflozin (Steglatro) 15 mg tablet 06/24/2019 09:59:57 AM ED T 15 MG completed [facility] Insurance Providers Payer name Policy type / Coverage type Policy ID Covered democrat ID Covered democrat's relationship to de la fuente Policy [place] Plan Information Medicaid S [id number] S [id number] Managed Care [place] P [id number] S [id number] [facility] I [id number] Self [id number] Medicaid O [id number] S [id number] [facility] [facility] [id number] SP [id number] [facility] [phone] SP [phone] [facility] Other 0 [id number] Self 0 [facility] [place] [facility] [id number] 18 [id number] [employer] COMMUN[employer] PLAN [facility] [id number] SP [id number] [facility] [id number] [facility] [id number] SP [id number] Managed Care - [facility] Community Plan P UNAVAILABLE S UNAVAILABLE Managed Care Ravi S [id number] S [id number] [facility] [id number] SP [id number] Problems, Conditions, and Diagnoses Code Display Name Description Problem Type Effective Dates Data Source(s) H35.81 Retinal edema Retinal edema Diagnosis 04/23/2020 09:00:09 AM [facility] E11.3553 Type 2 diabetes mellitus wit h stable proliferative diabetic retinopathy, bilateral Type 2 diabetes mellitus with stable pro liferative diabetic retinopathy, bilateral Diagnosis 03/09/2020 09:41:50 AM EST [facility] L97.412 [id number] Non-pressure chronic ulcer of right heel and midfoot with fat layer exposed Problem 12/01/2020 12:00:00 AM EDT eCW1 ([facility]) E10.621 [id number] Type 1 diabetes mellitus with foot ulcer Problem 12/01/2020 12:00:00 AM EDT eCW1 ([facility]) M62.81 [id number] Muscle weakness (generalized) Problem 12/04/2019 12:00:00 AM EDT eCW1 ([facility]) G47.9 [id number] Sleep disorder, unspecified Problem 12/03/19 12:00:00 AM EDT eCW1 ([facility]) R20.2 [id number] Paresthesia of skin Problem 12/03/2019 12:00 :00 AM EDT eCW1 ([facility]) R79.82 [id number] Elevated C-reactive protein (CRP) Prob chad 12/03/2019 12:00:00 AM EDT eCW1 ([facility]) E55.9 [id number] Vitamin D deficiency Problem 12/03/2019 12:0 0:00 AM EDT eCW1 ([facility]) G62.9 [id number] Sensorimotor neuropathy Problem 12/03/2019 1 2:00:00 AM EDT eCW1 ([facility]) 9735454 Lumbosacral radiculopathy Lumbosacral radiculopathy Pr oblem 11/18/2019 12:00:00 AM EDT MEDENT ([facility] ) [id number] Idiopathic peripheral neuropathy Idiopathic tito pheral neuropathy Problem 11/18/2019 12:00:00 AM EDT [facility] ([facility] ) [id number] Numbness of lower limb Numbness of lower limb Problem 11/18/2019 12:00:00 AM EDT MEDENT ([facility] ) Surgeries/Procedures Procedure Description Date Indications Data Source(s) Plain chest X-ray (procedure) 09/26/2020 08:59:[address] [facility] SARS-CoV-2 Rapid RNA (RT-PCR) 09/26/2020 12:00:00 AM [facility] Viral antigen assay (procedure) 06/10/2020 12:00:00 AM EDT [facility] MVASI INTRAVITREAL INJECTION - OS - LEFT <td>MVASI INT RAVITREAL INJECTION - OS - LEFT</td><td>Routine</td><td>04/23/2020 11:59 AM EDT</td><td> Retinal edema of left eye</td><td> </td> 04/23/2020 11:59:23 AM EDT Retinal edema of left eye [facility] Retinal edema of left eye OCT RETINA <td>OCT RETINA</td><td>Routi ne</td><td>04/23/2020 9:58 AM EDT</td><td> Retinal edema of left eye</td><td> </td> 04/23/2020 09:58:23 AM EDT Retinal edema of left eye [facility] Retinal edema of left eye MVASI INTRAVITREAL INJECTION - OS - LEFT <td>MVASI INT RAVITREAL INJECTION - OS - LEFT</td><td>Routine</td><td>03/09/2020 1:19 PM EST</td><td> 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</td><td> </td> 03/09/2020 01:19:16 PM EST Stable proliferative diabetic retinopath y of both eyes associated with type 2 diabetes mellitus [facility] Stable proliferative diabetic retinopath y of both eyes associated with type 2 diabetes mellitus OCT RETINA <td>OCT RETINA</td><td>Routi ne</td><td>03/09/2020 10:15 AM EST</td><td> 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 Aerobic microbial culture (procedure) 02/27/2020 12:00 :00 AM [facility] Blood culture for bacteria, including anaerobic screen (proc edure) 02/27/2020 12:00:[address] [facility] Aerobic microbial culture (procedure) 02/27/2020 12:00 :00 AM [facility] Blood culture for bacteria, including anaerobic screen (proc edure) 02/27/2020 12:00:[address] 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</td><td> </td> 02/10/2020 05:13:57 PM EST Stable proliferative diabetic retinopath y of both eyes associated with type 2 diabetes mellitus [facility] Stable proliferative diabetic retinopath y of both eyes associated with type 2 diabetes mellitus OCT RETINA <td>OCT RETINA</td><td>Routi ne</td><td>02/10/2020 10:18 AM EST</td><td> 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</td><td> </td> 02/10/2020 10:18:01 AM EST Stable proliferative diabetic retinopath y of both eyes associated with type 2 diabetes mellitus [facility] Stable proliferative diabetic retinopath y of both eyes associated with type 2 diabetes mellitus MVASI INTRAVITREAL INJECTION - OS - LEFT <td>MVASI INT RAVITREAL INJECTION - OS - LEFT</td><td>Routine</td><td>01/27/2020 9:28 AM EST</td><td> Retinal edema of left eye</td><td> </td> 01/27/2020 09:28:10 AM EST Retinal edema of left eye [facility] Retinal edema of left eye OCT RETINA <td>OCT RETINA</td><td>Routi ne</td><td>01/20/2020 10:27 AM EST</td><td> 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</td><td> </td> 01/20/2020 10:27:41 AM EST Stable proliferative diabetic retinopath y of both eyes associated with type 2 diabetes mellitus [facility] Stable proliferative diabetic retinopath y of both eyes associated with type 2 diabetes mellitus Plain x-ray of pelvis and lower extremity (procedure) 11/29/2019 12:55:00 PM EDT [facility] l XRAY HIP RT 2-3 VIEW 11/29/2019 12:55:00 PM EDT [facility] Plain x-ray of pelvis and lower extremity (procedure) 11/29/2019 12:55:00 PM EDT [facility] l XRAY HIP RT 2-3 VIEW 11/29/2019 12:55:00 PM EDT [facility] Plain x-ray of pelvis and lower extremity (procedure) 11/29/2019 12:55:00 PM EDT [facility] l XRAY HIP RT 2-3 VIEW 11/29/2019 12:55:00 PM EDT [facility] Plain x-ray of pelvis and lower extremity (procedure) 11/29/2019 12:55:00 PM EDT [facility] l XRAY HIP RT 2-3 VIEW 11/29/2019 12:55:00 PM EDT [facility] Plain x-ray of pelvis and lower extremity (procedure) 11/29/2019 12:55:00 PM EDT [facility] l XRAY HIP RT 2-3 VIEW 11/29/2019 12:55:00 PM EDT [facility] OCT RETINA <td>OCT RETINA</td><td>Jimmiei ne</td><td>11/28/2019 10:56 AM EDT</td><td> 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 Shannon Zhang RAD [id number] ATTENDING PHYSICIAN DATE OF DATE OF EXAM/TIME Shannon Zhang FINANCIAL INTERN 1980 11[birth year]26/201450 TYPE / EXAM Xray Foot Complete RT REASON FOR EXAM Cellulitis CLINICAL HISTORY: [facility] Cellulitis TECHNIQUE: Frontal, oblique, and lateral views [...] CC: Shannon Zhang; James Wu M.D. Techn: [facility] Trans Dt/Tm: Trans by: DT Prt Dt/Tm: 8029-5421: Total DLP = 0.00 mGy-cm Fluoroscopy Time (in secs): Name Value Range Interpretation Code Description Data Suze rce(s) Supporting Document(s) ID Date Data Source [id number] 11/26/2020 02:10:00 PM EDT [facility] Patient Name: PAZ DELGADO : 1980 Sex: F Pt Unit #: [id number] Location:[place] Provider: Visit Date/Time: 11/26/20 Primary Insurance: [facility] [place] Secondary Insurance: Self Pay Intake Vital Signs [...] 2 diabetes mellitus with hyperglycemia SNOMED Code(s): 321342742 Category: Medical Plan: Colin DM is very [...] right foot Coding Level of Care Code 08427 Est Pt Intermediate Comp Diagnoses Cellulitis L03.90 Uncontrolled type 2 diabetes mellitus E11.65 Additional Codes Intake - Is patient in pain?: Yes (1125F) <Electronically signed by Shannon Zhang FINANCIAL INTERN> 11/30/20 1250 Name Value Range Interpretation Code Description Data Suze rce(s) Supporting Document(s) ID Date Data Source [id number] 11/16/2020 02:06:00 PM EDT [facility] Patient Name: PAZ DELGADO : 1980 Sex: F Pt Unit #: [id number] Location:[place] Provider: Visit Date/Time: 11/16/20 Primary Insurance: [facility] [place] Secondary Insurance: Self Pay Intake Vital Signs [...] L02.91 - Cutaneous abscess, unspecified SNOMED Code(s): 132873553 Category: Medical (3) Uncontrolled type 2 diabetes mellitus: Status: Acute Code(s): E11.65 - Type 2 diabetes mellitus with hyperglycemia SNOMED Code(s): 464287761 Category: Medical Plan: Increase lantus to 35 [...] ea 0RF Coding Level of Care Code 21894 Est Pt Intermediate Comp Exam Problem Focused Diagnoses Hospital discharge follow-up Z09 Abscess L02.91 Uncontrolled type 2 diabetes mellitus E11.65 Additional Codes Intake - Is patient in pain?: No (1126F) <Electronically signed by Shannon Zhang NP> 11/17/20 1320 Name Value Range Interpretation Code Description Data Suze rce(s) Supporting Document(s) ID Date Data Source [id number] 11/09/2020 08:40:00 AM EDT [facility] Name: PAZ DELGADO : 1980 Age: 39 MR#: [id number] Admit Date: 11/05/20 Provider: Sweta Guerra NP [...] % (Auto) 63.0, Lymph % (Auto) 29.3, [place] % (Auto) 5.7, Eos % (Auto) 1.0, [...] rce(s) Supporting Document(s) ID Date Data Source [id number] 11/09/2020 05:34:00 AM EDT [facility] Name Value Range Interpretation Code Description Data Suze rce(s) Supporting Document(s) Leukocytes [#/volume] in Blood by Automated count 8.2 10*3/uL 4.45-10 .71 N [facility] Erythrocytes [#/volume] in Blood by Automated count 3.06 10*6/uL 4.20-5.40 Below low normal [facility] Hemoglobin [Moles/volume] in Blood 8.8 g/dL 10.7-15.4 Below low no rmal [facility] Hematocrit [Volume Fraction] of Blood by Automated count 27.0 % 37-47 Below low normal [facility] Erythrocyte mean corpuscular volume [Ent itic volume] in Cord blood by Automated count 88 fL 80-96 N [facility] ital Erythrocyte mean corpuscular hemoglobin [Entitic mass] by Au tomated count 29 pg 27-31 N [facility] Erythrocyte mean corpuscular hemoglobin concentration [Mass/volume] in Cord blood 33 g/dL 33-37 N [facility] ital Erythrocyte distribution width [Entitic volume] by Automated count 13 % 11-15 N [facility] Platelets [#/volume] in Blood by Automated count 323 10*3/uL 130-472 N [facility] Platelet mean volume [Entitic volume] in Blood 10.1 fL 9.1-13.1 N [facility] Neutrophils/100 leukocytes in Blood by Automated count 63.0 % 41- 77 N [facility] Neutrophils [#/volume] in Blood by Automated count 5.2 U 1.7-7.6 N [facility] Lymphocytes/100 leukocytes in Blood by Automated count 29.3 % 14- 46 N [facility] Lymphocytes [#/volume] in Blood by Automated count 2.4 U 0.6-4.6 N [facility] Monocytes/100 leukocytes in Blood by Automated count 5.7 % 4-12 N [facility] Monocytes [#/volume] in Blood by Automated count 0.5 U 0.2-1.2 N [facility] Eosinophils/100 leukocytes in Blood by Automated count 1.0 % 0-7 N [facility] Eosinophils [#/volume] in Blood by Automated count 0.1 U 0.0-0.5 N [facility] Basophils/100 leukocytes in Blood by Automated count 0.4 % 0.4-1 .3 N [facility] Basophils [#/volume] in Blood by Automated count 0.0 U 0.0-0.2 N [facility] NUCLEATED RED BLOOD CELL 0 % [facility] NUCLEATED RED BLOOD CELL# 0 [facility] Immature granulocytes [Presence] in Blood by Automated count 0-2 N [facility] Immature granulocytes [#/volume] in Blood by Automated count 0.1 U 0-0.1 N [facility] Manual Differential panel - Blood NO [facility] ID Date Data Source [id number] 11/09/2020 06:06:00 AM EDT [facility] Name Value Range Interpretation Code Description Data Suze rce(s) Supporting Document(s) Urea nitrogen [Mass/volume] in Serum or Plasma 9 mg/dL 9-23 N [facility] Sodium [Moles/volume] in Serum or Plasma 140 mmol/L 132-146 [facility] Potassium [Moles/volume] in Serum or Plasma 4.2 mmol/L 3.5-5.5 [facility] Chloride [Moles/volume] in Serum or Plasma 107 mmol/L 99-109 [facility] Carbon dioxide, total [Moles/volume] in Serum or Plasma 27 mmol/L 20 -31 N [facility] Anion gap in Serum or Plasma 10 mmol/L 8-16 [facility] Glucose [Mass/volume] in Serum or Plasma 117 mg/dL 74-106 Above high normal [facility] Creatinine 0.6 mg/dL 0.5-1.1 [facility] Glomerular filtration rate/1.73 sq M.pre dicted [Volume Rate/Area] in Serum or Plasma Greater Than 60 ABOVE 60 [facility] Calcium [Mass/volume] in Serum or Plasma 8.3 mg/dL 8.5-10.1 Below low normal [facility] ID Date Data Source [id number] 11/08/2020 09:15:00 AM EDT [facility] Name: PAZ DELGADO : 1980 Age: 39 MR#: [id number] Admit Date: 11/05/20 Provider: Robert Leon MD Room #: 290 Consulting Provider: Dictation Date: 11/08/20 Progress Note Subjective-ROS Date of service Date of service:: 11/08/20 Review of Systems Attestation/Length Of Stay: 11/05/20 16:02 Admit to Inpatient, Acute [STATUS] Routine Location: [facility] Primary diagnosis: right foot cellulitis Isolation: [...] % (Auto) 66.7, Lymph % (Auto) 28.1, [place] % (Auto) 4.1, Eos % (Auto) 0.7, [...] rce(s) Supporting Document(s) ID Date Data Source [id number] 11/08/2020 07:32:00 AM EDT [facility] Name Value Range Interpretation Code Description Data Suze rce(s) Supporting Document(s) Leukocytes [#/volume] in Blood by Automated count 8.3 10*3/uL 4.45-10 .71 N [facility] Erythrocytes [#/volume] in Blood by Automated count 2.92 10*6/uL 4.20-5.40 Below low normal [facility] Hemoglobin [Moles/volume] in Blood 8.4 g/dL 10.7-15.4 Below low no rmal [facility] Hematocrit [Volume Fraction] of Blood by Automated count 25.9 % 37-47 Below low normal [facility] Erythrocyte mean corpuscular volume [Ent itic volume] in Cord blood by Automated count 89 fL 80-96 N [facility] ital Erythrocyte mean corpuscular hemoglobin [Entitic mass] by Au tomated count 29 pg 27-31 N [facility] Erythrocyte mean corpuscular hemoglobin concentration [Mass/volume] in Cord blood 32 g/dL 33-37 Below low normal [facility] Erythrocyte distribution width [Entitic volume] by Automated count 13 % 11-15 N [facility] Platelets [#/volume] in Blood by Automated count 287 10*3/uL 130-472 N [facility] Platelet mean volume [Entitic volume] in Blood 10.0 fL 9.1-13.1 N [facility] Neutrophils/100 leukocytes in Blood by Automated count 66.7 % 41- 77 N [facility] Neutrophils [#/volume] in Blood by Automated count 5.5 U 1.7-7.6 N [facility] Lymphocytes/100 leukocytes in Blood by Automated count 28.1 % 14- 46 N [facility] Lymphocytes [#/volume] in Blood by Automated count 2.3 U 0.6-4.6 N [facility] Monocytes/100 leukocytes in Blood by Automated count 4.1 % 4-12 N [facility] Monocytes [#/volume] in Blood by Automated count 0.3 U 0.2-1.2 N [facility] Eosinophils/100 leukocytes in Blood by Automated count 0.7 % 0-7 N [facility] Eosinophils [#/volume] in Blood by Automated count 0.1 U 0.0-0.5 N [facility] Basophils/100 leukocytes in Blood by Automated count 0.2 % 0.4-1.3 Below low normal [facility] Basophils [#/volume] in Blood by Automated count 0.0 U 0.0-0.2 N [facility] NUCLEATED RED BLOOD CELL 0 % [facility] NUCLEATED RED BLOOD CELL# 0 U [facility] Immature granulocytes [Presence] in Blood by Automated count 0-2 N [facility] Immature granulocytes [#/volume] in Blood by Automated count 0.0 U 0-0.1 [facility] Manual Differential panel - Blood NO [facility] ID Date Data Source [id number] 11/08/2020 08:05:00 AM EDT [facility] Name Value Range Interpretation Code Description Data Suze rce(s) Supporting Document(s) Urea nitrogen [Mass/volume] in Serum or Plasma 10 mg/dL 9-23 [facility] Sodium [Moles/volume] in Serum or Plasma 141 mmol/L 132-146 [facility] Potassium [Moles/volume] in Serum or Plasma 4.0 mmol/L 3.5-5.5 [facility] Chloride [Moles/volume] in Serum or Plasma 110 mmol/L 99-109 Above high normal [facility] Carbon dioxide, total [Moles/volume] in Serum or Plasma 24 mmol/L 20 -31 [facility] Anion gap in Serum or Plasma 11 mmol/L 8-16 [facility] Glucose [Mass/volume] in Serum or Plasma 101 mg/dL 74-106 [facility] Creatinine 0.5 mg/dL 0.5-1.1 [facility] Glomerular filtration rate/1.73 sq M.pre dicted [Volume Rate/Area] in Serum or Plasma Greater Than 60 ABOVE 60 [facility] Alanine aminotransferase [Enzymatic acti vity/volume] in Serum or Plasma by With P-5'-P 44 U/L 10-49 [facility] ital Aspartate aminotransferase [Enzymatic ac tivity/volume] in Serum or Plasma by With P-5'-P 30 U/L 0-33 [facility] pital Alkaline phosphatase [Enzymatic activity/volume] in Serum or Plasma 135 U/L 45-129 Above high normal [facility] Calcium [Mass/volume] in Serum or Plasma 7.8 mg/dL 8.5-10.1 Below low normal [facility] Bilirubin.total [Mass/volume] in Serum or Plasma 0.3 mg/dL 0.3-1.2 N [facility] Albumin [Mass/volume] in Serum or Plasma by Bromocresol purple (BCP) dye binding method 2.1 g/dL 3.2-4.8 Below low normal [facility] Protein [Mass/volume] in Serum or Plasma 5.4 g/dL 5.7-8.2 Below low normal [facility] ID Date Data Source [id number] 11/07/2020 09:43:00 AM EDT [facility] Pharmacy Department PAZ DELGADO : 1980 Date: 11/07/20 [id number] Vancomycin Web Calculator - General Information Hx [...] rce(s) Supporting Document(s) ID Date Data Source [id number] 11/07/2020 09:19:00 AM EDT [facility] Name: PAZ DELGADO : 1980 Age: 39 MR#: [id number] Admit Date: 11/05/20 Provider: Robert Leon MD Room #: 290 Consulting Provider: Dictation Date: 11/07/20 Progress Note Subjective-ROS Date of service Date of service:: 11/07/20 Review of Systems Attestation/Length Of Stay: 11/05/20 16:02 Admit to Inpatient, Acute [STATUS] Routine Location: [facility] Primary diagnosis: right foot cellulitis Isolation: Standard precautions Status: Inpatient Admission Anticipated Length of stay:: 2-3 Midnights Vital Signs and I O Vitals and I O: Intake Output Last 24 Hours 11/05/20 11/06/20 11/07/20 23:59 23:59 23:59 Intake Total 1552.337 / 0745.348 4200 / 2420 1740 / 1740 Output Total [...] Cloudy A, Urine pH 5.0, Ur Specific [place] 1.038 A, Urine Protein Trace, Urine Ketones [...] % (Auto) 63.8, Lymph % (Auto) 30.4, [place] % (Auto) 4.5, Eos % (Auto) 0.6, [...] rce(s) Supporting Document(s) ID Date Data Source [id number] 11/07/2020 03:45:00 AM EDT [facility] Special Instructions: DRAW 1 HOUR PRIOR TO 0400 DOSE Name Value Range Interpretation Code Description Data Suze rce(s) Supporting Document(s) Vancomycin [Mass/volume] in Serum or Plasma --trough 9.9 ug/mL 10-20 Below low normal [facility] As of 11/07/20 0345Last administered patient dose of VANCOMYCIN HCLprior to specimen collection:11/06/20 1739 (9.6 hours). ID Date Data Source [id number] 11/07/2020 03:25:00 AM EDT [facility] Name Value Range Interpretation Code Description Data Suze rce(s) Supporting Document(s) Leukocytes [#/volume] in Blood by Automated count 9.1 10*3/uL 4.45-10 .71 N [facility] Erythrocytes [#/volume] in Blood by Automated count 3.11 10*6/uL 4.20-5.40 Below low normal [facility] Hemoglobin [Moles/volume] in Blood 9.0 g/dL 10.7-15.4 Below low no rmal [facility] Hematocrit [Volume Fraction] of Blood by Automated count 27.7 % 37-47 Below low normal [facility] Erythrocyte mean corpuscular volume [Ent itic volume] in Cord blood by Automated count 89 fL 80-96 N [facility] ital Erythrocyte mean corpuscular hemoglobin [Entitic mass] by Au tomated count 29 pg 27-31 N [facility] Erythrocyte mean corpuscular hemoglobin concentration [Mass/volume] in Cord blood 33 g/dL 33-37 N [facility] ital Erythrocyte distribution width [Entitic volume] by Automated count 13 % 11-15 N [facility] Platelets [#/volume] in Blood by Automated count 271 10*3/uL 130-472 N [facility] Platelet mean volume [Entitic volume] in Blood 9.4 fL 9.1-13.1 N [facility] Neutrophils/100 leukocytes in Blood by Automated count 63.8 % 41- 77 N [facility] Neutrophils [#/volume] in Blood by Automated count 5.8 U 1.7-7.6 N [facility] Lymphocytes/100 leukocytes in Blood by Automated count 30.4 % 14- 46 N [facility] Lymphocytes [#/volume] in Blood by Automated count 2.8 U 0.6-4.6 N [facility] Monocytes/100 leukocytes in Blood by Automated count 4.5 % 4-12 N [facility] Monocytes [#/volume] in Blood by Automated count 0.4 U 0.2-1.2 N [facility] Eosinophils/100 leukocytes in Blood by Automated count 0.6 % 0-7 N [facility] Eosinophils [#/volume] in Blood by Automated count 0.1 U 0.0-0.5 N [facility] Basophils/100 leukocytes in Blood by Automated count 0.3 % 0.4-1.3 Below low normal [facility] Basophils [#/volume] in Blood by Automated count 0.0 U 0.0-0.2 N [facility] NUCLEATED RED BLOOD CELL 0 % [facility] NUCLEATED RED BLOOD CELL# 0 U [facility] Immature granulocytes [Presence] in Blood by Automated count 0-2 N [facility] Immature granulocytes [#/volume] in Blood by Automated count 0.0 U 0-0.1 N [facility] Manual Differential panel - Blood NO [facility] ID Date Data Source [id number] 11/07/2020 03:44:00 AM EDT [facility] Name Value Range Interpretation Code Description Data Suze rce(s) Supporting Document(s) Urea nitrogen [Mass/volume] in Serum or Plasma 15 mg/dL 9-23 N [facility] Sodium [Moles/volume] in Serum or Plasma 140 mmol/L 132-146 N [facility] Potassium [Moles/volume] in Serum or Plasma 4.0 mmol/L 3.5-5.5 [facility] Chloride [Moles/volume] in Serum or Plasma 110 mmol/L 99-109 Above high normal [facility] Carbon dioxide, total [Moles/volume] in Serum or Plasma 25 mmol/L 20 -31 [facility] Anion gap in Serum or Plasma 9 mmol/L 8-16 N [facility] Glucose [Mass/volume] in Serum or Plasma 142 mg/dL 74-106 Above high normal [facility] Creatinine 0.6 mg/dL 0.5-1.1 [facility] Glomerular filtration rate/1.73 sq M.pre dicted [Volume Rate/Area] in Serum or Plasma Greater Than 60 ABOVE 60 [facility] Alanine aminotransferase [Enzymatic acti vity/volume] in Serum or Plasma by With P-5'-P 46 U/L 10-49 N [facility] ital Aspartate aminotransferase [Enzymatic ac tivity/volume] in Serum or Plasma by With P-5'-P 48 U/L 0-33 Above high normal [facility] Alkaline phosphatase [Enzymatic activity/volume] in Serum or Plasma 129 U/L 45-129 N [facility] Calcium [Mass/volume] in Serum or Plasma 7.9 mg/dL 8.5-10.1 Below low normal [facility] Bilirubin.total [Mass/volume] in Serum or Plasma 0.1 mg/dL 0.3-1.2 Below low normal [facility] Albumin [Mass/volume] in Serum or Plasma by Bromocresol purple (BCP) dye binding method 2.4 g/dL 3.2-4.8 Below low normal [facility] Protein [Mass/volume] in Serum or Plasma 6.1 g/dL 5.7-8.2 [facility] ID Date Data Source [id number] 11/06/2020 09:07:00 PM EDT [facility] Special Instructions: 2.5 HOURS AFTER 16 00 DOSE STARTED Name Value Range Interpretation Code Description Data Suze rce(s) Supporting Document(s) Vancomycin [Mass/volume] in Serum or Plasma --peak 22.6 ug/mL 20-40 N [facility] ID Date Data Source [id number] 11/06/2020 08:41:00 PM EDT [facility] Reason for ordering culture: Abnormal fi ndings [...] Suze rce(s) Supporting Document(s) Color of Urine [facility] Appearance of Urine CLEAR Abnormal (applies to non-nu meric results) [facility] pH of Urine by Test strip 5.0 5-8 [facility] Specific gravity of Urine by Refractometry 1.038 1.005 -1.030 Abnormal (applies to non-numeric results) [facility] Leukocyte esterase [Presence] in Urine by Test strip NEGATIVE Abnormal (applies to non-numeric results) [facility]A Culture has been added to this specimen per established criteria Nitrite [Presence] in Urine by Test strip NEGATIVE [facility] Protein [Presence] in Urine by Test strip NEGATIVE [facility] Glucose [Mass/volume] in Urine by Automated test strip > 1000 mg /dl NEGATIVE Abnormal (applies to non-numeric results) [facility] Ketones [Presence] in Urine by Test strip NEGATIVE [facility] Urobilinogen [Presence] in Urine 0.2-1 EU/dl [facility] Bilirubin.total [Presence] in Urine by Automated test strip NEGATIVE [facility] Erythrocytes [#/volume] in Urine by Test strip SMALL NEGATIV E Above high normal [facility] @DO MICRO!!!! URINE MICROSCOPIC? (CIF) Microscopic Added [facility] ID Date Data Source [id number] 11/06/2020 11:26:00 AM EDT [facility] Pharmacy Department PAZ DELGADO : 1980 Date: 11/06/20 [id number] Vancomycin Initiation PK Note - General Information [...] rce(s) Supporting Document(s) ID Date Data Source [id number] 11/06/2020 11:00:00 AM EDT [facility] Therapy Department PAZ DELGADO : 1980 Date: 11/06/20 [id number] Attending: Robert Leon MD Physical Therapy Inpatient [...] rce(s) Supporting Document(s) ID Date Data Source [id number] 11/06/2020 09:36:00 AM EDT [facility] [address] [place] [address] [phone] NAME SEX PT STATUS ACCOUNT NUMBER PAZ DELGADO ADM IN [id number] ORDERING PHYSICIAN LOCATION MEDICAL RECORD NO. Robert Leon MD [id number] ATTENDING PHYSICIAN DATE OF DATE OF EXAM/TIME [...] Time ) Signed by: Lin Pereira M.D., [facility] Reported By Lin Pereira MD on 11/06/20935 Signed By Lin Pereira MD on 11/06/20935 Date Time CC: Shannon Zhang; Lin Pereira MD Techn: HANJU Trans Dt/Tm: Trans by: DT Prt Dt/Tm: 0727-4574: Total DLP = 0.00 mGy-cm : Total Radiation Dose = 0.0000 mSv Lifetime Dose: 0 mSv Name Value Range Interpretation Code Description Data Suze rce(s) Supporting Document(s) ID Date Data Source [id number] 11/06/2020 08:24:00 AM EDT [facility] Name: PAZ DELGADO : 1980 Age: 39 MR#: [id number] Admit Date: 11/05/20 Provider: Robert Leon MD Room #: 290 Consulting Provider: Dictation Date: 11/06/20 Progress Note Subjective-ROS Date of service Date of service:: 11/06/20 Review of Systems Attestation/Length Of Stay: 11/05/20 16:02 Admit to Inpatient, Acute [STATUS] Routine Location: [facility] Primary diagnosis: right foot cellulitis Isolation: [...] (Auto) 80.3 H, Lymph % (Auto) 14.4, [place] % (Auto) 4.5, Eos % (Auto) 0.1, [...] % (Auto) 70.7, Lymph % (Auto) 23.2, [place] % (Auto) 4.9, Eos % (Auto) 0.4, [...] rce(s) Supporting Document(s) ID Date Data Source [id number] 11/06/2020 05:57:00 AM EDT [facility] Name Value Range Interpretation Code Description Data Suze rce(s) Supporting Document(s) Leukocytes [#/volume] in Blood by Automated count 10.9 10*3/uL 4.45-10.71 Above high normal [facility] Erythrocytes [#/volume] in Blood by Automated count 3.37 10*6/uL 4.20-5.40 Below low normal [facility] Hemoglobin [Moles/volume] in Blood 9.7 g/dL 10.7-15.4 Below low no rmal [facility] Hematocrit [Volume Fraction] of Blood by Automated count 29.2 % 37-47 Below low normal [facility] Erythrocyte mean corpuscular volume [Ent itic volume] in Cord blood by Automated count 87 fL 80-96 N [facility] ital Erythrocyte mean corpuscular hemoglobin [Entitic mass] by Au tomated count 29 pg 27-31 N [facility] Erythrocyte mean corpuscular hemoglobin concentration [Mass/volume] in Cord blood 33 g/dL 33-37 N [facility] ital Erythrocyte distribution width [Entitic volume] by Automated count 13 % 11-15 N [facility] Platelets [#/volume] in Blood by Automated count 279 10*3/uL 130-472 N [facility] Platelet mean volume [Entitic volume] in Blood 10.0 fL 9.1-13.1 N [facility] Neutrophils/100 leukocytes in Blood by Automated count 70.7 % 41- 77 N [facility] Neutrophils [#/volume] in Blood by Automated count 7.7 U 1.7-7.6 Above high normal [facility] Lymphocytes/100 leukocytes in Blood by Automated count 23.2 % 14- 46 N [facility] Lymphocytes [#/volume] in Blood by Automated count 2.5 U 0.6-4.6 N [facility] Monocytes/100 leukocytes in Blood by Automated count 4.9 % 4-12 N [facility] Monocytes [#/volume] in Blood by Automated count 0.5 U 0.2-1.2 N [facility] Eosinophils/100 leukocytes in Blood by Automated count 0.4 % 0-7 N [facility] Eosinophils [#/volume] in Blood by Automated count 0.0 U 0.0-0.5 N [facility] Basophils/100 leukocytes in Blood by Automated count 0.3 % 0.4-1.3 Below low normal [facility] Basophils [#/volume] in Blood by Automated count 0.0 U 0.0-0.2 N [facility] NUCLEATED RED BLOOD CELL 0 % [facility] NUCLEATED RED BLOOD CELL# 0 U [facility] Immature granulocytes [Presence] in Blood by Automated count 0-2 N [facility] Immature granulocytes [#/volume] in Blood by Automated count 0.1 U 0-0.1 N [facility] Manual Differential panel - Blood NO [facility] ID Date Data Source [id number] 11/06/2020 06:37:00 AM EDT [facility] Name Value Range Interpretation Code Description Data Suze rce(s) Supporting Document(s) Urea nitrogen [Mass/volume] in Serum or Plasma 15 mg/dL 9-23 N [facility] Sodium [Moles/volume] in Serum or Plasma 141 mmol/L 132-146 [facility] Potassium [Moles/volume] in Serum or Plasma 4.0 mmol/L 3.5-5.5 [facility] Chloride [Moles/volume] in Serum or Plasma 110 mmol/L 99-109 Above high normal [facility] Carbon dioxide, total [Moles/volume] in Serum or Plasma 25 mmol/L 20 -31 N [facility] Anion gap in Serum or Plasma 10 mmol/L 8-16 [facility] Glucose [Mass/volume] in Serum or Plasma 117 mg/dL 74-106 Above high normal [facility] Creatinine 0.7 mg/dL 0.5-1.1 [facility] Glomerular filtration rate/1.73 sq M.pre dicted [Volume Rate/Area] in Serum or Plasma Greater Than 60 ABOVE 60 [facility] Alanine aminotransferase [Enzymatic acti vity/volume] in Serum or Plasma by With P-5'-P 21 U/L 10-49 N [facility] Aspartate aminotransferase [Enzymatic ac tivity/volume] in Serum or Plasma by With P-5'-P 22 U/L 0-33 N [facility] Alkaline phosphatase [Enzymatic activity/volume] in Serum or Plasma 81 U/L 45-129 N [facility] Calcium [Mass/volume] in Serum or Plasma 8.0 mg/dL 8.5-10.1 Below low normal [facility] Bilirubin.total [Mass/volume] in Serum or Plasma 0.3 mg/dL 0.3-1.2 [facility] Albumin [Mass/volume] in Serum or Plasma by Bromocresol purple (BCP) dye binding method 2.5 g/dL 3.2-4.8 Below low normal [facility] Protein [Mass/volume] in Serum or Plasma 6.1 g/dL 5.7-8.2 [facility] ID Date Data Source [id number] 11/05/2020 04:40:00 PM EDT [facility] Name: PAZ DELGADO : 1980 Age: 39 MR#: [id number] Admit Date: 11/05/20 Provider: Robert Leon MD [...] (Auto) 80.3 H, Lymph % (Auto) 14.4, [place] % (Auto) 4.5, Eos % (Auto) 0.1, [...] rce(s) Supporting Document(s) ID Date Data Source [id number] 11/07/2020 10:34:00 AM EDT [facility] Special Instructions: right foot@ 1 1034: Aerobic ID Sharri added. RFLXG = [email or web address].SP DESC:right footTHIS ISOLATE IS PRESUMED TO BE RESISTANT TO CLINDAMYCINBASED ON THE DETECTION OF INDUCIBLE CLINDAMYCIN RESISTANCE.CLINDAMYCIN MAY STILL BE EFFECTIVE IN SOME PATIENTS.Gp B Strep Spec Ql Cult Name Value Range Interpretation Code Description Data Suze rce(s) Supporting Document(s) Quantiy of growth NUMEROUS [facility] ID Date Data Source [id number] 11/07/2020 10:34:00 AM EDT [facility] Special Instructions: right foot@ 1 1034: Aerobic [...] <0.06 Susceptible. Indicates for microbiology susceptibilities only. [facility] Cefotaxime [Susceptibility] by Minimum inhibitory concentration (RIMA) <0.25 Susceptible. Indicates for microbiology susceptibilities only. [facility] Ceftriaxone [Susceptibility] by Minimum inhibitory concentration (RIMA) <0.25 Susceptible. Indicates for microbiology susceptibilities only. [facility] Clindamycin [Susceptibility] by Minimum inhibitory concentration (RIMA) >0.5 Resistant. Indicates for microbiology susceptibilities only. [facility] Erythromycin [Susceptibility] by Minimum inhibitory concentratio n (RIMA) >0.5 Resistant. Indicates for microbiology susceptibilities only. [facility] Penicillin [Susceptibility] by Minimum inhibitory concentration (RIMA) <0.03 Susceptible. Indicates for microbiology susceptibilities only. [facility] Tetracycline [Susceptibility] by Minimum inhibitory concentratio n (RIMA) <0.5 Susceptible. Indicates for microbiology susceptibilities only. [facility] Vancomycin [Susceptibility] by Minimum inhibitory concentration (RIMA) 0.5 Susceptible. Indicates for microbiology susceptibilities only. [facility] Levofloxacin [Susceptibility] by Minimum inhibitory concentratio n (RIMA) 0.5 Susceptible. Indicates for microbiology susceptibilities only. [facility] Cefepime [Susceptibility] by Minimum inhibitory concentration (M IC) <0.25 Susceptible. Indicates for microbiology susceptibilities only. [facility] ID Date Data Source [id number] 11/05/2020 04:17:00 PM EDT [facility] [address] [place] [address] [phone] NAME SEX PT STATUS ACCOUNT NUMBER MELISSATHOMPSONSAMANTAPAZ Heath [facility] [id number] ORDERING PHYSICIAN LOCATION MEDICAL RECORD NO. Ignacia Khanna MD [id number] ATTENDING PHYSICIAN DATE OF DATE OF EXAM/TIME [...] DO on 11/05/201617 Date Time CC: Shannon Brenabe DO Techn: MORSA Trans Dt/Tm: Trans by: DT Prt Dt/Tm: : Total DLP = 0.00 mGy-cm Fluoroscopy Time (in secs): Name Value Range Interpretation Code Description Data Suze rce(s) Supporting Document(s) ID Date Data Source [id number] 11/05/2020 04:08:00 PM EDT [facility] ED Physician Documentation NAME: PAZ DELGADO : 1980 AGE: 39 MR#: [id number] SERVICE DATE: 11/05/[address]: Ignacia Khanna [...] (Auto) 80.3 H, Lymph % (Auto) 14.4, [place] % (Auto) 4.5, Eos % (Auto) 0.1, [...] control of her diabetes. She is admitted [facility]. Plan Visit Medications Administered ED medications:: [...] rce(s) Supporting Document(s) ID Date Data Source [id number] 11/05/2020 05:35:00 PM EDT [facility] NORMAL RESULT IS "Not Detected"Cepheid S ARS-CoV-2,FLU/RSV is Multiplex real time RT-PCRNegative results do not preclude SARS-COV-2, influenza orRSV infection and should not be used as the sole basis fortreatment or other patient management decisions.False negative results may occur if virus is present atlevels below the analytical limit of detection.This test has been authorized by FDA under an EUA for use by[facility] clinichorized laboratoriesSARS-rel CoV RNA Resp Ql DAMION+probeFLUAV RNA Resp Ql DAMION+probeFLUBV RNA Resp Ql DAMION+probeRSV RNA Resp Ql DAMION+probe Name Value Range Interpretation Code Description Data Suze rce(s) Supporting Document(s) ID Date Data Source [id number] 11/05/2020 04:05:00 PM EDT [facility] Name Value Range Interpretation Code Description Data Suze rce(s) Supporting Document(s) Influenza virus A and B and SARS-CoV-2 ( COVID-19) and Respiratory syncytial virus RNA panel - Respir SARS-COV-2 NOT DETECTED [facility] This lab was ordered by [facility] and reported by [facility]. ID Date Data Source [id number] 11/05/2020 03:31:00 PM EDT [facility] @11/05/20 1530: MANUAL DIFF added. RFLXG = DIFF. Special Instructions: Lab may order repe at test if initial test elevatedPhysician If elevated, reflex second test in 4-6 hrs @11/05/20 1530: MANUAL DIFF added. RFLXG = DIFF. Name Value Range Interpretation Code Description Data Suze rce(s) Supporting Document(s) Leukocytes [#/volume] in Blood by Automated count 14.6 10*3/uL 4.45-10.71 Above high normal [facility] Erythrocytes [#/volume] in Blood by Automated count 3.70 10*6/uL 4.20-5.40 Below low normal [facility] Hemoglobin [Moles/volume] in Blood 10.7 g/dL 10.7-15.4 N [facility] Hematocrit [Volume Fraction] of Blood by Automated count 31.4 % 37-47 Below low normal [facility] Erythrocyte mean corpuscular volume [Ent itic volume] in Cord blood by Automated count 85 fL 80-96 N [facility] ital Erythrocyte mean corpuscular hemoglobin [Entitic mass] by Au tomated count 29 pg 27-31 N [facility] Erythrocyte mean corpuscular hemoglobin concentration [Mass/volume] in Cord blood 34 g/dL 33-37 N [facility] ital Erythrocyte distribution width [Entitic volume] by Automated count 13 % 11-15 N [facility] Platelets [#/volume] in Blood by Automated count 321 10*3/uL 130-472 N [facility] Platelet mean volume [Entitic volume] in Blood 9.3 fL 9.1-13.1 N [facility] Neutrophils/100 leukocytes in Blood by Automated count 80.3 % 41-77 Above high normal [facility] Neutrophils [#/volume] in Blood by Automated count 11.7 U 1.7-7.6 Above high normal [facility] Lymphocytes/100 leukocytes in Blood by Automated count 14.4 % 14- 46 N [facility] Lymphocytes [#/volume] in Blood by Automated count 2.1 U 0.6-4.6 N [facility] Monocytes/100 leukocytes in Blood by Automated count 4.5 % 4-12 N [facility] Monocytes [#/volume] in Blood by Automated count 0.7 U 0.2-1.2 N [facility] Eosinophils/100 leukocytes in Blood by Automated count 0.1 % 0-7 N [facility] Eosinophils [#/volume] in Blood by Automated count 0.0 U 0.0-0.5 N [facility] Basophils/100 leukocytes in Blood by Automated count 0.2 % 0.4-1.3 Below low normal [facility] Basophils [#/volume] in Blood by Automated count 0.0 U 0.0-0.2 N [facility] NUCLEATED RED BLOOD CELL 0 % [facility] NUCLEATED RED BLOOD CELL# 0 U [facility] Immature granulocytes [Presence] in Blood by Automated count 0-2 N [facility] Immature granulocytes [#/volume] in Blood by Automated count 0.1 U 0-0.1 N [facility] Manual Differential panel - Blood Manual Diff Added [facility] ID Date Data Source [id number] 11/05/2020 03:33:00 PM EDT [facility] @11/05/20 1530: MANUAL DIFF added. RFLXG = DIFF. Special Instructions: Lab may order repe at test if initial test elevatedPhysician If elevated, reflex second test in 4-6 hrs @11/05/20 1530: MANUAL DIFF added. RFLXG = DIFF. Name Value Range Interpretation Code Description Data Suze rce(s) Supporting Document(s) Urea nitrogen [Mass/volume] in Serum or Plasma 16 mg/dL 9-23 N [facility] Sodium [Moles/volume] in Serum or Plasma 133 mmol/L 132-146 [facility] Potassium [Moles/volume] in Serum or Plasma 4.0 mmol/L 3.5-5.5 [facility] Chloride [Moles/volume] in Serum or Plasma 101 mmol/L 99-109 N [facility] Carbon dioxide, total [Moles/volume] in Serum or Plasma 27 mmol/L 20 -31 N [facility] Anion gap in Serum or Plasma 9 mmol/L 8-16 N [facility] Glucose [Mass/volume] in Serum or Plasma 312 mg/dL 74-106 Above high normal [facility] Creatinine 0.9 mg/dL 0.5-1.1 [facility] Glomerular filtration rate/1.73 sq M.pre dicted [Volume Rate/Area] in Serum or Plasma Greater Than 60 ABOVE 60 [facility] Alanine aminotransferase [Enzymatic acti vity/volume] in Serum or Plasma by With P-5'-P 13 U/L 10-49 N [facility] ital Aspartate aminotransferase [Enzymatic ac tivity/volume] in Serum or Plasma by With P-5'-P 8 U/L 0-33 [facility] pital Alkaline phosphatase [Enzymatic activity/volume] in Serum or Plasma 78 U/L 45-129 [facility] Calcium [Mass/volume] in Serum or Plasma 8.9 mg/dL 8.5-10.1 [facility] Bilirubin.total [Mass/volume] in Serum or Plasma 0.4 mg/dL 0.3-1.2 [facility] Albumin [Mass/volume] in Serum or Plasma by Bromocresol purple (BCP) dye binding method 3.1 g/dL 3.2-4.8 Below low normal [facility] Protein [Mass/volume] in Serum or Plasma 7.5 g/dL 5.7-8.2 [facility] ID Date Data Source [id number] 11/05/2020 03:40:00 PM EDT [facility] @11/05/20 1530: MANUAL DIFF added. RFLXG = DIFF. Special Instructions: Lab may order repe at test if initial test elevatedPhysician If elevated, reflex second test in 4-6 hrs @11/05/20 1530: MANUAL DIFF added. RFLXG = DIFF. Name Value Range Interpretation Code Description Data Suze rce(s) Supporting Document(s) Lactic w Rfx (if elevated) 1.0 mmol/L 0.5-2.0 N [facility] ID Date Data Source [id number] 11/10/2020 03:08:00 PM EDT [facility] @11/05/20 1530: MANUAL DIFF added. RFLXG = DIFF. Special Instructions: Lab may order repe at test if initial test elevatedPhysician If elevated, reflex second test in 4-6 hrs @11/05/20 1530: MANUAL DIFF added. RFLXG = DIFF. Name Value Range Interpretation Code Description Data Suze rce(s) Supporting Document(s) Bacteria identified in Blood by Culture [facility] NO GROWTH AFTER 5 DAYS ID Date Data Source [id number] 11/05/2020 03:31:00 PM EDT [facility] @11/05/20 1530: MANUAL DIFF added. RFLXG = DIFF. Special Instructions: Lab may order repe at test if initial test elevatedPhysician If elevated, reflex second test in 4-6 hrs @11/05/20 1530: MANUAL DIFF added. RFLXG = DIFF. Name Value Range Interpretation Code Description Data Suze rce(s) Supporting Document(s) Cells counted [#] 100 [facility] Neutrophils [#/volume] in Blood by Manual count 85 % 41-77 Above high normal [facility] Lymphocytes [#/volume] in Blood by Manual count 14 % 14-46 N [facility] Monocytes [#/volume] in Blood by Manual count 1 % 4-12 B elow low normal [facility] Platelets [#/volume] in Blood by Estimate APPEARS NORMAL NORMAL [facility] Morphology [Interpretation] in Blood Narrative APPEARS NORMAL NORMAL [facility] ID Date Data Source [id number] 11/05/2020 03:33:00 PM EDT [facility] @11/05/20 1530: MANUAL DIFF added. RFLXG = DIFF. Special Instructions: Lab may order repe at test if initial test elevatedPhysician If elevated, reflex second test in 4-6 hrs @11/05/20 1530: MANUAL DIFF added. RFLXG = DIFF. Name Value Range Interpretation Code Description Data Suze rce(s) Supporting Document(s) C reactive protein [Mass/volume] in Serum or Plasma 117.0 mg/L 0.0-5.0 Above high normal [facility] ID Date Data Source [id number] 11/05/2020 03:54:00 PM EDT [facility] Name Value Range Interpretation Code Description Data Suze rce(s) Supporting Document(s) Magnesium [Mass/volume] in Serum or Plasma 2.3 mg/dL 1.3-2.7 N [facility] ID Date Data Source [id number] 11/05/2020 04:13:00 PM EDT [facility] Name Value Range Interpretation Code Description Data Suze rce(s) Supporting Document(s) Vitamin B12 420 pg/mL -911 N [facility] ID Date Data Source [id number] 11/05/2020 03:54:00 PM EDT [facility] Name Value Range Interpretation Code Description Data Suze rce(s) Supporting Document(s) Acetone [Presence] in Serum or Plasma NEGATIVE [facility] @Reenter manual test result: NEGATIVE@by Francia Diaz at 11/05/20 1526.@Enter lot# for AimTab tablets [id number],2022-02-05 ID Date Data Source [id number] 11/05/2020 03:54:00 PM EDT [facility] Name Value Range Interpretation Code Description Data Suze rce(s) Supporting Document(s) Folate [Mass/volume] in Serum or Plasma 7.3 ng/mL [facility] FOLATE INTERPRETATION NORMAL: GREATER THAN 5.38 INDETERMINATE: 3.38 - 5.38 DEFICIENT: LESS THAN 3.37 ID Date Data Source [id number] 11/05/2020 03:54:00 PM EDT [facility] Name Value Range Interpretation Code Description Data Suze rce(s) Supporting Document(s) Choriogonadotropin.beta subunit [Units/volume] in Serum or P lasma Less Than 1 1-3 Below low normal [facility] @Report as less than lower limitApproxim ate Gestational Age Approximate HCG Range 0.2-1 Week 5 - 50 1-2 Weeks 50 - 500 2-3 Weeks 100 - 5,000 3-4 Weeks 500 - 10,000 4-5 Weeks 1,000 - 50,000 5- 6 Weeks 10,000 - 100,000 6-8 Weeks 15,000 - 100,000 2-3 Months 10,000 - 100,000 ID Date Data Source [id number] 11/05/2020 03:54:00 PM [facility] Name Value Range Interpretation Code Description Data Suze rce(s) Supporting Document(s) Thyrotropin [Units/volume] in Serum or Plasma by Detec tion limit <= 0.005 mIU/L 0.73 u[iU]/mL 0.35-5.50 N [facility] ID Date Data Source [id number] 11/05/2020 03:40:00 PM [facility] Name Value Range Interpretation Code Description Data Suze rce(s) Supporting Document(s) Hemoglobin A1c [Mass/volume] in Blood 12.1 % 3.8-5.6 Above hig h normal [facility] @A repeat was not needed due to [...] blood glucose control.* High risk of developing skilled nursing complications such asretinopathy, nephropathy, neuropathy, cardiopathy, etc. Some danger of hypoglycemic reaction in Type I diabetics.Some glucose intolerant individuals and "Sub Clinical"diabetics may demonstrate HGBA1C levels in this area. Glucose mean value [Moles/volume] in Blood Estimated f rom glycated hemoglobin 301 mg/dL [facility] l An A1C of 7% - the goal of diabetic ther apy - is equivalentto an EAG of 154 mg/dl. ID Date Data Source [id number] 11/05/2020 03:38:00 PM [facility] Name Value Range Interpretation Code Description Data Suze rce(s) Supporting Document(s) Phosphate [Mass/volume] in Serum or Plasma 3.7 mg/dL 2.4-5.1 N [facility] ID Date Data Source [id number] 11/05/2020 11:29:00 AM [facility] Patient Name: PAZ DELGADO : 1980 Sex: F Pt Unit #: [id number] Location:[facility] Provider: Visit Date/Time: 11/05/20 Primary Insurance: [facility] [place] Secondary Insurance: Self Pay Intake Vital Signs [...] will make her feel like caring again. [facility] Medical History (Updated 11/05/20 @ 12:23 [...] Process: normal Results Urinalysis (DipStick) Urine Specific [place] 1.010 Last Edit by Shannon Zhang NP [...] 1 diabetes mellitus with hyperglycemia SNOMED Code(s): 31841336 Category: Medical Plan: Office BG is 514 [...] - Dysuria Coding Level of Care Code 49454 Est Pt Limited Comp Exam Problem Focused Diagnoses Foot pain M79.673 Uncontrolled type 1 diabetes mellitus E10.65 Additional Codes Intake - Is patient in pain?: Yes (1125F) <Electronically signed by Shannon Zhang NP> 11/05/20 1232 Name Value Range Interpretation Code Description Data Suze rce(s) Supporting Document(s) ID Date Data Source [id number] 09/26/2020 09:52:00 AM EDT [facility] [address], [place] [address] [phone] NAME SEX PT STATUS ACCOUNT NUMBER PAZ DELGADO [facility] ER [id number] ORDERING PHYSICIAN LOCATION MEDICAL RECORD NO. Jody Dupont MD ER [id number] ATTENDING PHYSICIAN DATE OF DATE OF EXAM/TIME [...] MD on 09/26/20951 Date Time CC: Ed Tyler MD; Shannon Zhang Techn: FROSA Trans Dt/Tm: Trans by: DT Prt Dt/Tm: : Total DLP = 0.00 mGy-cm Fluoroscopy Time (in secs): Name Value Range Interpretation Code Description Data Suze rce(s) Supporting Document(s) ID Date Data Source [id number] 09/26/2020 08:16:00 AM EDT [facility] ED Physician Documentation NAME: PAZ DELGADO : 1980 AGE: 39 MR#: [id number] SERVICE DATE: 09/26/[address]: Jody Dupont [...] Denies Loss of appetite Allergic/Immunologic: Denies rash [facility] Medical History (Updated 05/05/20 @ 10:11 [...] rce(s) Supporting Document(s) ID Date Data Source [id number] 09/27/2020 09:28:00 AM EDT [facility] @09/26/20 0821: Throat strep sc added. R FLXG = THSS. @09/26/20 08: Throat strep sc added. R FLXG = THSS. Name Value Range Interpretation Code Description Data Suze rce(s) Supporting Document(s) Throat culture strep No Beta Strep isolated [facility] ID Date Data Source [id number] 09/27/2020 09:28:00 AM EDT [facility] @09/26/20 0821: Throat strep sc added. R FLXG = THSS. @09/26/20 08: Throat strep sc added. R FLXG = THSS. Name Value Range Interpretation Code Description Data Suze rce(s) Supporting Document(s) Strep Antigen throat Negative by antigen detection methods [facility] ID Date Data Source [id number] 09/26/2020 08:46:00 AM EDT [facility] NORMAL RESULT IS "Not Detected"Cepheid S ARS-CoV-2,FLU/RSV is Multiplex real time RT-PCRNegative results do not preclude SARS-COV-2, influenza orRSV infection and should not be used as the sole basis fortreatment or other patient management decisions.False negative results may occur if virus is present atlevels below the analytical limit of detection.This test has been authorized by FDA under an EUA for use by[facility] [facility] clinichorized laboratoriesSARS-rel CoV RNA Resp Ql DAMION+probeFLUAV RNA Resp Ql DAMION+probeFLUBV RNA Resp Ql DAMION+probeRSV RNA Resp Ql DAMION+probe Name Value Range Interpretation Code Description Data Suze rce(s) Supporting Document(s) ID Date Data Source [id number] 09/26/2020 07:42:00 AM EDT [facility] Name Value Range Interpretation Code Description Data Suze rce(s) Supporting Document(s) Cepheid SARS/FLU/RSV RT-PCR SARS-COV-2 NOT DETECTED [facility] This lab was ordered by [facility] and reported by [facility]. ID Date Data Source [id number] 07/19/2020 03:59:53 PM EDT [facility] Name Value Range Interpretation Code Description Data Suze rce(s) Supporting Document(s) Progress Note [facility] [id number] [file] [id number] ID Date Data Source [id number] 06/10/2020 09:11:[address] [facility] Name Value Range Interpretation Code Description Data Suze rce(s) Supporting Document(s) SARS-CoV-2 (COVID-19) RNA [Presence] in Respiratory specimen by DAMION with probe detection Not Detected [facility] This lab was ordered by [facility] and reported by [email or web address]. ID Date Data Source [id number] 06/10/2020 10:09:00 AM EDT [facility] Name Value Range Interpretation Code Description Data Suze rce(s) Supporting Document(s) BinaxNow Covid-19 Ag [facility] ID Date Data Source [id number] 06/10/2020 09:00:[address] [facility] Name Value Range Interpretation Code Description Data Suze rce(s) Supporting Document(s) SARS-CoV-2 (COVID-19) Ag [Presence] in R espiratory specimen by Rapid immunoassay BinaxNow Covid -19 Ag Negative [facility] This lab was ordered by [facility] and reported by [facility]. ID Date Data Source [id number] 05/05/2020 09:54:00 AM EDT [facility] Patient Name: PAZ DELGADO : 1980 Sex: F Pt Unit #: [id number] Location:[facility] Provider: Visit Date/Time: 05/05/20 Primary Insurance: [facility] [place] Secondary Insurance: Self Pay Intake Vital Signs [...] her second COVID vaccine given on Monday. [facility] Medical History (Updated 05/05/20 @ 10:11 [...] - Nausea with vomiting, unspecified SNOMED Code(s): 12777108 Category: Medical Additional Comments Additional Comments: Doing [...] and vomiting Coding Level of Care Code 98779 Est Pt Intermediate Comp Exam Expanded Problem Focused Diagnoses Encounter for medication adjustment Z51.89 Nausea and vomiting R11.2 <Electronically signed by Shannon Zhang NP> 05/05/20 1013 Name Value Range Interpretation Code Description Data Suze rce(s) Supporting Document(s) ID Date Data Source [id number] 04/01/2020 01:31:00 PM EST [facility] ([facility]) Name Value Range Interpretation Code Description Data Suze rce(s) Supporting Document(s) Glucose [Mass/volume] in Serum or Plasma [facility] ([facility]) Hemoglobin A1c/Hemoglobin.total in Blood 7.9 [facility] ([facility]) ID Date Data Source [id number] 03/30/2020 10:01:00 AM [facility] Name Value Range Interpretation Code Description Data Suze rce(s) Supporting Document(s) Urea nitrogen [Mass/volume] in Serum or Plasma 20 mg/dL 9-23 N [facility] Sodium [Moles/volume] in Serum or Plasma 138 mmol/L 132-146 [facility] Potassium [Moles/volume] in Serum or Plasma 4.2 mmol/L 3.5-5.5 [facility] Chloride [Moles/volume] in Serum or Plasma 105 mmol/L 99-109 [facility] Carbon dioxide, total [Moles/volume] in Serum or Plasma 27 mmol/L 20 -31 [facility] Anion gap in Serum or Plasma 10 mmol/L 8-16 [facility] Glucose [Mass/volume] in Serum or Plasma 193 mg/dL 74-106 Above high normal [facility] Creatinine 0.8 mg/dL 0.5-1.1 [facility] Glomerular filtration rate/1.73 sq M.pre dicted [Volume Rate/Area] in Serum or Plasma Greater Than 60 ABOVE 60 [facility] Calcium [Mass/volume] in Serum or Plasma 9.4 mg/dL 8.5-10.1 [facility] ID Date Data Source [id number] 03/30/2020 08:35:00 AM EST [facility] ([facility]) Name Value Range Interpretation Code Description Data Suze rce(s) Supporting Document(s) Urea nitrogen [Mass/volume] in Serum or Plasma 20 mg/dL 9-23 [facility] ([facility]) E11.65 Sodium [Moles/volume] in Serum or Plasma 138 mmol/L 132-146 [facility] ([facility]) E11.65 Potassium [Moles/volume] in Serum or Plasma 4.2 mmol/L 3.5-5.5 [facility] ([facility]) E11.65 Chloride [Moles/volume] in Serum or Plasma 105 mmol/L 99-109 [facility] ([facility]) E11.65 Carbon dioxide, total [Moles/volume] in Serum or Plasma 27 mmol/L 20 -31 [facility] ([facility]) E11.65 Anion gap in Serum or Plasma 10 mmol/L 8-16 [facility] ([facility]) E11.65 Glucose [Mass/volume] in Serum or Plasma 193 mg/dL 74-106 [facility] ([facility]) E11.65 Glomerular filtration rate/1.73 sq M.pre dicted [Volume Rate/Area] in Serum or Plasma Laboratory test result [facility] ([facility]) E11.65 Creatinine 0.8 mg/dL 0.5-1.1 [facility] ([facility]) E11.65 Calcium [Mass/volume] in Serum or Plasma 9.4 mg/dL 8.5-10.1 [facility] ([facility]) E11.65 ID Date Data Source [id number] 03/16/2020 07:27:00 AM [facility] ED Physician Documentation NAME: PAZ DELGADO : 1980 AGE: 39 MR#: [id number] SERVICE DATE: 03/16/[address]: Jody Dupont [...] 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 R [...] rce(s) Supporting Document(s) ID Date Data Source [id number] 03/10/2020 09:49:39 AM EST [facility] Name Value Range Interpretation Code Description Data Suze rce(s) Supporting Document(s) Progress Note [facility] ONJCVu3qCnPESuMu51/BVUsvLYAic7RrNKpuAHv8HUduHWDuL2JwMZW5bO3jMXE2RAqMJhCxAwFvJuHt lbm [file] ICAgICAgICAgICAgICAgICAgICAgICAgICAgICAgIC AgICAgICAgICAgICAgICAgICAgICAgICAgICAgICAgICAgICAgICAgICAgICAgICAgICAgICAgICAgIC AgDQogICAgICAgICAgICAgICAgICAgICAgICAgICAgICAgICAgICAgICAgICAgICAgICAgICAgICAgIC AgICAgICAgICAgICAgICAgICAgICAgICAgICAgICAg ICAgICAgICAgICAgDQogICAgICAgICAgICAgICAgICAgICAgICAgICAgICAgICAgICAgICAgICAgICAg ICAgICAgICAgICAgICAgICAgICAgICAgICAgICAgICAgICAgICAgICAgICAgICAgICAgICAgDQogICAg ICAgICAgICAgICAgICAgICAgICAgICAgICAgICAgIC AgICAgICAgICAgICAgICAgICAgICAgICAgICAgICAgICAgICAgICAgICAgICAgICAgICAgICAgICAgIC AgICAgDQogICAgICAgICAgICAgICAgICAgICAgICAgICAgICAgICAgICAgICAgICAgICAgICAgICAgIC AgICAgICAgICAgICAgICAgICAgICAgICAgICAgICAg ICAgICAgICAgICAgICAgDQogICAgICAgICAgICAgICAgICAgICAgICAgICAgICAgICAgICAgICAgICAg ICAgICAgICAgICAgICAgICAgICAgICAgICAgICAgICAgICAgICAgICAgICAgICAgICAgICAgICAgDQog ICAgICAgICAgICAgICAgICAgICAgICAgICAgICAgIC AgICAgICAgICAgICAgICAgICAgICAgICAgICAgICAgICAgICAgICAgICAgICAgICAgICAgICAgICAgIC AgICAgICAgDQogICAgICAgICAgICAgICAgICAgICAgICAgICAgICAgICAgICAgICAgICAgICAgICAgIC AgICAgICAgICAgICAgICAgICAgICAgICAgICAgICAg ICAgICAgICAgICAgICAgICAgDQogICAgICAgICAgICAgICAgICAgICAgICAgICAgICAgICAgICAgICAg ICAgICAgICAgICAgICAgICAgICAgICAgICAgICAgICAgICAgICAgICAgICAgICAgICAgICAgICAgICAg DQogICAgICAgICAgICAgICAgICAgICAgICAgICAgIC AgICAgICAgICAgICAgICAgICAgICAgICAgICAgICAgICAgICAgICAgICAgICAgICAgICAgICAgICAgIC TlEPPoERYzUJYaGZp2C1nwNQVpFTJeSN3ySMy1Lg4+IUiGTvKwVVW8vhUysE1KXU9gg6TxXZjyANXsy6 CfNMo6QJ8KGQOiPRnkGC0LCUnole0GPMCtFQAviLBT u1hhIcTqLGD5UMEzOkduZH3BRVQtZ2fqfqUnRPWpMHBRSHncUKNYXZpzURUTWKQiKYWeRsWhUbDgPYFx RI6FNRAhF805gwOrVP8KYc5OFoSpPW5hna6IXsmhZBXxPszLRoq3TKuaDA8GgQKqdGBiPZElZTIGVqWs W6igb6ZsOinsATWFDPsgJO3Ul5JqiTBtWHd+Pg0KZW 4vh4DkDJhgNZWgXF1eey8JZZnWKzPgM3VovRtaAHInx5jrGAOgEU5yiAEoEBH0SI7opQGhaBFeXUKvxg wcJK1FBAI3NUClKT5aBKHwSRImSyG3OEKKLO0EODEbDCLbvWNzHJTaSKTUBS1THDwaFKL1UCUejpGzqX UbGMvwRV0COJRniaQvTqxnFFHUBDz+Xr3QMO6it8Zs KTmyGVReCR8nyv5TVMrJSdIaM9P0lRHiE3T9UMcoGp4LCHUqODLfLtNkUEMOIUxvON2ACV7sesU0KJ6B bHLlDGCqATCsyCGnMJe0C25euNPhXLtnUB9BQAE+Kendra+Xi2CEQGiRHHbBOKaArViXHWMKxQhZ0VoQ6YH u1VoP6CcIV52oDizvsLxFUvdVM8KTZ0sZZPqOZCJJB 5GiVJvsZ8llfWsLzVwJCSGKjDuZ05icSXrLIDaWZD8OGWbHq2ZZGEhS7RwwmJhuNxeieUjKSExSGAMPI 4SDMukctMoiMTvzVjlIG11vPjpYS4ABb3SErPlOD0oia9HaDFcVr8ZSAApBP0TUHClCSUuERAjTSV5WT AeQwOqNIriCLKpMJVvCCI8GYNhUUFyKC5FZrEpSKIq Dvz2WJTzSZTpZUYpsl8ZUKIzATGyNMA8TlCzRWHnIHJoUAvaIMNvYENnUSY0XZKlPPDxXB9GBdOsXFPl QPJiNjgvKWMeTVPcue5YPWZgRCYgCnN3CYRfUQOcUNZdZBjzECZjTPQ5LKt2ZHTrFFHzBP6ELhVrHDJi BNS8BIFsYQFrTTCuoq9FBKHsPGVjTHw5XQJtBMIxUI PcBRabAIKbCRV7ZYd2MSJeNRLsDG7IEhNvVIOfXIVxVwXxDLGwZLLjhy7JLYKqGZMxCaOhCMJyEACjVG YfYPnaIYHjPZBbWvG5RVAvPFFgYH3XVcXcYUXtGVT9WoMuJEHgQXTtpn0SWGXyZQOaTBBrNmZrEHQbWG TfSSojITYqTBY7ZzKfZOBrWLXfDD9YEtHhTKXlTAL4 ITVaODOhDGVaij5VFAUpTYOaENd9LkDhBNWiOOZaLPcyRREaFBA9AJi0TQHjARRwVL6MUlBsTUItOFFd DeJmUCIwAVZqka0DRJIyQJKoTqU8QeTyIMAnVDAgCLleTERlFWH3CMJ7BBFvHTIeVY1PJmHzDMGcImml WhJqAFUxMKJmjt3BLRSyHRRpXUH7BtRwLKIrFAVqAV wbYTQsSPL6WSMyHESpEZPpZX7PKrDxTSPcAas4OmMcFRIpEVZajl4AXXGpIOMuKKC5VoNkIJYbFWAfMO tfUFRhAHFhWDX1ZUIcGPLkSY9KQoUcYJMqBvQ7HFJxWOIwBWOykd7WzFUvqWpibw1ROEcILq3XdIzxNN PkLFulLc9kvENsVQXfLRCRMs0QjwOjTMRaPLUZXQfn TLLwGURkANP3BSG4NFJ9NbP2TOK1ZlP4QlY9UkBsIMtmYJS9YuA5WzF7HqjbCvl8HXMgSIB7SJJlUAbp XsObRsUuRIG7OTw+EU3rVSt+Dj9Qs3QzpeE5kiKrBOdbYYw5SA9JRUXUK6HGNh== ID Date Data Source [id number] 03/04/2020 06:51:00 AM [facility] Name Value Range Interpretation Code Description Data Suze rce(s) Supporting Document(s) 25-Hydroxyvitamin D2+25-Hydroxyvitamin D3 [Mass/volume ] in Serum or Plasma 39 ng/mL 30-100 [facility] Vitamin D Status 25-OH Vitamin D :Deficiency: <20 ng/mLInsufficiency: 20 - 29 ng/mLOptimal: > or = 30 ng/mLFor 25-OH Vitamin D testing on patients onD2-supplementation and patients for whom quantitationof D2 and D3 fractions is required, the QuestAssureD(TM)25- OH VIT D, (D2,D3), LC/MS/MS is recommended: ordercode 28651 (patients >2yrs).See Note 1Note 1For additional information, please refer tohttp://education.[email or web address]/faq/IRW935(This link is being provided for informational/educational purposes only.)THIS TEST WAS PERFORMED AT:[address] [address]HI PERRY MD ID Date Data Source [id number] 03/03/2020 10:34:00 AM [facility] Name Value Range Interpretation Code Description Data Suze rce(s) Supporting Document(s) Leukocytes [#/volume] in Blood by Automated count 8.8 10*3/uL 4.45-10 .71 [facility] Erythrocytes [#/volume] in Blood by Automated count 4.00 10*6/uL 4.20-5.40 Below low normal [facility] Hemoglobin [Moles/volume] in Blood 11.1 g/dL 10.7-15.4 [facility] Hematocrit [Volume Fraction] of Blood by Automated count 34.0 % 37-47 Below low normal [facility] Erythrocyte mean corpuscular volume [Ent itic volume] in Cord blood by Automated count 85.0 fL 80-[address] [facility] Erythrocyte mean corpuscular hemoglobin [Entitic mass] by Automated count 27.8 pg 27-31 N [facility] Erythrocyte mean corpuscular hemoglobin concentration [Mass/volume] in Cord blood 32.6 g/dL 33-37 Below low normal [facility] Erythrocyte distribution width [Entitic volume] by Automated count 13 % 11-15 [facility] Platelets [#/volume] in Blood by Automated count 405 10*3/uL 130-472 [facility] Platelet mean volume [Entitic volume] in Blood 9.0 fL 9.1-13. 1 Below low normal [facility] Neutrophils/100 leukocytes in Blood by Automated count 66.7 % 41- 77 N [facility] Neutrophils [#/volume] in Blood by Automated count 5.9 U 1.7-7.6 [facility] Lymphocytes/100 leukocytes in Blood by Automated count 28.3 % 14- 46 N [facility] Lymphocytes [#/volume] in Blood by Automated count 2.5 U 0.6-4.6 [facility] Monocytes/100 leukocytes in Blood by Automated count 3.1 % 4-12 Below low normal [facility] Monocytes [#/volume] in Blood by Automated count 0.3 U 0.2-1.2 [facility] Eosinophils/100 leukocytes in Blood by Automated count 0.6 % 0-7 [facility] Eosinophils [#/volume] in Blood by Automated count 0.1 U 0.0-0.5 [facility] Basophils/100 leukocytes in Blood by Automated count 0.5 % 0.4-1 .3 [facility] Basophils [#/volume] in Blood by Automated count 0.0 U 0.0-0.2 [facility] NUCLEATED RED BLOOD CELL 0 % [facility] NUCLEATED RED BLOOD CELL# 0 [facility] Immature granulocytes [Presence] in Blood by Automated count 0-2 [facility] Immature granulocytes [#/volume] in Blood by Automated count 0.1 U 0-0.1 [facility] Manual Differential panel - Blood NO [facility] ID Date Data Source [id number] 03/03/2020 11:25:00 AM EST [facility] Name Value Range Interpretation Code Description Data Suze rce(s) Supporting Document(s) Urea nitrogen [Mass/volume] in Serum or Plasma 24 mg/dL 9-23 Above high normal [facility] Sodium [Moles/volume] in Serum or Plasma 136 mmol/L 132-146 [facility] Potassium [Moles/volume] in Serum or Plasma 4.8 mmol/L 3.5-5.5 [facility] Chloride [Moles/volume] in Serum or Plasma 104 mmol/L 99-109 [facility] Carbon dioxide, total [Moles/volume] in Serum or Plasma 28 mmol/L 20 -31 [facility] Anion gap in Serum or Plasma 9 mmol/L 8-16 [facility] Glucose [Mass/volume] in Serum or Plasma 248 mg/dL 74-106 Above high normal [facility] Creatinine 0.8 mg/dL 0.5-1.1 [facility] Glomerular filtration rate/1.73 sq M.pre dicted [Volume Rate/Area] in Serum or Plasma Greater Than 60 ABOVE 60 [facility] Alanine aminotransferase [Enzymatic acti vity/volume] in Serum or Plasma by With P-5'-P 33 U/L 10-49 [facility] ital Aspartate aminotransferase [Enzymatic ac tivity/volume] in Serum or Plasma by With P-5'-P 10 U/L 0-33 [facility] pital Alkaline phosphatase [Enzymatic activity/volume] in Serum or Plasma 103 U/L 45-129 N [facility] Calcium [Mass/volume] in Serum or Plasma 9.2 mg/dL 8.5-10.1 [facility] Bilirubin.total [Mass/volume] in Serum or Plasma 0.2 mg/dL 0.3-1.2 Below low normal [facility] Albumin [Mass/volume] in Serum or Plasma by Bromocresol purple (BCP) dye binding method 3.5 g/dL 3.2-4.8 N [facility] ital Protein [Mass/volume] in Serum or Plasma 7.6 g/dL 5.7-8.2 [facility] ID Date Data Source [id number] 03/03/2020 11:25:00 AM [facility] Name Value Range Interpretation Code Description Data Suze rce(s) Supporting Document(s) C reactive protein [Mass/volume] in Serum or Plasma 5.3 mg/L 0.0-5.0 Above high normal [facility] ID Date Data Source [id number] 03/03/2020 09:37:00 AM [facility] Patient Name: PAZ DELGADO : 1980 Sex: F Pt Unit #: [id number] Location: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 Doing very well, educated and encouraged warm compresses to the left axilla. She is receptive. Follow up in 1 week if not completely resolved. 3 months for annual PE. 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 Uaczq-kl-lkwt ultrasound done for left axilla nodule negative [...] RF: 5 Follow Up Visit/Referrals: Shannon Zhang, FINANCIAL INTERN [Primary Care Provider] - (5 days) Diet:: [...] rce(s) Supporting Document(s) ID Date Data Source [id number] 02/29/2020 09:16:00 AM EST [facility] @02/29/20 0916: Aerobic ID Sharri added. R FLXG = CHGAERID. Name Value Range Interpretation Code Description Data Suze rce(s) Supporting Document(s) Bacteria identified in Wound by Aerobe culture [facility] Quantiy of growth NUMEROUS [facility] ID Date Data Source [id number] 02/29/2020 09:16:00 AM EST [facility] @02/29/20 0916: Aerobic ID Sharri added. R FLXG = CHGAERID. Name Value Range Interpretation Code Description Data Suze rce(s) Supporting Document(s) Ampicillin [Susceptibility] by Minimum inhibitory concentration (RIMA) <0.06 Susceptible. Indicates for microbiology susceptibilities only. [facility] Cefotaxime [Susceptibility] by Minimum inhibitory concentration (RIMA) <0.25 Susceptible. Indicates for microbiology susceptibilities only. [facility] Ceftriaxone [Susceptibility] by Minimum inhibitory concentration (RIMA) <0.25 Susceptible. Indicates for microbiology susceptibilities only. [facility] Clindamycin [Susceptibility] by Minimum inhibitory concentration (RIMA) >0.5 Resistant. Indicates for microbiology susceptibilities only. [facility] Erythromycin [Susceptibility] by Minimum inhibitory concentratio n (RIMA) >0.5 Resistant. Indicates for microbiology susceptibilities only. [facility] Penicillin [Susceptibility] by Minimum inhibitory concentration (RIMA) <0.03 Susceptible. Indicates for microbiology susceptibilities only. [facility] Tetracycline [Susceptibility] by Minimum inhibitory concentratio n (RIMA) >4 Resistant. Indicates for microbiology susceptibilities only. [facility] Vancomycin [Susceptibility] by Minimum inhibitory concentration (RIMA) 0.5 Susceptible. Indicates for microbiology susceptibilities only. [facility] Levofloxacin [Susceptibility] by Minimum inhibitory concentratio n (RIMA) 1 Susceptible. Indicates for microbiology susceptibilities only. [facility] Cefepime [Susceptibility] by Minimum inhibitory concentration (M IC) <0.25 Susceptible. Indicates for microbiology susceptibilities only. [facility] ID Date Data Source [id number] 02/27/2020 11:57:00 AM EST [facility] Special Instructions: Lab may order repe at test if initial test elevatedPhysician If elevated, reflex second test in 4-6 hrs Name Value Range Interpretation Code Description Data Suze rce(s) Supporting Document(s) Leukocytes [#/volume] in Blood by Automated count 10.6 10*3/uL 4.45-1 0.71 N [facility] Erythrocytes [#/volume] in Blood by Automated count 4.08 10*6/uL 4.20-5.40 Below low normal [facility] Hemoglobin [Moles/volume] in Blood 11.4 g/dL 10.7-15.4 N [facility] Hematocrit [Volume Fraction] of Blood by Automated count 35.2 % 37-47 Below low normal [facility] Erythrocyte mean corpuscular volume [Ent itic volume] in Cord blood by Automated count 86.3 fL 80-[address] [facility] Erythrocyte mean corpuscular hemoglobin [Entitic mass] by Automated count 27.9 pg 27-31 N [facility] Erythrocyte mean corpuscular hemoglobin concentration [Mass/volume] in Cord blood 32.4 g/dL 33-37 Below low normal [facility] Erythrocyte distribution width [Entitic volume] by Automated count 13 % 11-15 N [facility] Platelets [#/volume] in Blood by Automated count 331 10*3/uL 130-472 N [facility] Platelet mean volume [Entitic volume] in Blood 9.5 fL 9.1-13.1 N [facility] Neutrophils/100 leukocytes in Blood by Automated count 73.7 % 41- 77 N [facility] Neutrophils [#/volume] in Blood by Automated count 7.8 U 1.7-7.6 Above high normal [facility] Lymphocytes/100 leukocytes in Blood by Automated count 20.9 % 14- 46 N [facility] Lymphocytes [#/volume] in Blood by Automated count 2.2 U 0.6-4.6 N [facility] Monocytes/100 leukocytes in Blood by Automated count 3.7 % 4-12 Below low normal [facility] Monocytes [#/volume] in Blood by Automated count 0.4 U 0.2-1.2 N [facility] Eosinophils/100 leukocytes in Blood by Automated count 0.8 % 0-7 N [facility] Eosinophils [#/volume] in Blood by Automated count 0.1 U 0.0-0.5 [facility] Basophils/100 leukocytes in Blood by Automated count 0.5 % 0.4-1 .3 N [facility] Basophils [#/volume] in Blood by Automated count 0.1 U 0.0-0.2 N [facility] NUCLEATED RED BLOOD CELL 0 % [facility] NUCLEATED RED BLOOD CELL# 0 U [facility] Immature granulocytes [Presence] in Blood by Automated count 0-2 N [facility] Immature granulocytes [#/volume] in Blood by Automated count 0.0 U 0-0.1 N [facility] Manual Differential panel - Blood NO [facility] ID Date Data Source [id number] 02/27/2020 12:18:00 PM EST [facility] Special Instructions: Lab may order repe at test if initial test elevatedPhysician If elevated, reflex second test in 4-6 hrs Name Value Range Interpretation Code Description Data Suze rce(s) Supporting Document(s) Urea nitrogen [Mass/volume] in Serum or Plasma 14 mg/dL 9-23 N [facility] Sodium [Moles/volume] in Serum or Plasma 137 mmol/L 132-146 [facility] Potassium [Moles/volume] in Serum or Plasma 4.1 mmol/L 3.5-5.5 [facility] Chloride [Moles/volume] in Serum or Plasma 105 mmol/L 99-109 [facility] Carbon dioxide, total [Moles/volume] in Serum or Plasma 25 mmol/L 20 -31 [facility] Anion gap in Serum or Plasma 11 mmol/L 8-16 [facility] Glucose [Mass/volume] in Serum or Plasma 238 mg/dL 74-106 Above high normal [facility] Creatinine 0.8 mg/dL 0.5-1.1 [facility] Glomerular filtration rate/1.73 sq M.pre dicted [Volume Rate/Area] in Serum or Plasma Greater Than 60 ABOVE 60 [facility] Alanine aminotransferase [Enzymatic acti vity/volume] in Serum or Plasma by With P-5'-P 17 U/L 10-49 N [facility] ital Aspartate aminotransferase [Enzymatic ac tivity/volume] in Serum or Plasma by With P-5'-P 4 U/L 0-33 [facility] pital Alkaline phosphatase [Enzymatic activity/volume] in Serum or Plasma 96 U/L 45-129 [facility] Calcium [Mass/volume] in Serum or Plasma 9.3 mg/dL 8.5-10.1 [facility] Bilirubin.total [Mass/volume] in Serum or Plasma 0.4 mg/dL 0.3-1.2 [facility] Albumin [Mass/volume] in Serum or Plasma by Bromocresol purple (BCP) dye binding method 3.2 g/dL 3.2-4.8 N [facility] ital Protein [Mass/volume] in Serum or Plasma 7.8 g/dL 5.7-8.2 [facility] ID Date Data Source [id number] 02/27/2020 12:25:00 PM [facility] Special Instructions: Lab may order repe at test if initial test elevatedPhysician If elevated, reflex second test in 4-6 hrs Name Value Range Interpretation Code Description Data Suze rce(s) Supporting Document(s) Lactic w Rfx (if elevated) 2.2 mmol/L 0.5-2.0 [facility] Called to SUSANNE Alamo @ 1225 by Annel Glaser i. Results readback. ID Date Data Source [id number] 03/03/2020 11:53:00 AM [facility] Special Instructions: Lab may order repe at test if initial test elevatedPhysician If elevated, reflex second test in 4-6 hrs Name Value Range Interpretation Code Description Data Suze rce(s) Supporting Document(s) Bacteria identified in Blood by Culture [facility] NO GROWTH AFTER 5 DAYS ID Date Data Source [id number] 02/27/2020 12:18:00 PM [facility] Special Instructions: Lab may order repe at test if initial test elevatedPhysician If elevated, reflex second test in 4-6 hrs Name Value Range Interpretation Code Description Data Suze rce(s) Supporting Document(s) Magnesium [Mass/volume] in Serum or Plasma 2.0 mg/dL 1.3-2.7 [facility] ID Date Data Source [id number] 02/27/2020 12:18:00 PM [facility] Special Instructions: Lab may order repe at test if initial test elevatedPhysician If elevated, reflex second test in 4-6 hrs Name Value Range Interpretation Code Description Data Suze rce(s) Supporting Document(s) C reactive protein [Mass/volume] in Serum or Plasma 27.1 mg/L 0.0-5.0 Above high normal [facility] ID Date Data Source [id number] 02/11/2020 11:52:22 AM EST [facility] Name Value Range Interpretation Code Description Data Suze rce(s) Supporting Document(s) Progress Note [facility] [id number]/[id number]VQH3AQdAKhAfBrEoKDO9 lbm [file] [id number] ID Date Data Source [id number] 01/27/2020 09:31:27 AM EST [facility] Name Value Range Interpretation Code Description Data Suze rce(s) Supporting Document(s) Progress Note [facility] NLCSGo1aGuFDBfSq12/HRTdmKQKbb2MaHHsmPGz7NQvuAVJgS6NxTBK0fA6jRSB2NTvEJcCuTzQpQwFj lbm [file] ICAgICAgICAgICAgICAgICAgICAgICAgICAgICAgICAgICAgICAgICAgICAgICAgICAgICAgICAgICAg ICAgICAgICAgICAgICAgICAgICAgICAgICAgICAgIC AgICAgDQogICAgICAgICAgICAgICAgICAgICAgICAgICAgICAgICAgICAgICAgICAgICAgICAgICAgIC AgICAgICAgICAgICAgICAgICAgICAgICAgICAgICAgICAgICAgICAgICAgICAgDQogICAgICAgICAgIC AgICAgICAgICAgICAgICAgICAgICAgICAgICAgICAg ICAgICAgICAgICAgICAgICAgICAgICAgICAgICAgICAgICAgICAgICAgICAgICAgICAgICAgICAgDQog ICAgICAgICAgICAgICAgICAgICAgICAgICAgICAgICAgICAgICAgICAgICAgICAgICAgICAgICAgICAg ICAgICAgICAgICAgICAgICAgICAgICAgICAgICAgIC AgICAgICAgDQogICAgICAgICAgICAgICAgICAgICAgICAgICAgICAgICAgICAgICAgICAgICAgICAgIC AgICAgICAgICAgICAgICAgICAgICAgICAgICAgICAgICAgICAgICAgICAgICAgICAgDQogICAgICAgIC AgICAgICAgICAgICAgICAgICAgICAgICAgICAgICAg ICAgICAgICAgICAgICAgICAgICAgICAgICAgICAgICAgICAgICAgICAgICAgICAgICAgICAgICAgICAg DQogICAgICAgICAgICAgICAgICAgICAgICAgICAgICAgICAgICAgICAgICAgICAgICAgICAgICAgICAg ICAgICAgICAgICAgICAgICAgICAgICAgICAgICAgIC AgICAgICAgICAgDQogICAgICAgICAgICAgICAgICAgICAgICAgICAgICAgICAgICAgICAgICAgICAgIC AgICAgICAgICAgICAgICAgICAgICAgICAgICAgICAgICAgICAgICAgICAgICAgICAgICAgDQogICAgIC AgICAgICAgICAgICAgICAgICAgICAgICAgICAgICAg ICAgICAgICAgICAgICAgICAgICAgICAgICAgICAgICAgICAgICAgICAgICAgICAgICAgICAgICAgICAg ICAgDQogICAgICAgICAgICAgICAgICAgICAgICAgICAgICAgICAgICAgICAgICAgICAgICAgICAgICAg ICAgICAgICAgICAgICAgICAgICAgICAgICAgICAgIC MvNHOwHRVdXPYnIPCgOOe8E2khPGThTWLuRO7gDCj1Og6+RPdLPgQgNDJ9coInvE7WXA9ju4SeEUlaHA Mea0McCRn2CD3OGQWrJWdeXE5JIMwjai8GVIUeUNUyoXRHh1jaJxJvAKW8EUSrCectIG4HUDDpN4gjmp BbIDUgMCBSIDcgMCBSIDkgMCBSIDExIDAgUiAxMyAw BCFbNE8TTRUbL281mrXaRR7TNo5BQtYhAC0mak2QHilhLJHqHwaTTxp0LEsiNN4HvOFtcHOdKVLkSWBB GfPoQ2fol1AsDjwkBZWELQsxOM0Pm3SwcVYaVAk+Tc8DBB1mf8QtHYngUSTtVW9jpd4QDGlCCmUkJ3Wz aFzrLJErv9tlTAHqPJ4ufCCbTMY4WEXacAAnQFMiw9 KgJKA3FLUxpIVkBVUGYQKkxVJrJw6mIE2nGWVxWBT1CbMyTCXTNK6WHAJwJCGyfTYuAAEkISJHMH7PZE qwBIG7KGMmzvRcrEOeLJpjOD8ITUHvmiGhKnewBJRKNFu+Cm8WDG1ii1KdZHodAZPwHJ3cvs5CGZsWXe ZpF1A0hCKvU0Y7YJuiLq7TBEAiRGVzQiCiSLIUOWfe ZR6DRO8yliC0QA8RnXFgPXGdMDOhaQJtKGg6B86wnNQmUWbrJY0CKSX+Kendra+Jt8TEXLsGGTpXNDqRlIv TKSJJoUyM1YdX0EWj1YeI0YtLF04wQoszaWbAHbcWJ8BNW4lPZDjPSFZYC1ZkEHqpU4vxzSlObRrQZIF LwDnA01snEPyJTRlXAM2PMFcGg0CYONnR1KaetDweA hnctGwINMlXMVCSB7CJAflncPhsDOxdEomFA81vCzcPN8TQe5SGlIiXA7ijk5CfVNhLy9LYQPdLC9FUP WhTTMwDCQxEGC5EXXeGxFxMRvtZPRmDWFvSOS1MBDxNRVjSE4QOkUcZYFzEcj5EWJiDWZsBCJtax5TNH DkWPAnSXSnMBNkRCTkYIZdKFrjKXUbMUQvPEJ0TSIu GHHhBI6SVcTpSJJkIDM9OAopEMAeLOZsri0BTVFsOJPlDwZfRqZfXSQnGMIgTDqmVXWuRYJ1QEG3KBOb AUFpIO8THbEyTKGbVWJnSGQwTWVnYIEcvt1BHWHqFJMsTAM9EtLcYYKbSQJmTMmtPVHfAHL8Hom4NIFe UZObKP2PLrRxPDSyWBF7IMRrHZNdZHYfgc7OLJPzFC VnUnQ1UlZrNXDbGVLsRNxrSEJzQCQvKQOyHXMhQPKzIF2HSpXfCMObGDH8EBbqALKvMNGeew3FETOqGH QsUAV1DGIfPFUiESVtSLlcPYOdJYI3UTd2YRBeFMToBD0IJbIoMOQmTDKoSDbpPWOsVIMqwf2TZDYrSV DdFmNzWLAfLXBwSTYhHQkhEUZaIRA7HjPaROOuYKOy IG1HNoOmNVZiSHT0FZfwLBKlDYNdsk3HNBUuNZRwWpmgGHMxLKFdXKOvIGhpVNSyGFO9BRDxOZZyNJAd YW1LPjHkTHTkMvysZdPhJOFuSTWgmi6LDCRdKWVmHSHlZbXgUSCdCQClAGfcFXIbESM5NpH3UOLvPGAd CD7QCcMpBZLzVnziPuyyFTKyVVMgcl9CFFRhSPHvCA UfMiQqSIGoCMOrGWgvFBKmGSVjVdY6RPDgTXDbYJ0DIkStKJTzZvV5KfUrLLElPVWbjo1DrVXpnFyjaz 8SKEpWDb2MuRaqDLUqBWsgUz2cuAKcAMKvOLYGWo2BqgBfLHMiYVXHVZomELLvFLY1Y0R0BYE1PfS8Et EzCDU3SPZ9QbV3BlX8QqS8QgvzEjI2PUaoQRp5GSfg NLViDHUcTlXqRWj3WKQ7EIboHee8Q4S+BM4gFVf+St3Iy3NvqgO4igBqVYugBKTgAP0TFHAVN8IXIa== ID Date Data Source [id number] 01/21/2020 09:59:34 AM [facility] Name Value Range Interpretation Code Description Data Suze rce(s) Supporting Document(s) Progress Note [facility] PLXPSf0sViISPvXi62/XMOmaFDDle0QiGPyaBAo5NXoeVYVrC2NlUEQ4rP3bIZM6EQzAYfNsUxZwFpE0 lbm [file] ICAgICAgICAgICAgICAgICAgICAgICAgICAgICAgICAgICAgICAgICAgICAgICAgICAgICAgICAgICAg ICAgICAgICAgICAgICAgICAgICAgICAgDQogICAgICAgICAgICAgICAgICAgICAgICAgICAgICAgICAg ICAgICAgICAgICAgICAgICAgICAgICAgICAgICAgIC AgICAgICAgICAgICAgICAgICAgICAgICAgICAgICAgICAgDQogICAgICAgICAgICAgICAgICAgICAgIC AgICAgICAgICAgICAgICAgICAgICAgICAgICAgICAgICAgICAgICAgICAgICAgICAgICAgICAgICAgIC AgICAgICAgICAgICAgICAgDQogICAgICAgICAgICAg ICAgICAgICAgICAgICAgICAgICAgICAgICAgICAgICAgICAgICAgICAgICAgICAgICAgICAgICAgICAg ICAgICAgICAgICAgICAgICAgICAgICAgICAgDQogICAgICAgICAgICAgICAgICAgICAgICAgICAgICAg ICAgICAgICAgICAgICAgICAgICAgICAgICAgICAgIC AgICAgICAgICAgICAgICAgICAgICAgICAgICAgICAgICAgICAgDQogICAgICAgICAgICAgICAgICAgIC AgICAgICAgICAgICAgICAgICAgICAgICAgICAgICAgICAgICAgICAgICAgICAgICAgICAgICAgICAgIC AgICAgICAgICAgICAgICAgICAgDQogICAgICAgICAg ICAgICAgICAgICAgICAgICAgICAgICAgICAgICAgICAgICAgICAgICAgICAgICAgICAgICAgICAgICAg ICAgICAgICAgICAgICAgICAgICAgICAgICAgICAgDQogICAgICAgICAgICAgICAgICAgICAgICAgICAg ICAgICAgICAgICAgICAgICAgICAgICAgICAgICAgIC AgICAgICAgICAgICAgICAgICAgICAgICAgICAgICAgICAgICAgICAgDQogICAgICAgICAgICAgICAgIC AgICAgICAgICAgICAgICAgICAgICAgICAgICAgICAgICAgICAgICAgICAgICAgICAgICAgICAgICAgIC AgICAgICAgICAgICAgICAgICAgICAgDQogICAgICAg ICAgICAgICAgICAgICAgICAgICAgICAgICAgICAgICAgICAgICAgICAgICAgICAgICAgICAgICAgICAg JAOqKEYcEUYbHXAnMPHaKRKgWWFeXEMnRQYpMDLcGLYzMZk8A0ifPNPlTYGiRC6yWVn7Nq9+DQoNCmVu GAW4pvDaiK9IGU9mb9BjDRmyRIZys6BkHAh4WP3HEO WnHVomEF5RGApohh7ZYDTuROCpfJQZe8trIuMfXJT3HYJjCeoqKL8EQHAnI0pnagIqVEEgVTOGOBppZY DOUGicKXSDWSVkGKPmWcJcQtLaMPRmGA8YLCGlH347pcIuBE8ZKe5MCnAcOE3kax6OOeuyJFRlLniSYy e0MRbaVG4MrLLwkHCbVBTuMSPDNtHiG8fnp2YzVbic YAAZCZqgYR7Rj8UlfERxUEu+Ly2RJM6oh3YpFKwyJJOhSV4rpy9KTTpPFmLjS9EaoNjyRRPxd3erCOYw JT1bhJXrBVD4AGl8I8VjKOVpqI7mvHD3WPINAGKvlZXnLk3dTI1yNFKtWOPoLrC0DMYLZV6ERREcXMLf mFOjDBVoXJMQNW3BHLcjKRI7KTHvieVejRWxJUjpLL 9QYXJlbnQgMjcgMCBSDQo+Fq8SWJ7rk1AeNOolIBHkPA0ugh4DRBnUTuNuX5A8zYJuJ5X9BZkcFy0PNO TjUDGqOvDaKSMVDVtoMA8TUE3gtqJ3CT7YpYXtXEDjECMsxQEqDWa6H31emXZwYBsgCO2TDNX+Kendra+Pg 1ARFHcPXDnSKGbAtVhGUTOCwSaB4HvQ5GUu2NsM5Dy DO37dGmqodGnDDovXO2KXO4bTFQzMNJKOC7DfDLjlC9xchDsNmUgMFQVKkSiW83cdAOdENMsUHU7TXVq Gi4XQGFkK8JgoeDlkWdkhsHqKDKzMZMAEH5ARGbgnvAzkFPbyIumIB07pUulZT1RMc1GRtOfCY9rak5Y qVIdQj9CGSViRE0RJECwFUJkNTQtULS0SUFyYkMiWZ jyNGNpAOFgLMZ3EGDzOYGiKR5IRyCsAECiSkllSwHfJMQjLAHxui5PYPXoFRCbYJV1TrCxDSXdMENhCB piUWDcMSYwPUB3SQIeOJXeQA3TGzFgKSTrJKMpQSJqCGZqZJKkgz9AKVIeUHYjPhXxHeTlMPRcEVDdSM ugHZHxRUT9IpM7LWJkIEXwEO1XSvRqCUHfBRY9Lzmt KTHhNUIcwi3XFNQeXZWuQBDgWyBgTSYzLGNgAWqyTJJxFUD0YsAvGUTeYDWuBK2CIzHjSNCcEJF5KCXq USFgSXRnjs4EGVTjOCRhFYb2ZYIcXGWxJLKiBNztYQByCPT2VUM6QBKuVHJtHG3KZvBjPTKnBELqFDBa DRSpHPTebo7WIQFbWXPxWRSfXvNcKWJwDYHcBBdeET YuDRA0AJPxTOWrHKPlTM5ZBvEyHNEpDZF4XTKhSYZzBMWiqv4GPNRiNMQeCoU9VnKaWJXqKRXbARlvJJ EfYXN3WyM6HSAbRRQmXC0DJhJlVEUkNKO7VAEwMCGaDNSczg7ZHOCtJDKsVGC8HwYjRYJvRCNeUFpoBQ VoOYJ7Nfa2BPFpSXUzQE1ZObMuDYXlMle4BSLbUOVc SSCequ3GMWEyMETwJWT6MjHzIXYqWGSnJIjgDVEwYUI1ExDsDEFhOLSeUR0GWcWiINGhGcy3XCWnNVQz YYJagy1YILEtCFEzLUE7ZyWxQMGtBFVmOHxeBUJqLFQwCgN6KMSvOGMrWD4QElSiICJnVkTpDFdvONRw KCPhsl0PwYYqmPslzl6XJXnGRu3PiFooFCZzJIrcTu 7ltYRjZYLkACPHVd7ZzzIbFKRhNIKJPAjjWXAbNRF5AOGnVgdfOLetCeLfRyFzQMtbZzXmH5WxRkroNB FrIpM8WXksISOwEJBnM1XrUUUzNzB1UKIdKEO8O7ZjI8UyTCW+CN5fCFx+Ax5Mt4SvzkG5xiLvSGgcLN XqJz1EZANWW5SYBi== ID Date Data Source [id number] 01/06/2020 03:39:[address] [facility] Name Value Range Interpretation Code Description Data Suze rce(s) Supporting Document(s) Hemoglobin A1c/Hemoglobin.total in Blood 8.1 [facility] ([facility]) Glucose [Mass/volume] in Serum or Plasma 205 [facility] ([facility]) ID Date Data Source [id number] 12/02/2019 09:03:44 AM EDT [facility] Name Value Range Interpretation Code Description Data Suze rce(s) Supporting Document(s) Progress Note [facility] TBADXg3sHoGRXtPw35/UYSjeVPIrt4KsEQqjPIn9RJovGQUqS4MsWPY8dO2hJRD3CSwAEcDxVaXpDQQ4 lbm [file] HN6ZKl9FDlY0DMR3xQZvKx6ZSqFbBrhZYkIkTT6DCDj= ID Date Data Source [id number] 11/29/2019 01:53:00 PM EDT [facility] Name Value Range Interpretation Code Description Data Suze rce(s) Supporting Document(s) Erythrocyte sedimentation rate by Westergren method 51 mm/hr 0-20 Above high normal [facility] @[facility] manual test result: 51@by Concha Florence at 11/29/19 1353. ID Date Data Source [id number] 11/29/2019 01:55:00 PM [facility] Name Value Range Interpretation Code Description Data Suze rce(s) Supporting Document(s) Alanine aminotransferase [Enzymatic acti vity/volume] in Serum or Plasma by With P-5'-P 23 U/L 10-49 N [facility] ital Aspartate aminotransferase [Enzymatic ac tivity/volume] in Serum or Plasma by With P-5'-P 10 U/L 0-33 N [facility]ital Alkaline phosphatase [Enzymatic activity/volume] in Serum or Plasma 81 U/L 45-129 N [facility] Bilirubin.total [Mass/volume] in Serum or Plasma 0.3 mg/dL 0.3-1.2 N [facility] Bilirubin.direct [Mass/volume] in Serum or Plasma Less Than 0.1 0.0-0 .2 N [facility] Albumin [Mass/volume] in Serum or Plasma by Bromocresol purple (BCP) dye binding method 3.7 g/dL 3.2-4.[address] [facility] Protein [Mass/volume] in Serum or Plasma 7.6 g/dL 5.7-8.2 N [facility] ID Date Data Source [id number] 12/02[facility]2019 [facility]36[facility] Name Value Range Interpretation Code Description Data Suze rce(s) Supporting Document(s) Aldolase [Enzymatic activity/volume] in Serum or Plasma 2.9 U/L < OR = 8.1 [facility] THIS TEST WAS PERFORMED AT:[address] [address]OSCMIH MERATI,MD ID Date Data Source [id number] 11/29/2019 01:55:00 PM [facility] Name Value Range Interpretation Code Description Data Suze rce(s) Supporting Document(s) Lactate dehydrogenase [Enzymatic activity/volume] in Serum o r Plasma 133 U/L 120-246 N [facility] ID Date Data Source [id number] 12/02/2019 04:36:00 PM [facility] Name Value Range Interpretation Code Description Data Suze rce(s) Supporting Document(s) 25-Hydroxyvitamin D2+25-Hydroxyvitamin D3 [Mass/volume ] in Serum or Plasma 14 ng/mL 30-100 [facility] l Vitamin D Status 25-OH Vitamin D :Deficiency: <20 ng/mLInsufficiency: 20 - 29 ng/mLOptimal: > or = 30 ng/mLFor 25-OH Vitamin D testing on patients onD2-supplementation and patients for whom quantitationof D2 and D3 fractions is required, the QuestAssureD(TM)25- OH VIT D, (D2,D3), LC/MS/MS is recommended: ordercode 22454 (patients >2yrs).See Note 1Note 1For additional information, please refer tohttp://education.DangDang.com/faq/REK533(This link is being provided for informational/educational purposes only.)THIS TEST WAS PERFORMED AT:[facility] [address]HI PERRY MD ID Date Data Source [id number] 11/29/2019 01:55:00 PM [facility] Value Range Interpretation Code Description Data Suze rce(s) Supporting Document(s) Phosphate [Mass/volume] in Serum or Plasma 3.5 mg/dL 2.4-5.1 N [facility] ID Date Data Source [id number] 11/29/2019 01:55:00 PM [facility] Value Range Interpretation Code Description Data Suze rce(s) Supporting Document(s) Magnesium [Mass/volume] in Serum or Plasma 2.2 mg/dL 1.3-2.7 N [facility] ID Date Data Source [id number] 11/29/2019 01:55:00 PM [facility] Value Range Interpretation Code Description Data Suze rce(s) Supporting Document(s) Creatine kinase [Enzymatic activity/volume] in Serum or Plasma 62 U /L 33-211 N [facility] ID Date Data Source [id number] 11/29/2019 01:55:00 PM [facility] Value Range Interpretation Code Description Data Suze rce(s) Supporting Document(s) C reactive protein [Mass/volume] in Serum or Plasma 4.2 mg/L 0.0-5. 0 [facility] ID Date Data Source [id number] 11/29/2019 01:55:00 PM [facility] Value Range Interpretation Code Description Data Suze rce(s) Supporting Document(s) Thyrotropin [Units/volume] in Serum or Plasma by Detec tion limit <= 0.005 mIU/L 1.67 u[iU]/mL 0.35-5.50 [facility] ID Date Data Source [id number] 12/02/2019 12:01:00 PM [facility] Value Range Interpretation Code Description Data Suze rce(s) Supporting Document(s) Myoglobin [Mass/volume] in Serum or Plasma 32 mcg/L <=66 [facility] THIS TEST WAS PERFORMED AT:[facility] [id number] [place] [address]CLXORRVMARINA GARNER MD,PHD ID Date Data Source [id number] 11/29/2019 01:00:00 PM EDT [facility] [address] [place] [id number] [phone] NAME SEX PT STATUS ACCOUNT NUMBER PAZ DELGADO REG REF [id number] ORDERING PHYSICIAN LOCATION [facility] [id number] ATTENDING PHYSICIAN DATE OF DATE OF EXAM/TIME [...] Trans Dt/Tm: Trans by: DT Prt Dt/Tm: 2797-1341: Total DLP = 0.00 mGy-cm Fluoroscopy Time (in secs): Name Value Range Interpretation Code Description Data Suze rce(s) Supporting Document(s) ID Date Data Source [id number] 11/29/2019 12:59:00 PM EDT [facility] [address] [place] [address] [phone] NAME SEX PT STATUS ACCOUNT NUMBER PAZ DELGADO REG REF [id number] ORDERING PHYSICIAN LOCATION MEDICAL RECORD NO. 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 Leatha Techn: BAIAB Trans Dt/Tm: Trans by: DT Prt Dt/Tm: 8416-1535: Total DLP = 0.00 mGy-cm Fluoroscopy Time (in secs): Name Value Range Interpretation Code Description Data Suze rce(s) Supporting Document(s) ID Date Data Source [id number] 11/04/2019 12:34:45 PM EDT [facility] Vital SignsBlood Pressure: 121/90 Patient History Medical History:AsthmaDepressionHypertensionDiabetes, Type 2Surgical History:D&CTonsillectomyFamily History:Social/Personal History:Crack-smoking MarijuanaMarital StatusMarriedChildren:2 biological (11 yo son, 5 yo daughter), 1 step (11 yo son)Occupation: NoneSmoking History:Patient has never smoked. Current Problems: Need for prophylactic vaccination and inoculation against other combinations of diseases (ICD-V06.8) (FLP82-O00)Compliance poor with medications (ICD-V15.81) (LAT71-J97.19)Anxiety (ICD-300.00) (ICD10- F41.9)Depression, major (ICD-296.20) (XUW66-O76.9)Obesity (ICD-278.00) (ICD10- E66.9)URI (ICD-465.9) (AWV80-X10.9)Pharyngitis, viral (ICD-462) (ICD10- J02.9)Mixed hyperlipidemia (ICD-272.2) (RTP26-N34.2)Diabetes, Type 2 (ICD-250 .00) (ONZ73-Z26.9)Abnormal Pap Smear (ICD-V13.29) (HWB40-G42.6)Hypertension (ICD-401.9) (HYF37-Z77)Asthma (ICD-493.90) (GSP71-F10.909)depression (ICD-311) (PXM23-X94.9)Other, mixed, or unspecified drug abuse, in remission (ICD-305.93) (BHV36-X92.10)Problem list reviewed during this update.Current Medications: METFORMIN [...] F Chart Notes:ton (Nov 04 2019 1:05PM): [facility](-)Adult prophy, IO/EO completedExam with Dr HERRON-Patient brushes [...] caries, gen mild to mod gingivitisTx - jewish, improved OHOCS - WNLNV - #7,8 compGrAimee [...] Plan Medications:METFORMIN HCL 500 MG ORAL TABLETTEST [id number] CHOICE LANCETS SUPER THINGLUCOMETERAllergies:No Known Allergies (updated 11/04/2019) Electronically s igned by Bryson Martinez DDS on 11/04/2019 at 2:46 PM Name Value Range Interpretation Code Description Data Suze rce(s) Supporting Document(s) ID Date Data Source [id number] 11/05/2019 09:46:00 AM EDT [facility] Name Value Range Interpretation Code Description Data Suze rce(s) Supporting Document(s) Glutamate decarboxylase 65 Ab [Moles/volume] in Serum <5 [IU]/mL <5 [facility] This test was performed using the GAD65 NICA method,which is standardized against the Internationalreference preparation 97/550.THIS TEST WAS PERFORMED AT:[facility] [place] [address]VALUCILA GARNER MD,PHD ID Date Data Source [id number] 11/05/2019 09:46:00 AM [facility] Name Value Range Interpretation Code Description Data Suze rce(s) Supporting Document(s) C peptide [Moles/volume] in Serum or Plasma 2.12 ng/mL 0.80-3.85 [facility] THIS TEST WAS PERFORMED AT:[facility] [address] [address]DYSNPM MERATI,MD ID Date Data Source [id number] 10/31/2019 11:33:00 AM [facility] Name Value Range Interpretation Code Description Data Suze rce(s) Supporting Document(s) Urea nitrogen [Mass/volume] in Serum or Plasma 17 mg/dL 9-23 N [facility] Sodium [Moles/volume] in Serum or Plasma 141 mmol/L 132-146 N [facility] Potassium [Moles/volume] in Serum or Plasma 4.3 mmol/L 3.5-5.5 N [facility] Chloride [Moles/volume] in Serum or Plasma 109 mmol/L 99-109 N [facility] Carbon dioxide, total [Moles/volume] in Serum or Plasma 25 mmol/L 20 -31 N [facility] Anion gap in Serum or Plasma 11 mmol/L 8-16 [facility] Glucose [Mass/volume] in Serum or Plasma 196 mg/dL 74-106 Above high normal [facility] Creatinine 0.8 mg/dL 0.5-1.1 [facility] Glomerular filtration rate/1.73 sq M.pre dicted [Volume Rate/Area] in Serum or Plasma Greater Than 60 ABOVE 60 [facility] Calcium [Mass/volume] in Serum or Plasma 9.2 mg/dL 8.5-10.1 [facility] ID Date Data Source [id number] 10/31/2019 10:46:00 AM EDT [facility] ([facility]) Name Value Range Interpretation Code Description Data Suze rce(s) Supporting Document(s) Glutamate decarboxylase 65 Ab [Units/volume] in Serum Laboratory test result [facility] ([facility]) This test was performed using the GAD65 NICA method, which is standardized against the International reference preparation 97/550. THIS TEST WAS PERFORMED AT: [facility]/[address] [address] MARINA GARNER MD,PHD C peptide [Moles/volume] in Serum or Plasma 2.12 ng/mL 0.80-3.85 [facility] ([facility]) THIS TEST WAS PERFORMED AT: [facility] [address] [place] PERRY MD ID Date Data Source [id number] 10/31/2019 10:46:00 AM EDT [facility] ([facility]) Name Value Range Interpretation Code Description Data Suze rce(s) Supporting Document(s) Urea nitrogen [Mass/volume] in Serum or Plasma 17 mg/dL 9-23 [facility] ([facility]) E11.65,E10.65 Sodium [Moles/volume] in Serum or Plasma 141 mmol/L 132-146 [facility] ([facility]) E11.65,E10.65 Chloride [Moles/volume] in Serum or Plasma 109 mmol/L 99-109 [facility] ([facility]) E11.65,E10.65 Potassium [Moles/volume] in Serum or Plasma 4.3 mmol/L 3.5-5.5 [facility] ([facility]) E11.65,E10.65 Carbon dioxide, total [Moles/volume] in Serum or Plasma 25 mmol/L 20 -31 [facility] ([facility]) E11.65,E10.65 Glucose [Mass/volume] in Serum or Plasma 196 mg/dL 74-106 [facility] ([facility]) E11.65,E10.65 Anion gap in Serum or Plasma 11 mmol/L 8-16 [facility] ([facility]) E11.65,E10.65 Glomerular filtration rate/1.73 sq M.pre dicted [Volume Rate/Area] in Serum or Plasma Laboratory test result [facility] ([facility]) E11.65,E10.65 Creatinine 0.8 mg/dL 0.5-1.1 [facility] ([facility]) E11.65,E10.65 Calcium [Mass/volume] in Serum or Plasma 9.2 mg/dL 8.5-10.1 [facility] ([facility]) E11.65,E10.65 Procedure Social History Code Duration Value Status Description Data Source(s ) Smoking 12/07/2020 12:00:00 AM EDT Never Smoker completed [place] [facility] [place] 09/26/2020 08:17:36 AM EDT No completed No [facility] 09/26/2020 08:17:36 AM EDT No completed No [facility] 09/26/2020 08:17:36 AM EDT Never smoker completed Never s [facility] Smoking 09/26/2020 08:17:00 AM EDT Never smoker completed Never s [facility] 05/05/2020 09:55:11 AM EDT Never smoker completed Never [facility] Smoking 05/05/2020 09:55:00 AM EDT Never smoker completed Never [facility] Alcohol intake 04/23/2020 12:00:00 AM EDT Ex-drinker (finding) comp leted Ex- drinker (finding) [facility] Tobacco use and exposure 04/23/2020 12:00:00 AM EDT Never used co mpleted Never used [facility] Smoking 04/23/2020 12:00:00 AM EDT Never smoker completed Never s [facility] Smoking 04/17/2020 12:00:00 AM EST Patient has never smoked co mpleted Patient has never smoked [facility] ([facility] ) Smoking 04/01/2020 12:00:00 AM EST Never Smoked Cigarettes com pleted Never Smoked Cigarettes [facility] ([facility]) 03/16/2020 07:30:24 AM EST No completed No [facility] 03/16/2020 07:30:24 AM EST No completed No [facility] 03/16/2020 07:30:24 AM EST No completed No [facility] 03/16/2020 07:30:24 AM EST No completed No [facility] 03/16/2020 07:30:24 AM EST Never smoker completed Never s [facility] Smoking 03/16/2020 07:30:00 AM EST Never smoker completed Never s [facility] Alcohol intake 03/09/2020 12:00:00 AM EST Ex-drinker (finding) comp leted Ex- drinker (finding) [facility] Smoking 03/06/2020 12:00:00 AM EST Never Smoker completed Never S moker eCW1 ([facility]) Smoking 03/06/2020 12:00:00 AM EST Never Smoker completed Never S moker eCW1 ([facility]) Smoking 03/06/2020 12:00:00 AM EST Never Smoker completed Never S moker eCW1 ([facility]) 02/27/2020 01:43:13 PM EST No completed No [facility] 02/27/2020 01:43:13 PM EST No completed No [facility] 02/27/2020 01:43:13 PM EST Never smoker completed Never s [facility] 02/27/2020 01:43:13 PM EST No completed No [facility] 02/27/2020 01:43:13 PM EST No completed No [facility] 02/27/2020 01:43:13 PM EST Never smoker completed Never s [facility] Smoking 02/27/2020 01:43:00 PM EST Never smoker completed Never s [facility] Smoking 02/27/2020 01:43:00 PM EST Never smoker completed Never s [facility] Alcohol intake 02/10/2020 12:00:00 AM EST Ex-drinker (finding) comp leted Ex- drinker (finding) [facility] Alcohol intake 01/27/2020 12:00:00 AM EST Ex-drinker (finding) comp leted Ex- drinker (finding) [facility] Alcohol intake 01/20/2020 12:00:00 AM EST Ex-drinker (finding) comp leted Ex- drinker (finding) [facility] Smoking 12/04/2019 12:00:00 AM EDT Never Smoker completed [place] [email or web address] [place] Alcohol intake 11/28/2019 12:00:00 AM EDT Ex-drinker (finding) comp leted Ex- drinker (finding) [facility] Vital Signs ID Date Data Source UNK Name Value Range Interpretation Code Description Data Source(s) Systolic blood pressure 120 mm[Hg] 120 mm[Hg] [facility] Diastolic blood pressure 80 mm[Hg] 80 mm[Hg] [facility] ([facility]) Heart rate 109 /min 109 /min [facility] ([facility]) Oxygen saturation in Arterial blood by Pulse oximetry 98 % 98 % [facility] ([facility]) Body temperature 97.0 [degF] 97.0 [degF] [facility] ([facility]) Body height 65 [in_i] 65 [in_i] [facility] ([facility]) 5'5" Body weight 181.00 [lb_av] 181.00 [lb_av] [facility] Body mass index (BMI) [Ratio] 30.1 kg/m2 30.1 k g/m2 [facility] ([facility]) [place] body weight 125 [lb_av] 125 [lb_av] [facility] ([facility]) Body weight 82.102 kg 82.102 kg [facility] ([facility]) Body surface area Derived from formula 1.90 m2 1.90 m2 [facility] ([facility], ) Body mass index (BMI) [Ratio] 29.8 kg/m2 29.8 k g/m2 [facility] ([facility]) Oxygen saturation in Arterial blood by Pulse oximetry 98 % 98 % [facility] ([facility]) Systolic blood pressure 114 mm[Hg] 114 mm[Hg] [facility] ([facility] Diastolic blood pressure 70 mm[Hg] 70 mm[Hg] [facility] ([facility]) Heart rate 101 /min 101 /min [facility] ([facility]) Body temperature 97.1 [degF] 97.1 [degF] [facility] ([facility]) Body height 65.1 [in_i] 65.1 [in_i] [facility] ([facility] ) 5'5.10" Body weight 179.38 [lb_av] 179.38 [lb_av] MEDEN T ([facility]) Body weight 181.2 [lb_av] 181.2 [lb_av] eCW1 ([facility]) Body weight 82.1 kg 82.1 kg W1 ([facility]) Body height 65 [in_i] 65 [in_i] eCW1 ([facility]) Body mass index (BMI) [Ratio] 30.15 kg/m2 30.15 kg/m2 [facility] ([facility]) Heart rate 105 /min 105 /min eCW1 ([facility]) Respiratory rate 18 /min 18 /min eCW1 ([facility]) Body temperature 97.1 [degF] 97.1 [degF] eCW1 ( [facility]) Systolic blood pressure 122 mm[Hg] 122 mm[Hg] e CW1 ([facility]) Diastolic blood pressure 76 mm[Hg] 76 mm[Hg] eCW1 ([facility]) Systolic blood pressure 102 mm[Hg] 102 mm[Hg] M EDENT ([facility], ) Diastolic blood pressure 64 mm[Hg] 64 mm[Hg] MEDENT ([facility], ) Heart rate 103 /min 103 /min MEDENT ([facility], ) Oxygen saturation in Arterial blood by Pulse oximetry 99 % 99 % MEDENT ([facility]) Body temperature 97.1 [degF] 97.1 [degF] [facility] Body height 65 [in_i] 65 [in_i] [facility] ([facility]) 5'5" Body weight 179.00 [lb_av] 179.00 [lb_av] MEDEN T ([facility]) Body mass index (BMI) [Ratio] 29.8 kg/m2 29.8 k g/m2 MEDENT ([facility]) [place] body weight 125 [lb_av] 125 [lb_av] MEDEN T ([facility]) Body weight 81.194 kg 81.194 kg [facility] ([facility]) Body surface area Derived from formula 1.89 m2 1.89 m2 [facility] ([facility]) Systolic blood pressure 122 mm[Hg] 122 mm[Hg] M EDENT ([facility] ) Diastolic blood pressure 76 mm[Hg] 76 mm[Hg] MEDENT ([facility]) Heart rate 103 /min 103 /min [facility] ([facility]) Body temperature 9.6 [degF] 9.6 [degF] MEDENT ( [facility]) Body height 65.1 [in_i] 65.1 [in_i] [facility] ([facility]) 5'5.10" Body weight 184.50 [lb_av] 184.50 [lb_av] MEDEN T ([facility] ) Body mass index (BMI) [Ratio] 30.6 kg/m2 30.6 k g/m2 MEDENT ([facility] ) Oxygen saturation in Arterial blood by Pulse oximetry 98 % 98 % [facility] ([facility] ) Systolic blood pressure 118 mm[Hg] 118 mm[Hg] M EDENT ([facility] ) Body mass index (BMI) [Ratio] 29.9 kg/m2 29.9 k g/m2 MEDENT ([facility] ) Heart rate 103 /min 103 /min MEDENT ([facility] ) Body height 65.1 [in_i] 65.1 [in_i] MEDENT ([facility]) 5'5.10" Diastolic blood pressure 70 mm[Hg] 70 mm[Hg] MEDENT ([facility]) Body weight 180.25 [lb_av] 180.25 [lb_av] MEDEN T ([facility]) Oxygen saturation in Arterial blood by Pulse oximetry 97 % 97 % MEDENT ([facility]) Patient Treatment Plan of Care Planned Activity Planned Date Details Description Data Source (s) bevacizumab-awwb ([facility]) 3 mg/0.12 mL intravitreal inj ection 1.25 mg 04/23/2020 11:00:00 AM [facility] Lidocaine Hydrochloride 0.035 MG/MG Ophthalmic Gel 04/23/2020 10 :44:04 AM [facility] Proparacaine hydrochloride 5 MG/ML Ophthalmic Solution 04/23/2020 10:44:04 AM [facility] Proparacaine hydrochloride 5 MG/ML Ophthalmic Solution 04/23/2020 09:45:00 AM [facility] Phenylephrine Hydrochloride 25 MG/ML Ophthalmic Soluti on 04/23/2020 09:45:00 AM [facility] Tropicamide 10 MG/ML Ophthalmic Solution 04/23/2020 09:45:00 AM [facility] Tetracaine hydrochloride 5 MG/ML Ophthalmic Solution 10:45:[address] [facility] bevacizumab-awwb (MVASI) 3 mg/0.12 mL intravitreal inj ection 1.25 mg 03/09/2020 10:45:00 AM [facility] Proparacaine hydrochloride 5 MG/ML Ophthalmic Solution 03/09/2020 10:00:00 AM [facility] Phenylephrine Hydrochloride 25 MG/ML Ophthalmic Soluti on 03/09/2020 10:00:00 AM [facility] Tropicamide 10 MG/ML Ophthalmic Solution 03/09/2020 10:00:[address] [facility] Tetracaine hydrochloride 5 MG/ML Ophthalmic Solution 11:15:[address] [facility] Tropicamide 10 MG/ML Ophthalmic Solution 02/10/2020 10:15:[address] [facility] Phenylephrine Hydrochloride 25 MG/ML Ophthalmic Soluti on 02/10/2020 10:15:00 AM [facility] Proparacaine hydrochloride 5 MG/ML Ophthalmic Solution 02/10/2020 10:15:00 AM [facility] Tetracaine hydrochloride 5 MG/ML Ophthalmic Solution 09:30:[address] [facility] bevacizumab-awwb ([facility]ASI) 3 mg/0.12 mL intravitreal inj ection 1.25 mg 01/27/2020 09:30:00 AM [facility] Proparacaine hydrochloride 5 MG/ML Ophthalmic Solution 01/27/2020 08:15:00 AM [facility] Proparacaine hydrochloride 5 MG/ML Ophthalmic Solution 01/20/2020 10:15:00 AM [facility] Phenylephrine Hydrochloride 25 MG/ML Ophthalmic Soluti on 01/20/2020 10:15:00 AM [facility] Tropicamide 10 MG/ML Ophthalmic Solution 01/20/2020 10:15:[address] [facility] Ergocalciferol 17285 UNT Oral Capsule 12/03/2019 12:00:00 AM EDT eCW1 ([facility]) Vitamin D (Cholecalciferol) 50 MCG (1999 [place]) 12/03/2019 12:00:00 AM EDT eCW1 ([facility]) Tropicamide 10 MG/ML Ophthalmic Solution 11/28/2019 10:15:00 AM [facility] Phenylephrine Hydrochloride 25 MG/ML Ophthalmic Soluti on 11/28/2019 10:15:00 AM [facility] Proparacaine hydrochloride 5 MG/ML Ophthalmic Solution 11/28/2019 10:15:00 AM [facility]
[2020-12-17] MEDS ORDERED: GLUCAGON INJ 1MG VIAL SC PRN ×2 (00:05→13:35)
[2020-12-17] MEDS ORDERED: GLUCOSE 4GM CHEW TABLET PO PRN ×2 (00:05→13:35)
[2020-12-17] MEDS: NS 1,000 ML IV SCH ×2 (00:05→13:52)
[2020-12-17] MEDS ORDERED: DEXTROSE 50% 50 ML SYRINGE IV PRN ×2 (00:05→13:35)
--- NOTE | 2020-12-17 00:19 | HPEPDOC ---
[facility] Medical History & Physical Date of Admission Dec 16, 2020 Date of Service: Dec 16, 2020 History and Physical CHIEF COMPLAINT: R foot wound redness. HISTORY OF PRESENT ILLNESS: 40 F with a PMHx of poorly controlled IDDM2 with neuropathy, peripheral arterial disease in R leg, and a chronic wound with peristent cellulitis of the R foot. patient is being followed by Dr. Carey in wound care clinic. She had developed infection with cellulitis of the R foot wound at the end of 10/27, and was started on a course of keflex (although notes states clindamycin), which was not successful. She was then given a 10 day c ourse of doxycycline which also failed to suppress infection. Patient presents to ER with purulent discharge from the wound with surrounding cellulitis extending to the R distal leg. Found to be febrile to 100.7. Elevated WBC to 11.2. Elecated ESR 117. Elevated CRP 14.60. A1c 10.3. Foot XR showing findings c/w osteomyelitis of the 5th metatarsal and possibly proximal phalanx. Venous duplex negative for DVT. Started on empiric vancomycin and zosyn. Dr. Leigh was consulted from ER, plan for OR in am. Patient will be admitted to hospitalist service. PAST MEDICAL HISTORY: DM2 Migraines Asthma Anxiety/Depression Herpes Genitalis PAST SURGICAL HISTORY: Retina detachment surgery (06/2019) Tonsillectomy D&C in 2010 SOCIAL HISTORY: denies tobacco use denies etoh use denies illicits use FAMILY HISTORY: reviewed with patient, no pertinent history provided ALLERGIES: Please see below. REVIEW OF SYSTEMS: 10 point ROS conducted, relevant findings are noted in HPI. HOME MEDICATIONS: Please see below. PHYSICAL EXAMINATION: VITAL SIGNS: please see below General: NAD, comfortable HEENT: PERRLA, EOMI, sclerae clear Neck: supple, normal ROM, no JVD Respiratory: lungs CTAB, no wheeze, no rales, no crackles CVS: RRR, normal S1, S2, no murmurs Abdo: soft, no masses, no hepatosplenomegaly, BS+, no rebound tenderness Extremities: R foot ulceration, on lateral aspect, overlying heads of the 4th and 5th metatarsals, toes are not gangrenous. Cap refill 2 sec. Pulses weakly palpable by manual palpation. MSK: no joint deformities, normal ROM Neuro: no focal neuro deficits, moving all 4 extremities, CN2-12 intact. Strength 5/5 in all 4 extremities. No nystagmus. Psych: calm, cooperative, AAO x 3. LABORATORY DATA: See below. IMAGING: Venous Duplex RLE (12/16/20): 1. No sonographic evidence of deep venous thrombosis. 2. Mildly enlarged right inguinal lymph nodes, likely reactive R foot XR (12/16/20): Acute osteomyelitis of the 5th metatarsal and, possibly, the 5th proximal phalanx, as described above. RLE Arterial Doppler Study (12/15/20): FINDINGS: All numeric values represent peak systolic velocities in cm/SEC The ankle brachial index is 1.16. TRADE SHOW MANAGER: 119 triphasic Profunda: 85 triphasic SFA proximal: 128 triphasic SFA Mid: 115 triphasic SFA distal: 114 triphasic Popliteal: 105 monophasic Tibioperoneal trunk: 74 monophasic AIR ANALYSIS ENGINEERING TECHNICIAN proximal: 38 monophasic AIR ANALYSIS ENGINEERING TECHNICIAN distal: 88 monophasic Peroneal proximal: Not visualized Peroneal distal: Not visualized ARABELLA proximal: 107 monophasic ARABELLA distal: 137 monophasic Mild to moderate plaque formation was seen with calcifications throughout. No significant stenosis was identified. An ankle brachial index was also obtained on the left which is 1.16 MICROBIOLOGY: Please see below. ASSESSMENT: 40 F with a PMHx of poorly controlled IDDM2 with neuropathy, pe ripheral arterial disease in R leg, and a chronic wound with peristent cellulitis of the R foot. Being admitted for management of acute ostemyelitis of R 5th metarsal. Empiric vancomycin and zosyn. Dr. Leigh has been consulted for debridement in OR on 12/17/20 PLAN: Acute osteomyelitis of R foot/Diabetic foot ulcer - osteomyelitis seen on XR of R foot - WBC 11.2. ESR 117. CRP 14.6 - Dr. Leigh suggested we defer MRI for now - started empiric vancomycin and zosyn in ER. Will continue with same - f/u blood cultures x 2, and f/u wound cultures. - will trend inflammatory markers. - NPO after midnight - plan for debridement in OR in am. IDDM2 - poorly controlled, as non compliant with lantus - follows with Dr. Giordano - regular dose lantus is 40 units qam. Will reduce to 20 units qam as NPO - start ISS and FSBS AC and HS. - hold glipizide Depression/anxiety - to follow up with psychiatry outpatient - stable. DVT ppx: hepain Dispo: admitted expected to span > 2 midnights. Vital Signs Vital Signs Date Time Temp Pulse Resp B/P (MAP) Pulse Ox O2 Delivery O2 Flow Rate FiO2 12/16/20 20:34 100.7 12/16/20 15:16 125 16 165/83 (110) 100 Room Air Laboratory Data Labs 24H Laboratory Tests 2 12/16/20 20:12: Lactic Acid Level 1.2 12/16/20 20:18: Immature Granulocyte % (Auto) 1.1, Neutrophils (%) (Auto) 74.4H, Lymphocytes (%) (Auto) 18.4L, Monocytes (%) (Auto) 5.4, Eosinophils (%) (Auto) 0.3, Basophils (%) (Auto) 0.4, Neutrophils # (Auto) 8.4, Lymphocytes # (Auto) 2.1, Monocytes # (Auto) 0.6, Eosinophils # (Auto) 0.0, Basophils # (Auto) 0.0, Nucleated Red Blood Cells % (auto) 0.0, Erythrocyte Sedimentation Rate 117H, Anion Gap 6L, Glomerular Filtration Rate > 60.0, Estimated Mean Plasma Glucose 249H, Hemoglobin A1c 10.3, Calcium Level 9.2, C-Reactive Protein, Quantitative 14.60H, Coronavirus (COVID-19)(PCR) NEGATIVE, Influenza Type A (RT-PCR) NEGATIVE, Influenza Type B (RT-PCR) NEGATIVE, Respiratory Syncytial Virus (PCR) NEGATIVE 12/16/20 20:48: POC Beta HCG, Quantitative < 5.0 CBC/BMP Laboratory Tests 12/16/20 20:18 Microbiology Microbiology 12/16/20 Blood Culture, Received Pending 12/16/20 Blood Culture, Received Pending Home Medications Scheduled Glipizide (Glipizide) 5 Mg Tablet, 5 MG PO BID Insulin Glargine,Hum.rec.anlog (Lantus Solostar) 100 Unit/1 Ml Insuln.pen, 40 UNIT SC DAILY Allergies Coded Allergies: No Known Allergies (Unverified , 10/20/17) A-FIB/CHADSVASC A-FIB History Current/History of A-Fib/PAF?: No MEGAN HOLDEN MD Dec 17, 2020 00:19
[2020-12-17 03:00] VITALS: BP 131/93
[2020-12-17] MEDS: ACETAMINOPHEN TAB 650MG DOSE (2X325MG) PO PRN ×2 (03:21→21:27)
[2020-12-17] MEDS: PIPERACILLIN/TAZOBACTAM SOD 4.5 GM in D5W MINI-BAG PLUS 50 ML IV SCH ×4 (03:51→21:26)
[2020-12-17] MEDS: HEPARIN SOD (PORCINE) 5000UNITS/ML 1ML VIAL/SYRINGE SC SCH ×3 (06:00→21:26)
[2020-12-17 06:49] LABS: BASO % 0.4 % (0.0-1.0); EOS # 0.1 10^3/uL (0.0-0.5); HEMATOCRIT 26.8 % (36.0-47.0); HEMOGLOBIN 8.8 g/dl (12.0-15.5); LYMPH # 1.1 10^3/uL (1.5-5.0); LYMPH % 10.4 % (24.0-44.0); MEAN CORPUSCULAR HEMOGLOBIN 27.6 pg (27.0-33.0); MEAN CORPUSCULAR HGB CONC 32.8 g/dl (32.0-36.5); MONO # 0.5 10^3/uL (0.0-0.8); MONO % 4.5 % (2.0-8.0); NEUTROPHILS # 8.4 10^3/uL (1.5-8.5); NEUTROPHILS % 82.8 % (36.0-66.0); PLATELET COUNT, AUTOMATED 354 10^3/uL (150-450); RED BLOOD COUNT 3.19 10^6/uL (4.00-5.40); WHITE BLOOD COUNT 10.2 10^3/uL (4.0-10.0)
[2020-12-17 07:12] LABS: INR 1.1; PROTHROMBIN TIME 14.6 SECONDS (12.7-14.5)
[2020-12-17 07:15] LABS: ALBUMIN 2.4 GM/DL (3.2-5.2); ALT/SGPT 29 U/L (12-78); BILIRUBIN,TOTAL 0.5 MG/DL (0.2-1.0); BLOOD UREA NITROGEN 21 MG/DL (7-18); CALCIUM LEVEL 8.7 MG/DL (8.5-10.1); CARBON DIOXIDE LEVEL 26 MEQ/L (21-32); CHLORIDE LEVEL 103 MEQ/L (98-107); CREATININE FOR GFR 0.98 MG/DL (0.55-1.30); GLOMERULAR FILTRATION RATE > 60.0 (>60); GLUCOSE, FASTING 299 MG/DL (70-100); POTASSIUM SERUM 4.2 MEQ/L (3.5-5.1); SODIUM LEVEL 133 MEQ/L (136-145); TOTAL PROTEIN 7.4 GM/DL (6.4-8.2)
[2020-12-17] MEDS ORDERED: HumaLOG INSULIN (NovoLOG) PER UNIT SC SCH (07:30)
[2020-12-17] MEDS: VANCOMYCIN HCL 1,000 MG, VIAL MATE ADAPTER 1 EACH in NS 250 ML IV SCH ×2 (09:06→18:46)
[2020-12-17] MEDS: LEVEMIR (INSULIN DETEMIR) 1 UNITS/0.01ML SC SCH (09:09)
[2020-12-17] MEDS: ONDANSETRON 4MG/2ML VIAL IV PRN (10:44)
[2020-12-17] MEDS: HumaLOG INSULIN (NovoLOG) PER UNIT SC SCH ×2 (13:53→18:00)
--- NOTE | 2020-12-17 13:59 | IPNPDOC ---
Text Note Date of Service The patient was seen on 12/17/20. NOTE Subjective: Patient is a 40-year-old female with past medical history of poorly controlled type 2 diabetes with neuropathy, peripheral artery disease in the right leg, and chronic wound to persistent cellulitis in the right foot. Patient's been followed by Dr. Carey in the wound care clinic. Patient developed infection with cellulitis of the right foot wound the end of October and was started on a course of Keflex, although's notes say clindamycin which is not successful. She was given a 10-day course of doxycycline was also failed to suppress the infection. Patient presented emergency department with purulent discharge from the wound with surrounding cellulitis extending to the right distal leg. Vital be febrile with elevated white blood cell count elevated ESR and CRP. A1c was 10.3. Foot x-ray shows finding consistent with osteomyelitis of the fifth metatarsal and possibly proximal phalanx. Venous duplex negative for DVT. Patient says she is feeling better. Patient was awaiting going down to the operating room. Review of systems: General: Patient denies fevers HEENT: Patient denies headaches Cardiovascular: Patient denies chest pain Respiratory: Patient denies shortness of breath, cough GI: Patient denies abdominal pain, nausea, vomiting, diarrhea : Patient denies increased frequency or pain with urination Extremities: Patient reports pain in her right foot Neurological: Patient denies numbness or tingling in legs Physical exam: Vitals: See below General: Alert and oriented female patient who was laying in bed when I walked i n. Patient not appear to be in acute distress. HEENT: Normocephalic, atraumatic, moist mucous membranes. Neck: No lymphadenopathy or thyromegaly Cardiac: Regular rate and rhythm, no murmurs, normal S1, normal S2 Pulm: Clear to auscultation bilaterally. No wheezes, rhonchi, rales Abd: Nondistended, nontender to palpation, normal bowel sounds Ext: Wound the dorsal aspect of the right foot proximal to the fifth digit was ulcerated with purulent drainage and surrounding erythema Labs: See below Imaging: No new imaging is been performed Assessment/plan: 40-year-old female past medical history of poorly controlled insulin-dependent type 2 diabetes mellitus with neuropathy, peripheral artery disease in her right leg, and a chronic wound persistent cellulitis of the right foot. Be admitted for management of osteomyelitis of the right fifth metatarsal. 1. Acute osteomyelitis of the right foot/diabetic foot ulcer. Osteomyelitis seen on x-ray of the right foot. Dr. Leigh of podiatry suggested we defer MRI for now. Patient will be taken to the OR for debridement and possibly amputation. Continue vancomycin and Zosyn until cultures from surgery come back. We will trend inflammatory markers. 2. Insulin-dependent diabetes mellitus type 2. Poorly controlled as she is noncompliant with Lantus. Follows with Dr. Giordano. We will continue with medication at this time. 3. Depression/anxiety. Continue outpatient follow-up with psychiatry. DVT Prophylaxis: Heparin Disposition: Pending surgery and culture results of osteomyelitis VS,Fritz, I+O VS, Fritz, I+O Laboratory Tests 12/16/20 20:18 12/17/20 06:08 Vital Signs Date Time Temp Pulse Resp B/P (MAP) Pulse Ox O2 Delivery O2 Flow Rate FiO2 12/17/20 03:00 98.0 112 19 131/93 (106) 100 Room Air I&O- Last 24 Hours up to 6 AM 12/17/20 06:00 Intake Total 1915 ml Balance 1915 ml JIMBO GUEVARA DO Dec 17, 2020 13:59
[2020-12-17 14:00] VITALS: BP 100/57
[2020-12-17] MEDS ORDERED: LIDOCAINE 2% 100MG/5ML SDV (FOR ANES.) As Ordered ONE (16:59)
[2020-12-17] MEDS ORDERED: LIDOCAINE 1% MDV 20ML VIAL As Ordered ONE (17:00)
[2020-12-17] MEDS ORDERED: MIDAZOLAM INJ 2MG/2ML VIAL (J2250 PER 1MG) As Ordered ONE (17:00)
[2020-12-17] MEDS ORDERED: fentaNYL 100 MCG/2 ML INJECTION (J3010) As Ordered ONE (17:00)
[2020-12-17] MEDS ORDERED: BUPIVACAINE HCL 0.5% 30 ML VIAL As Ordered ONE (17:00)
[2020-12-17] MEDS ORDERED: propofoL 500 MG/50 ML VIAL As Ordered ONE (17:00)
[2020-12-17] MEDS ORDERED: LR 1,000 ML IV SCH (18:10)
[2020-12-17] MEDS ORDERED: oxyCODONE 5MG TAB PO PRN (18:10)
[2020-12-17] MEDS ORDERED: fentaNYL 100 MCG/2 ML INJECTION (J3010) IV PRN (18:10)
[2020-12-17] MEDS ORDERED: ONDANSETRON 4MG/2ML VIAL IV PRN (18:10)
--- NOTE | 2020-12-17 18:23 | CR ---
CONSULTATION DATE: 12/17/2020 REASON FOR CONSULTATION: Right foot infection. HISTORY OF PRESENT ILLNESS: Ms. Delagdo is a pleasant 40-year-old female with a history of right foot ulceration present about two months. She had recently started seeing Dr. Carey, had developed an infection, was treated with outpatient antibiotics which did not clear the infection. She was sent to the Emergency Room for further treatment. MEDICAL HISTORY: Significant for diabetes, migraines, asthma, anxiety, depression. SURGICAL HISTORY: Tonsillectomy, D&C, retina. FAMILY HISTORY: Noncontributory. SOCIAL HISTORY: Denies alcohol or tobacco. ALLERGIES: No known drug allergies. REVIEW OF SYSTEMS: Positive for fevers. Denies nausea or vomiting. LABORATORY DATA: Labs are reviewed. White blood cell count on admission is 11.2. Today it is 10.2. ESR is 117. Hemoglobin was 10.3. CRP on admission was 14.6. IMAGING DATA: X-rays are reviewed. There are findings concerning for osteomyelitis of the fifth metatarsal. There is soft tissue gas around the metatarsal neck. PHYSICAL EXAMINATION: LOWER EXTREMITY EXAMINATION: Pedal pulses are nonpalpable. There is erythema and edema to the right foot mostly centered around the ulceration which is dorsal to the fifth metatarsal head. There is exposed tendon and purulence within the wound. The patient does not have protective sensation. IMPRESSION: A 40-year-old diabetic female with neuropathy, right foot osteomyelitis. PLAN: The patient to go to OR now for right foot incision and drainage and removal of infected bone. We will operative cultures. She is scheduled to see Dr. Álvarez next week for angiogram, possible intervention. I agree with this. This will be necessary for ultimate wound healing. Further treatment depending on operative findings.
[2020-12-17 18:45] VITALS: BP 124/77
[2020-12-17 21:29] VITALS: BP 132/118
[2020-12-18] MEDS: NS 1,000 ML IV SCH ×5 (00:05→21:18)
[2020-12-18 01:44] VITALS: BP 137/85
[2020-12-18] MEDS: ONDANSETRON 4MG/2ML VIAL IV PRN ×3 (01:56→11:11)
[2020-12-18] MEDS: PIPERACILLIN/TAZOBACTAM SOD 4.5 GM in D5W MINI-BAG PLUS 50 ML IV SCH ×4 (03:31→21:15)
[2020-12-18] MEDS: ACETAMINOPHEN TAB 650MG DOSE (2X325MG) PO PRN ×2 (03:33→21:16)
[2020-12-18] MEDS: HEPARIN SOD (PORCINE) 5000UNITS/ML 1ML VIAL/SYRINGE SC SCH ×3 (05:39→21:17)
[2020-12-18] MEDS: VANCOMYCIN HCL 1,000 MG, VIAL MATE ADAPTER 1 EACH in NS 250 ML IV SCH ×2 (05:39→18:28)
[2020-12-18 06:18] VITALS: BP 135/71
--- NOTE | 2020-12-18 07:54 | RO ---
OPERATIVE NOTE DATE OF OPERATION: 12/17/2020 PREOPERATIVE DIAGNOSIS: Right foot diabetic infection. POSTOPERATIVE DIAGNOSIS: Right foot diabetic infection. PROCEDURE: Right 5th toe and metatarsal head amputation. SURGEON: Khadar Leigh DPM SHOP DIRECTOR: None. ANESTHESIA: Monitored anesthesia care, preop injection of 10 cc of 1:1 mixture of 1% Lidocaine plain and 0.5% Marcaine plain. ESTIMATED BLOOD LOSS: Minimal. MATERIALS: 3-0 nylon. INJECTABLES: None. SPECIMEN: Right 5th toe and metatarsal, aerobic and anaerobic cultures. COMPLICATIONS: None. CONDITION: Stable. INDICATIONS: Paz Delgado is a 40-year-old female who was admitted through the ER with right foot infection. She had x-rays that showed signs consistent with osteomyelitis and soft tissue gas. Decision was made to bring her to the operating room for surgical intervention. Patient site and side were identified and marked in preoperative area. Consent was reviewed and obtained. Risks, complications and alternatives to procedure were explained to the patient in detail and all questions were answered. DESCRIPTION OF PROCEDURE: The patient was brought to the operating room and placed on the table in supine position. Monitored anesthesia care was delivered by the anesthesia team.10 cc of 1:1 mixture of 1% Lidocaine plain and 0.5% mar plain were injected into the right foot. The right foot was prepped and draped in normal sterile fashion. Tourniquet was applied on the right ankle but was not utilized during the procedure. Wound was noted to be dorsal to the 5th metatarsal head, plantar aspect of the 5th toe had black necrotic tissue. Any nonviable tissue overlying the bone was debrided. There was purulent tissue and the bone was noted to be fractured and soft consistent with osteomyelitis. Metatarsal head was resected using a sagittal saw proximal to the wound, toe was inspected and the entire plantar surface was necrotic and nonviable. The 5th toe was disarticulated at metatarsophalangeal joint and this too was sent for pathology. Wound cultures were taken of the purulent fluid. Site was irrigated with normal saline. Partial wound closure was performed with 3-0 nylon; the remaining wound was packed with saline gauze. The patient was brought to PACU with vital signs stable and neurovascular status intact. She will be readmitted to the floor for continue antibiotics. She is scheduled to see Dr. Preeti Kolb for angiogram, this should take place.
[2020-12-18] MEDS: METOCLOPRAMIDE INJ 10MG/2ML VIAL (J2765 PER 1) IV PRN ×2 (10:36→21:48)
[2020-12-18] MEDS: LEVEMIR (INSULIN DETEMIR) 1 UNITS/0.01ML SC SCH (10:38)
[2020-12-18] MEDS: HumaLOG INSULIN (NovoLOG) PER UNIT SC SCH ×4 (10:39→21:00)
[2020-12-18 14:00] VITALS: BP 102/55
[2020-12-18 15:02] LABS: BLOOD UREA NITROGEN 15 MG/DL (7-18); CALCIUM LEVEL 8.2 MG/DL (8.5-10.1); CARBON DIOXIDE LEVEL 23 MEQ/L (21-32); CHLORIDE LEVEL 106 MEQ/L (98-107); GLOMERULAR FILTRATION RATE > 60.0 (>60); GLUCOSE, FASTING 217 MG/DL (70-100); POTASSIUM SERUM 4.2 MEQ/L (3.5-5.1); SODIUM LEVEL 138 MEQ/L (136-145)
--- NOTE | 2020-12-18 17:27 | IPNPDOC ---
Text Note Date of Service The patient was seen on 12/18/20. NOTE Subjective: Patient is a 40-year-old female past medical history of well-con trolled type 2 diabetes who had a right foot wound. Patient had surgery to debride the wound and had a to amputated by podiatry. Patient states she is feeling well after the surgery other than some nausea. Patient does not know she has a history of gastroparesis but does have a history of neuropathy. Patient says the foot pain is relatively well controlled does not have any other complaints today. Review of systems: General: Patient denies fevers HEENT: Patient denies headaches Cardiovascular: Patient denies chest pain Respiratory: Patient denies shortness of breath, cough GI: Patient reports some nausea but denies any abdominal pain, vomiting, or diarrhea : Patient denies increased frequency or pain with urination Extremities: Patient denies swelling or pain in extremities Neurological: Patient denies numbness or tingling in legs Physical exam: Vitals: See below General: Alert and oriented female patient who was laying in bed when I walked in. Patient not appear to be in any acute distress. HEENT: Normocephalic, atraumatic, moist mucous membranes. Neck: No lymphadenopathy or thyromegaly Cardiac: Regular rate and rhythm, no murmurs, normal S1, normal S2 Pulm: Clear to auscultation bilaterally. No wheezes, rhonchi, rales Abd: Nondistended, nontender to palpation, normal bowel sounds Ext: No edema bilateral lower extremities, the right foot was wrapped in Paul bandage without any drainage or soilage on the dressing. 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 She has been admitted for management of osteoarthritis osteomyelitis of the right fifth metatarsal. 1. Acute osteomyelitis of the right foot/diabetic foot ulcer. Osteomyelitis seen on x-ray. Dr. Leigh of podiatry brought the patient to the operating room yesterday for debridement with amputation. We will continue vancomycin and Zo syn till cultures come back. Trending inflammatory markers. 2. Insulin-dependent diabetes mellitus type 2. Poorly controlled as you noncompliant with her medications. Follows with Dr. Giordano. Continue home medications at this time. 3. Depression/anxiety. Continue outpatient follow-up and continue her home medications. DVT Prophylaxis: Heparin Disposition: Pending culture results Fritz NUNEZ, I+O Fritz NUNEZ I+O Laboratory Tests 12/18/20 14:29 Vital Signs Date Time Temp Pulse Resp B/P (MAP) Pulse Ox O2 Delivery O2 Flow Rate FiO2 12/18/20 14:00 98.9 98 20 102/55 (71) 94 12/18/20 06:18 Room Air I&O- Last 24 Hours up to 6 AM 12/18/20 06:00 Intake Total 920 ml Output Total 100 ml Balance 820 ml JIMBO GUEVARA DO Dec 18, 2020 17:27
[2020-12-18 20:55] VITALS: BP 145/85
[2020-12-18] MEDS ORDERED: VANCOMYCIN HCL 500 MG in D5W MINI-BAG PLUS 100 ML IV ONE (21:00)
[2020-12-19] MEDS: ONDANSETRON 4MG/2ML VIAL IV PRN ×3 (00:31→20:54)
[2020-12-19] MEDS ORDERED: PROMETHAZINE INJ 25 MG/ML VIAL (J2550) IV ONE (02:50)
[2020-12-19] MEDS ORDERED: COMBIVENT RESPIMAT 100-20MCG INHALER 4GM INH PRN (03:35)
[2020-12-19] MEDS: PIPERACILLIN/TAZOBACTAM SOD 4.5 GM in D5W MINI-BAG PLUS 50 ML IV SCH ×4 (03:45→21:14)
[2020-12-19] MEDS: ACETAMINOPHEN TAB 650MG DOSE (2X325MG) PO PRN (03:45)
[2020-12-19] MEDS: HEPARIN SOD (PORCINE) 5000UNITS/ML 1ML VIAL/SYRINGE SC SCH ×3 (04:59→20:54)
[2020-12-19] MEDS: VANCOMYCIN HCL 1,000 MG, VIAL MATE ADAPTER 1 EACH in NS 250 ML IV SCH ×2 (04:59→17:36)
[2020-12-19 06:07] VITALS: BP 141/81
[2020-12-19] MEDS: HumaLOG INSULIN (NovoLOG) PER UNIT SC SCH ×4 (07:30→21:00)
[2020-12-19] MEDS: NS 1,000 ML IV SCH (07:53)
[2020-12-19] MEDS: METOCLOPRAMIDE INJ 10MG/2ML VIAL (J2765 PER 1) IV PRN ×2 (07:53→17:36)
[2020-12-19 08:27] LABS: BASO % 0.2 % (0.0-1.0); EOS # 0.1 10^3/uL (0.0-0.5); EOS % 0.8 % (0.0-3.0); HEMATOCRIT 24.2 % (36.0-47.0); HEMOGLOBIN 7.7 g/dl (12.0-15.5); LYMPH # 1.9 10^3/uL (1.5-5.0); LYMPH % 20.4 % (24.0-44.0); MEAN CORPUSCULAR HEMOGLOBIN 27.2 pg (27.0-33.0); MEAN CORPUSCULAR HGB CONC 31.8 g/dl (32.0-36.5); MEAN CORPUSCULAR VOLUME 85.5 fl (80.0-96.0); MONO # 0.5 10^3/uL (0.0-0.8); MONO % 4.9 % (2.0-8.0); PLATELET COUNT, AUTOMATED 411 10^3/uL (150-450); RED BLOOD COUNT 2.83 10^6/uL (4.00-5.40); WHITE BLOOD COUNT 9.5 10^3/uL (4.0-10.0)
[2020-12-19 08:50] LABS: CALCIUM LEVEL 8.2 MG/DL (8.5-10.1); CREATININE FOR GFR 1.09 MG/DL (0.55-1.30); GLOMERULAR FILTRATION RATE 59.5 (>60); MAGNESIUM LEVEL 2.1 MG/DL (1.8-2.4); POTASSIUM SERUM 4.2 MEQ/L (3.5-5.1)
[2020-12-19] MEDS: LEVEMIR (INSULIN DETEMIR) 1 UNITS/0.01ML SC SCH (09:32)
[2020-12-19 14:00] VITALS: BP 158/90
--- NOTE | 2020-12-19 14:27 | IPNPDOC ---
Text Note Date of Service The patient was seen on 12/19/20. NOTE Subjective: Patient is a 40-year-old female with past medical history of poorly controlled type 2 diabetes with a right foot wound. Patient had surgery to do bride the wound and have the toe amputated by podiatry. Patient states she is feeling well as of surgery. Patient apparently has been nauseous all night and was vomiting throughout the night. Patient does have a history of neuropathy and may possibly have gastroparesis secondary to diabetes although does not pittman y an official diagnosis of this. Patient says the foot pain is relatively well controlled but she has been struggling to eat or drink because of the nausea. Review of systems: General: Patient denies fevers HEENT: Patient denies headaches Cardiovascular: Patient denies chest pain Respiratory: Patient denies shortness of breath, cough GI: Patient reports nausea as above. : Patient denies increased frequency or pain with urination Extremities: Patient denies swelling or pain in extremities Neurological: Patient denies numbness or tingling in legs Physical exam: Vitals: See below General: Alert and oriented female patient who was laying in bed when I walked in. Patient not appear to be in any acute distress. HEENT: Normocephalic, atraumatic, moist mucous membranes. Neck: No lymphadenopathy or thyromegaly Cardiac: Regular rate and rhythm, no murmurs, normal S1, normal S2 Pulm: Clear to auscultation bilaterally. No wheezes, rhonchi, rales Abd: Nondistended, nontender to palpation, normal bowel sounds Ext: No edema bilateral lower extremities, the foot was wrapped in gauze without any drainage or swelling on the dressing. 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 Admitted for management of osteomyelitis of the right 5th metatarsal 1. Acute osteomyelitis of the right foot. Osteomyelitis was seen on x-ray. Dr. Leigh of podiatry brought the patient in the operating room 2 days ago for debridement and amputation. Continue vancomycin and Zosyn until cultures come back. Trending inflammatory markers. 2. Insulin-dependent diabetes mellitus type 2. Poorly controlled as patient is noncompliant with her insulin. Follows with Dr. Fung. Continue insulin at this time. 3. Depression/anxiety. Continue outpatient follow-up and her home medications. 4. Nausea and vomiting. Continue metoclopramide and Zosyn. If this continues, patient may require gastric emptying study for gastroparesis work-up. 5. Hypoxia. Patient became hypoxic overnight requiring 2 L via nasal cannula oxygen. Patient has done well with this. Patient was on IV fluids and received 6 L of normal saline which has been stopped which may be contributing to the patient's hypoxia. Patient does not complain of any shortness of breath this time. DVT Prophylaxis: Heparin Disposition: Pending culture results. VS,Fishbone, I+O VS, Fishbone, I+O Laboratory Tests 12/18/20 14:29 12/19/20 07:46 Vital Signs Date Time Temp Pulse Resp B/P (MAP) Pulse Ox O2 Delivery O2 Flow Rate FiO2 12/19/20 06:07 95.8 101 18 141/81 (101) 96 Nasal Cannula 2.0 I&O- Last 24 Hours up to 6 AM 12/19/20 06:00 Intake Total 3920 ml Output Total 450 ml Balance 3470 ml JIMBO GUEVARA DO Dec 19, 2020 14:27
[2020-12-19] MEDS ORDERED: MAALOX 30 ML SUSP *UDC PO ONE (21:50)
[2020-12-19 22:00] VITALS: BP 159/89
[2020-12-20] MEDS: PIPERACILLIN/TAZOBACTAM SOD 4.5 GM in D5W MINI-BAG PLUS 50 ML IV SCH ×2 (04:36→09:40)
[2020-12-20] MEDS: METOCLOPRAMIDE INJ 10MG/2ML VIAL (J2765 PER 1) IV PRN (05:02)
[2020-12-20 06:00] VITALS: BP 116/66
[2020-12-20] MEDS: HEPARIN SOD (PORCINE) 5000UNITS/ML 1ML VIAL/SYRINGE SC SCH ×3 (06:00→21:26)
[2020-12-20] MEDS: VANCOMYCIN HCL 1,000 MG, VIAL MATE ADAPTER 1 EACH in NS 250 ML IV SCH (06:07)
[2020-12-20 07:22] LABS: BASO % 0.4 % (0.0-1.0); EOS # 0.1 10^3/uL (0.0-0.5); EOS % 0.7 % (0.0-3.0); HEMATOCRIT 22.3 % (36.0-47.0); HEMOGLOBIN 7.1 g/dl (12.0-15.5); LYMPH # 1.6 10^3/uL (1.5-5.0); LYMPH % 19.9 % (24.0-44.0); MEAN CORPUSCULAR HEMOGLOBIN 27.1 pg (27.0-33.0); MEAN CORPUSCULAR HGB CONC 31.8 g/dl (32.0-36.5); MEAN CORPUSCULAR VOLUME 85.1 fl (80.0-96.0); MONO # 0.5 10^3/uL (0.0-0.8); MONO % 5.6 % (2.0-8.0); NEUTROPHILS # 5.8 10^3/uL (1.5-8.5); NEUTROPHILS % 72.2 % (36.0-66.0); PLATELET COUNT, AUTOMATED 409 10^3/uL (150-450); RED BLOOD COUNT 2.62 10^6/uL (4.00-5.40); WHITE BLOOD COUNT 8.1 10^3/uL (4.0-10.0)
[2020-12-20 07:42] LABS: BLOOD UREA NITROGEN 14 MG/DL (7-18); C REACTIVE PROTEIN QUANTITATIV 7.63 MG/DL (0.00-0.30); CALCIUM LEVEL 8.2 MG/DL (8.5-10.1); CARBON DIOXIDE LEVEL 27 MEQ/L (21-32); CHLORIDE LEVEL 108 MEQ/L (98-107); CREATININE FOR GFR 0.94 MG/DL (0.55-1.30); GLOMERULAR FILTRATION RATE > 60.0 (>60); GLUCOSE, FASTING 152 MG/DL (70-100); MAGNESIUM LEVEL 2.2 MG/DL (1.8-2.4); POTASSIUM SERUM 3.5 MEQ/L (3.5-5.1); SODIUM LEVEL 140 MEQ/L (136-145)
[2020-12-20 07:51] LABS: ERYTHROCYTE SEDIMENTATION RATE 125 mm/hr (0-20)
[2020-12-20] MEDS: HumaLOG INSULIN (NovoLOG) PER UNIT SC SCH ×4 (08:28→20:48)
[2020-12-20] MEDS: ONDANSETRON 4MG/2ML VIAL IV PRN (08:28)
[2020-12-20] MEDS: LEVEMIR (INSULIN DETEMIR) 1 UNITS/0.01ML SC SCH (08:29)
[2020-12-20] MEDS: MAALOX 30 ML SUSP *UDC PO PRN ×2 (10:43→17:11)
[2020-12-20] MEDS: METOCLOPRAMIDE 5 MG TAB PO SCH ×3 (11:30→23:48)
--- NOTE | 2020-12-20 12:55 | IPNPDOC ---
Text Note Date of Service The patient was seen on 12/20/20. NOTE Subjective: Patient is a 40-year-old female medical history of poorly controlled type 2 diabetes with a right foot wound. Patient had surgery to deep-fried the wound and have head of the fifth metatarsal amputated by podiatry 3 days ago. Patient states her foot is feeling better but she has been having nausea and vomiting has not been able to tolerate much p.o. intake. Patient states that she has been dealing with this for about a month. Patient does have a history of neuropathy and may possibly gastroparesis secondary to diabetes but does not carry an official diagnosis. Patient was doing better this morning when I went to reevaluate her later on in the morning, she was complaining of abdominal pain stating that she felt like she was going to vomit. Patient apparently did vomit later on in the day. Patient was able to eat a small amount yesterday for dinne r. Review of systems: General: Patient denies fevers HEENT: Patient denies headaches Cardiovascular: Patient denies chest pain Respiratory: Patient denies shortness of breath, cough GI: Patient reports abdominal pain and nausea as above : Patient denies increased frequency or pain with urination Extremities: Patient denies swelling or pain in extremities Neurological: Patient denies numbness or tingling in legs Physical exam: Vitals: See below General: Alert and oriented female patient who was laying in bed when I walked in. Patient does not appear to be in any acute distress. HEENT: Normocephalic, atraumatic, moist mucous membranes. Neck: No lymphadenopathy or thyromegaly Cardiac: Regular rate and rhythm, no murmurs, normal S1, normal S2 Pulm: Clear to auscultation bilaterally. No wheezes, rhonchi, rales Abd: Nondistended, minimal abdominal pain to palpation of the left upper mendy drant., normal bowel sounds Ext: No edema bilateral lower extremities, right foot is wrapped in gauze without any drainage or blood on the dressing. 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 Admitted for management of osteomyelitis of the right fifth metatarsal. 1. Acute osteomyelitis of the right foot. Osteomyelitis was seen on x-ray. Dr. Leigh of podiatry brought the patient to the operating 3 days ago for debridement. Patient had amputation. Antibiotics were switched to Levaquin due to cultures. ESR has been elevated but CRP is trending down. Patient will be given a surgical shoe and crutches for ambulation. 2. Insulin-dependent diabetes mellitus type 2. Poorly controlled as the patient is noncompliant with her insulin. Follows with Dr. Giordano outpatient. Continue insulin at this time. 3. Depression/anxiety. Continue outpatient follow-up and her home medications. 4. Nausea and vomiting. Metoclopramide has been scheduled. If the patient continues to have nausea and vomiting, patient may require gastric emptying study for gastroparesis work-up. Advised the patient try to eat small more frequent meals if gastroparesis is truly was causing her nausea and vomiting. 5. Patient became hypoxic overnight two nights ago but has not required any oxygen therapy since waking up the morning of thirteen thousand twenty- one. Patient is not complaining of any shortness of breath at this time. DVT Prophylaxis: Heparin Disposition: Pending clinical improvement. VS,Cedrice, I+O VS, Fishbone, I+O Laboratory Tests 12/20/20 06:58 Vital Signs Date Time Temp Pulse Resp B/P (MAP) Pulse Ox O2 Delivery O2 Flow Rate FiO2 12/20/20 06:00 98.4 90 16 116/66 (83) 96 Room Air 12/19/20 06:07 2.0 I&O- Last 24 Hours up to 6 AM 12/20/20 06:00 Intake Total 1010 ml Output Total 650 ml Balance 360 ml JIMBO GUEVARA DO Dec 20, 2020 12:55
--- NOTE | 2020-12-20 15:32 | ECGEPIP ---
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
[2020-12-20] MEDS: ONDANSETRON 4 MG ORAL DISINTEGRATING TAB PO PRN ×2 (15:46→21:25)
[2020-12-20 21:46] VITALS: BP 163/89
[2020-12-21] MEDS: MAALOX 30 ML SUSP *UDC PO PRN ×2 (00:37→16:39)
[2020-12-21] MEDS: ONDANSETRON 4 MG ORAL DISINTEGRATING TAB PO PRN ×2 (04:26→13:38)
[2020-12-21] MEDS: METOCLOPRAMIDE 5 MG TAB PO SCH ×2 (05:11→12:26)
[2020-12-21] MEDS: HEPARIN SOD (PORCINE) 5000UNITS/ML 1ML VIAL/SYRINGE SC SCH (05:56)
[2020-12-21 06:00] VITALS: BP 185/83
[2020-12-21] MEDS: LevoFLOXacin 750 MG TABLET PO SCH (06:15)
[2020-12-21] MEDS ORDERED: diphenhydrAMINE 50MG/ML VIAL (J1200) IV ONE (07:50)
[2020-12-21 08:01] LABS: BASO % 0.4 % (0.0-1.0); EOS # 0.1 10^3/uL (0.0-0.5); EOS % 0.5 % (0.0-3.0); LYMPH # 1.6 10^3/uL (1.5-5.0); MEAN CORPUSCULAR HEMOGLOBIN 27.1 pg (27.0-33.0); MEAN CORPUSCULAR HGB CONC 33.3 g/dl (32.0-36.5); MEAN CORPUSCULAR VOLUME 81.3 fl (80.0-96.0); MONO # 0.4 10^3/uL (0.0-0.8); NEUTROPHILS # 7.7 10^3/uL (1.5-8.5); NEUTROPHILS % 77.7 % (36.0-66.0); PLATELET COUNT, AUTOMATED 554 10^3/uL (150-450); RED BLOOD COUNT 3.32 10^6/uL (4.00-5.40); WHITE BLOOD COUNT 9.9 10^3/uL (4.0-10.0)
[2020-12-21 08:21] LABS: BLOOD UREA NITROGEN 12 MG/DL (7-18); CALCIUM LEVEL 9.1 MG/DL (8.5-10.1); CARBON DIOXIDE LEVEL 28 MEQ/L (21-32); CHLORIDE LEVEL 100 MEQ/L (98-107); CREATININE FOR GFR 0.92 MG/DL (0.55-1.30); GLOMERULAR FILTRATION RATE > 60.0 (>60); GLUCOSE, FASTING 217 MG/DL (70-100); MAGNESIUM LEVEL 1.9 MG/DL (1.8-2.4); SODIUM LEVEL 137 MEQ/L (136-145)
[2020-12-21] MEDS: LEVEMIR (INSULIN DETEMIR) 1 UNITS/0.01ML SC SCH (08:25)
[2020-12-21] MEDS: HumaLOG INSULIN (NovoLOG) PER UNIT SC SCH ×4 (08:26→21:00)
[2020-12-21] MEDS: GASTROGRAFIN SOLUTION 30ML PO SCH ×2 (09:24→09:59)
[2020-12-21] MEDS ORDERED: ISOVUE-370 76% 100ML VIAL As Ordered ONE (09:48)
[2020-12-21 12:12] LABS: HEMATOCRIT 29.1 % (36.0-47.0); HEMOGLOBIN 9.8 g/dl (12.0-15.5); MEAN CORPUSCULAR HEMOGLOBIN 27.1 pg (27.0-33.0); MEAN CORPUSCULAR HGB CONC 33.7 g/dl (32.0-36.5); MEAN CORPUSCULAR VOLUME 80.6 fl (80.0-96.0); PLATELET COUNT, AUTOMATED 585 10^3/uL (150-450); RED BLOOD COUNT 3.61 10^6/uL (4.00-5.40); WHITE BLOOD COUNT 10.8 10^3/uL (4.0-10.0)
--- NOTE | 2020-12-21 12:35 | REP ---
INDICATION: nausea, vomiting, abd pain. COMPARISON: None TECHNIQUE: Axial contrast-enhanced images from the lung bases to the pubic symphysis using oral and 100 cc Isovue 370 intravenous contrast material. Coronal and sagittal reformations obtained. This CT examination was performed using the following dose reduction techniques: Automated exposure control, adjustment of mA and/or kv according to the patient's size, and the use of iterative reconstruction technique. FINDINGS: Lung bases demonstrate very small pleural effusions and trace basilar atelectasis. Liver demonstrates fatty infiltration without focal hepatic lesion. Spleen, pancreas, gallbladder, and right adrenal gland appear normal. Incidental small 1 cm left adrenal adenoma suggested. Evaluation of the kidneys demonstrate normal symmetric enhancement along with possible punctate nonobstructing calculi and suspected acute bilateral perinephric stranding as well as small amount of free fluid in the pelvis raising the possibility of acute pyelonephritis and correlation is required. The enteric system including stomach, small, and large bowel appears normal. No evidence for obstruction or acute inflammatory process. Normal terminal ileum and appendix are identified in the right lower quadrant. Scattered sigmoid diverticula noted without definite acute diverticulitis. Pelvis demonstrates normal bladder and age-appropriate uterus/adnexa. No significant ascites. No free air. No intraperitoneal or retroperitoneal adenopathy. Abdominal aorta and vasculature appear normal. Musculoskeletal structures are intact and without acute osseous abnormality. IMPRESSION: 1. Relatively symmetric bilateral perinephric stranding extends to the pelvis with small amount of pelvic fluid raise the possibility of acute pyelonephritis and correlation is required. Differential diagnosis may include pancreatitis although the pancreas itself appears relatively normal. 2. Nonacute findings including diverticulosis and suspected small left adrenal adenoma. <Electronically signed by Osvaldo Johnson > 12/21/20 [id number]
[2020-12-21] MEDS: diphenhydrAMINE 25MG CAP PO PRN ×3 (13:38→21:25)
[2020-12-21 14:00] VITALS: BP 180/60
[2020-12-21] MEDS ORDERED: amLODIPine 5 MG TAB PO ONE (15:25)
--- NOTE | 2020-12-21 15:28 | IPNPDOC ---
Text Note Date of Service The patient was seen on 12/21/20. NOTE Subjective: Patient is a 40-year-old female with medical history of poorly c ontrolled type 2 diabetes with right foot wound. Patient has surgery to do bride the wound and have the head of the fifth metatarsal amputated by podiatry 4 days ago. Patient states her foot is feeling better but she is been having nausea and vomiting throughout her entire admission which is worsened over the past 2 days. Patient's not been able to tolerate any p.o. intake. Patient states that she been dealing for this for about a month but it is worsened acutely over the past few days. Patient does have a history of neuropathy and a possible gastroparesis secondary to diabetes but does not carry an official diagnosis at this time. Patient was placed on p.o. scheduled Reglan as well as p.o. Zofran as needed which has not helped. Patient continues to vomit anytime she tries to eat or drink anything. Patient is complaining of stomach pain at this time. Patient states that she has not had a bowel movement although when talking with nursing, patient did have a bowel movement yesterday which is described as brown and formed. Review of systems: General: Patient denies fevers HEENT: Patient denies headaches Cardiovascular: Patient denies chest pain Respiratory: Patient denies shortness of breath, cough GI: Patient reports abdominal pain and nausea and vomiting as above. : Patient denies increased frequency or pain with urination Extremities: Patient denies swelling or pain in extremities Neurological: Patient denies numbness or tingling in legs Physical exam: Vitals: See below General: Alert and oriented female patient who was laying in bed on her side when I walked in. Patient appeared uncomfortable but did not appear to be in any acute distress. HEENT: Normocephalic, atraumatic, moist mucous membranes. Neck: No lymphadenopathy or thyromegaly Cardiac: Regular rate and rhythm, no murmurs, normal S1, normal S2 Pulm: Clear to auscultation bilaterally. No wheezes, rhonchi, rales Abd: Nondistended, minimal tenderness in the upper abdomen, no rebound tenderness normal bowel sounds Ext: No edema bilateral lower extremities Labs: See below Imaging: CT of the abdomen and pelvis with p.o. and IV contrast performed on 12/21/2020 is reported to show relatively symmetric bilateral perinephric stranding sense of the pelvis with small amount of pelvic fluid raise possibility of acute pyelonephritis and correlation is required. Differential diagnosis may include pancreatitis although the pancreas itself appears relatively normal. Nonacute findings include diverticulosis and suspected left adrenal adenoma. Assessment/plan: 40-year-old female presented to the hospital with a diabetic foot wound who had amputation of the fifth metatarsal for management of osteomyelitis. 1. Acute osteomyelitis of the right foot. Osteomyelitis seen on x-ray. Podiatry took the patient to the operating room 4 days ago for debridement. Patient had amputation. Antibiotics switched to Levaquin due to culture results. Patient may only need a few more days of antibiotics at this time. 2. Anemia, unknown cause. Patient's hemoglobin has been downtrending to a low of 7.1 this morning. Patient was consented for blood. Stool occult blood negative. With the patient vomiting, vomitus does not appear to have any blood in it. Patient had repeat CBC performed which does show that the hemoglobin is back to where it was when the patient was admitted at 9.8. Iron panel will be ordered. 3. Insulin-dependent diabetes mellitus type 2. Poorly controlled as the allison ent is noncompliant with her insulin. Follows with Dr. Giordano outpatient. Continue insulin at this time. 4. Depression/anxiety. Continue outpatient follow-up. 5. Nausea and vomiting. Metoclopramide has been discontinued as it is not helping the patient. Patient was switched to p.o. Benadryl which does appear to be helping. CT of the abdomen pelvis did not show a reason for the patient's vo miting. Patient's CT does show possible pancreatitis although the pancreas is appear normal. Lipase has been ordered. 6. Hypoxia. Patient became hypoxic overnight a few nights ago but is not requ ired oxygen therapy since. 7. Hypertension. Patient's blood pressures have been elevated over the last 24 to 48 hours. Patient was started on amlodipine starting with a one-time dose today. Amlodipine will be daily with hold parameters. Patient's blood pressure is still difficult to control. We will use a dose of chlorthalidone. Patient received IV contrast today and can be restarted on lisinopril as she does have diabetes and lisinopril will be helpful in protecting her kidneys from further damage secondary to diabetes however, I do not want to start this at this time secondary to the IV contrast. DVT Prophylaxis: Heparin which is being held due to anemia but this can be restarted at this time as the patient does not appear to have a GI bleed. Disposition: Pending clinical improvement. VS,Fritz, I+O VS, Pasqualebone, I+O Laboratory Tests 12/21/20 07:48 12/21/20 12:00 Vital Signs Date Time Temp Pulse Resp B/P (MAP) Pulse Ox O2 Delivery O2 Flow Rate FiO2 12/21/20 09:00 2.0 12/21/20 06:00 98.0 101 18 185/83 (117) 100 Room Air I&O- Last 24 Hours up to 6 AM 12/21/20 06:00 Intake Total 1390 ml Output Total 900 ml Balance 490 ml JIMBO GUEVARA DO Dec 21, 2020 15:28
[2020-12-21] MEDS ORDERED: amLODIPine 5 MG TAB PO SCH (16:00)
[2020-12-21 16:45] VITALS: BP 192/88
[2020-12-21 17:24] LABS: LIPASE 104 U/L (73-393)
[2020-12-21] MEDS ORDERED: CHLORTHALIDONE 25 MG TAB PO ONE (17:45)
[2020-12-21 18:17] LABS: HEMATOCRIT 31.1 % (36.0-47.0); HEMOGLOBIN 10.2 g/dl (12.0-15.5); MEAN CORPUSCULAR HEMOGLOBIN 26.8 pg (27.0-33.0); MEAN CORPUSCULAR HGB CONC 32.8 g/dl (32.0-36.5); MEAN CORPUSCULAR VOLUME 81.6 fl (80.0-96.0); RED BLOOD COUNT 3.81 10^6/uL (4.00-5.40); WHITE BLOOD COUNT 10.6 10^3/uL (4.0-10.0)
[2020-12-21 18:18] LABS: PLATELET COUNT, AUTOMATED 696 10^3/uL (150-450)
[2020-12-21 22:00] VITALS: BP 179/97
[2020-12-22 00:44] LABS: HEMATOCRIT 29.6 % (36.0-47.0); HEMOGLOBIN 9.9 g/dl (12.0-15.5); MEAN CORPUSCULAR HEMOGLOBIN 26.9 pg (27.0-33.0); MEAN CORPUSCULAR HGB CONC 33.4 g/dl (32.0-36.5); MEAN CORPUSCULAR VOLUME 80.4 fl (80.0-96.0); RED BLOOD COUNT 3.68 10^6/uL (4.00-5.40); WHITE BLOOD COUNT 10.7 10^3/uL (4.0-10.0)
[2020-12-22 00:51] LABS: PLATELET COUNT, AUTOMATED 580 10^3/uL (150-450)
[2020-12-22] MEDS: LevoFLOXacin 750 MG TABLET PO SCH (05:23)
[2020-12-22] MEDS: diphenhydrAMINE 25MG CAP PO PRN (05:23)
[2020-12-22 06:00] VITALS: BP 178/96
[2020-12-22 06:12] LABS: BASO # 0.1 10^3/uL (0.0-0.2); BASO % 0.5 % (0.0-1.0); EOS # 0.1 10^3/uL (0.0-0.5); EOS % 1.2 % (0.0-3.0); HEMOGLOBIN 10.2 g/dl (12.0-15.5); LYMPH # 2.1 10^3/uL (1.5-5.0); LYMPH % 20.2 % (24.0-44.0); MEAN CORPUSCULAR HEMOGLOBIN 26.7 pg (27.0-33.0); MEAN CORPUSCULAR HGB CONC 32.9 g/dl (32.0-36.5); MEAN CORPUSCULAR VOLUME 81.2 fl (80.0-96.0); MONO # 0.5 10^3/uL (0.0-0.8); MONO % 4.8 % (2.0-8.0); NEUTROPHILS # 7.5 10^3/uL (1.5-8.5); NEUTROPHILS % 70.9 % (36.0-66.0); PLATELET COUNT, AUTOMATED 661 10^3/uL (150-450); RED BLOOD COUNT 3.82 10^6/uL (4.00-5.40); WHITE BLOOD COUNT 10.6 10^3/uL (4.0-10.0)
[2020-12-22 06:30] LABS: BLOOD UREA NITROGEN 15 MG/DL (7-18); CALCIUM LEVEL 9.2 MG/DL (8.5-10.1); CARBON DIOXIDE LEVEL 30 MEQ/L (21-32); CHLORIDE LEVEL 95 MEQ/L (98-107); CREATININE FOR GFR 0.94 MG/DL (0.55-1.30); GLOMERULAR FILTRATION RATE > 60.0 (>60); GLUCOSE, FASTING 202 MG/DL (70-100); MAGNESIUM LEVEL 1.9 MG/DL (1.8-2.4); POTASSIUM SERUM 3.1 MEQ/L (3.5-5.1); SODIUM LEVEL 135 MEQ/L (136-145)
[2020-12-22] MEDS: HumaLOG INSULIN (NovoLOG) PER UNIT SC SCH ×4 (08:34→21:00)
[2020-12-22] MEDS: amLODIPine 5 MG TAB PO SCH (08:35)
[2020-12-22] MEDS: LEVEMIR (INSULIN DETEMIR) 1 UNITS/0.01ML SC SCH (08:35)
[2020-12-22] MEDS: ONDANSETRON 4 MG ORAL DISINTEGRATING TAB PO PRN (08:35)
[2020-12-22] MEDS ORDERED: LEVO750T13 PO (09:20)
[2020-12-22] MEDS ORDERED: AMLO1TAB24 PO (09:20)
[2020-12-22] MEDS ORDERED: POTASSIUM CHLORIDE 10MEQ SR TABLET PO ONE (10:00)
[2020-12-22] MEDS: KCL 10MEQ/100ML SWI (KRUN) 10 MEQ in IV 1 EA IV SCH ×3 (10:56→13:51)
[2020-12-22] MEDS: METOCLOPRAMIDE INJ 10MG/2ML VIAL (J2765 PER 1) IV SCH ×3 (10:56→21:28)
[2020-12-22 12:28] LABS: HEMATOCRIT 30.3 % (36.0-47.0); HEMOGLOBIN 10.1 g/dl (12.0-15.5); MEAN CORPUSCULAR HEMOGLOBIN 27.1 pg (27.0-33.0); MEAN CORPUSCULAR HGB CONC 33.3 g/dl (32.0-36.5); MEAN CORPUSCULAR VOLUME 81.2 fl (80.0-96.0); PLATELET COUNT, AUTOMATED 641 10^3/uL (150-450); RED BLOOD COUNT 3.73 10^6/uL (4.00-5.40); WHITE BLOOD COUNT 9.2 10^3/uL (4.0-10.0)
--- NOTE | 2020-12-22 13:40 | IPNPDOC ---
Date Seen The patient was seen on 12/22/20. Progress Note Subjective: Complains of intractable nausea vomiting without abdominal pain fever chills or shortness of breath Objective: Physical exam: Vitals: See below General: Lying on her left side in position speaks in full sentences no distress pallor icterus or jaundice HEENT: Normocephalic, atraumatic, moist mucous membranes. No carotid bruit Neck: No lymphadenopathy or thyromegaly Cardiac: Regular rate and rhythm, no murmurs, normal S1, normal S2 no gallops Pulm: Clear to auscultation bilaterally. No wheezes, rhonchi, rales air entry is equal Abd: No rebound or guarding nontender nondistended, no rebound tenderness normal bowel sounds Ext: No edema bilateral lower extremities postop right foot and a bandage Labs: See below Imaging: CT of the abdomen and pelvis with p.o. and IV contrast performed on 12/21/2020 is reported to show relatively symmetric bilateral perinephric stran ding sense of the pelvis with small amount of pelvic fluid raise possibility of acute pyelonephritis and correlation is required. Differential diagnosis may include pancreatitis although the pancreas itself appears relatively normal. Nonacute findings include diverticulosis and suspected left adrenal adenoma. Assessment/plan: 40-year-old female presented to the hospital with a diabetic foot wound who had amputation of the fifth metatarsal for management of osteomyelitis. Acute osteomyelitis of the right foot. Status post debridement/amputation in the OR by podiatry Reviewed culture results currently on Levaquin As needed pain meds Postop orders including activity dressing changes per podiatry Dr. Leigh with outpatient follow-up at discharge Anemia Corrected without intervention Consented for blood but did not receive any blood transfusion Repeat hemoglobin is stable No active GI bleed Insulin-dependent diabetes mellitus type 2. On insulin, Outpatient follow-up with Dr. Giordano Depression/anxiety. Continue outpatient follow-up. Diabetic gastroparesis Liquid diet for now Reglan [employer] gastric emptying study in the morning Small more frequent meals Hypertension. Holding LUKE inhibitor due to recent contrast study Norvasc with holding parameters Disposition: 1 to 2 days VS, I&O, 24H, Fritz Vital Signs/I&O Vital Signs Date Time Temp Pulse Resp B/P (MAP) Pulse Ox O2 Delivery O2 Flow Rate FiO2 12/22/20 08:35 91 158/88 12/22/20 06:00 97.8 18 98 Room Air 12/21/20 09:00 2.0 I&O- Last 24 Hours up to 6 AM 12/22/20 06:00 Intake Total 620 ml Output Total 150 ml Balance 470 ml Laboratory Data 24H LABS Laboratory Tests 2 12/21/20 14:57: Urine Color STRAW, Urine Appearance CLEAR, Urine pH 9.0, Urine Specific [place] 1.030, Urine Protein 2+H, Urine Glucose (UA) 2+H, Urine Ketones 1+H, Urine Blood 2+H, Urine Nitrite NEGATIVE, Urine Bilirubin NEGATIVE, Urine Urobilinogen 0.2, Urine Leukocyte Esterase NEGATIVE, Urine WBC (Auto) 2, Urine RBC (Auto) 9H, Urine Hyaline Casts (Auto) 0, Urine Bacteria (Auto) NEGATIVE, Urine Squamous Epithelial Cells 1, Urine Sperm (Auto) 12/21/20 17:49: Bedside Glucose (Misc Panel) 235H 12/21/20 17:57: Nucleated Red Blood Cells % (auto) 0.0 12/21/20 20:36: Bedside Glucose (Misc Panel) 170H 12/22/20 00:25: Nucleated Red Blood Cells % (auto) 0.0 12/22/20 05:53: Nucleated Red Blood Cells % (auto) 0.0, Immature Granulocyte % (Auto) 2.4, Bony trophils (%) (Auto) 70.9H, Lymphocytes (%) (Auto) 20.2L, Monocytes (%) (Auto) 4.8, Eosinophils (%) (Auto) 1.2, Basophils (%) (Auto) 0.5, Neutrophils # (Auto) 7.5, Lymphocytes # (Auto) 2.1, Monocytes # (Auto) 0.5, Eosinophils # (Auto) 0.1, Basophils # (Auto) 0.1, Anion Gap 10, Glomerular Filtration Rate > 60.0, Calcium Level 9.2, Magnesium Level 1.9 12/22/20 12:02: Nucleated Red Blood Cells % (auto) 0.0 12/22/20 12:04: Bedside Glucose (Misc Panel) 150H CBC/BMP Laboratory Tests 12/21/20 17:57 12/22/20 00:25 12/22/20 05:53 12/22/20 12:02 Microbiology Microbiology 12/21/20 Stool Occult Blood (RIMA) - Final, Complete 12/17/20 Gram Stain - Final, Complete 12/17/20 Wound Culture - Final, Complete Enterobacter Cloacae Complex Enterobacter Cloacae Complex#2 Strep Agalactiae Group B 12/17/20 Anaerobic Culture - Final, Complete 12/16/20 Blood Culture - Final, Complete NO GROWTH AFTER 5 DAYS 12/16/20 Blood Culture - Final, Complete NO GROWTH AFTER 5 DAYS JESSICA SHELLEY MD Dec 22, 2020 13:40
[2020-12-22] MEDS: HEPARIN SOD (PORCINE) 5000UNITS/ML 1ML VIAL/SYRINGE SC SCH ×2 (13:51→21:28)
[2020-12-22 14:00] VITALS: BP 144/86
[2020-12-22 19:31] LABS: HEMATOCRIT 33.9 % (36.0-47.0); MEAN CORPUSCULAR HEMOGLOBIN 26.6 pg (27.0-33.0); MEAN CORPUSCULAR HGB CONC 32.4 g/dl (32.0-36.5); MEAN CORPUSCULAR VOLUME 82.1 fl (80.0-96.0); PLATELET COUNT, AUTOMATED 802 10^3/uL (150-450); RED BLOOD COUNT 4.13 10^6/uL (4.00-5.40); WHITE BLOOD COUNT 11.6 10^3/uL (4.0-10.0)
[2020-12-22 22:00] VITALS: BP 148/88
[2020-12-23 00:43] LABS: HEMATOCRIT 30.9 % (36.0-47.0); HEMOGLOBIN 10.4 g/dl (12.0-15.5); MEAN CORPUSCULAR HEMOGLOBIN 27.1 pg (27.0-33.0); MEAN CORPUSCULAR HGB CONC 33.7 g/dl (32.0-36.5); MEAN CORPUSCULAR VOLUME 80.5 fl (80.0-96.0); RED BLOOD COUNT 3.84 10^6/uL (4.00-5.40); WHITE BLOOD COUNT 10.2 10^3/uL (4.0-10.0)
[2020-12-23 00:52] LABS: PLATELET COUNT, AUTOMATED 622 10^3/uL (150-450)
[2020-12-23 06:00] VITALS: BP 158/19
[2020-12-23] MEDS: LevoFLOXacin 750 MG TABLET PO SCH (06:00)
[2020-12-23] MEDS: HEPARIN SOD (PORCINE) 5000UNITS/ML 1ML VIAL/SYRINGE SC SCH ×3 (06:00→22:00)
[2020-12-23] MEDS: HumaLOG INSULIN (NovoLOG) PER UNIT SC SCH ×4 (08:17→21:00)
[2020-12-23] MEDS: LEVEMIR (INSULIN DETEMIR) 1 UNITS/0.01ML SC SCH (08:18)
[2020-12-23 11:50] LABS: BASO % 0.4 % (0.0-1.0); EOS # 0.1 10^3/uL (0.0-0.5); EOS % 0.7 % (0.0-3.0); HEMATOCRIT 32.5 % (36.0-47.0); HEMOGLOBIN 10.9 g/dl (12.0-15.5); LYMPH % 18.3 % (24.0-44.0); MEAN CORPUSCULAR HGB CONC 33.5 g/dl (32.0-36.5); MEAN CORPUSCULAR VOLUME 80.4 fl (80.0-96.0); MONO # 0.6 10^3/uL (0.0-0.8); MONO % 5.3 % (2.0-8.0); NEUTROPHILS # 7.8 10^3/uL (1.5-8.5); NEUTROPHILS % 73.2 % (36.0-66.0); RED BLOOD COUNT 4.04 10^6/uL (4.00-5.40); WHITE BLOOD COUNT 10.7 10^3/uL (4.0-10.0)
[2020-12-23 11:52] LABS: PLATELET COUNT, AUTOMATED 740 10^3/uL (150-450)
[2020-12-23] MEDS ORDERED: PROMETHAZINE INJ 25 MG/ML VIAL (J2550) IV PRN (11:55)
[2020-12-23] MEDS ORDERED: GI COCKTAIL 50ML BTL(HYOSCYAMINE/MAALOX/LIDOCAINE VISCOUS)(1:3:1) PO PRN (11:55)
[2020-12-23] MEDS: SUCRALFATE 1 GM TAB PO SCH ×3 (12:00→22:29)
[2020-12-23 12:08] LABS: ERYTHROCYTE SEDIMENTATION RATE 106 mm/hr (0-20)
[2020-12-23] MEDS: amLODIPine 5 MG TAB PO SCH (12:23)
[2020-12-23 12:30] LABS: ALBUMIN 2.9 GM/DL (3.2-5.2); BILIRUBIN,DIRECT 0.1 MG/DL (0.0-0.2); BILIRUBIN,TOTAL 0.3 MG/DL (0.2-1.0); C REACTIVE PROTEIN QUANTITATIV 1.3 MG/DL (0.00-0.30); CALCIUM LEVEL 9.8 MG/DL (8.5-10.1); CREATININE FOR GFR 1.2 MG/DL (0.55-1.30); GLOMERULAR FILTRATION RATE 53.2 (>60); MAGNESIUM LEVEL 2.1 MG/DL (1.8-2.4); POTASSIUM SERUM 2.9 MEQ/L (3.5-5.1); TOTAL PROTEIN 8.2 GM/DL (6.4-8.2)
[2020-12-23] MEDS: NS 1,000 ML IV SCH ×2 (12:38→22:29)
[2020-12-23] MEDS: KCL 10MEQ/100ML SWI (KRUN) 10 MEQ in IV 1 EA IV SCH ×3 (12:38→15:34)
[2020-12-23] MEDS: PANTOPRAZOLE 40MG VIAL (C9113 PER 1) IV SCH (12:38)
--- NOTE | 2020-12-23 12:59 | IPN ---
PROGRESS NOTE DATE: 12/23/2020 SUBJECTIVE: Patient continues to complain of intractable nausea and vomiting at the bedside, epigastric abdominal pain without chest pain, pressure, tightness, or shortness of breath. OBJECTIVE: VITAL SIGNS: Temperature 98.1, pulse 100, respiratory rate 18, blood pressure 158/91, 96% on room air. GENERAL: Awake, alert and oriented to person, place and time, answering questions appropriately. NECK: No JVD. No thyromegaly. No cervical lymphadenopathy. LUNGS: Clear to auscultation. No wheezing or rales. HEART: S1 and S2, sinus rhythm. ABDOMEN: Soft, tender in the epigastric region. No rebound or guarding. Positive bowel sounds x4 quadrants. EXTREMITIES: Right foot in a bandage. LABORATORY DATA/IMAGING/MICROBIOLOGY: Please see the chart. ASSESSMENT AND PLAN: A 40-year-old with diabetic foot infection, found to have a 5th metatarsal osteomyelitis status post amputation with Dr. Leigh, currently on Levaquin due to one culture showing Enterobacter and Strep Group B. Patient has been stable but now complains of intractable abdominal epigastric pain with nausea and vomiting thought to be secondary to gastroparesis, given Reglan without improvement, Zofran, Phenergan as well as Prilosec, Carafate. Patient has gone for an upper GI series this morning, still not tolerating her diet. IMPRESSION: 1. Intractable nausea and vomiting, epigastric abdominal pain, CT of the abdomen and pelvis showed bilateral perinephric stranding, correlate clinically with the possibility of pyelonephritis with UA being negative. Differential includes pancreatitis. Patient had been NPO and on IV fluids with no significant improvement on PPI, IV fluids for now. 2. Osteomyelitis status post amputation of the right fifth toe and metatarsal head, managed by Dr. Leigh, doing well, currently on Levaquin. 3. Diabetic gastroparesis on Reglan, started on a small liquid diet and advanced to small frequent meals and consistent carb as tolerated. Antiemetics and Reglan for now. 4. Hypokalemia due to decreased oral intake, potassium has been replaced. 5. Depression and anxiety, stable. 6. Type 2 diabetes, on insulin sliding scale, currently on liquid diet, advance as tolerated. 7. Hypertension, currently on Norvasc. Lisinopril has been held due to persistent nausea and vomiting, recent contrast , to prevent contrast nephropathy. 8. Disposition: Not tolerating her diet for 1-2 days, GI consult is unavailable this week, general surgical consult for EGD if persistent symptoms. MTDD
[2020-12-23 14:00] VITALS: BP 146/79
[2020-12-23] MEDS ORDERED: ONDANSETRON 4MG/2ML VIAL IV PRN (14:30)
--- NOTE | 2020-12-23 16:23 | REP ---
INDICATION: INTRACTABLE N/V. TECHNIQUE: This procedure was performed by Hollie Newsome [facility], under the direct supervision of Dr Mckoy. Images were reviewed with Dr Mckoy prior to dictation. Liquid barium was given in the erect position in order to perform a single contrast upper GI examination. Additional liquid barium was given at the end of the examination in order to perform a small-bowel follow-through. FINDINGS: The magazine feeder film shows no organomegaly or pathological masses. The intestinal gas pattern is unremarkable. The oral and pharyngeal stages of deglutition were unremarkable. Esophageal transport is prompt and efficient and there is no evidence of esophagitis, stricture, or mucosal ring. There is no evidence of a hiatal hernia. . The stomach cruz are normally outlined. The rugal folds are smooth and regular. There is no gastritis, neoplasm, or ulcerative disease. The duodenal cruz are normally outlined. The mucosal folds are smooth and regular. There is no duodenitis, peptic ulcer disease or neoplasm. The visualized portion of the proximal small bowel appears normal in course and caliber. The barium column was followed through the small bowel to the level of the terminal ileum. Small bowel transit time is approximately 90 minutes. During fluoroscopy gentle palpation shows all loops are freely movable and pliable. There is no fixed angulated loops. The small bowel mucosal pattern is normal in course and caliber. There is no transition to suggest a partial small bowel obstruction. Spot filming of the terminal ileum shows it to be unremarkable. IMPRESSION: Unremarkable upper GI with small-bowel follow-through. 0.2 minutes of fluoroscopy time was utilized for this procedure. Some fluoroscopic images are performed with last image hold technology. These images require no additional radiation. <Electronically signed by Hollie Newsome > 12/23/20 1609 <Electronically signed by Edward Mckoy > 12/23/20 1622
[2020-12-23] MEDS: METOCLOPRAMIDE INJ 10MG/2ML VIAL (J2765 PER 1) IV SCH ×2 (18:05→22:29)
[2020-12-23 22:00] VITALS: BP 161/87
[2020-12-24] MEDS: LevoFLOXacin 750 MG TABLET PO SCH (04:49)
[2020-12-24] MEDS: HEPARIN SOD (PORCINE) 5000UNITS/ML 1ML VIAL/SYRINGE SC SCH ×2 (05:01→14:00)
[2020-12-24 06:00] VITALS: BP 158/88
[2020-12-24] MEDS: HumaLOG INSULIN (NovoLOG) PER UNIT SC SCH ×2 (07:30→13:44)
[2020-12-24 07:54] LABS: BASO # 0.1 10^3/uL (0.0-0.2); BASO % 0.5 % (0.0-1.0); EOS # 0.2 10^3/uL (0.0-0.5); EOS % 2.1 % (0.0-3.0); HEMATOCRIT 30.6 % (36.0-47.0); HEMOGLOBIN 10.1 g/dl (12.0-15.5); LYMPH % 21.2 % (24.0-44.0); MEAN CORPUSCULAR HEMOGLOBIN 27.2 pg (27.0-33.0); MEAN CORPUSCULAR VOLUME 82.3 fl (80.0-96.0); MONO # 0.5 10^3/uL (0.0-0.8); MONO % 5.4 % (2.0-8.0); NEUTROPHILS # 6.4 10^3/uL (1.5-8.5); NEUTROPHILS % 67.8 % (36.0-66.0); RED BLOOD COUNT 3.72 10^6/uL (4.00-5.40); WHITE BLOOD COUNT 9.5 10^3/uL (4.0-10.0)
[2020-12-24 07:59] LABS: PLATELET COUNT, AUTOMATED 577 10^3/uL (150-450)
[2020-12-24 08:12] LABS: BLOOD UREA NITROGEN 22 MG/DL (7-18); CALCIUM LEVEL 8.7 MG/DL (8.5-10.1); CARBON DIOXIDE LEVEL 29 MEQ/L (21-32); CHLORIDE LEVEL 97 MEQ/L (98-107); CREATININE FOR GFR 0.96 MG/DL (0.55-1.30); GLOMERULAR FILTRATION RATE > 60.0 (>60); GLUCOSE, FASTING 204 MG/DL (70-100); POTASSIUM SERUM 3.7 MEQ/L (3.5-5.1); SODIUM LEVEL 133 MEQ/L (136-145)
[2020-12-24 08:30] VITALS: BP 162/82
[2020-12-24] MEDS ORDERED: dexameTHASONE 4 MG/ML 1ML VIAL (J1100 PER 1MG) IV ONE (09:00)
[2020-12-24] MEDS ORDERED: SCOPOLAMINE 1MG TRANSDERMAL PATCH TOP SCH (09:00)
[2020-12-24] MEDS: PANTOPRAZOLE 40MG VIAL (C9113 PER 1) IV SCH (09:46)
[2020-12-24] MEDS: METOCLOPRAMIDE INJ 10MG/2ML VIAL (J2765 PER 1) IV SCH (09:47)
[2020-12-24] MEDS: NS 1,000 ML IV SCH (09:48)
[2020-12-24] MEDS: LEVEMIR (INSULIN DETEMIR) 1 UNITS/0.01ML SC SCH (09:48)
[2020-12-24] MEDS ORDERED: BACT800T5 PO (11:31)
[2020-12-24] MEDS ORDERED: TRAN1DIS4 TOP (11:31)
[2020-12-24] MEDS ORDERED: AUGM875T28 PO (11:31)
[2020-12-24] MEDS ORDERED: BACITAB PO (11:31)
[2020-12-24] MEDS ORDERED: REGL5TAB2 PO (11:31)
[2020-12-24] MEDS ORDERED: ZOFR4TAB16 PO (11:31)
[2020-12-24 11:35] VITALS: BP 162/82
[2020-12-24] MEDS: amLODIPine 5 MG TAB PO SCH (11:35)
[2020-12-24] MEDS ORDERED: ESCITALOPRAM OXALATE 10 MG TAB (LEXAPRO) PO ONE (12:00)
--- NOTE | 2020-12-24 13:06 | CR.PDOC ---
General Date of Consultation: Dec 24, [address] Conn. HISTORY OF PRESENT ILLNESS: The patient is a 40-year-old female who was admitted 12/16/2020 with right foot osteomyelitis/diabetic foot ulcer. The patient is known to have a history of diabetes which is poorly controlled. General surgery is consulted for persistent nausea/vomiting. The patient had reported feeling nauseated with vomiting on the evening of 12/18/2020. Initially the patient was tried on metoclopramide. She was also on Zosyn antibiotic. Metoclopramide did not seem to help with her symptoms. She was tried on oral Benadryl which seemed to be helping. CT abdomen/pelvis indicated no acute abnormality. Lipase has been noted to be normal. LFTs normal. The patient has not been reporting abdominal pain. The patient denies any headache, blurred vision, diplopia, dizziness, vertigo, dysphagia. Denies heartburn symptoms. Denies bloating or distention. The patient seems to associate her nausea and vomiting with doses of Levaquin, she is currently on 750 mg p.o. times 1 in the morning. She states the nausea and vomiting is worse in the morning and better in the later afternoon and evening. ALLERGIES: Please see below. HOME MEDICATIONS: Please see below. PAST MEDICAL HISTORY: DM, poorly controlled. neuropathy PAD/chronic wound RLE Migraines Asthma Anxiety/Depression Herpes Genitalis PAST SURGICAL HISTORY: Retina detachment surgery (06/2019) Tonsillectomy D&C in 2010 SOCIAL HISTORY: denies tobacco use denies etoh use REVIEW OF SYSTEMS: As noted in HPI otherwise 10 Pt ROS unremarkable. PHYSICAL EXAMINATION: VITAL SIGNS: Please see below. GENERAL APPEARANCE: Sitting on side of the bed, nauseated and vomiting. No pallor, icterus or jaundice. HEENT: Normocephalic, atraumatic, moist mucous membranes. ABDOMEN: Exam is limited as the patient was not feeling well at the time of exam. Soft, nondistended. Bandage on right foot. LABORATORY DATA: WBC this morning 9.5 Hemoglobin 10.1 which has been stable. LFTs within normal limits. Lipase within normal limits. CRP 1.30 which is decreased from last value 12/20, 7.63. Imaging. Upper GI 12/23/[address] abdomen/pelvis with contrast 12/21/2020 IMPRESSION: 1. Relatively symmetric bilateral perinephric stranding extends to the pelvis with small amount of pelvic fluid raise the possibility of acute pyelonephritis and correlation is required. Differential diagnosis may include pancreatitis although the pancreas itself appears relatively normal. 2. Nonacute findings including diverticulosis and suspected small left adrenal adenoma. <Electronically signed by Osvaldo Johnson > 12/21/20 ASSESSMENT/PLAN: Nausea/vomiting. The patient is reviewed and examined this morning as per Dr. Conn. No leukocytosis. LFTs and lipase within normal limits. Imaging is reviewed as per Dr. Conn. Upper GI noted to be unremarkable, CT abdomen/pelvis with no acute findings. Seems to be most associated with doses of Levaquin. Trial of scopolamine patch to see if this helps with her symptoms. No surgical intervention is recommended at this time. Vital Signs/I&O Vital Signs Date Time Temp Pulse Resp B/P (MAP) Pulse Ox O2 Delivery O2 Flow Rate FiO2 12/24/20 11:35 98 162/82 12/24/20 08:30 97.6 19 100 Room Air 12/21/20 09:00 2.0 I&O- Last 24 Hours up to 6 AM 12/24/20 06:00 Intake Total 150 ml Output Total 100 ml Balance 50 ml Laboratory Data Labs 24H Laboratory Tests 2 12/23/20 16:33: Urine Color YELLOW, Urine Appearance CLOUDYH, Urine pH 7.0, Urine Specific [place] 1.016, Urine Protein 3+H, Urine Glucose (UA) 2+H, Urine Ketones TRACEH, Urine Blood 3+H, Urine Nitrite NEGATIVE, Urine Bilirubin NEGATIVE, Urine Urobilinogen 0.2, Urine Leukocyte Esterase NEGATIVE, Urine WBC (Auto) 4H, Urine RBC (Auto) TNTCH, Urine Hyaline Casts (Auto) 2, Urine Bacteria (Auto) NEGATIVE, Urine Squamous Epithelial Cells 4, Urine Mucus (Auto) SMALL, Urine Yeast-Like Cells (Auto) SMALLH, Urine Sperm (Auto) 12/23/20 17:57: Bedside Glucose (Misc Panel) 196H 12/23/20 22:13: Bedside Glucose (Misc Panel) 169H 12/24/20 07:22: Immature Granulocyte % (Auto) 3.0, Neutrophils (%) (Auto) 67.8H, Lymphocytes (%) (Auto) 21.2L, Monocytes (%) (Auto) 5.4, Eosinophils (%) (Auto) 2.1, Basophils (%) (Auto) 0.5, Neutrophils # (Auto) 6.4, Lymphocytes # (Auto) 2.0, Monocytes # (Auto) 0.5, Eosinophils # (Auto) 0.2, Basophils # (Auto) 0.1, Nucleated Red Blood Cells % (auto) 0.0, Anion Gap 7L, Glomerular Filtration Rate > 60.0, Calcium Level 8.7, Magnesium Level 2.0 CBC/BMP Laboratory Tests 12/24/20 07:22 Microbiology Microbiology 12/21/20 Stool Occult Blood (RIMA) - Final, Complete 12/17/20 Gram Stain - Final, Complete 12/17/20 Wound Culture - Final, Complete Enterobacter Cloacae Complex Enterobacter Cloacae Complex#2 Strep Agalactiae Group B 12/17/20 Anaerobic Culture - Final, Complete 12/16/20 Blood Culture - Final, Complete NO GROWTH AFTER 5 DAYS 12/16/20 Blood Culture - Final, Complete NO GROWTH AFTER 5 DAYS Allergies Coded Allergies: No Known Allergies (Unverified , 10/20/17) Home Medications Scheduled Amlodipine Besylate (Amlodipine Besylate) 5 Mg Tablet, 5 MG PO DAILY for 30 Days, #30 Amoxicillin/Potassium Clav (Augmentin 875-125 Tablet) 1 Each Tablet, 1 TAB PO BID for 7 Days, #14 Glipizide (Glipizide) 5 Mg Tablet, 5 MG PO BID, (Reported) Insulin Glargine,Hum.rec.anlog (Lantus Solostar) 100 Unit/1 Ml Insuln.pen, 40 UN IT SC DAILY, (Reported) L.acidoph/L.bulg/B.bif/S.therm (Bacid Caplet) 1 Each Tablet, 1 TAB PO WM for 7 Days, #21 Metoclopramide Hcl (Reglan) 5 Mg Tablet, 5 MG PO ACHS, #20 Scopolamine (Transderm-Scop) 1 Each Patch.td.3, 1 MG TOP Q72H for 6 Days, #2 Sulfamethoxazole/Trimethoprim (Bactrim Ds Tablet) 1 Each Tablet, 1 TAB PO BID for 7 Days, #14 Scheduled PRN Ondansetron HCl (Zofran) 4 Mg Tablet, 1 TAB PO Q6-8HP PRN for nausea/vomiting for 2 Days, #5 Mirian Mobley Dec 24, 2020 13:06
[2020-12-24 14:00] VITALS: BP_SYST 127; BP_DIAS 68; BP_DIAS 88
--- NOTE | 2020-12-24 15:14 | DSES ---
DISCHARGE SUMMARY DATE OF ADMISSION: 12/16/2020 DATE OF DISCHARGE: 12/24/2020 CONSULTANTS: 1. Dr. Leigh, health safety and environment manager. 2. Dr. Conn, general surgeon. PROCEDURES DURING THIS ADMISSION: 12/17/2020 right fifth toe and metatarsal head amputation due to right foot diabetic infection. PRIMARY DISCHARGE DIAGNOSES: 1. Right foot diabetic infection. 2. Right fifth toe and metatarsal amputation secondary to osteomyelitis of the right foot. 3. Anemia requiring 1 unit of red blood cells transfusion. 4. Gastroparesis. 5. Type-2 diabetes. 6. Depression and anxiety. 7. Hypertension. 8. Hyponatremia. 9. Hypokalemia. DISCHARGE MEDICATIONS: 1. Scopolamine patch. 2. Bactrim one tablet twice a day. 3. Zofran 4 mg every 6-8 hours as needed. 4. Bacid one tablet with meals. 5. Norvasc 5 mg daily. 6. Amoxicillin 875 twice a day. 7. Glipizide 5 twice a day. 8. Lantus insulin 40 units subcutaneously daily. DISCHARGE INSTRUCTIONS: Postoperative management per Dr. Leigh. Outpatient followup with Dr. Conn for EGD if intractable nausea and vomiting. Web Application Developer or PCP appointment within five days regarding the patient's type-2 diabetes. The patient is to have fingerstick before every meal at bedtime at home with a diary to bring in to her primary care physician to adjust her long acting insulin if needed. HOSPITAL COURSE: This is a 40-year-old female admitted on 12/17/2020 with persistent redness, swelling of the right foot, seen by Dr. Carey in the office. The patient had developed an infection in October, was given a dose of Keflex and Clindamycin with persistent symptoms. Dopplers were negative for DVT. Sed rate and CRP and white cell count were elevated. A1c was 10.3. X-ray confirmed by MRI shows fifth metatarsal and proximal phalanx osteomyelitis. Dr. Leigh was consulted. The patient underwent amputation of the right fifth toe and was initially treated with Vancomycin and Zosyn. Cultures grew out enterobacter and Streptococcal agalactiae group B. She remained afebrile after a T-max of 100.7 on admission and 100.6 on 12/18/2020 but remained afebrile since. White blood cell count peaked at 11.6 on 12/22 and back down to normal at 9.5 on discharge. Postoperatively the patient did have anemia at 7.1 probably slightly hemodilutional and did not receive any blood transfusion with resultant improvement to 10 without intervention. The patient complained of intractable nausea and vomiting, treated with IV Reglan. CT abdomen and pelvis showed questionable pancreatitis or pyelonephritis. Urinalysis had negative leukocyte esterase, negative bacteria. The patient was not in diabetic ketoacidosis with normal anion gap. General Surgery was consulted and recommended a scopolamine patch. Upper GI series was negative. The patient was kept on Reglan, IV fluids. Electrolytes were supplemented due to hypokalemia with potassium decreasing to 2.9. The patient's glucose ranged from 180 to 204. She tolerated a liquid diet, advanced to consistent carbohydrates. The patient was changed to Levaquin orally but developed worsening nausea and vomiting and was changed to Amoxicillin and Bactrim with normal creatinine at 0.96. She complained of severe depressive symptoms and was started on Lexapro 10 mg daily. The patient had uncontrolled blood pressure at 148 to 160, given Norvasc. PHYSICAL EXAM ON DISCHARGE: VITAL SIGNS: Temperature 97.6, pulse 98, respiratory rate 19, blood pressure 162/82, 100% on room air. GENERAL: Generally awake, alert and oriented times three, answering questions appropriately. LUNGS: Clear to auscultation, no wheezing, rales, or rhonchi. HEART: S1, S2, sinus rhythm. ABDOMEN: Soft, nontender, nondistended. Positive bowel sounds. EXTREMITIES: The patient has a right foot bandage status post right fifth toe amputation due to osteomyelitis. LABORATORY DATA, IMAGING STUDIES, MICROBIOLOGY: Please see the chart. Time spent on discharge 30 minutes.
[2020-12-24] MEDS ORDERED: AMOXICILLIN 875 MG TAB PO SCH (21:00)
[2020-12-24] MEDS ORDERED: AUGMENTIN 875 MG TAB PO SCH (21:00)
[2020-12-24] MEDS ORDERED: BACTRIM 160MG/800MG DS TAB PO SCH (21:00)
[2020-12-25] MEDS ORDERED: ESCITALOPRAM OXALATE 10 MG TAB (LEXAPRO) PO SCH (09:00)
== END 2020-12-24 15:10 | disposition home or self-care (01) | DRG 314 ==
LOC: M ED 15:14 → M ED INP 23:06 → M MS5PR 12-17 03:17
PROVIDERS: ADMIT Family Medicine; ATTEND General Practice
PROC: 0Y6X0Z0 Detachment at Right 5th Toe, Complete, Open Approach (ICD-10-PCS; principal; 2020-12-17 17:00)
DX: E11.621 Type 2 diabetes mellitus with foot ulcer (principal); M86.171 Other acute osteomyelitis, right ankle and foot; L97.519 Non-pressure chronic ulcer of other part of right foot with unspecified severity; L03.115 Cellulitis of right lower limb; I73.9 Peripheral vascular disease, unspecified; G43.909 Migraine, unspecified, not intractable, without status migrainosus; J45.909 Unspecified asthma, uncomplicated; F41.9 Anxiety disorder, unspecified; F32.A Depression, unspecified; Z90.49 Acquired absence of other specified parts of digestive tract; Z91.14 Patient's other noncompliance with medication regimen; Z20.822 Contact with and (suspected) exposure to COVID-19; Z79.4 Long term (current) use of insulin; Z79.84 Long term (current) use of oral hypoglycemic drugs; R09.02 Hypoxemia; E11.43 Type 2 diabetes mellitus with diabetic autonomic (poly)neuropathy; E11.69 Type 2 diabetes mellitus with other specified complication; D64.9 Anemia, unspecified; I10 Essential (primary) hypertension; E87.1 Hypo-osmolality and hyponatremia; E87.6 Hypokalemia

== ENCOUNTER 2021-08-07 19:50 | Inpatient (IN) | payer MEDICAID, OTHER ==
[~2021-08-07] VITALS: Ht 165.1 cm; Wt 78.5 kg
[~2021-08-07 19:50] MED LIST changes: +AMLO1TAB24 PO; +AUGM875T28 PO; +BACITAB PO; +BACT800T5 PO; +GLIP5TAB8 PO; +LANTINJ4 SC; +LEVO750T13 PO; +REGL5TAB2 PO; +TRAN1DIS4 TOP; -VANCOMYCIN HCL 1,000 MG, VIAL MATE ADAPTER 1 EACH in NS 250 ML IV SCH; +ZOFR4TAB16 PO
[2021-08-07 20:32] LABS: HEMATOCRIT 30.3 % (36.0-47.0); HEMOGLOBIN 10.3 g/dl (12.0-15.5); MEAN CORPUSCULAR HEMOGLOBIN 28.7 pg (27.0-33.0); MEAN CORPUSCULAR VOLUME 84.4 fl (80.0-96.0); PLATELET COUNT, AUTOMATED 442 10^3/uL (150-450); RED BLOOD COUNT 3.59 10^6/uL (4.00-5.40); WHITE BLOOD COUNT 7.4 10^3/uL (4.0-10.0)
[2021-08-07 20:54] LABS: HCG, SERUM QUALITATIVE NEGATIVE (NEGATIVE)
[2021-08-07 21:04] LABS: ACETAMINOPHEN LEVEL < 2.0 UG/ML (10.0-30.0); ALBUMIN 3.3 GM/DL (3.2-5.2); ALT/SGPT 15 U/L (12-78); BILIRUBIN,DIRECT < 0.1 MG/DL (0.0-0.2); BILIRUBIN,TOTAL 0.3 MG/DL (0.2-1.0); BLOOD UREA NITROGEN 22 MG/DL (7-18); CALCIUM LEVEL 8.7 MG/DL (8.5-10.1); CARBON DIOXIDE LEVEL 23 MEQ/L (21-32); CHLORIDE LEVEL 100 MEQ/L (98-107); CREATININE FOR GFR 1.18 MG/DL (0.55-1.30); ETHYL ALCOHOL (ETHANOL) < 0.003 % (0.000-0.010); GLOMERULAR FILTRATION RATE 54.3 (>60); GLUCOSE, FASTING 549 MG/DL (70-100); POTASSIUM SERUM 4.2 MEQ/L (3.5-5.1); SALICYLATE LEVEL < 1.7 MG/DL (5.0-30.0); SODIUM LEVEL 133 MEQ/L (136-145); THYROID STIMULATING HORMONE 0.757 uIU/ML (0.358-3.740); TOTAL PROTEIN 7.3 GM/DL (6.4-8.2)
[2021-08-07] MEDS ORDERED: HumuLIN R (REGULAR) INSULIN (NovoLIN R) **100U/ML** PER UNIT SC ONE (21:15)
[2021-08-07 21:22] LABS: RSV AMPLIFICATION NEGATIVE (NEGATIVE)
[2021-08-07] MEDS ORDERED: HOME MED LIST COMPLETE! XX SCH (21:25)
[2021-08-07 21:47] LABS: HEMOGLOBIN A1c 10.9 %
[2021-08-07 23:52] LABS: AMPHETAMINES LEVEL URINE NEGATIVE (NEGATIVE); BARBITURATES URINE NEGATIVE (NEGATIVE); BENZODIAZEPINES URINE NEGATIVE (NEGATIVE); CANNABINOIDS URINE NEGATIVE (NEGATIVE); COCAINE METABOLITE URINE POSITIVE (NEGATIVE); METHADONE URINE NEGATIVE (NEGATIVE); OPIATES URINE NEGATIVE (NEGATIVE); PHENCYCLIDINE URINE NEGATIVE (NEGATIVE)
[2021-08-08] MEDS ORDERED: MAALOX 30 ML SUSP *UDC PO PRN ×2 (02:50→20:45)
[2021-08-08] MEDS ORDERED: ACETAMINOPHEN TAB 650MG DOSE (2X325MG) PO PRN ×2 (02:50→20:45)
[2021-08-08] MEDS ORDERED: MOM 30ML SUSPENSION UDC PO PRN ×2 (02:50→20:45)
[2021-08-08] MEDS ORDERED: traZODone 50 MG TAB PO PRN ×2 (02:50→20:45)
[2021-08-08] MEDS ORDERED: GLUCOSE 4GM CHEW TABLET PO PRN (03:00)
[2021-08-08] MEDS ORDERED: GLUCAGON INJ 1MG VIAL SC PRN (03:00)
[2021-08-08] MEDS ORDERED: DEXTROSE 50% 50 ML SYRINGE IV PRN (03:00)
[2021-08-08] MEDS: INSULIN LISPRO (NovoLOG) PER UNIT SC SCH ×4 (08:49→22:19)
[2021-08-08] MEDS: DULoxetine 20 MG CAP (CYMBALTA) PO SCH ×2 (09:08→21:45)
[2021-08-08] MEDS ORDERED: amLODIPine 5 MG TAB PO ONE (18:35)
[2021-08-08] MEDS ORDERED: cloNIDine 0.2 MG TAB PO ONE (18:35)
[2021-08-08 21:07] VITALS: BP 123/66
[2021-08-09] MEDS: INSULIN LISPRO (NovoLOG) PER UNIT SC SCH ×4 (06:50→20:47)
[2021-08-09 07:03] VITALS: BP 115/76
[2021-08-09] MEDS: DULoxetine 20 MG CAP (CYMBALTA) PO SCH ×2 (09:51→20:45)
[2021-08-09 18:41] VITALS: BP 124/76
[2021-08-09] MEDS: DOXYCYCLINE HYCLATE 100MG TABLET PO SCH (20:45)
[2021-08-09] MEDS: AUGMENTIN 875 MG TAB PO SCH (21:53)
[2021-08-10] MEDS: INSULIN LISPRO (NovoLOG) PER UNIT SC SCH ×4 (06:51→21:00)
[2021-08-10 06:58] VITALS: BP 136/72
[2021-08-10] MEDS ORDERED: ONDANSETRON 4MG ORAL DISINTEGRATING TAB PO PRN (08:15)
[2021-08-10] MEDS: AUGMENTIN 875 MG TAB PO SCH ×2 (10:00→21:00)
[2021-08-10] MEDS: FAMOTIDINE 20 MG TAB PO SCH ×2 (10:00→11:24)
[2021-08-10] MEDS: DULoxetine 20 MG CAP (CYMBALTA) PO SCH ×2 (10:00→21:00)
[2021-08-10] MEDS: LEVEMIR (INSULIN DETEMIR) 1 UNITS/0.01ML SC SCH (10:01)
[2021-08-10] MEDS: DOXYCYCLINE HYCLATE 100MG TABLET PO SCH ×2 (10:01→21:00)
[2021-08-10] MEDS: SUCRALFATE 1 GM TAB PO SCH ×3 (11:24→21:00)
[2021-08-10] MEDS ORDERED: PROMETHAZINE 25MG/ML 1ML VIAL IM PRN (15:55)
[2021-08-10] MEDS: ONDANSETRON 4MG ORAL DISINTEGRATING TAB PO PRN (17:57)
[2021-08-10 19:02] VITALS: BP 183/86
[2021-08-10 19:59] LABS: BASO % 0.2 % (0.0-1.0); HEMATOCRIT 35.2 % (36.0-47.0); HEMOGLOBIN 12.1 g/dl (12.0-15.5); LYMPH # 1.2 10^3/uL (1.5-5.0); LYMPH % 9.1 % (24.0-44.0); MEAN CORPUSCULAR HEMOGLOBIN 28.3 pg (27.0-33.0); MEAN CORPUSCULAR HGB CONC 34.4 g/dl (32.0-36.5); MEAN CORPUSCULAR VOLUME 82.2 fl (80.0-96.0); MONO # 0.1 10^3/uL (0.0-0.8); NEUTROPHILS # 11.5 10^3/uL (1.5-8.5); NEUTROPHILS % 89.1 % (36.0-66.0); PLATELET COUNT, AUTOMATED 502 10^3/uL (150-450); RED BLOOD COUNT 4.28 10^6/uL (4.00-5.40); WHITE BLOOD COUNT 12.9 10^3/uL (4.0-10.0)
[2021-08-10 20:19] LABS: ALBUMIN 3.4 GM/DL (3.2-5.2); ALT/SGPT 19 U/L (12-78); BILIRUBIN,TOTAL 0.3 MG/DL (0.2-1.0); BLOOD UREA NITROGEN 26 MG/DL (7-18); CALCIUM LEVEL 9.9 MG/DL (8.5-10.1); CARBON DIOXIDE LEVEL 24 MEQ/L (21-32); CHLORIDE LEVEL 106 MEQ/L (98-107); CREATININE FOR GFR 1.03 MG/DL (0.55-1.30); GLOMERULAR FILTRATION RATE > 60.0 (>60); GLUCOSE, FASTING 252 MG/DL (70-100); POTASSIUM SERUM 4.4 MEQ/L (3.5-5.1); SODIUM LEVEL 138 MEQ/L (136-145); TOTAL PROTEIN 8.2 GM/DL (6.4-8.2)
[2021-08-11 06:55] VITALS: BP 146/77
[2021-08-11] MEDS: INSULIN LISPRO (NovoLOG) PER UNIT SC SCH ×4 (07:30→21:00)
[2021-08-11] MEDS: FAMOTIDINE 20 MG TAB PO SCH ×2 (09:19→21:36)
[2021-08-11] MEDS: SUCRALFATE 1 GM TAB PO SCH ×4 (09:19→21:36)
[2021-08-11] MEDS: ONDANSETRON 4MG ORAL DISINTEGRATING TAB PO PRN (09:19)
[2021-08-11] MEDS: DULoxetine 20 MG CAP (CYMBALTA) PO SCH (12:54)
[2021-08-11] MEDS: AUGMENTIN 875 MG TAB PO SCH ×2 (12:55→21:36)
[2021-08-11] MEDS: DOXYCYCLINE HYCLATE 100MG TABLET PO SCH ×2 (12:55→21:36)
[2021-08-11] MEDS: LEVEMIR (INSULIN DETEMIR) 1 UNITS/0.01ML SC SCH (12:58)
[2021-08-11 14:18] LABS: CALCIUM LEVEL 9.6 MG/DL (8.5-10.1); CREATININE FOR GFR 1.7 MG/DL (0.55-1.30); GLOMERULAR FILTRATION RATE 35.6 (>60); POTASSIUM SERUM 4.4 MEQ/L (3.5-5.1)
[2021-08-11] MEDS: METOCLOPRAMIDE 5 MG TAB PO SCH (17:44)
[2021-08-11 17:53] VITALS: BP 159/69
[2021-08-12 07:06] VITALS: BP 150/98
[2021-08-12] MEDS: SUCRALFATE 1 GM TAB PO SCH ×4 (07:13→22:05)
[2021-08-12] MEDS: METOCLOPRAMIDE 5 MG TAB PO SCH ×3 (07:13→17:24)
[2021-08-12] MEDS: INSULIN LISPRO (NovoLOG) PER UNIT SC SCH ×4 (07:21→22:04)
[2021-08-12 07:34] LABS: CALCIUM LEVEL 9.2 MG/DL (8.5-10.1); CREATININE FOR GFR 1.18 MG/DL (0.55-1.30); GLOMERULAR FILTRATION RATE 54.3 (>60); POTASSIUM SERUM 3.9 MEQ/L (3.5-5.1)
[2021-08-12] MEDS: AUGMENTIN 875 MG TAB PO SCH ×2 (09:35→22:07)
[2021-08-12] MEDS: ONDANSETRON 4MG ORAL DISINTEGRATING TAB PO PRN ×2 (09:35→22:33)
[2021-08-12] MEDS: DOXYCYCLINE HYCLATE 100MG TABLET PO SCH (09:36)
[2021-08-12] MEDS: LEVEMIR (INSULIN DETEMIR) 1 UNITS/0.01ML SC SCH (09:36)
[2021-08-12] MEDS: FAMOTIDINE 20 MG TAB PO SCH ×2 (09:36→22:04)
[2021-08-12] MEDS: DULoxetine 20 MG CAP (CYMBALTA) PO SCH (09:36)
[2021-08-12] MEDS: NEOSPORIN TOP OINT 15GM TOP SCH ×2 (09:37→22:07)
[2021-08-12] MEDS ORDERED: CALCIUM CARBONATE 500 MG CHEW U/D PO PRN (10:45)
[2021-08-12 18:53] VITALS: BP 156/81
[2021-08-12] MEDS: PANTOPRAZOLE 40MG TAB (PROTONIX) PO SCH (22:05)
[2021-08-12 22:43] VITALS: BP 184/94
[2021-08-12 23:13] VITALS: BP 170/78
[2021-08-12] MEDS ORDERED: PROMETHAZINE 25 MG TAB PO PRN (23:25)
[2021-08-13] MEDS: INSULIN LISPRO (NovoLOG) PER UNIT SC SCH ×4 (06:53→21:00)
[2021-08-13] MEDS: SUCRALFATE 1 GM TAB PO SCH ×4 (06:53→21:00)
[2021-08-13] MEDS: METOCLOPRAMIDE 5 MG TAB PO SCH ×3 (06:53→17:30)
[2021-08-13 06:57] VITALS: BP 170/100
[2021-08-13 08:06] VITALS: BP 160/99
[2021-08-13] MEDS: FAMOTIDINE 20 MG TAB PO SCH ×2 (09:00→21:00)
[2021-08-13] MEDS: AUGMENTIN 875 MG TAB PO SCH ×2 (09:00→21:00)
[2021-08-13] MEDS: DULoxetine 20 MG CAP (CYMBALTA) PO SCH (09:00)
[2021-08-13] MEDS: NEOSPORIN TOP OINT 15GM TOP SCH ×2 (09:41→21:00)
[2021-08-13] MEDS: LEVEMIR (INSULIN DETEMIR) 1 UNITS/0.01ML SC SCH (10:58)
[2021-08-13 11:39] LABS: CALCIUM LEVEL 9.3 MG/DL (8.5-10.1); CREATININE FOR GFR 1.28 MG/DL (0.55-1.30); GLOMERULAR FILTRATION RATE 49.4 (>60); POTASSIUM SERUM 4.1 MEQ/L (3.5-5.1)
[2021-08-13] MEDS: ONDANSETRON 4MG ORAL DISINTEGRATING TAB PO PRN (17:34)
[2021-08-13 18:37] LABS: CHOLESTEROL RISK RATIO 8.257 (<5)
[2021-08-13] MEDS: DOCUSATE SODIUM 100MG CAPSULE PO SCH (21:00)
[2021-08-13] MEDS: PANTOPRAZOLE 40MG TAB (PROTONIX) PO SCH (21:00)
[2021-08-14 06:00] VITALS: BP 184/81
[2021-08-14] MEDS: ONDANSETRON 4MG ORAL DISINTEGRATING TAB PO PRN (06:23)
[2021-08-14] MEDS: INSULIN LISPRO (NovoLOG) PER UNIT SC SCH ×2 (07:30→12:00)
[2021-08-14] MEDS: SUCRALFATE 1 GM TAB PO SCH ×2 (07:30→12:00)
[2021-08-14 08:21] LABS: CALCIUM LEVEL 9.4 MG/DL (8.5-10.1); CREATININE FOR GFR 1.46 MG/DL (0.55-1.30); GLOMERULAR FILTRATION RATE 42.5 (>60); POTASSIUM SERUM 4.4 MEQ/L (3.5-5.1)
[2021-08-14] MEDS: AUGMENTIN 875 MG TAB PO SCH (09:00)
[2021-08-14] MEDS: FAMOTIDINE 20 MG TAB PO SCH (09:00)
[2021-08-14] MEDS: LEVEMIR (INSULIN DETEMIR) 1 UNITS/0.01ML SC SCH (09:00)
[2021-08-14] MEDS: DOCUSATE SODIUM 100MG CAPSULE PO SCH (09:00)
[2021-08-14] MEDS ORDERED: MOM 30ML SUSPENSION UDC PO SCH (09:00)
[2021-08-14] MEDS: DULoxetine 20 MG CAP (CYMBALTA) PO SCH (09:00)
[2021-08-14] MEDS: METOCLOPRAMIDE 5 MG TAB PO SCH ×2 (09:33→12:00)
[2021-08-14] MEDS: NEOSPORIN TOP OINT 15GM TOP SCH (09:35)
[2021-08-14] MEDS ORDERED: CALC200T15 PO (11:27)
[2021-08-14] MEDS ORDERED: MOM30SS2 PO (11:27)
[2021-08-14] MEDS ORDERED: INSUDET SC (11:27)
[2021-08-14] MEDS ORDERED: GLUC1INJ21 SC (11:27)
[2021-08-14] MEDS ORDERED: DEXT4TAB83 PO (11:27)
[2021-08-14] MEDS ORDERED: PROM25TA12 PO (11:27)
[2021-08-14] MEDS ORDERED: SUCR1TA PO (11:27)
[2021-08-14] MEDS ORDERED: NEOM28OI TOP (11:27)
[2021-08-14] MEDS ORDERED: METO5TAB2 PO (11:27)
[2021-08-14] MEDS ORDERED: ONDA4TAB6 PO (11:27)
[2021-08-14] MEDS ORDERED: AMOX875T2 PO (11:27)
[2021-08-14] MEDS ORDERED: DEXT50SY3 IV (11:27)
[2021-08-14] MEDS ORDERED: TRAZ-252 PO (11:27)
[2021-08-14] MEDS ORDERED: ACET1TAB55 PO (11:27)
[2021-08-14] MEDS ORDERED: COLA100C5 PO (11:27)
[2021-08-14] MEDS ORDERED: FAMO20TA PO (11:27)
[2021-08-14] MEDS ORDERED: HYDR50TA PO (11:27)
[2021-08-14] MEDS ORDERED: MYLASSUD PO (11:27)
[2021-08-14] MEDS ORDERED: CYMB1CAP4 PO (11:27)
[2021-08-14] MEDS ORDERED: PANT40TA29 PO (11:27)
[2021-08-14] MEDS ORDERED: INSUHUMDS SC ×2 (11:27)
[2021-08-14] MEDS ORDERED: **hydrALAZINE** 50 MG TAB PO SCH (12:00)
[2021-08-14 12:40] VITALS: BP 140/88
== END 2021-08-14 13:11 | disposition short-term general hospital (02) | DRG 751 ==
LOC: M ED 19:50 → M ED INP 08-08 02:49 → M PSY 08-08 20:48
PROVIDERS: ADMIT Student in an Organized Health Care Education/Training Program; ATTEND Student in an Organized Health Care Education/Training Program
PROC: 0JBQ0ZZ Excision of Right Foot Subcutaneous Tissue and Fascia, Open Approach (ICD-10-PCS; principal; 2021-08-11)
DX: F33.1 Major depressive disorder, recurrent, moderate (principal); N17.9 Acute kidney failure, unspecified; E10.43 Type 1 diabetes mellitus with diabetic autonomic (poly)neuropathy; E10.621 Type 1 diabetes mellitus with foot ulcer; R45.851 Suicidal ideations; F60.89 Other specific personality disorders; F12.90 Cannabis use, unspecified, uncomplicated; F14.90 Cocaine use, unspecified, uncomplicated; Z79.899 Other long term (current) drug therapy; Z79.4 Long term (current) use of insulin; J45.909 Unspecified asthma, uncomplicated; G43.909 Migraine, unspecified, not intractable, without status migrainosus; F41.9 Anxiety disorder, unspecified; Z89.421 Acquired absence of other right toe(s); K59.00 Constipation, unspecified

== ENCOUNTER 2021-08-21 17:08 | Inpatient (IN) | payer MEDICAID ==
[~2021-08-21 17:08] MED LIST changes: +ACET1TAB55 PO; +AMOX875T2 PO; +CALC200T15 PO; +COLA100C5 PO; +CYMB1CAP4 PO; +DEXT4TAB83 PO; +DEXT50SY3 IV; +FAMO20TA PO; +GLUC1INJ21 SC; +HYDR50TA PO; +INSUDET SC; +INSUHUMDS SC; +LEVE1INJ5 SC; +METO5TAB2 PO; +MOM30SS2 PO; +MYLASSUD PO; +NEOM28OI TOP; +ONDA4TAB6 PO; +PANT20TA6 PO; +PANT40TA29 PO; +PROM25TA12 PO; +SENN18TA PO; +SUCR1TA PO; +TRAZ-252 PO
[2021-08-21] MEDS ORDERED: BASA100I SC (17:28)
[2021-08-21] MEDS ORDERED: GLUCOSE 4GM CHEW TABLET PO PRN (18:35)
[2021-08-21] MEDS ORDERED: MOM 30ML SUSPENSION UDC PO PRN (18:35)
[2021-08-21] MEDS ORDERED: GLUCAGON INJ 1MG VIAL SC PRN (18:35)
[2021-08-21] MEDS ORDERED: ACETAMINOPHEN TAB 650MG DOSE (2X325MG) PO PRN (18:35)
[2021-08-21] MEDS ORDERED: MAALOX 30 ML SUSP *UDC PO PRN (18:35)
[2021-08-21] MEDS: INSULIN LISPRO (NovoLOG) PER UNIT SC SCH (21:00)
[2021-08-21] MEDS ORDERED: HOME MED LIST COMPLETE! XX SCH (21:05)
[2021-08-22 00:50] VITALS: BP 122/77
[2021-08-22] MEDS: INSULIN LISPRO (NovoLOG) PER UNIT SC SCH ×4 (06:54→21:41)
[2021-08-22] MEDS ORDERED: DULoxetine 20 MG CAP (CYMBALTA) PO SCH (09:00)
[2021-08-22] MEDS: PANTOPRAZOLE 20 MG TAB PO SCH (09:53)
[2021-08-22] MEDS: NEOSPORIN TOP OINT 15GM TOP SCH ×2 (09:53→21:00)
[2021-08-22 12:05] VITALS: BP 122/77
[2021-08-22] MEDS: FLUoxetine 20MG CAP PO SCH (14:51)
[2021-08-22 18:32] VITALS: BP 124/80
[2021-08-22] MEDS: SENNA 8.6 MG TAB (SENOKOT) PO SCH (21:00)
[2021-08-23] MEDS: INSULIN LISPRO (NovoLOG) PER UNIT SC SCH ×4 (07:00→21:15)
[2021-08-23 07:20] VITALS: BP 140/80
[2021-08-23] MEDS: PANTOPRAZOLE 20 MG TAB PO SCH (09:47)
[2021-08-23] MEDS: NEOSPORIN TOP OINT 15GM TOP SCH ×2 (09:47→21:16)
[2021-08-23] MEDS: FLUoxetine 20MG CAP PO SCH (09:47)
[2021-08-23] MEDS: ONDANSETRON 4MG TAB PO PRN ×2 (12:22→21:16)
[2021-08-23 18:21] VITALS: BP 144/73
[2021-08-23] MEDS: SENNA 8.6 MG TAB (SENOKOT) PO SCH (21:00)
[2021-08-23] MEDS: OLANZapine 2.5MG TABLET PO SCH (21:15)
[2021-08-24] MEDS: INSULIN LISPRO (NovoLOG) PER UNIT SC SCH ×4 (06:42→20:44)
[2021-08-24] MEDS: FLUoxetine 20MG CAP PO SCH (09:08)
[2021-08-24] MEDS: PANTOPRAZOLE 20 MG TAB PO SCH (09:08)
[2021-08-24] MEDS: ONDANSETRON 4MG TAB PO PRN (09:08)
[2021-08-24] MEDS: NEOSPORIN TOP OINT 15GM TOP SCH ×2 (12:54→20:43)
[2021-08-24 18:00] VITALS: BP 109/73
[2021-08-24] MEDS: SENNA 8.6 MG TAB (SENOKOT) PO SCH (20:42)
[2021-08-24] MEDS: OLANZapine 2.5MG TABLET PO SCH (20:42)
[2021-08-24] MEDS: traZODone 50 MG TAB PO PRN (21:52)
[2021-08-25] MEDS: INSULIN LISPRO (NovoLOG) PER UNIT SC SCH ×4 (06:44→20:25)
[2021-08-25 06:48] VITALS: BP 124/67
[2021-08-25] MEDS: FLUoxetine 20MG CAP PO SCH (08:22)
[2021-08-25] MEDS: ONDANSETRON 4MG TAB PO PRN (08:22)
[2021-08-25] MEDS: PANTOPRAZOLE 20 MG TAB PO SCH (08:22)
[2021-08-25] MEDS ORDERED: ONDANSETRON 4MG ORAL DISINTEGRATING TAB PO PRN (09:30)
[2021-08-25] MEDS: NEOSPORIN TOP OINT 15GM TOP SCH ×2 (09:33→20:25)
[2021-08-25 18:00] VITALS: BP 118/67
[2021-08-25] MEDS: traZODone 50 MG TAB PO PRN (20:24)
[2021-08-25] MEDS: OLANZapine 2.5MG TABLET PO SCH (20:24)
[2021-08-25] MEDS: SENNA 8.6 MG TAB (SENOKOT) PO SCH (20:25)
[2021-08-26 07:07] VITALS: BP 131/70
[2021-08-26] MEDS: INSULIN LISPRO (NovoLOG) PER UNIT SC SCH ×4 (07:11→20:39)
[2021-08-26] MEDS: FLUoxetine 20MG CAP PO SCH (08:05)
[2021-08-26] MEDS: PANTOPRAZOLE 20 MG TAB PO SCH (08:05)
[2021-08-26] MEDS: NEOSPORIN TOP OINT 15GM TOP SCH ×2 (08:06→22:38)
[2021-08-26] MEDS: OMEGA-3 1000MG CAPSULE PO SCH ×2 (09:43→20:34)
[2021-08-26 18:56] VITALS: BP 149/85
[2021-08-26] MEDS: OLANZapine 2.5MG TABLET PO SCH (20:34)
[2021-08-26] MEDS: SENNA 8.6 MG TAB (SENOKOT) PO SCH (20:34)
[2021-08-26] MEDS: traZODone 50 MG TAB PO PRN (20:34)
[2021-08-27 06:13] VITALS: BP 127/63
[2021-08-27] MEDS: INSULIN LISPRO (NovoLOG) PER UNIT SC SCH ×2 (06:37→12:09)
[2021-08-27] MEDS ORDERED: OLAN2.5T25 PO (08:28)
[2021-08-27] MEDS ORDERED: FISH1CAP26 PO (08:28)
[2021-08-27] MEDS ORDERED: FLUO40CA PO (08:28)
[2021-08-27] MEDS ORDERED: TRAZ-252 PO (08:28)
[2021-08-27] MEDS ORDERED: ONDA4TAB6 PO (08:30)
[2021-08-27] MEDS ORDERED: PANT20TA6 PO (08:30)
[2021-08-27] MEDS ORDERED: REGL5TAB2 PO (08:30)
[2021-08-27] MEDS: FLUoxetine 20MG CAP PO SCH (08:41)
[2021-08-27] MEDS: NEOSPORIN TOP OINT 15GM TOP SCH (08:41)
[2021-08-27] MEDS: OMEGA-3 1000MG CAPSULE PO SCH (08:41)
[2021-08-27] MEDS: PANTOPRAZOLE 20 MG TAB PO SCH (08:41)
== END 2021-08-27 13:05 | disposition home or self-care (01) | DRG 751 ==
LOC: M PSY 23:43
PROVIDERS: ADMIT Psychiatry & Neurology Psychiatry; ATTEND Student in an Organized Health Care Education/Training Program
DX: F33.1 Major depressive disorder, recurrent, moderate (principal); F14.14 Cocaine abuse with cocaine-induced mood disorder; F60.89 Other specific personality disorders; E10.43 Type 1 diabetes mellitus with diabetic autonomic (poly)neuropathy; Z89.421 Acquired absence of other right toe(s); Z63.5 Disruption of family by separation and divorce; J45.909 Unspecified asthma, uncomplicated; G43.909 Migraine, unspecified, not intractable, without status migrainosus; F32.A Depression, unspecified; F41.9 Anxiety disorder, unspecified; Z90.49 Acquired absence of other specified parts of digestive tract; R45.851 Suicidal ideations

== ENCOUNTER 2021-12-10 02:06 | Inpatient (IN) | payer MEDICAID, OTHER ==
[2021-12-10] VITALS (8 sets, daily range): BP systolic 121–163; BP diastolic 68–97
[~2021-12-10] VITALS: Ht 165.1 cm; Wt 76.8 kg
[~2021-12-10 02:06] MED LIST changes: +BASA100I SC; +FISH1CAP26 PO; +FLUO40CA PO; +LEVO1TAB40 PO; -LEVO750T13 PO; +OLAN2.5T25 PO
[2021-12-10] MEDS ORDERED: NS 1,000 ML IV ONE (07:00)
[2021-12-10] MEDS ORDERED: ACETAMINOPHEN 500 MG TAB PO ONE (07:00)
[2021-12-10] MEDS ORDERED: VANCOMYCIN HCL 750 MG, VIAL MATE ADAPTER 1 EACH in D5W 250 ML IV ONE ×2 (07:00→08:00)
[2021-12-10] MEDS ORDERED: VANCOMYCIN HCL 1,500 MG in NS 250 ML IV ONE (07:05)
[2021-12-10] MEDS ORDERED: PIPERACILLIN/TAZOBACTAM SOD 3.375 GM in D5W MINI-BAG PLUS 50 ML IV ONE (07:05)
[2021-12-10] MEDS ORDERED: ONDANSETRON 4MG 2ML VIAL IV ONE (07:10)
[2021-12-10 07:48] LABS: BASO % 0.2 % (0.0-1.0); EOS % 0.1 % (0.0-3.0); HEMATOCRIT 33.4 % (36.0-47.0); HEMOGLOBIN 10.3 g/dl (12.0-15.5); LYMPH # 2.1 10^3/uL (1.5-5.0); LYMPH % 16.6 % (24.0-44.0); MEAN CORPUSCULAR HEMOGLOBIN 26.2 pg (27.0-33.0); MEAN CORPUSCULAR HGB CONC 30.8 g/dl (32.0-36.5); MONO # 0.5 10^3/uL (0.0-0.8); MONO % 3.8 % (2.0-8.0); NEUTROPHILS # 9.8 10^3/uL (1.5-8.5); NEUTROPHILS % 78.9 % (36.0-66.0); PLATELET COUNT, AUTOMATED 461 10^3/uL (150-450); RED BLOOD COUNT 3.93 10^6/uL (4.00-5.40); WHITE BLOOD COUNT 12.4 10^3/uL (4.0-10.0)
[2021-12-10] MEDS ORDERED: REGL5TAB2 PO (08:10)
[2021-12-10] MEDS ORDERED: BASA100I SC (08:10)
[2021-12-10] MEDS ORDERED: HOME MED LIST COMPLETE! XX SCH (08:15)
[2021-12-10 08:22] LABS: RSV AMPLIFICATION NEGATIVE (NEGATIVE)
[2021-12-10 08:22] LABS: C REACTIVE PROTEIN QUANTITATIV 2.38 MG/DL (0.00-0.30); CALCIUM LEVEL 9.1 MG/DL (8.5-10.1); CREATININE FOR GFR 1.49 MG/DL (0.55-1.30); GLOMERULAR FILTRATION RATE 41.3 (>58); POTASSIUM SERUM 4.1 MEQ/L (3.5-5.1)
[2021-12-10] MEDS ORDERED: ISOVUE-370 76% 100ML VIAL As Ordered ONE (08:26)
[2021-12-10 08:28] LABS: INR 0.97; PROTHROMBIN TIME 13.1 SECONDS (12.5-14.5)
[2021-12-10 08:29] LABS: PARTIAL THROMBOPLASTIN TIME 29.1 SECONDS (24.8-34.2)
[2021-12-10] MEDS ORDERED: MORPHINE 2 MG/ML 1ML VIAL IV PRN (08:55)
[2021-12-10] MEDS ORDERED: CEFEPIME HCL 1 GM in D5W MINI-BAG PLUS 50 ML IV SCH (08:55)
[2021-12-10] MEDS ORDERED: VANCOMYCIN HCL 750 MG, VIAL MATE ADAPTER 1 EACH in NS 250 ML IV SCH (08:55)
[2021-12-10 09:01] LABS: ERYTHROCYTE SEDIMENTATION RATE 88 mm/hr (0-20)
[2021-12-10] MEDS ORDERED: ONDANSETRON 4MG 2ML VIAL IV STA (09:09)
[2021-12-10 10:46] LABS: HEMOGLOBIN A1c 8.6 %
[2021-12-10] MEDS: NS 1,000 ML IV SCH ×2 (11:53→19:02)
[2021-12-10] MEDS: METOCLOPRAMIDE INJ 10MG/2ML VIAL (J2765 PER 1) IV PRN ×2 (11:54→23:58)
[2021-12-10] MEDS ORDERED: DEXTROSE 50% 50 ML SYRINGE IV PRN (12:00)
[2021-12-10] MEDS ORDERED: GLUCAGON INJ 1MG VIAL SC PRN (12:00)
[2021-12-10] MEDS ORDERED: GLUCOSE 4GM CHEW TABLET PO PRN (12:00)
[2021-12-10] MEDS: CEFEPIME HCL 2 GM in D5W MINI-BAG PLUS 50 ML IV SCH (15:34)
[2021-12-10] MEDS ORDERED: LIDOCAINE 2% MDV 20ML VIAL As Ordered ONE (16:07)
[2021-12-10] MEDS ORDERED: BUPIVACAINE HCL 0.5% 30ML VIAL As Ordered ONE (16:07)
[2021-12-10] MEDS ORDERED: GENTAMICIN SULF 80MG/2ML VIAL As Ordered ONE (16:17)
[2021-12-10] MEDS ORDERED: MIDAZOLAM INJ 2MG/2ML VIAL (J2250 PER 1MG) As Ordered ONE (17:17)
[2021-12-10] MEDS ORDERED: LIDOCAINE 2% 100MG/5ML SDV (FOR ANES.) As Ordered ONE (17:17)
[2021-12-10] MEDS ORDERED: propofoL 200 MG/20 ML VIAL As Ordered ONE ×2 (17:17→18:04)
[2021-12-10] MEDS ORDERED: fentaNYL 100 MCG/2 ML INJECTION As Ordered ONE (17:18)
[2021-12-10] MEDS: LACTOBACILLUS ACIDOPHILUS CAP (BACID) PO SCH (18:00)
[2021-12-10] MEDS ORDERED: HYDROMORPHONE HCL 0.5 MG/ 0.5 ML SYRINGE (J1170 PER 1) IV PRN (18:25)
[2021-12-10] MEDS ORDERED: fentaNYL 100 MCG/2 ML INJECTION IV PRN (18:25)
[2021-12-10] MEDS ORDERED: oxyCODONE 5MG TAB PO PRN (18:25)
[2021-12-10] MEDS ORDERED: ONDANSETRON 4MG 2ML VIAL IV PRN (18:25)
[2021-12-10] MEDS ORDERED: LR 1,000 ML IV SCH (18:25)
[2021-12-10] MEDS ORDERED: VANCOMYCIN HCL 750 MG, VIAL MATE ADAPTER 1 EACH in D5W 250 ML IV SCH (22:00)
[2021-12-10] MEDS ORDERED: VANCOMYCIN HCL 500 MG in D5W MINI-BAG PLUS 100 ML IV SCH (23:00)
[2021-12-11] VITALS (7 sets, daily range): BP systolic 98–170; BP diastolic 60–87
[2021-12-11] MEDS: CEFEPIME HCL 2 GM in D5W MINI-BAG PLUS 50 ML IV SCH ×2 (01:43→15:56)
[2021-12-11] MEDS ORDERED: ONDANSETRON 4MG 2ML VIAL IV ONE (05:00)
[2021-12-11 06:19] LABS: HEMATOCRIT 28.8 % (36.0-47.0); HEMOGLOBIN 9.2 g/dl (12.0-15.5); MEAN CORPUSCULAR HEMOGLOBIN 26.9 pg (27.0-33.0); MEAN CORPUSCULAR HGB CONC 31.9 g/dl (32.0-36.5); MEAN CORPUSCULAR VOLUME 84.2 fl (80.0-96.0); PLATELET COUNT, AUTOMATED 380 10^3/uL (150-450); RED BLOOD COUNT 3.42 10^6/uL (4.00-5.40); WHITE BLOOD COUNT 8.7 10^3/uL (4.0-10.0)
[2021-12-11 06:59] LABS: ALBUMIN 2.8 GM/DL (3.2-5.2); BILIRUBIN,TOTAL 0.3 MG/DL (0.2-1.0); CALCIUM LEVEL 8.9 MG/DL (8.5-10.1); CREATININE FOR GFR 1.09 MG/DL (0.55-1.30); GLOMERULAR FILTRATION RATE 59.2 (>58); POTASSIUM SERUM 4.2 MEQ/L (3.5-5.1); TOTAL PROTEIN 6.9 GM/DL (6.4-8.2)
[2021-12-11 08:09] LABS: VANCOMYCIN RANDOM 21.8 UG/ML
[2021-12-11] MEDS ORDERED: amLODIPine 5 MG TAB PO ONE (08:30)
[2021-12-11] MEDS: LACTOBACILLUS ACIDOPHILUS CAP (BACID) PO SCH ×2 (09:11→17:57)
[2021-12-11] MEDS: METOCLOPRAMIDE INJ 10MG/2ML VIAL (J2765 PER 1) IV PRN ×2 (09:11→17:57)
[2021-12-11] MEDS: NS 1,000 ML IV SCH (09:12)
[2021-12-11] MEDS: INSULIN LISPRO (NovoLOG) PER UNIT SC SCH ×3 (12:00→21:00)
[2021-12-11] MEDS: VANCOMYCIN HCL 750 MG, VIAL MATE ADAPTER 1 EACH in D5W 250 ML IV SCH ×2 (12:02→22:30)
[2021-12-11] MEDS: ONDANSETRON 4MG 2ML VIAL IV PRN (22:23)
[2021-12-12] MEDS: CEFEPIME HCL 2 GM in D5W MINI-BAG PLUS 50 ML IV SCH ×2 (02:04→15:35)
[2021-12-12] MEDS: METOCLOPRAMIDE INJ 10MG/2ML VIAL (J2765 PER 1) IV PRN ×2 (02:04→22:05)
[2021-12-12 02:10] VITALS: BP 152/82
[2021-12-12 05:36] VITALS: BP 105/66
[2021-12-12 07:00] LABS: HEMATOCRIT 27.9 % (36.0-47.0); HEMOGLOBIN 8.8 g/dl (12.0-15.5); MEAN CORPUSCULAR HEMOGLOBIN 26.7 pg (27.0-33.0); MEAN CORPUSCULAR HGB CONC 31.5 g/dl (32.0-36.5); MEAN CORPUSCULAR VOLUME 84.5 fl (80.0-96.0); PLATELET COUNT, AUTOMATED 357 10^3/uL (150-450); WHITE BLOOD COUNT 7.5 10^3/uL (4.0-10.0)
[2021-12-12 07:40] LABS: ALBUMIN 2.7 GM/DL (3.2-5.2); ALT/SGPT 16 U/L (12-78); BILIRUBIN,TOTAL 0.3 MG/DL (0.2-1.0); BLOOD UREA NITROGEN 15 MG/DL (7-18); CALCIUM LEVEL 8.6 MG/DL (8.5-10.1); CARBON DIOXIDE LEVEL 27 MEQ/L (21-32); CHLORIDE LEVEL 101 MEQ/L (98-107); CREATININE FOR GFR 1.05 MG/DL (0.55-1.30); GLOMERULAR FILTRATION RATE > 60.0 (>58); GLUCOSE, FASTING 159 MG/DL (70-100); POTASSIUM SERUM 4.1 MEQ/L (3.5-5.1); SODIUM LEVEL 136 MEQ/L (136-145); TOTAL PROTEIN 6.4 GM/DL (6.4-8.2)
[2021-12-12] MEDS: LACTOBACILLUS ACIDOPHILUS CAP (BACID) PO SCH ×2 (08:00→18:00)
[2021-12-12] MEDS: ONDANSETRON 4MG 2ML VIAL IV PRN (08:40)
[2021-12-12] MEDS: INSULIN LISPRO (NovoLOG) PER UNIT SC SCH ×4 (08:41→21:00)
[2021-12-12] MEDS: LEVEMIR (INSULIN DETEMIR) 1 UNITS/0.01ML SC SCH (08:41)
[2021-12-12] MEDS: VANCOMYCIN HCL 750 MG, VIAL MATE ADAPTER 1 EACH in D5W 250 ML IV SCH ×2 (11:53→23:06)
[2021-12-12 14:00] VITALS: BP 91/60
[2021-12-12] MEDS ORDERED: CALCIUM CARBONATE 500 MG CHEW U/D PO PRN (18:45)
[2021-12-12 22:00] VITALS: BP 128/72
[2021-12-13] MEDS: CEFEPIME HCL 2 GM in D5W MINI-BAG PLUS 50 ML IV SCH (02:22)
[2021-12-13 06:00] VITALS: BP 118/71
[2021-12-13] MEDS ORDERED: LevoFLOXacin 750 MG TABLET PO SCH (06:00)
[2021-12-13 06:36] LABS: HEMATOCRIT 28.6 % (36.0-47.0); HEMOGLOBIN 9.1 g/dl (12.0-15.5); MEAN CORPUSCULAR HEMOGLOBIN 26.5 pg (27.0-33.0); MEAN CORPUSCULAR HGB CONC 31.8 g/dl (32.0-36.5); MEAN CORPUSCULAR VOLUME 83.4 fl (80.0-96.0); PLATELET COUNT, AUTOMATED 375 10^3/uL (150-450); RED BLOOD COUNT 3.43 10^6/uL (4.00-5.40); WHITE BLOOD COUNT 7.7 10^3/uL (4.0-10.0)
[2021-12-13 07:13] LABS: ALBUMIN 2.6 GM/DL (3.2-5.2); BILIRUBIN,TOTAL 0.2 MG/DL (0.2-1.0); CREATININE FOR GFR 1.35 MG/DL (0.55-1.30); GLOMERULAR FILTRATION RATE 46.2 (>58); POTASSIUM SERUM 3.5 MEQ/L (3.5-5.1); TOTAL PROTEIN 6.8 GM/DL (6.4-8.2)
[2021-12-13] MEDS: LACTOBACILLUS ACIDOPHILUS CAP (BACID) PO SCH (08:51)
[2021-12-13] MEDS: METOCLOPRAMIDE INJ 10MG/2ML VIAL (J2765 PER 1) IV PRN (08:51)
[2021-12-13] MEDS: LEVEMIR (INSULIN DETEMIR) 1 UNITS/0.01ML SC SCH (08:52)
[2021-12-13] MEDS: INSULIN LISPRO (NovoLOG) PER UNIT SC SCH ×2 (08:52→12:00)
[2021-12-13] MEDS ORDERED: ENOXAPARIN 40MG/0.4ML SYRINGE (J1650 PER 10MG) SC SCH (09:00)
[2021-12-13] MEDS ORDERED: BASA100I SC (13:07)
[2021-12-13] MEDS ORDERED: REGL5TAB2 PO (13:07)
[2021-12-13] MEDS ORDERED: LEVO1TAB40 PO (13:07)
[2021-12-13] MEDS ORDERED: RISATAB3 PO (13:07)
== END 2021-12-13 14:24 | disposition home or self-care (01) | DRG 314 ==
LOC: M ED 02:06 → M ED INP 08:08 → ENRESERV 09:06 → M MSPAV 10:55
PROVIDERS: ADMIT Internal Medicine; ATTEND Internal Medicine
PROC: 0Y6T0Z1 Detachment at Right 3rd Toe, High, Open Approach (ICD-10-PCS; principal; 2021-12-10 17:00)
DX: E10.52 Type 1 diabetes mellitus with diabetic peripheral angiopathy with gangrene (principal); N17.9 Acute kidney failure, unspecified; E10.621 Type 1 diabetes mellitus with foot ulcer; K31.84 Gastroparesis; L97.519 Non-pressure chronic ulcer of other part of right foot with unspecified severity; E10.42 Type 1 diabetes mellitus with diabetic polyneuropathy; E10.43 Type 1 diabetes mellitus with diabetic autonomic (poly)neuropathy; F14.10 Cocaine abuse, uncomplicated; F41.9 Anxiety disorder, unspecified; J45.909 Unspecified asthma, uncomplicated; L03.031 Cellulitis of right toe; E86.0 Dehydration; Z91.14 Patient's other noncompliance with medication regimen; F32.9 Major depressive disorder, single episode, unspecified; F12.90 Cannabis use, unspecified, uncomplicated; Z79.4 Long term (current) use of insulin; Z79.899 Other long term (current) drug therapy

== ENCOUNTER 2022-05-22 18:26 | Inpatient (IN) | payer OTHER ==
[~2022-05-22] VITALS: Ht 165.1 cm; Wt 70.1 kg
[~2022-05-22 18:26] MED LIST changes: +INSU100I6 SC; -LEVE1INJ5 SC; +RISATAB3 PO
[2022-05-22] MEDS ORDERED: NS 1,000 ML IV ONE ×3 (20:55→23:45)
[2022-05-22] MEDS ORDERED: INSULIN LISPRO (NovoLOG) PER UNIT SC SCH (21:00)
[2022-05-22] MEDS ORDERED: METO5TAB2 PO (21:04)
[2022-05-22] MEDS ORDERED: BASA100I SC (21:04)
[2022-05-22] MEDS ORDERED: ONDA8TAB8 SL (21:04)
[2022-05-22] MEDS ORDERED: HOME MED LIST COMPLETE! XX SCH (21:05)
[2022-05-22 21:21] LABS: BASO % 0.2 % (0.0-1.0); EOS % 0.3 % (0.0-3.0); HEMATOCRIT 27.9 % (36.0-47.0); HEMOGLOBIN 9.4 g/dl (12.0-15.5); LYMPH # 1.7 10^3/uL (1.5-5.0); MEAN CORPUSCULAR HEMOGLOBIN 27.6 pg (27.0-33.0); MEAN CORPUSCULAR HGB CONC 33.7 g/dl (32.0-36.5); MEAN CORPUSCULAR VOLUME 81.8 fl (80.0-96.0); MONO # 0.7 10^3/uL (0.0-0.8); MONO % 4.2 % (2.0-8.0); NEUTROPHILS # 13.3 10^3/uL (1.5-8.5); NEUTROPHILS % 83.6 % (36.0-66.0); PLATELET COUNT, AUTOMATED 372 10^3/uL (150-450); RED BLOOD COUNT 3.41 10^6/uL (4.00-5.40); WHITE BLOOD COUNT 15.9 10^3/uL (4.0-10.0)
[2022-05-22 21:43] LABS: ERYTHROCYTE SEDIMENTATION RATE 90 mm/hr (0-20)
[2022-05-22 22:00] LABS: RSV AMPLIFICATION NEGATIVE (NEGATIVE)
[2022-05-22] MEDS ORDERED: PIPERACILLIN/TAZOBACTAM SOD 3.375 GM in D5W MINI-BAG PLUS 50 ML IV ONE (23:15)
[2022-05-22] MEDS ORDERED: VANCOMYCIN HCL 1,500 MG in NS 250 ML IV ONE (23:15)
[2022-05-22] MEDS ORDERED: GLUCOSE 4GM CHEW TABLET PO PRN (23:40)
[2022-05-22] MEDS ORDERED: ACETAMINOPHEN TAB 650MG DOSE (2X325MG) PO PRN (23:40)
[2022-05-22] MEDS ORDERED: GLUCAGON INJ 1MG VIAL SC PRN (23:40)
[2022-05-22] MEDS ORDERED: DEXTROSE 50% 50ML SYRINGE IV PRN (23:40)
[2022-05-22] MEDS ORDERED: ONDANSETRON 4MG ORAL DISINTEGRATING TAB SL PRN (23:40)
[2022-05-22] MEDS ORDERED: VANCOMYCIN HCL 750 MG, VIAL MATE ADAPTER 1 EACH in D5W 250 ML IV ONE (23:45)
[2022-05-23 00:33] VITALS: BP 149/90
[2022-05-23] MEDS ORDERED: VANCOMYCIN HCL 750 MG, VIAL MATE ADAPTER 1 EACH in D5W 250 ML IV ONE (00:45)
[2022-05-23] MEDS: NS 1,000 ML IV SCH ×3 (01:21→18:47)
[2022-05-23 05:55] VITALS: BP 120/73
[2022-05-23 06:27] VITALS: BP 120/73
[2022-05-23 06:38] LABS: HEMATOCRIT 26.4 % (36.0-47.0); HEMOGLOBIN 8.4 g/dl (12.0-15.5); MEAN CORPUSCULAR HEMOGLOBIN 26.8 pg (27.0-33.0); MEAN CORPUSCULAR HGB CONC 31.8 g/dl (32.0-36.5); MEAN CORPUSCULAR VOLUME 84.3 fl (80.0-96.0); PLATELET COUNT, AUTOMATED 335 10^3/uL (150-450); RED BLOOD COUNT 3.13 10^6/uL (4.00-5.40); WHITE BLOOD COUNT 11.1 10^3/uL (4.0-10.0)
[2022-05-23 06:50] LABS: PROTHROMBIN TIME 13.4 SECONDS (12.5-14.5)
[2022-05-23 06:51] LABS: PARTIAL THROMBOPLASTIN TIME 31.4 SECONDS (24.8-34.2)
[2022-05-23 07:05] LABS: CALCIUM LEVEL 7.5 MG/DL (8.5-10.1); CREATININE FOR GFR 1.1 MG/DL (0.55-1.30); GLOMERULAR FILTRATION RATE 58.6 (>58); MAGNESIUM LEVEL 1.6 MG/DL (1.8-2.4); POTASSIUM SERUM 3.9 MMOL/L (3.5-5.1)
[2022-05-23] MEDS: INSULIN LISPRO (NovoLOG) PER UNIT SC SCH ×4 (07:30→18:43)
[2022-05-23] MEDS ORDERED: LEVEMIR (INSULIN DETEMIR) 1 UNITS/0.01ML SC SCH (09:00)
[2022-05-23] MEDS: MAG SULF 1GM/100ML (MAG RUN) 1 GM in IV 1 EA IV SCH ×2 (09:05→10:16)
[2022-05-23 09:12] LABS: C REACTIVE PROTEIN QUANTITATIV 9.5 MG/DL (<1.0)
[2022-05-23] MEDS: VANCOMYCIN HCL 750 MG, VIAL MATE ADAPTER 1 EACH in NS 250 ML IV SCH ×2 (11:44→21:52)
[2022-05-23] MEDS: PIPERACILLIN/TAZOBACTAM SOD 3.375 GM in D5W MINI-BAG PLUS 50 ML IV SCH ×3 (13:27→23:46)
[2022-05-23 14:00] VITALS: BP 126/75
[2022-05-23] MEDS: HEPARIN SOD (PORCINE) 5000UNITS/ML 1ML VIAL/SYRINGE SQ SCH ×2 (15:18→21:52)
[2022-05-23] MEDS ORDERED: ISOVUE-370 76% 100ML VIAL As Ordered ONE (17:56)
[2022-05-23 22:00] VITALS: BP 134/88
[2022-05-24] MEDS: NS 1,000 ML IV SCH ×3 (00:30→16:30)
[2022-05-24] MEDS: HEPARIN SOD (PORCINE) 5000UNITS/ML 1ML VIAL/SYRINGE SQ SCH (03:19)
[2022-05-24] MEDS: PIPERACILLIN/TAZOBACTAM SOD 3.375 GM in D5W MINI-BAG PLUS 50 ML IV SCH ×3 (05:23→18:56)
[2022-05-24 06:00] VITALS: BP 136/87
[2022-05-24 06:32] LABS: BASO % 0.4 % (0.0-1.0); EOS # 0.1 10^3/uL (0.0-0.5); EOS % 1.4 % (0.0-3.0); HEMATOCRIT 23.3 % (36.0-47.0); HEMOGLOBIN 7.5 g/dl (12.0-15.5); LYMPH # 1.4 10^3/uL (1.5-5.0); LYMPH % 17.2 % (24.0-44.0); MEAN CORPUSCULAR HEMOGLOBIN 27.2 pg (27.0-33.0); MEAN CORPUSCULAR HGB CONC 32.2 g/dl (32.0-36.5); MEAN CORPUSCULAR VOLUME 84.4 fl (80.0-96.0); MONO # 0.4 10^3/uL (0.0-0.8); MONO % 5.4 % (2.0-8.0); NEUTROPHILS % 74.6 % (36.0-66.0); PLATELET COUNT, AUTOMATED 268 10^3/uL (150-450); RED BLOOD COUNT 2.76 10^6/uL (4.00-5.40)
[2022-05-24 07:02] LABS: BLOOD UREA NITROGEN 16 MG/DL (9-23); CARBON DIOXIDE LEVEL 24 MMOL/L (20-31); CHLORIDE LEVEL 106 MMOL/L (98-107); CREATININE FOR GFR 0.97 MG/DL (0.55-1.30); GLOMERULAR FILTRATION RATE > 60.0 (>58); GLUCOSE, FASTING 101 MG/DL (60-100); MAGNESIUM LEVEL 1.9 MG/DL (1.8-2.4); POTASSIUM SERUM 4.5 MMOL/L (3.5-5.1); SODIUM LEVEL 135 MMOL/L (136-145)
[2022-05-24 07:24] VITALS: BP 122/84
[2022-05-24] MEDS: INSULIN LISPRO (NovoLOG) PER UNIT SC SCH ×6 (07:30→18:30)
[2022-05-24] MEDS: LEVEMIR (INSULIN DETEMIR) 1 UNITS/0.01ML SC SCH (09:00)
[2022-05-24] MEDS: VANCOMYCIN HCL 750 MG, VIAL MATE ADAPTER 1 EACH in NS 250 ML IV SCH ×2 (09:37→22:55)
[2022-05-24 12:05] LABS: IRON (FE) 10 UG/DL (50-170); PERCENT SATURATION 5.1 % (13.2-45.0); TOTAL IRON BINDING CAPACITY 196 UG/DL (250-425)
[2022-05-24 12:06] LABS: FERRITIN 35.9 NG/ML (7.3-270.7)
[2022-05-24 12:07] LABS: VITAMIN B12 LEVEL 266 PG/ML (211-911)
[2022-05-24 12:16] LABS: HEMATOCRIT 23.3 % (36.0-47.0); HEMOGLOBIN 7.6 g/dl (12.0-15.5)
[2022-05-24 14:00] VITALS: BP 141/86
[2022-05-24] MEDS ORDERED: KETOROLAC 60MG 2ML VIAL As Ordered ONE (17:03)
[2022-05-24] MEDS ORDERED: ONDANSETRON 4MG 2ML VIAL As Ordered ONE (17:03)
[2022-05-24] MEDS ORDERED: propofoL 200 MG/20 ML VIAL As Ordered ONE (17:03)
[2022-05-24] MEDS ORDERED: LIDOCAINE 2% 100MG/5ML SDV (FOR ANES.) As Ordered ONE (17:03)
[2022-05-24] MEDS ORDERED: MIDAZOLAM INJ 2MG/2ML VIAL As Ordered ONE (17:05)
[2022-05-24] MEDS ORDERED: fentaNYL 100 MCG/2 ML INJECTION As Ordered ONE (17:05)
[2022-05-24] MEDS ORDERED: GENTAMICIN SULF 80MG/2ML VIAL As Ordered ONE (17:09)
[2022-05-24] MEDS ORDERED: BUPIVACAINE HCL 0.5% 30ML VIAL As Ordered ONE (17:10)
[2022-05-24] MEDS ORDERED: LIDOCAINE 2% MDV 20ML VIAL As Ordered ONE (17:10)
[2022-05-24] MEDS ORDERED: PHENYLephrine 500MCG 5ML (100MCG/ML) SYRINGE As Ordered ONE (17:45)
[2022-05-24] MEDS ORDERED: LR 1,000 ML IV SCH (17:55)
[2022-05-24] MEDS ORDERED: fentaNYL 100 MCG/2 ML INJECTION IV PRN (17:55)
[2022-05-24] MEDS ORDERED: ONDANSETRON 4MG 2ML VIAL IV PRN (17:55)
[2022-05-24] MEDS ORDERED: oxyCODONE 5MG TAB PO PRN (17:55)
[2022-05-24] MEDS ORDERED: HYDROMORPHONE HCL 0.5 MG/ 0.5 ML SYRINGE IV PRN (17:55)
[2022-05-24 18:45] VITALS: BP 144/56
[2022-05-24 22:00] VITALS: BP 140/85
[2022-05-25] MEDS: PIPERACILLIN/TAZOBACTAM SOD 3.375 GM in D5W MINI-BAG PLUS 50 ML IV SCH ×4 (01:08→18:44)
[2022-05-25 04:16] VITALS: BP 162/91
[2022-05-25] MEDS: NS 1,000 ML IV SCH (04:35)
[2022-05-25] MEDS: ONDANSETRON 4MG 2ML VIAL IV PRN (04:36)
[2022-05-25] MEDS ORDERED: IPRATROPIUM 0.02% SOLN 0.5MG 2.5ML NEB INH PRN (05:20)
[2022-05-25 05:41] LABS: BASO # 0.1 10^3/uL (0.0-0.2); BASO % 0.5 % (0.0-1.0); EOS # 0.1 10^3/uL (0.0-0.5); EOS % 0.6 % (0.0-3.0); HEMATOCRIT 29.6 % (36.0-47.0); HEMOGLOBIN 9.4 g/dl (12.0-15.5); LYMPH # 0.9 10^3/uL (1.5-5.0); LYMPH % 8.8 % (24.0-44.0); MEAN CORPUSCULAR HEMOGLOBIN 26.7 pg (27.0-33.0); MEAN CORPUSCULAR HGB CONC 31.8 g/dl (32.0-36.5); MEAN CORPUSCULAR VOLUME 84.1 fl (80.0-96.0); MONO # 0.3 10^3/uL (0.0-0.8); MONO % 2.6 % (2.0-8.0); NEUTROPHILS # 8.8 10^3/uL (1.5-8.5); NEUTROPHILS % 86.4 % (36.0-66.0); RED BLOOD COUNT 3.52 10^6/uL (4.00-5.40); WHITE BLOOD COUNT 10.2 10^3/uL (4.0-10.0)
[2022-05-25] MEDS ORDERED: ISOVUE-370 76% 100ML VIAL As Ordered ONE (05:43)
[2022-05-25 05:48] LABS: PLATELET COUNT, AUTOMATED 418 10^3/uL (150-450)
[2022-05-25 06:05] LABS: ABG BASE EXCESS -2.9 (-2.0-2.0); ABG HCO3 20.9 MEQ/L (22.0-26.0); ABG O2 SATURATION 94.2 % (95.0-99.0); ABG PARTIAL PRESSURE CO2 32.6 mmHg (35.0-45.0); ABG PARTIAL PRESSURE O2 68.4 mmHg (75.0-100.0); ABG TOTAL CO2 21.9 MEQ/L (22.0-29.0); ABG pH (ARTERIAL) 7.424 UNITS (7.350-7.450)
[2022-05-25 06:12] LABS: BLOOD UREA NITROGEN 11 MG/DL (9-23); CARBON DIOXIDE LEVEL 21 MMOL/L (20-31); CHLORIDE LEVEL 104 MMOL/L (98-107); CREATININE FOR GFR 0.99 MG/DL (0.55-1.30); GLOMERULAR FILTRATION RATE > 60.0 (>58); GLUCOSE, FASTING 237 MG/DL (60-100); POTASSIUM SERUM 3.9 MMOL/L (3.5-5.1); SODIUM LEVEL 134 MMOL/L (136-145)
[2022-05-25 06:21] VITALS: BP 170/94
[2022-05-25] MEDS: METOCLOPRAMIDE 5 MG TAB PO PRN ×2 (06:22→16:57)
[2022-05-25] MEDS: INSULIN LISPRO (NovoLOG) PER UNIT SC SCH ×6 (08:45→18:45)
[2022-05-25] MEDS: LEVEMIR (INSULIN DETEMIR) 1 UNITS/0.01ML SC SCH (08:46)
[2022-05-25] MEDS: VANCOMYCIN HCL 750 MG, VIAL MATE ADAPTER 1 EACH in NS 250 ML IV SCH ×2 (10:12→21:44)
[2022-05-25] MEDS ORDERED: ALBUTEROL 90 MCG/ACT 8GM HFA INHALER INH PRN (11:10)
[2022-05-25 14:00] VITALS: BP 129/64
[2022-05-25] MEDS: HEPARIN SOD (PORCINE) 5000UNITS/ML 1ML VIAL/SYRINGE SC SCH ×2 (14:40→21:45)
[2022-05-25 20:47] VITALS: BP 155/88
[2022-05-26] MEDS: PIPERACILLIN/TAZOBACTAM SOD 3.375 GM in D5W MINI-BAG PLUS 50 ML IV SCH ×3 (00:12→12:00)
[2022-05-26 06:28] VITALS: BP 153/89
[2022-05-26] MEDS: HEPARIN SOD (PORCINE) 5000UNITS/ML 1ML VIAL/SYRINGE SC SCH ×2 (06:29→14:00)
[2022-05-26] MEDS: INSULIN LISPRO (NovoLOG) PER UNIT SC SCH ×4 (07:30→13:31)
[2022-05-26 09:08] VITALS: BP 153/88
[2022-05-26] MEDS: LEVEMIR (INSULIN DETEMIR) 1 UNITS/0.01ML SC SCH (09:10)
[2022-05-26 09:52] LABS: BASO % 0.4 % (0.0-1.0); EOS # 0.1 10^3/uL (0.0-0.5); EOS % 0.7 % (0.0-3.0); HEMATOCRIT 25.5 % (36.0-47.0); HEMOGLOBIN 8.1 g/dl (12.0-15.5); LYMPH # 1.3 10^3/uL (1.5-5.0); LYMPH % 13.1 % (24.0-44.0); MEAN CORPUSCULAR HGB CONC 31.8 g/dl (32.0-36.5); MONO # 0.3 10^3/uL (0.0-0.8); MONO % 3.4 % (2.0-8.0); NEUTROPHILS # 7.7 10^3/uL (1.5-8.5); NEUTROPHILS % 80.8 % (36.0-66.0); PLATELET COUNT, AUTOMATED 381 10^3/uL (150-450); WHITE BLOOD COUNT 9.6 10^3/uL (4.0-10.0)
[2022-05-26 10:04] LABS: BLOOD UREA NITROGEN 10 MG/DL (9-23); CALCIUM LEVEL 7.9 MG/DL (8.5-10.1); CARBON DIOXIDE LEVEL 26 MMOL/L (20-31); CHLORIDE LEVEL 104 MMOL/L (98-107); CREATININE FOR GFR 0.96 MG/DL (0.55-1.30); GLOMERULAR FILTRATION RATE > 60.0 (>58); GLUCOSE, FASTING 155 MG/DL (60-100); POTASSIUM SERUM 4.2 MMOL/L (3.5-5.1); SODIUM LEVEL 134 MMOL/L (136-145)
[2022-05-26] MEDS: ONDANSETRON 4MG 2ML VIAL IV PRN (10:23)
[2022-05-26] MEDS: VANCOMYCIN HCL 750 MG, VIAL MATE ADAPTER 1 EACH in NS 250 ML IV SCH (10:45)
[2022-05-26] MEDS ORDERED: INSU100I48 SQ (11:06)
[2022-05-26] MEDS ORDERED: JANU100T PO (11:06)
[2022-05-26] MEDS ORDERED: METF-839 PO (11:06)
[2022-05-26] MEDS ORDERED: LEVO1TAB40 PO (11:06)
[2022-05-26] MEDS ORDERED: VENTAER INH (11:27)
[2022-05-26] MEDS: METOCLOPRAMIDE 5 MG TAB PO PRN (12:06)
== END 2022-05-26 15:00 | disposition home or self-care (01) | DRG 720 ==
LOC: M ED 18:26 → M ED INP 23:36 → M MS5PR 05-23 00:34
PROVIDERS: ADMIT Internal Medicine; ATTEND Internal Medicine
PROC: 0JBQ0ZZ Excision of Right Foot Subcutaneous Tissue and Fascia, Open Approach (ICD-10-PCS; principal; 2022-05-24 16:00)
DX: A41.9 Sepsis, unspecified organism (principal); J96.01 Acute respiratory failure with hypoxia; J69.0 Pneumonitis due to inhalation of food and vomit; E87.20 Acidosis, unspecified; E11.42 Type 2 diabetes mellitus with diabetic polyneuropathy; E11.22 Type 2 diabetes mellitus with diabetic chronic kidney disease; K31.84 Gastroparesis; E11.621 Type 2 diabetes mellitus with foot ulcer; E11.43 Type 2 diabetes mellitus with diabetic autonomic (poly)neuropathy; E11.51 Type 2 diabetes mellitus with diabetic peripheral angiopathy without gangrene; E11.628 Type 2 diabetes mellitus with other skin complications; L97.519 Non-pressure chronic ulcer of other part of right foot with unspecified severity; E83.42 Hypomagnesemia; L97.529 Non-pressure chronic ulcer of other part of left foot with unspecified severity; J45.909 Unspecified asthma, uncomplicated; I73.9 Peripheral vascular disease, unspecified; F41.8 Other specified anxiety disorders; Z20.822 Contact with and (suspected) exposure to COVID-19; Z79.4 Long term (current) use of insulin; Z90.49 Acquired absence of other specified parts of digestive tract; Z89.421 Acquired absence of other right toe(s); B96.20 Unspecified Escherichia coli [E. coli] as the cause of diseases classified elsewhere; D63.8 Anemia in other chronic diseases classified elsewhere; F19.10 Other psychoactive substance abuse, uncomplicated; L08.9 Local infection of the skin and subcutaneous tissue, unspecified; B95.1 Streptococcus, group B, as the cause of diseases classified elsewhere

== ENCOUNTER → 2022-06-07 | Outpatient (REF) | payer OTHER ==
[~2022-06-07] MED LIST changes: +INSU100I48 SQ; +JANU100T PO; +LEVO1TAB39 PO; +METF-839 PO; +ONDA8TAB8 SL; +VENTAER INH
== END ==
LOC: M LAB REF 16:15
PROVIDERS: ATTEND Podiatrist
DX: L03.031 Cellulitis of right toe (principal)

== ENCOUNTER → 2022-06-14 | Outpatient (CLI) | payer OTHER ==
[~2022-06-14] MED LIST changes: +HEPARIN 1,000UNITS/ML 10ML VIAL (FOR RADIOLOGY & DIALYSIS ONLY) As Ordered ONE; +ISOVUE-300 61% 100ML VIAL As Ordered ONE; +LIDOCAINE 1% MDV 20ML VIAL As Ordered ONE; +MIDAZOLAM INJ 2MG/2ML VIAL As Ordered ONE; +NITROGLYCERIN IN D5W 25MG/250ML (100MCG/ML) As Ordered ONE; +ONDANSETRON 4MG 2ML VIAL As Ordered ONE; +fentaNYL 100 MCG/2 ML INJECTION As Ordered ONE
[2022-06-14 07:50] LABS: HEMATOCRIT 25.3 % (36.0-47.0); HEMOGLOBIN 7.9 g/dl (12.0-15.5); MEAN CORPUSCULAR HEMOGLOBIN 25.9 pg (27.0-33.0); MEAN CORPUSCULAR HGB CONC 31.2 g/dl (32.0-36.5); PLATELET COUNT, AUTOMATED 482 10^3/uL (150-450); RED BLOOD COUNT 3.05 10^6/uL (4.00-5.40); WHITE BLOOD COUNT 9.3 10^3/uL (4.0-10.0)
[2022-06-14 08:13] LABS: BLOOD UREA NITROGEN 13 MG/DL (9-23); CALCIUM LEVEL 8.6 MG/DL (8.5-10.1); CARBON DIOXIDE LEVEL 27 MMOL/L (20-31); CHLORIDE LEVEL 100 MMOL/L (98-107); CREATININE FOR GFR 0.93 MG/DL (0.55-1.30); GLOMERULAR FILTRATION RATE > 60.0 (>58); GLUCOSE, FASTING 246 MG/DL (60-100); MAGNESIUM LEVEL 1.7 MG/DL (1.8-2.4); POTASSIUM SERUM 3.9 MMOL/L (3.5-5.1); SODIUM LEVEL 130 MMOL/L (136-145)
[2022-06-14 08:16] LABS: INR 0.94; PROTHROMBIN TIME 12.8 SECONDS (12.5-14.5)
[2022-06-14 08:17] LABS: PARTIAL THROMBOPLASTIN TIME 26.8 SECONDS (24.8-34.2)
[2022-06-14 13:15] VITALS: BP 136/83
== END ==
LOC: M IRPRO 06:38
PROVIDERS: ATTEND Surgery Vascular Surgery
DX: I70.261 Atherosclerosis of native arteries of extremities with gangrene, right leg (principal); E13.52 Other specified diabetes mellitus with diabetic peripheral angiopathy with gangrene
CPT/HCPCS: 37224; 37228; 37232; 80048; 83735; 85027; 85610; 85730; 86850; 86900; 86901; 99152; 99153; C1725; C1760; C1761; C1769; C1887; C1894; C2623; J2250; J2405; J3010; Q9967

== ENCOUNTER 2022-06-24 10:10 | Day surgery (SDC) | payer OTHER ==
[~2022-06-24] VITALS: Ht 165.1 cm; Wt 80.0 kg
[~2022-06-24 10:10] MED LIST changes: +ASPI-226 PO; +CLOP75TA2 PO; -HEPARIN 1,000UNITS/ML 10ML VIAL (FOR RADIOLOGY & DIALYSIS ONLY) As Ordered ONE; -ISOVUE-300 61% 100ML VIAL As Ordered ONE; -LIDOCAINE 1% MDV 20ML VIAL As Ordered ONE; +LIDOCAINE 2% 100MG/5ML SDV (FOR ANES.) As Ordered ONE; -NITROGLYCERIN IN D5W 25MG/250ML (100MCG/ML) As Ordered ONE; +propofoL 200 MG/20 ML VIAL As Ordered ONE
[2022-06-24] MEDS ORDERED: LR 1,000 ML IV SCH (10:50)
[2022-06-24] MEDS ORDERED: propofoL 200 MG/20 ML VIAL As Ordered ONE (13:41)
[2022-06-24] MEDS ORDERED: LIDOCAINE 2% MDV 20ML VIAL As Ordered ONE (13:49)
[2022-06-24] MEDS ORDERED: ceFAZolin SOD 2 GM in IV 1 EA IV ONE (13:50)
[2022-06-24] MEDS ORDERED: ROPIvacaine 0.5% 30ML VIAL As Ordered ONE (13:50)
[2022-06-24] MEDS ORDERED: BUPIVACAINE HCL 0.5% 30ML VIAL As Ordered ONE (13:50)
[2022-06-24] MEDS ORDERED: METOCLOPRAMIDE INJ 10MG/2ML VIAL As Ordered ONE (14:12)
[2022-06-24] MEDS ORDERED: ePHEDrine SULFATE 25 MG/5 ML(5MG/ML) SYRINGE As Ordered ONE (14:23)
[2022-06-24] MEDS ORDERED: GENTAMICIN SULF 80MG/2ML VIAL As Ordered ONE (14:33)
[2022-06-24 16:24] VITALS: BP 166/83
== END 2022-06-24 16:39 | disposition home or self-care (01) ==
LOC: M SDC 10:10
PROVIDERS: ATTEND Podiatrist
DX: M86.171 Other acute osteomyelitis, right ankle and foot (principal); I96 Gangrene, not elsewhere classified; I10 Essential (primary) hypertension; E11.9 Type 2 diabetes mellitus without complications; K21.9 Gastro-esophageal reflux disease without esophagitis; J45.909 Unspecified asthma, uncomplicated; Z79.899 Other long term (current) drug therapy; Z79.02 Long term (current) use of antithrombotics/antiplatelets; F41.9 Anxiety disorder, unspecified; F32.A Depression, unspecified
CPT/HCPCS: 28820; 73630; 87070; 87075; 87077; 87186; J0690; J1580; J2250; J2405; J2765; J3010

== ENCOUNTER → 2022-08-15 | Outpatient (REF) | payer OTHER ==
[~2022-08-15] MED LIST changes: -LIDOCAINE 2% 100MG/5ML SDV (FOR ANES.) As Ordered ONE; -MIDAZOLAM INJ 2MG/2ML VIAL As Ordered ONE; -ONDANSETRON 4MG 2ML VIAL As Ordered ONE; +SENN-111 PO; -SENN18TA PO; -fentaNYL 100 MCG/2 ML INJECTION As Ordered ONE; -propofoL 200 MG/20 ML VIAL As Ordered ONE
== END ==
LOC: M LAB REF 12:57
PROVIDERS: ATTEND Podiatrist
DX: L03.119 Cellulitis of unspecified part of limb (principal)

== ENCOUNTER 2022-09-27 15:18 | Inpatient (IN) | payer OTHER ==
[~2022-09-27] VITALS: Ht 165.1 cm; Wt 84.8 kg
[2022-09-27] MEDS ORDERED: ROPIvacaine 0.5% 30ML VIAL As Ordered ONE (20:06)
[2022-09-27] MEDS ORDERED: LIDOCAINE 2% MDV 20ML VIAL As Ordered ONE (20:07)
[2022-09-27] MEDS ORDERED: TOBRAMYCIN 80MG/2ML VIAL As Ordered ONE (20:26)
[2022-09-27] MEDS ORDERED: TOBRAMYCIN SULF 1.2GM VIAL As Ordered ONE (20:26)
[2022-09-27] MEDS ORDERED: propofoL 200 MG/20 ML VIAL As Ordered ONE ×2 (20:50→21:18)
[2022-09-27] MEDS ORDERED: MIDAZOLAM INJ 2MG/2ML VIAL As Ordered ONE (20:50)
[2022-09-27] MEDS ORDERED: fentaNYL 100 MCG/2 ML INJECTION As Ordered ONE (20:50)
[2022-09-27] MEDS ORDERED: GENTAMICIN SULF 80MG/2ML VIAL As Ordered ONE (21:13)
[2022-09-27] MEDS ORDERED: PHENYLephrine 500MCG 5ML (100MCG/ML) SYRINGE As Ordered ONE (21:18)
[2022-09-27] MEDS ORDERED: oxyCODONE 5MG TAB PO PRN (21:45)
[2022-09-27] MEDS ORDERED: ONDANSETRON 4MG 2ML VIAL IV PRN (21:45)
[2022-09-27] MEDS ORDERED: LR 1,000 ML IV SCH (21:45)
[2022-09-27] MEDS ORDERED: HYDROMORPHONE HCL 0.5 MG/ 0.5 ML SYRINGE IV PRN (21:45)
[2022-09-27] MEDS ORDERED: fentaNYL 100 MCG/2 ML INJECTION IV PRN (21:45)
[2022-09-27] MEDS ORDERED: VANCOMYCIN HCL 1,250 MG, VIAL MATE ADAPTER 1 EACH in D5W 250 ML IV ONE (22:30)
[2022-09-27] MEDS ORDERED: ACETAMINOPHEN TAB 650MG DOSE (2X325MG) PO PRN (22:30)
[2022-09-27] MEDS ORDERED: GLUCAGON INJ 1MG VIAL SC PRN (22:30)
[2022-09-27] MEDS ORDERED: DEXTROSE 50% 50ML SYRINGE IV PRN (22:30)
[2022-09-27] MEDS ORDERED: GLUCOSE 4GM CHEW TABLET PO PRN (22:30)
[2022-09-27 22:45] VITALS: BP 152/87; TEMP 97.5; O2SAT 99
[2022-09-27] MEDS ORDERED: VANCOMYCIN HCL 1,000 MG, VIAL MATE ADAPTER 1 EACH in D5W 250 ML IV ONE (23:00)
[2022-09-27 23:15] VITALS: BP 151/87; TEMP 97; O2SAT 99
[2022-09-27 23:28] LABS: HEMATOCRIT 25.1 % (36.0-47.0); HEMOGLOBIN 7.1 g/dl (12.0-15.5); MEAN CORPUSCULAR HGB CONC 28.3 g/dl (32.0-36.5); MEAN CORPUSCULAR VOLUME 67.3 fl (80.0-96.0); PLATELET COUNT, AUTOMATED 647 10^3/uL (150-450); RED BLOOD COUNT 3.73 10^6/uL (4.00-5.40); WHITE BLOOD COUNT 11.9 10^3/uL (4.0-10.0)
[2022-09-27 23:45] LABS: ALBUMIN 1.4 G/DL (3.2-5.2); ALKALINE PHOSPHATASE 183 U/L (46-116); ALT/SGPT < 9 U/L (7.0-40); AST/SGOT 8 U/L (<34); BILIRUBIN,TOTAL 0.3 MG/DL (0.3-1.2); BLOOD UREA NITROGEN 15 MG/DL (9-23); CALCIUM LEVEL 7.7 MG/DL (8.5-10.1); CARBON DIOXIDE LEVEL 26 MMOL/L (20-31); CHLORIDE LEVEL 99 MMOL/L (98-107); CREATININE FOR GFR 0.89 MG/DL (0.55-1.30); GLOMERULAR FILTRATION RATE > 60.0 (>58); GLUCOSE, FASTING 90 MG/DL (60-100); POTASSIUM SERUM 4.6 MMOL/L (3.5-5.1); SODIUM LEVEL 132 MMOL/L (136-145); TOTAL IRON BINDING CAPACITY 230 UG/DL (250-425); TOTAL PROTEIN 5.4 G/DL (5.7-8.2)
[2022-09-27 23:46] LABS: IRON (FE) 15 UG/DL (50-170); PERCENT SATURATION 6.5 % (13.2-45.0)
[2022-09-27 23:47] LABS: FERRITIN 16.2 NG/ML (7.3-270.7)
[2022-09-28] VITALS (16 sets, daily range): BP systolic 121–160; BP diastolic 70–97; TEMP 97.5–99.1; O2SAT 94–100
[2022-09-28] MEDS ORDERED: VANCOMYCIN HCL 1,000 MG, VIAL MATE ADAPTER 1 EACH in D5W 250 ML IV ONE ×3
[2022-09-28] MEDS ORDERED: UNRESOLVED CLARIFICATION ENTRY XX SCH (00:01)
[2022-09-28 02:48] LABS: ABG BASE EXCESS 2.3 (-2.0-2.0); ABG HCO3 25.7 MMOL/L (22.0-26.0); ABG O2 SATURATION 96.9 % (95.0-99.0); ABG PARTIAL PRESSURE CO2 34.8 mmHg (35.0-45.0); ABG PARTIAL PRESSURE O2 86.2 mmHg (75.0-100.0); ABG STANDARD HCO3 26.5 MMOL/L. (22.0-26.0); ABG TOTAL CO2 26.8 MMOL/L (22.0-29.0); ABG pH (ARTERIAL) 7.487 UNITS (7.350-7.450)
[2022-09-28] MEDS: traMADol 50 MG TAB PO PRN ×3 (03:26→20:28)
[2022-09-28] MEDS ORDERED: METOCLOPRAMIDE 5 MG TAB PO SCH (04:00)
[2022-09-28 06:23] LABS: HEMATOCRIT 23.2 % (36.0-47.0); MEAN CORPUSCULAR HEMOGLOBIN 18.8 pg (27.0-33.0); MEAN CORPUSCULAR HGB CONC 28.4 g/dl (32.0-36.5); MEAN CORPUSCULAR VOLUME 66.1 fl (80.0-96.0); PLATELET COUNT, AUTOMATED 606 10^3/uL (150-450); RED BLOOD COUNT 3.51 10^6/uL (4.00-5.40); WHITE BLOOD COUNT 11.6 10^3/uL (4.0-10.0)
[2022-09-28 06:38] LABS: HEMOGLOBIN 6.6 g/dl (12.0-15.5)
[2022-09-28 06:44] LABS: BLOOD UREA NITROGEN 16 MG/DL (9-23); CALCIUM LEVEL 7.3 MG/DL (8.5-10.1); CARBON DIOXIDE LEVEL 24 MMOL/L (20-31); CHLORIDE LEVEL 99 MMOL/L (98-107); CREATININE FOR GFR 0.88 MG/DL (0.55-1.30); GLOMERULAR FILTRATION RATE > 60.0 (>58); GLUCOSE, FASTING 199 MG/DL (60-100); SODIUM LEVEL 130 MMOL/L (136-145)
[2022-09-28] MEDS: HEPARIN SOD (PORCINE) 5000UNITS/ML 1ML VIAL/SYRINGE SC SCH ×3 (07:17→20:29)
[2022-09-28] MEDS: INSULIN LISPRO (NovoLOG) PER UNIT SC SCH ×4 (07:39→20:22)
[2022-09-28 07:43] LABS: CREATININE,RANDOM URINE 74.8 MG/DL
[2022-09-28 07:45] LABS: TOTAL PROTEIN,RANDOM URINE 632.7 MG/DL (0.0-14.0)
[2022-09-28] MEDS: VANCOMYCIN HCL 1,000 MG, VIAL MATE ADAPTER 1 EACH in D5W 250 ML IV SCH ×2 (10:03→21:30)
[2022-09-28] MEDS ORDERED: PANTOPRAZOLE 40MG TAB (PROTONIX) PO ONE (11:25)
[2022-09-28] MEDS: METOCLOPRAMIDE 10MG TAB PO SCH ×3 (11:47→20:28)
[2022-09-28] MEDS: ONDANSETRON 4MG 2ML VIAL IV PRN (12:05)
[2022-09-28 12:08] LABS: HEMATOCRIT 29.3 % (36.0-47.0)
[2022-09-28 12:09] LABS: HEMOGLOBIN 8.6 g/dl (12.0-15.5)
[2022-09-29] MEDS: HEPARIN SOD (PORCINE) 5000UNITS/ML 1ML VIAL/SYRINGE SC SCH ×3 (05:27→20:44)
[2022-09-29 06:21] VITALS: BP 145/83; TEMP 97.7; O2SAT 93
[2022-09-29 06:35] LABS: HEMATOCRIT 29.8 % (36.0-47.0); HEMOGLOBIN 8.6 g/dl (12.0-15.5); MEAN CORPUSCULAR HEMOGLOBIN 20.2 pg (27.0-33.0); MEAN CORPUSCULAR HGB CONC 28.9 g/dl (32.0-36.5); MEAN CORPUSCULAR VOLUME 70.1 fl (80.0-96.0); PLATELET COUNT, AUTOMATED 566 10^3/uL (150-450); RED BLOOD COUNT 4.25 10^6/uL (4.00-5.40); WHITE BLOOD COUNT 8.8 10^3/uL (4.0-10.0)
[2022-09-29 07:04] LABS: CALCIUM LEVEL 7.7 MG/DL (8.5-10.1); CREATININE FOR GFR 1.23 MG/DL (0.55-1.30); GLOMERULAR FILTRATION RATE 51.5 (>58); POTASSIUM SERUM 5.1 MMOL/L (3.5-5.1)
[2022-09-29 07:28] LABS: ANISOCYTOSIS 4+; BASOPHILS 1 % (0-1); EOSINOPHILS 2 % (0-3); HYPOCHROMASIA 2+; LYMPHOCYTES 20 % (16-44); METAMYELOCYTES 2 % (0-0); MICROCYTOSIS 3+; MONOCYTES 6 % (0-5); MYELOCYTES 5 % (0-0); NEUTROPHILS 62 % (28-66); PLATELET ESTIMATE NORMAL (NORMAL)
[2022-09-29 07:29] LABS: OVALOCYTES 1+; SPHEROCYTES 1+
[2022-09-29] MEDS: INSULIN LISPRO (NovoLOG) PER UNIT SC SCH ×4 (07:35→20:44)
[2022-09-29] MEDS: METOCLOPRAMIDE 10MG TAB PO SCH ×4 (07:36→20:44)
[2022-09-29] MEDS: PANTOPRAZOLE 40MG TAB (PROTONIX) PO SCH (07:36)
[2022-09-29] MEDS: traMADol 50 MG TAB PO PRN ×2 (07:36→20:44)
[2022-09-29] MEDS: VANCOMYCIN HCL 750 MG, VIAL MATE ADAPTER 1 EACH in D5W 250 ML IV SCH (12:13)
[2022-09-29] MEDS: VANCOMYCIN HCL 500 MG in D5W MINI-BAG PLUS 100 ML IV SCH (13:29)
[2022-09-29 14:00] VITALS: BP 127/73; TEMP 97.7; O2SAT 97
[2022-09-29 20:20] VITALS: BP 153/91; TEMP 97.7; O2SAT 95
[2022-09-30] MEDS: HEPARIN SOD (PORCINE) 5000UNITS/ML 1ML VIAL/SYRINGE SC SCH ×3 (05:38→21:04)
[2022-09-30] MEDS: ONDANSETRON 4MG 2ML VIAL IV PRN (05:42)
[2022-09-30 06:00] VITALS: BP 156/98; TEMP 97.7; O2SAT 95
[2022-09-30 06:26] LABS: HEMATOCRIT 28.4 % (36.0-47.0); HEMOGLOBIN 8.2 g/dl (12.0-15.5); MEAN CORPUSCULAR HGB CONC 28.9 g/dl (32.0-36.5); MEAN CORPUSCULAR VOLUME 69.3 fl (80.0-96.0); PLATELET COUNT, AUTOMATED 592 10^3/uL (150-450); WHITE BLOOD COUNT 8.5 10^3/uL (4.0-10.0)
[2022-09-30 06:51] LABS: CALCIUM LEVEL 7.4 MG/DL (8.5-10.1); CREATININE FOR GFR 1.12 MG/DL (0.55-1.30); GLOMERULAR FILTRATION RATE 57.4 (>58); POTASSIUM SERUM 4.9 MMOL/L (3.5-5.1)
[2022-09-30] MEDS ORDERED: SENOKOT S TAB PO PRN (07:05)
[2022-09-30] MEDS ORDERED: MIRALAX *UNIT DOSE* 17GM PACKET PO PRN (07:05)
[2022-09-30] MEDS ORDERED: MOM 30ML SUSPENSION UDC PO PRN (07:05)
[2022-09-30 07:20] LABS: ANISOCYTOSIS 4+; BASOPHILS 1 % (0-1); EOSINOPHILS 2 % (0-3); HYPOCHROMASIA 2+; LYMPHOCYTES 16 % (16-44); METAMYELOCYTES 3 % (0-0); MICROCYTOSIS 3+; MYELOCYTES 5 % (0-0); NEUTROPHILS 73 % (28-66); OVALOCYTES 1+; PLATELET ESTIMATE NORMAL (NORMAL)
[2022-09-30] MEDS ORDERED: PERCOCET 5MG/325MG TAB PO PRN ×2 (08:00)
[2022-09-30] MEDS ORDERED: PERCOCET 5MG/325MG TAB PO ONE (08:00)
[2022-09-30] MEDS ORDERED: KETOROLAC 30 MG/ML 1ML VIAL IV ONE (08:00)
[2022-09-30] MEDS: PANTOPRAZOLE 40MG TAB (PROTONIX) PO SCH (08:24)
[2022-09-30] MEDS: METOCLOPRAMIDE 10MG TAB PO SCH ×4 (08:24→21:00)
[2022-09-30] MEDS: INSULIN LISPRO (NovoLOG) PER UNIT SC SCH ×4 (08:24→21:00)
[2022-09-30] MEDS: VANCOMYCIN HCL 750 MG, VIAL MATE ADAPTER 1 EACH in D5W 250 ML IV SCH (12:02)
[2022-09-30] MEDS: VANCOMYCIN HCL 500 MG in D5W MINI-BAG PLUS 100 ML IV SCH (13:39)
[2022-09-30 14:30] VITALS: BP 125/75; TEMP 97.3; O2SAT 99
[2022-09-30 20:00] VITALS: BP 168/101; TEMP 97.7; O2SAT 99
[2022-10-01 05:45] VITALS: BP 154/93; TEMP 97.5; O2SAT 99
[2022-10-01] MEDS: ONDANSETRON 4MG 2ML VIAL IV PRN (05:54)
[2022-10-01] MEDS: HEPARIN SOD (PORCINE) 5000UNITS/ML 1ML VIAL/SYRINGE SC SCH ×3 (05:55→21:27)
[2022-10-01 06:26] LABS: BASO # 0.1 10^3/uL (0.0-0.2); BASO % 0.7 % (0.0-1.0); EOS # 0.2 10^3/uL (0.0-0.5); EOS % 1.7 % (0.0-3.0); HEMATOCRIT 28.3 % (36.0-47.0); HEMOGLOBIN 8.1 g/dl (12.0-15.5); LYMPH # 2.3 10^3/uL (1.5-5.0); LYMPH % 22.4 % (24.0-44.0); MEAN CORPUSCULAR HEMOGLOBIN 20.2 pg (27.0-33.0); MEAN CORPUSCULAR HGB CONC 28.6 g/dl (32.0-36.5); MEAN CORPUSCULAR VOLUME 70.6 fl (80.0-96.0); MONO # 0.4 10^3/uL (0.0-0.8); NEUTROPHILS # 6.8 10^3/uL (1.5-8.5); NEUTROPHILS % 66.7 % (36.0-66.0); PLATELET COUNT, AUTOMATED 613 10^3/uL (150-450); RED BLOOD COUNT 4.01 10^6/uL (4.00-5.40); WHITE BLOOD COUNT 10.1 10^3/uL (4.0-10.0)
[2022-10-01 06:47] LABS: CALCIUM LEVEL 8.4 MG/DL (8.5-10.1); CREATININE FOR GFR 1.24 MG/DL (0.55-1.30); POTASSIUM SERUM 5.3 MMOL/L (3.5-5.1)
[2022-10-01] MEDS ORDERED: CEFEPIME HCL 1 GM in D5W MINI-BAG PLUS 50 ML IV SCH (07:25)
[2022-10-01] MEDS: PANTOPRAZOLE 40MG TAB (PROTONIX) PO SCH (08:15)
[2022-10-01] MEDS: INSULIN LISPRO (NovoLOG) PER UNIT SC SCH ×4 (08:15→21:00)
[2022-10-01] MEDS: METOCLOPRAMIDE 10MG TAB PO SCH ×4 (08:15→21:24)
[2022-10-01] MEDS: CEFEPIME HCL 2 GM in D5W MINI-BAG PLUS 50 ML IV SCH ×2 (09:49→21:24)
[2022-10-01] MEDS: VANCOMYCIN HCL 750 MG, VIAL MATE ADAPTER 1 EACH in D5W 250 ML IV SCH (12:49)
[2022-10-01 14:27] VITALS: BP 152/91; TEMP 97.9; O2SAT 95
[2022-10-01 14:36] VITALS: BP 156/78
[2022-10-01] MEDS: VANCOMYCIN HCL 500 MG in D5W MINI-BAG PLUS 100 ML IV SCH (15:01)
[2022-10-01 22:00] VITALS: BP 159/92; TEMP 97.5; O2SAT 95
[2022-10-02 05:41] VITALS: BP 158/93; TEMP 97.2; O2SAT 96
[2022-10-02] MEDS: HEPARIN SOD (PORCINE) 5000UNITS/ML 1ML VIAL/SYRINGE SC SCH ×3 (06:16→21:00)
[2022-10-02 07:15] LABS: BASO # 0.1 10^3/uL (0.0-0.2); BASO % 0.5 % (0.0-1.0); EOS % 0.2 % (0.0-3.0); HEMATOCRIT 26.8 % (36.0-47.0); HEMOGLOBIN 7.8 g/dl (12.0-15.5); LYMPH # 1.8 10^3/uL (1.5-5.0); LYMPH % 18.7 % (24.0-44.0); MEAN CORPUSCULAR HEMOGLOBIN 20.1 pg (27.0-33.0); MEAN CORPUSCULAR HGB CONC 29.1 g/dl (32.0-36.5); MEAN CORPUSCULAR VOLUME 68.9 fl (80.0-96.0); MONO # 0.4 10^3/uL (0.0-0.8); MONO % 3.8 % (2.0-8.0); NEUTROPHILS # 7.2 10^3/uL (1.5-8.5); NEUTROPHILS % 74.4 % (36.0-66.0); PLATELET COUNT, AUTOMATED 590 10^3/uL (150-450); RED BLOOD COUNT 3.89 10^6/uL (4.00-5.40); WHITE BLOOD COUNT 9.7 10^3/uL (4.0-10.0)
[2022-10-02 07:39] LABS: CALCIUM LEVEL 8.3 MG/DL (8.5-10.1); CREATININE FOR GFR 1.18 MG/DL (0.55-1.30)
[2022-10-02 07:58] LABS: C REACTIVE PROTEIN QUANTITATIV 1.5 MG/DL (<1.0)
[2022-10-02 08:00] LABS: ERYTHROCYTE SEDIMENTATION RATE 120 mm/hr (0-20)
[2022-10-02] MEDS: PANTOPRAZOLE 40MG TAB (PROTONIX) PO SCH (08:02)
[2022-10-02] MEDS: INSULIN LISPRO (NovoLOG) PER UNIT SC SCH ×4 (08:02→20:53)
[2022-10-02] MEDS: LINEZOLID 600MG TABLET (ZYVOX) PO SCH ×2 (08:02→21:00)
[2022-10-02] MEDS: METOCLOPRAMIDE 10MG TAB PO SCH ×4 (08:02→21:00)
[2022-10-02] MEDS: ONDANSETRON 4MG 2ML VIAL IV PRN (08:10)
[2022-10-02 14:00] VITALS: BP 160/95; TEMP 97.7; O2SAT 99
[2022-10-02 21:30] VITALS: BP 153/93; TEMP 98.1; O2SAT 98
[2022-10-03] MEDS: HEPARIN SOD (PORCINE) 5000UNITS/ML 1ML VIAL/SYRINGE SC SCH ×3 (06:00→22:44)
[2022-10-03 06:01] LABS: BASO # 0.1 10^3/uL (0.0-0.2); BASO % 0.7 % (0.0-1.0); EOS % 0.1 % (0.0-3.0); HEMATOCRIT 26.6 % (36.0-47.0); HEMOGLOBIN 7.8 g/dl (12.0-15.5); LYMPH # 1.8 10^3/uL (1.5-5.0); LYMPH % 17.8 % (24.0-44.0); MEAN CORPUSCULAR HEMOGLOBIN 20.4 pg (27.0-33.0); MEAN CORPUSCULAR HGB CONC 29.3 g/dl (32.0-36.5); MEAN CORPUSCULAR VOLUME 69.6 fl (80.0-96.0); MONO # 0.5 10^3/uL (0.0-0.8); MONO % 4.8 % (2.0-8.0); NEUTROPHILS # 7.6 10^3/uL (1.5-8.5); NEUTROPHILS % 74.7 % (36.0-66.0); PLATELET COUNT, AUTOMATED 543 10^3/uL (150-450); RED BLOOD COUNT 3.82 10^6/uL (4.00-5.40); WHITE BLOOD COUNT 10.2 10^3/uL (4.0-10.0)
[2022-10-03 06:10] LABS: CALCIUM LEVEL 7.9 MG/DL (8.5-10.1); CREATININE FOR GFR 1.16 MG/DL (0.55-1.30); GLOMERULAR FILTRATION RATE 55.1 (>58); POTASSIUM SERUM 4.9 MMOL/L (3.5-5.1)
[2022-10-03 06:12] LABS: ERYTHROCYTE SEDIMENTATION RATE 118 mm/hr (0-20)
[2022-10-03] MEDS: ONDANSETRON 4MG 2ML VIAL IV PRN ×3 (06:14→21:37)
[2022-10-03] MEDS: PANTOPRAZOLE 40MG TAB (PROTONIX) PO SCH (08:11)
[2022-10-03] MEDS: LINEZOLID 600MG TABLET (ZYVOX) PO SCH ×2 (08:11→21:36)
[2022-10-03] MEDS: METOCLOPRAMIDE 10MG TAB PO SCH ×4 (08:11→21:36)
[2022-10-03] MEDS: INSULIN LISPRO (NovoLOG) PER UNIT SC SCH ×4 (08:12→21:00)
[2022-10-03] MEDS ORDERED: SENN-52 PO (11:37)
[2022-10-03] MEDS ORDERED: PERCOCET PO (11:37)
[2022-10-03] MEDS ORDERED: LINE1TAB6 PO (11:37)
[2022-10-03] MEDS ORDERED: BACI1CAP PO (11:37)
[2022-10-03] MEDS ORDERED: ATEN25TA PO (11:37)
[2022-10-03] MEDS ORDERED: atenoloL 25 MG TAB PO ONE (12:00)
[2022-10-03 13:57] VITALS: BP 132/62
[2022-10-03 14:00] VITALS: BP 129/86; TEMP 97.7; O2SAT 98
[2022-10-03 21:00] VITALS: BP 134/86; TEMP 97.5; O2SAT 98
[2022-10-04 05:30] VITALS: BP 136/88; TEMP 97.2; O2SAT 97
[2022-10-04] MEDS: HEPARIN SOD (PORCINE) 5000UNITS/ML 1ML VIAL/SYRINGE SC SCH ×3 (05:41→21:55)
[2022-10-04 06:19] LABS: BASO # 0.1 10^3/uL (0.0-0.2); EOS % 0.1 % (0.0-3.0); HEMATOCRIT 27.3 % (36.0-47.0); HEMOGLOBIN 7.8 g/dl (12.0-15.5); LYMPH # 2.4 10^3/uL (1.5-5.0); LYMPH % 21.4 % (24.0-44.0); MEAN CORPUSCULAR HEMOGLOBIN 20.1 pg (27.0-33.0); MEAN CORPUSCULAR HGB CONC 28.6 g/dl (32.0-36.5); MEAN CORPUSCULAR VOLUME 70.2 fl (80.0-96.0); MONO # 0.5 10^3/uL (0.0-0.8); MONO % 4.3 % (2.0-8.0); NEUTROPHILS # 8.2 10^3/uL (1.5-8.5); NEUTROPHILS % 71.6 % (36.0-66.0); PLATELET COUNT, AUTOMATED 572 10^3/uL (150-450); RED BLOOD COUNT 3.89 10^6/uL (4.00-5.40); WHITE BLOOD COUNT 11.4 10^3/uL (4.0-10.0)
[2022-10-04 06:39] LABS: CALCIUM LEVEL 7.9 MG/DL (8.5-10.1); CREATININE FOR GFR 1.28 MG/DL (0.55-1.30); GLOMERULAR FILTRATION RATE 49.2 (>58); POTASSIUM SERUM 5.3 MMOL/L (3.5-5.1)
[2022-10-04] MEDS: LINEZOLID 600MG TABLET (ZYVOX) PO SCH ×2 (08:19→20:38)
[2022-10-04] MEDS: METOCLOPRAMIDE 10MG TAB PO SCH ×4 (08:19→20:38)
[2022-10-04 08:20] VITALS: BP 136/88
[2022-10-04] MEDS: atenoloL 25 MG TAB PO SCH (08:20)
[2022-10-04] MEDS: PANTOPRAZOLE 40MG TAB (PROTONIX) PO SCH (08:20)
[2022-10-04] MEDS: INSULIN LISPRO (NovoLOG) PER UNIT SC SCH ×4 (08:21→21:00)
[2022-10-04] MEDS: ONDANSETRON 4MG 2ML VIAL IV PRN ×3 (08:28→20:38)
[2022-10-04 14:00] VITALS: BP 126/79; TEMP 97.9; O2SAT 98
[2022-10-04 20:30] VITALS: BP 111/65; TEMP 98.1; O2SAT 99
[2022-10-05] MEDS: HEPARIN SOD (PORCINE) 5000UNITS/ML 1ML VIAL/SYRINGE SC SCH (05:04)
[2022-10-05 05:52] LABS: BASO # 0.1 10^3/uL (0.0-0.2); BASO % 1.1 % (0.0-1.0); EOS % 0.1 % (0.0-3.0); HEMATOCRIT 28.9 % (36.0-47.0); HEMOGLOBIN 8.2 g/dl (12.0-15.5); LYMPH # 2.4 10^3/uL (1.5-5.0); LYMPH % 26.5 % (24.0-44.0); MEAN CORPUSCULAR HEMOGLOBIN 19.9 pg (27.0-33.0); MEAN CORPUSCULAR HGB CONC 28.4 g/dl (32.0-36.5); MEAN CORPUSCULAR VOLUME 70.1 fl (80.0-96.0); MONO # 0.5 10^3/uL (0.0-0.8); NEUTROPHILS # 5.9 10^3/uL (1.5-8.5); NEUTROPHILS % 66.2 % (36.0-66.0); PLATELET COUNT, AUTOMATED 599 10^3/uL (150-450); RED BLOOD COUNT 4.12 10^6/uL (4.00-5.40)
[2022-10-05 06:25] VITALS: BP 140/85; TEMP 97.5; O2SAT 98
[2022-10-05 06:29] LABS: CALCIUM LEVEL 8.3 MG/DL (8.5-10.1); CREATININE FOR GFR 1.38 MG/DL (0.55-1.30); GLOMERULAR FILTRATION RATE 45.1 (>58); POTASSIUM SERUM 5.8 MMOL/L (3.5-5.1)
[2022-10-05] MEDS ORDERED: DEXTROSE 50% 50ML SYRINGE IV STA (07:30)
[2022-10-05] MEDS ORDERED: HumuLIN R (REGULAR) INSULIN (NovoLIN R) **100U/ML** PER UNIT IV STA (07:30)
[2022-10-05] MEDS ORDERED: ALBUTEROL SULFATE 2.5MG/0.5ML INH NEB SOLN NEB ONE (07:30)
[2022-10-05] MEDS: INSULIN LISPRO (NovoLOG) PER UNIT SC SCH ×2 (07:49→13:07)
[2022-10-05] MEDS: ONDANSETRON 4MG 2ML VIAL IV PRN (07:49)
[2022-10-05] MEDS: atenoloL 25 MG TAB PO SCH (09:00)
[2022-10-05] MEDS: PANTOPRAZOLE 40MG TAB (PROTONIX) PO SCH (09:00)
[2022-10-05] MEDS: METOCLOPRAMIDE 10MG TAB PO SCH ×2 (09:46→13:06)
[2022-10-05] MEDS: LINEZOLID 600MG TABLET (ZYVOX) PO SCH (09:48)
[2022-10-05 14:00] VITALS: BP 136/81; TEMP 97.5; O2SAT 99
== END 2022-10-05 14:15 | disposition home or self-care (01) | DRG 314 ==
LOC: M SDC 15:18 → M MS5PR 18:35 → M SDC 22:03 → M MS5PR 22:04
PROVIDERS: ADMIT Internal Medicine; ATTEND Student in an Organized Health Care Education/Training Program
PROC: 0QTN0ZZ Resection of Right Metatarsal, Open Approach (ICD-10-PCS; 2022-09-27)
PROC: 30233N1 Transfusion of Nonautologous Red Blood Cells into Peripheral Vein, Percutaneous Approach (ICD-10-PCS; principal; 2022-09-28)
DX: E11.69 Type 2 diabetes mellitus with other specified complication (principal); E11.621 Type 2 diabetes mellitus with foot ulcer; K31.84 Gastroparesis; M86.8X7 Other osteomyelitis, ankle and foot; L97.519 Non-pressure chronic ulcer of other part of right foot with unspecified severity; N04.9 Nephrotic syndrome with unspecified morphologic changes; E11.43 Type 2 diabetes mellitus with diabetic autonomic (poly)neuropathy; E11.51 Type 2 diabetes mellitus with diabetic peripheral angiopathy without gangrene; I73.9 Peripheral vascular disease, unspecified; K21.9 Gastro-esophageal reflux disease without esophagitis; D63.8 Anemia in other chronic diseases classified elsewhere; Z87.891 Personal history of nicotine dependence; Z79.4 Long term (current) use of insulin; Z79.2 Long term (current) use of antibiotics; Z79.82 Long term (current) use of aspirin; Z79.899 Other long term (current) drug therapy; Z79.02 Long term (current) use of antithrombotics/antiplatelets; Z95.828 Presence of other vascular implants and grafts

== ENCOUNTER 2024-08-19 13:29 | Inpatient (IN) | payer MEDICAID, OTHER ==
[~2024-08-19] VITALS: Ht 165.1 cm; Wt 112.6 kg
[~2024-08-19 13:29] MED LIST changes: +ATEN25TA PO; +BACI1CAP PO; +FLUO-365 PO; -FLUO20CA22 PO; +GLIP5TAB17 PO; -GLIP5TAB8 PO; -HYDR50TA PO; +HYDR50TA47 PO; +LINE1TAB6 PO; +MAG30ORA18 PO; -MYLASSUD PO; -OLAN2.5T25 PO; +OLAN2.5T53 PO; +ONDA-282 PO; +ONDA-284 SL; -ONDA4TAB6 PO; -ONDA8TAB8 SL; +PERCOCET PO; -SENN-111 PO; +SENN-165 PO; +SENN-52 PO
[2024-08-19 14:52] LABS: BASO # 0.0 10^3/uL (0.0-0.2); BASO % 0.7 % (0.0-1.0); EOS # 0.1 10^3/uL (0.0-0.5); EOS % 2.0 % (0.0-3.0); LYMPH # 0.8 10^3/uL (1.5-5.0); LYMPH % 13.1 % (24.0-44.0); MONO # 0.3 10^3/uL (0.0-0.8); MONO % 4.9 % (2.0-8.0); NEUTROPHILS # 4.8 10^3/uL (1.5-8.5); NEUTROPHILS % 79.0 % (36.0-66.0); PLATELET COUNT, AUTOMATED 288 10^3/uL (150-450)
[2024-08-19 15:03] LABS: INR 1.12
[2024-08-19 15:18] LABS: ALT/SGPT 19 U/L (7.0-40); AST/SGOT 13 U/L (<34); CALCIUM LEVEL 7.6 MG/DL (8.5-10.1); CARBON DIOXIDE LEVEL 14 MMOL/L (20-31); CHLORIDE LEVEL 114 MMOL/L (98-107); CK-MB VALUE MASS 10.7 NG/ML (<3.6); CREATININE FOR GFR 4.47 MG/DL (0.55-1.30); GLOMERULAR FILTRATION RATE 12.0 (>58); POTASSIUM SERUM 5.5 MMOL/L (3.5-5.1); SODIUM LEVEL 141 MMOL/L (136-145)
[2024-08-19 15:20] LABS: THYROXINE (T4) 4.3 UG/DL (4.5-10.9)
[2024-08-19 15:21] LABS: CPK CREATINE PHOSPHOKINASE 110 U/L (34-145); MB/CK RELATIVE INDEX 9.72 (< OR =4)
[2024-08-19] MEDS ORDERED: FUROSEMIDE 40 MG/4 ML VIAL IV ONE (17:00)
[2024-08-19] MEDS ORDERED: EZET10TA21 PO (17:35)
[2024-08-19] MEDS ORDERED: SIMV10TA21 PO (17:35)
[2024-08-19] MEDS ORDERED: CARV12.5 PO (17:35)
[2024-08-19] MEDS ORDERED: FERR325T3 PO (17:35)
[2024-08-19] MEDS ORDERED: URSO300C3 PO (17:35)
[2024-08-19] MEDS ORDERED: BASA100I INJ (17:35)
[2024-08-19] MEDS ORDERED: AMLO1TAB24 PO (17:35)
[2024-08-19] MEDS ORDERED: LEXA1TAB2 PO (17:36)
[2024-08-19] MEDS ORDERED: HOME MED LIST COMPLETE! XX SCH (17:40)
[2024-08-19] MEDS: FUROSEMIDE 100 MG/10 ML VIAL IV ONE (17:59)
[2024-08-19] MEDS ORDERED: ACETAMINOPHEN 325 MG TAB PO PRN (18:10)
[2024-08-19] MEDS ORDERED: DEXTROSE 50% 50 ML SYRINGE IV PRN (18:10)
[2024-08-19] MEDS ORDERED: GLUCAGON INJ 1 MG VIAL SC PRN (18:10)
[2024-08-19] MEDS ORDERED: GLUCOSE 4 GM CHEW PO PRN (18:10)
[2024-08-19] MEDS: LanTUS (INSULIN GLARGINE INJ) 1 UNITS/0.01 ML SC SCH (21:00)
[2024-08-19 21:26] VITALS: BP 166/79; TEMP 97.6; O2SAT 98
[2024-08-19 23:34] VITALS: BP 155/74; TEMP 97.8; O2SAT 98
[2024-08-20] VITALS (8 sets, daily range): BP systolic 138–184; BP diastolic 68–85; TEMP 97.5–98.7; O2SAT 94–99
[2024-08-20] MEDS: SIMVASTATIN 10 MG TAB PO SCH (00:22)
[2024-08-20] MEDS: FUROSEMIDE 100 MG/10 ML VIAL IV SCH (00:22)
[2024-08-20] MEDS: EZETIMIBE 10 MG TABLET PO SCH (00:23)
[2024-08-20 07:18] LABS: BASO # 0.1 10^3/uL (0.0-0.2); BASO % 1.2 % (0.0-1.0); EOS # 0.2 10^3/uL (0.0-0.5); EOS % 3.6 % (0.0-3.0); LYMPH # 1.0 10^3/uL (1.5-5.0); LYMPH % 20.2 % (24.0-44.0); MONO # 0.3 10^3/uL (0.0-0.8); MONO % 5.3 % (2.0-8.0); NEUTROPHILS # 3.5 10^3/uL (1.5-8.5); NEUTROPHILS % 69.3 % (36.0-66.0); PLATELET COUNT, AUTOMATED 296 10^3/uL (150-450)
[2024-08-20 07:48] LABS: CALCIUM LEVEL 7.6 MG/DL (8.5-10.1); CARBON DIOXIDE LEVEL 13.0 MMOL/L (20-31); CHLORIDE LEVEL 114.0 MMOL/L (98-107); CREATININE FOR GFR 4.62 MG/DL (0.55-1.30); GLOMERULAR FILTRATION RATE 11.5 (>58); POTASSIUM SERUM 4.8 MMOL/L (3.5-5.1); PTH INTACT 453.7 PG/ML (18.5-88.0); SODIUM LEVEL 142.0 MMOL/L (136-145)
[2024-08-20 07:49] LABS: IRON (FE) 24 UG/DL (50-170); PERCENT SATURATION 8.8 % (13.2-45.0)
[2024-08-20 07:59] LABS: HEPATITIS B SURFACE ANTIBODY NEGATIVE (POSITIVE)
[2024-08-20] MEDS: INSULIN LISPRO (NovoLOG) PER UNIT SC SCH (08:03)
[2024-08-20] MEDS: ASPIRIN 81 MG ENTERIC TABLET PO SCH (08:03)
[2024-08-20] MEDS: PANTOPRAZOLE 40MG TAB PO SCH (08:03)
[2024-08-20] MEDS: ESCITALOPRAM OXALATE 10 MG TABLET PO SCH (08:06)
[2024-08-20 08:32] LABS: HEPATITIS C VIRUS ABY INDEX < 0.02 INDEX (<0.8)
[2024-08-20] MEDS ORDERED: SODIUM CHLORIDE 0.9% 1000 ML IV PRN (09:30)
[2024-08-20] MEDS ORDERED: HEPARIN 1,000 UNITS/ML 10 ML VIAL (FOR RADIOLOGY & DIALYSIS ONLY) IV PRN ×2 (09:30→12:10)
[2024-08-20] MEDS: LIDOCAINE 1% MDV 20 ML VIAL SC SCH (12:10)
[2024-08-20] MEDS: ceFAZolin SODIUM 2 GM in DEXTROSE 5% (D5W) ADV/MINI-BAG 50 ML IV ONE (13:20)
[2024-08-20] MEDS: HEPARIN 1,000 UNITS/ML 10 ML VIAL (FOR RADIOLOGY & DIALYSIS ONLY) XX SCH (15:15)
[2024-08-20] MEDS: amLODIPine 5 MG TAB PO SCH (20:27)
[2024-08-21] VITALS (7 sets, daily range): BP systolic 154–175; BP diastolic 71–79; TEMP 97.8–98.4; O2SAT 97–99
[2024-08-21] MEDS ORDERED: HEPARIN 1,000 UNITS/ML 10 ML VIAL (FOR RADIOLOGY & DIALYSIS ONLY) IV PRN (06:00)
[2024-08-21] MEDS ORDERED: SODIUM CHLORIDE 0.9% 1000 ML IV PRN (06:00)
[2024-08-21 06:49] LABS: BASO # 0.1 10^3/uL (0.0-0.2); BASO % 0.9 % (0.0-1.0); EOS # 0.2 10^3/uL (0.0-0.5); EOS % 3.3 % (0.0-3.0); LYMPH # 1.0 10^3/uL (1.5-5.0); LYMPH % 17.6 % (24.0-44.0); MONO # 0.3 10^3/uL (0.0-0.8); MONO % 6.3 % (2.0-8.0); NEUTROPHILS # 3.9 10^3/uL (1.5-8.5); NEUTROPHILS % 71.5 % (36.0-66.0); PLATELET COUNT, AUTOMATED 314 10^3/uL (150-450)
[2024-08-21 07:14] LABS: CALCIUM LEVEL 7.6 MG/DL (8.5-10.1); CARBON DIOXIDE LEVEL 20.0 MMOL/L (20-31); CHLORIDE LEVEL 110.0 MMOL/L (98-107); CREATININE FOR GFR 3.39 MG/DL (0.55-1.30); GLOMERULAR FILTRATION RATE 16.7 (>58); POTASSIUM SERUM 4.0 MMOL/L (3.5-5.1); SODIUM LEVEL 143.0 MMOL/L (136-145)
[2024-08-21] MEDS: HEPARIN 1,000 UNITS/ML 10 ML VIAL (FOR RADIOLOGY & DIALYSIS ONLY) XX SCH (09:42)
[2024-08-22 05:00] VITALS: BP 152/72; TEMP 98.2; O2SAT 97
[2024-08-22 06:47] LABS: BASO # 0.0 10^3/uL (0.0-0.2); BASO % 0.8 % (0.0-1.0); EOS # 0.2 10^3/uL (0.0-0.5); EOS % 4.4 % (0.0-3.0); LYMPH # 0.8 10^3/uL (1.5-5.0); LYMPH % 15.9 % (24.0-44.0); MONO # 0.5 10^3/uL (0.0-0.8); MONO % 8.6 % (2.0-8.0); NEUTROPHILS # 3.6 10^3/uL (1.5-8.5); NEUTROPHILS % 69.5 % (36.0-66.0); PLATELET COUNT, AUTOMATED 295 10^3/uL (150-450)
[2024-08-22 07:16] LABS: CALCIUM LEVEL 7.4 MG/DL (8.5-10.1); CARBON DIOXIDE LEVEL 20.0 MMOL/L (20-31); CHLORIDE LEVEL 108.0 MMOL/L (98-107); CREATININE FOR GFR 2.86 MG/DL (0.55-1.30); GLOMERULAR FILTRATION RATE 20.4 (>58); POTASSIUM SERUM 4.2 MMOL/L (3.5-5.1); SODIUM LEVEL 142.0 MMOL/L (136-145)
[2024-08-22 11:51] VITALS: BP 131/63; TEMP 96.6; O2SAT 100
[2024-08-22 12:06] VITALS: BP 131/63; TEMP 96.6; O2SAT 100
[2024-08-22] MEDS: MIRALAX *UNIT DOSE* 17 GM PACKET PO SCH (13:26)
[2024-08-22] MEDS: BISACODYL 10 MG SUPP PR ONE (13:26)
[2024-08-22] MEDS ORDERED: AMLO1TAB24 PO (13:55)
[2024-08-22] MEDS ORDERED: DOCU8.6T PO (13:55)
[2024-08-22] MEDS ORDERED: LISI20TA33 PO (13:55)
[2024-08-22] MEDS ORDERED: MIRA33506 PO (13:55)
[2024-08-22] MEDS ORDERED: SENNOSIDES/DOCUSATE SODIUM 8.6 MG/50MG TAB PO SCH (21:00)
== END 2024-08-22 15:42 | disposition home or self-care (01) | DRG 194 ==
LOC: M ED 13:29 → M ED INP 18:07 → M MS4PR 21:30
PROVIDERS: ADMIT Internal Medicine Nephrology; ATTEND Internal Medicine Nephrology
PROC: 0JH63XZ Insertion of Tunneled Vascular Access Device into Chest Subcutaneous Tissue and Fascia, Percutaneous Approach (ICD-10-PCS; 2024-08-20)
PROC: 02HV33Z Insertion of Infusion Device into Superior Vena Cava, Percutaneous Approach (ICD-10-PCS; principal; 2024-08-20 16:30)
DX: I13.2 Hypertensive heart and chronic kidney disease with heart failure and with stage 5 chronic kidney disease, or end stage renal disease (principal); E87.5 Hyperkalemia; E10.43 Type 1 diabetes mellitus with diabetic autonomic (poly)neuropathy; E10.51 Type 1 diabetes mellitus with diabetic peripheral angiopathy without gangrene; Z89.512 Acquired absence of left leg below knee; I50.33 Acute on chronic diastolic (congestive) heart failure; Z79.82 Long term (current) use of aspirin; Z79.899 Other long term (current) drug therapy; Z91.041 Radiographic dye allergy status; D63.1 Anemia in chronic kidney disease; E66.9 Obesity, unspecified; K21.9 Gastro-esophageal reflux disease without esophagitis; J45.909 Unspecified asthma, uncomplicated; F41.9 Anxiety disorder, unspecified; F32.A Depression, unspecified; I25.10 Atherosclerotic heart disease of native coronary artery without angina pectoris; N18.5 Chronic kidney disease, stage 5; E78.5 Hyperlipidemia, unspecified; Z89.421 Acquired absence of other right toe(s); Z79.4 Long term (current) use of insulin; D50.9 Iron deficiency anemia, unspecified; N17.9 Acute kidney failure, unspecified; E87.20 Acidosis, unspecified; E87.70 Fluid overload, unspecified

== ENCOUNTER 2024-09-22 00:05 | Emergency (ER) | payer MEDICAID ==
[~2024-09-22] VITALS: Ht 165.1 cm; Wt 100.0 kg
[~2024-09-22 00:05] MED LIST changes: +BASA100I INJ; +CARV12.5 PO; +DOCU8.6T PO; +EZET10TA21 PO; +FERR325T3 PO; +LEXA1TAB2 PO; +LISI20TA33 PO; +MIRA33506 PO; +SIMV10TA21 PO; +URSO300C3 PO
[2024-09-22 01:19] LABS: VENOUS BASE EXCESS -2.2 (-2.0-2.0); VENOUS HCO3 22.4 MMOL/L (23.0-27.0); VENOUS O2 SATURATION 90.3 % (60.0-80.0); VENOUS PARTIAL PRESSURE CO2 37.9 mmHg (38.0-50.0); VENOUS PARTIAL PRESSURE O2 61.9 mmHg (30.0-50.0); VENOUS PH 7.390 UNITS (7.330-7.430); VENOUS STANDARD HCO3 22.5 MMOL/L; VENOUS TOTAL CO2 23.6 MMOL/L (24.0-28.0)
[2024-09-22 01:25] LABS: BASO # 0.0 10^3/uL (0.0-0.2); BASO % 0.4 % (0.0-1.0); EOS # 0.1 10^3/uL (0.0-0.5); EOS % 0.5 % (0.0-3.0); LYMPH # 0.5 10^3/uL (1.5-5.0); LYMPH % 4.7 % (24.0-44.0); MONO # 0.2 10^3/uL (0.0-0.8); MONO % 1.5 % (2.0-8.0); NEUTROPHILS # 9.4 10^3/uL (1.5-8.5); NEUTROPHILS % 92.3 % (36.0-66.0); PLATELET COUNT, AUTOMATED 315 10^3/uL (150-450)
[2024-09-22 01:34] LABS: ESTIMATED AVERAGE GLUCOSE 111.0 MG/DL (60-110)
[2024-09-22 01:50] LABS: OSMOLALITY SERUM 313.0 MOSM/KG (275-295)
[2024-09-22 02:02] LABS: ACETONE/KETONE 1.09 MMOL/L (0.02-0.27); ALT/SGPT 12.0 U/L (7.0-40); AST/SGOT 14.0 U/L (<34)
[2024-09-22 05:15] LABS: CALCIUM LEVEL 8.3 MG/DL (8.5-10.1); CARBON DIOXIDE LEVEL 23.0 MMOL/L (20-31); CHLORIDE LEVEL 103.0 MMOL/L (98-107); CREATININE FOR GFR 2.76 MG/DL (0.55-1.30); GLOMERULAR FILTRATION RATE 21.3 (>58); POTASSIUM SERUM 3.6 MMOL/L (3.5-5.1); SODIUM LEVEL 142.0 MMOL/L (136-145)
[2024-09-22] MEDS ORDERED: hydrALAZINE 20 MG/ML 1 ML VIAL IV ONE (06:50)
[2024-09-22] MEDS: hydrALAZINE 20 MG/ML 1 ML VIAL IV ONE ×2 (08:19→10:07)
[2024-09-22 09:52] LABS: KETONE, URINE AUTO RFX 1+ mg/dL (NEGATIVE); LEUKOCYTE ESTERASE UR AUTO RFX NEGATIVE (NEGATIVE); MUCUS, URINE RFX SMALL (NEGATIVE); NITRITE, URINE AUTO RFX NEGATIVE (NEGATIVE); RBC, URINE AUTO RFX 154 /HPF (0-3); SQUAM EPITHELIAL CELL UR AURFX 8 /HPF (0-6)
[2024-09-22] MEDS: NS (Normal Saline) 0.9% 1,000 ML IV SCH (10:06)
[2024-09-22] MEDS: ONDANSETRON 4MG 2ML VIAL IV ONE (10:06)
[2024-09-22 10:07] VITALS: BP 190/95
[2024-09-22 10:17] LABS: WBC, URINE AUTO RFX 15 /HPF (0-3)
[2024-09-22 10:45] VITALS: BP 140/65; O2SAT 94
[2024-09-22 10:52] VITALS: TEMP 97.2
[2024-09-22] MEDS ORDERED: LISI20TA33 PO (11:59)
[2024-09-22] MEDS ORDERED: CARV12.5 PO (11:59)
[2024-09-22] MEDS ORDERED: PROT1TAB2 PO (11:59)
[2024-09-22] MEDS ORDERED: REGL10TA6 PO (11:59)
[2024-09-22] MEDS ORDERED: AMLO1TAB24 PO (11:59)
== END 2024-09-22 12:15 | disposition home or self-care (01) ==
LOC: M ED 00:05
DX: I12.0 Hypertensive chronic kidney disease with stage 5 chronic kidney disease or end stage renal disease (principal); N18.6 End stage renal disease; R11.10 Vomiting, unspecified; E10.9 Type 1 diabetes mellitus without complications; Z87.19 Personal history of other diseases of the digestive system; Z89.429 Acquired absence of other toe(s), unspecified side; F19.10 Other psychoactive substance abuse, uncomplicated; Z79.82 Long term (current) use of aspirin; Z79.4 Long term (current) use of insulin; Z79.899 Other long term (current) drug therapy; Z91.041 Radiographic dye allergy status
CPT/HCPCS: 74018; 80053; 80076; 81001; 82010; 82803; 83036; 83690; 83930; 85025; 87086; 93005; 96361; 96374; 96375; 96376; 99285; J0360; J2405; J2765

== ENCOUNTER → 2024-10-23 | Outpatient (CLI) | payer MEDICAID ==
[~2024-10-23] MED LIST changes: -EZET10TA21 PO; +EZET10TA57 PO; +PROT1TAB2 PO; +REGL10TA6 PO
== END ==
LOC: M WUC 11:53
PROVIDERS: ATTEND Nurse Practitioner Family
DX: R05.2 Subacute cough (principal); I51.7 Cardiomegaly

== ENCOUNTER → 2024-11-28 | Outpatient (CLI) | payer MEDICAID | LOC: M SLEEP HO 11:23 | PROVIDERS: ATTEND Nurse Practitioner Family | DX: G47.33 Obstructive sleep apnea (adult) (pediatric) (principal); R06.83 Snoring ==